=== PATIENT | female | born 2000 | race Caucasian/White ===

== ENCOUNTER 2022-12-28 15:15 | Outpatient (CLI) | payer OTHER, SELFPAY ==
[2022-12-28] VITALS (30 sets, daily range): BP systolic 122–142; BP diastolic 55–76; PULSE 91–140; TEMP 37.4; O2SAT 98–99; BMI 29.3
[2022-12-28 16:16] LABS: Hematocrit 36.2 % (37-47); Hemoglobin 12.5 g/dL (12.0-15.0); Mean Corp Hgb Conc 34.5 g/dL (32-36); Mean Corpuscular Volume 86.8 fL (81-99); Mean Platelet Vol. 12.4 fl (6.2-12.0); Platelet Count 176 K/mm3 (150-450); RBC Distribution Width CV 12.8 % (11.6-14.6); Red Blood Count 4.17 M/mm3 (4.2-5.4); White Blood Count 9.1 K/mm3 (4.4-11.0)
[2022-12-28 16:24] LABS: Protein, Urine (Random) 61.3 mg/dL (<11.9); Protein:Creat Ratio 372 mg/g CRE (0-200)
[2022-12-28 16:29] LABS: AST(SGOT) 22 U/L (15-37); Alanine Aminotransfer ALT/SGPT 11 U/L (13-56); Creatinine, Serum 0.75 mg/dL (0.55-1.02); EST Glomerular Filtration Rate 103 mL/min (>60); Est Glom Filt Rate - Afr Amer 124 mL/min (>60); Estimated Creatinine Clearance 105.87 ml/min; Uric Acid 6.4 mg/dL (2.6-6.0)
[2022-12-28] MEDS: Acetaminophen 500 MG Tablet 1000 MG PO (17:44)
[2022-12-28] MEDS: Lactated Ringers 1,000 ML 999 ML IV (17:45)
[2022-12-28] MEDS: Lactated Ringers 1,000 ML 125 ML IV (18:44)
--- NOTE | 2022-12-28 21:54 | OB.TRI.HP_ITS ---
HPI - General General Date of Admission: 12/28/22 Date of Service: 12/28/22 Chief Complaint: elevated blood pressure reading HPI Narrative KIN ALEJO, is a 22 F at 37w0d who presents from the office for rule out pre eclampsia. She has a BEE that she rates 1/10 that is improved with Tylenol. No vision changes or upper abd pain. No ctx, vb, lof. Good FM. She feels well and went in for a routine visit. No hyperreflexia on exam in the office. Her BP was normal in the office but elevated from her baseline and she had proteinuria. PFSH PFSH Home Medications cetirizine 5 mg tablet 5 mg PO DAILY PRN 12/28/22 [History Last Taken 12/28/22 09:00 5 mg] doxylamine succinate 25 mg tablet (Unisom (doxylamine)) 25 mg PO QHS PRN 12/28/22 [History Last Taken 12/27/22 21:00 25 mg] Allergy/AdvReac Type Severity Reaction Status Date / Time No Known Allergies Allergy Verified 12/28/22 15:55 NST FHR Rate Baby A Baseline: 130 Variability:: Moderate Accelerations:: 15 x 15 Decelerations:: None NST Reactive:: Yes FHR Category:: Category I Uterine Activity:: Irregular ctx's Assessment & Plan (1) 37 weeks gestation of : PLAN: Pt presents from the office for rule out pre eclampsia. Her BP in the office was normal but elevated from her baseline, and she had proteinuria. Therefore she was sent over for serial BP monitoring and labs. Upon presentation she had 2 initial mild range BP's that were not 4 hours apart. After 4+ hours of monitoring, serial BP's were normal with majority of her BP's being 120's/60- 70's. She did not have 2 elevated BP's 4 hours apart. Her mild BEE improved with Tylenol. Her labs were normal with a slightly elevated p/c ratio. However on presentation she was tachycardic with very concentrated urine, and she states she has not been staying hydrated today. IVF hydration given and her HR was then 90's and she felt well. Given that she did not meet criteria for gHTN or pre e, she was sent home to collect a 24 hour urine protein. She will turn it in tomorrow, and present to L&D tomorrow for a BP check as well. (2) Elevated blood pressure reading: (3) Proteinuria affecting :
[2022-12-29 21:31] LABS: 24HR. Urine Creatinine 1.14 g/24 HR (0.70-1.90)
[2022-12-29 21:33] LABS: 24 Hour Urine Protein 325.6 mg/24HR (<150 MG/24HR); 24HR. UA Prot. Total Volume 625 mL; Urine Protein (24 Hour) 52.1 mg/dL (<11.9)
== END 2022-12-28 20:46 | disposition home or self-care (01) ==
LOC: WPOUT 15:39 → WP 15:40
PROVIDERS: Referring Provider Obstetrics & Gynecology; Visit Provider Obstetrics & Gynecology
DX: O26.893 Other specified pregnancy related conditions, third trimester (principal); O12.13 Gestational proteinuria, third trimester; O99.891 Other specified diseases and conditions complicating pregnancy; R03.0 Elevated blood-pressure reading, without diagnosis of hypertension; Z3A.37 37 weeks gestation of pregnancy
CPT/HCPCS: 96360; 96361 ×2; 36415; 59025; 59050; 81050; 82565; 82570; 84156; 84450; 84460; 84550; 85027; 86850; 86900; 86901; 99221; J7120; G0378

== ENCOUNTER 2022-12-29 21:10 | Outpatient (CLI) | payer OTHER, SELFPAY ==
[2022-12-29] VITALS (7 sets, daily range): BP systolic 118–125; BP diastolic 73–84; PULSE 85–112; TEMP 37.4; O2SAT 98–100; BMI 29.5
[2022-12-29] MEDS: Acetaminophen 500 MG Tablet 1000 MG PO (22:25)
--- NOTE | 2022-12-30 01:19 | OB.TRI.NOTE ---
HPI - General General Date of Admission: 12/29/22 Date of Service: 12/29/22 Chief Complaint: BP check HPI Narrative KIN ALEJO, is a 22 F who presents to turn in 24 hour urine collection and for a BP check on L&D. She has a mild BEE that she states she would not even take medication for. No visual changes, malaise, upper abd pain. No vb, lof. Good FM. She offers no complaints. PFSH PFSH Home Medications cetirizine 5 mg tablet 5 mg PO DAILY PRN 12/28/22 [History Last Taken 12/28/22 09:00 5 mg] doxylamine succinate 25 mg tablet (Unisom (doxylamine)) 25 mg PO QHS PRN 12/28/22 [History Last Taken 12/27/22 21:00 25 mg] Allergy/AdvReac Type Severity Reaction Status Date / Time No Known Allergies Allergy Verified 12/29/22 21:36 NST FHR Rate Baby A Baseline: 130 Variability:: Moderate Accelerations:: 15 x 15 Decelerations:: None NST Reactive:: Yes FHR Category:: Category I Uterine Activity:: irregular ctx's Assessment & Plan (1) 37 weeks gestation of : PLAN: Pt presents to turn in 24 hour urine collection and for BP check. She was observed for an hour with serial BP's q 15 min - all BP's were normal. Her mild BEE resolved with Tylenol. At this time she does not meet criteria for gHTN or pre eclampsia. Message sent to office for her to have a formal ultrasound to check growth and fluid on Saturday with a visit for a BP check. (2) Elevated blood pressure reading: (3) Proteinuria affecting :
[2022-12-30 06:56] VITALS: PULSE 79; O2SAT 98
[2022-12-30 06:58] VITALS: BP 139/85; PULSE 84
== END 2022-12-29 23:40 | disposition home or self-care (01) ==
LOC: WPOUT 21:14 → WP 21:15
PROVIDERS: Visit Provider Obstetrics & Gynecology
DX: O26.899 Other specified pregnancy related conditions, unspecified trimester (principal); O12.10 Gestational proteinuria, unspecified trimester; O99.891 Other specified diseases and conditions complicating pregnancy; R03.0 Elevated blood-pressure reading, without diagnosis of hypertension
CPT/HCPCS: 59025; 59050; 99221; G0378

== ENCOUNTER 2022-12-30 19:00 | Inpatient (IN) | payer OTHER, SELFPAY ==
[2022-12-30 19:18] VITALS: BMI 29.4
[2022-12-30] MEDS: Lactated Ringers 1,000 ML 50 ML IV (19:30)
[2022-12-30 20:03] VITALS: TEMP 36.3
[2022-12-30 20:04] VITALS: PULSE 112; O2SAT 99
[2022-12-30 20:14] LABS: Absolute Neutrophil Count 7.4 X10^3/uL (2.0-7.7); Basophil# 0.03 X10^3/uL; Basophil% 0.3 % (0-1); Eosinophil# 0.04 X10^3/uL; Eosinophils% 0.4 % (0-5); Lymphocyte % 24.9 % (19-41); Mean Corp Hgb Conc 33.3 g/dL (32-36); Mean Corpuscular Hgb 29.6 pg (27.0-32.0); Mean Corpuscular Volume 88.7 fL (81-99); Mean Platelet Vol. 12.3 fl (6.2-12.0); Monocyte# 0.92 X10^3/uL; Monocyte% 8.2 % (0-10); NRBC Flagged by Analyzer 0 % (0-5); Neutrophil % 65.8 % (47-70); Platelet Count 176 K/mm3 (150-450); RBC Distribution Width CV 12.5 % (11.6-14.6); RBC Distribution Width SD 41.1 fl (35.1-43.9); Red Blood Count 4.06 M/mm3 (4.2-5.4); White Blood Count 11.2 K/mm3 (4.4-11.0)
[2022-12-30 20:17] VITALS: BP 130/74; PULSE 104
[2022-12-30] MEDS: 0.9% Normal Saline Single 100 ML IV.SOLN. INTRA-UTER (20:31)
[2022-12-30] MEDS: LACTATED RINGERS 500 ML 999 ML IV (20:35)
--- NOTE | 2022-12-30 20:50 | PCM.HP.OB ---
HPI - General General Date of Admission: 12/30/22 Date of Service: 12/30/22 Chief Complaint: pre eclampsia HPI Narrative KIN ALEJO, is a 22 F who presents for scheduled IOL. She is a at 37w2d with pre eclampsia without severe features. Mildly elevated BP's and proteinuria. She has no symptoms of pre e at this time other than worsened swelling today. Having some painful ctx's. No vb, lof. Good FM. PFSH PFSH Medical History (Updated 12/30/22 @ 20:[address] Kin Walker, DO) Pre-eclampsia Home Medications cetirizine 5 mg tablet 5 mg PO DAILY PRN 12/28/22 [History Last Taken 12/29/22 11:30] doxylamine succinate 25 mg tablet (Unisom (doxylamine)) 25 mg PO QHS PRN 12/28/22 [History Last Taken 12/27/22 22:00] Allergy/AdvReac Type Severity Reaction Status Date / Time No Known Allergies Allergy Verified 12/30/22 19:20 Social History Smoking Status: Never smoker History Elective abortions Hx Para 0 Spontaneous abortions Hx # Term Pregnancies Ectopic pregnancies Hx # Pregnancies Multiple births # of living children NST FHR Rate Baby A FHR Category:: Category I Uterine Activity:: ctx's q 1 min Vital Signs Vital Signs Vital Signs: 12/30/22 20:04 12/30/22 20:04 12/30/22 20:03 Temperature Temperature Source Temporal Pulse Rate 112 H Blood Pressure BP Systolic BP Diastolic Pulse Ox 99 12/30/22 20:03 12/30/22 20:17 12/30/22 20:17 Temperature 97.4 F L Temperature Source Pulse Rate 104 H Blood Pressure 130/74 H BP Systolic 130 BP Diastolic 74 Pulse Ox Weight Weight: 177 lb Body Mass Index (BMI) 29.4 Physical Exam Const alert and no apparent distress General Appearance: comfortable HEENT normocephalic Resp normal respiratory effort GI soft to palpation GI Narrative: Gravid Narrative: Cvx 0.5/60/-2, vertex Extremity Extremity Narrative: 2+ pitting edema bilaterally No hyper reflexia Labs Labs Labs: Blood Type A NEGATIVE Antibody Screen NEGATIVE Hct 36.0 % (37-47) L Hgb 12.0 g/dL (12.0-15.0) Assessment & Plan (1) 37 weeks gestation of : PLAN: IOL at 37 wks for pre eclampsia without severe features with mildly elevated BP's and proteinuria. Routine intrapartum care. Repeat pre e labs on admission. Epidural for pain control. GBS negative. Intracervical chaidez placed in usual fashion and filled with 40 cc saline. [place] with ctx's q 1 min so no Cytotec given at this time. Once chaidez is out, will start Pitocin per protocol. EFW expected to be < 4500 g and pelvis adequate. Anticipate vaginal delivery. (2) Pre-eclampsia: (3) Primiparous:
[2022-12-30 20:59] LABS: AST(SGOT) 22 U/L (15-37); Alanine Aminotransfer ALT/SGPT 12 U/L (13-56); Creatinine, Serum 0.76 mg/dL (0.55-1.02); EST Glomerular Filtration Rate 102 mL/min (>60); Est Glom Filt Rate - Afr Amer 123 mL/min (>60); Estimated Creatinine Clearance 104.48 ml/min
[2022-12-30 22:02] VITALS: BP 132/76; PULSE 99
[2022-12-31] VITALS (52 sets, daily range): BP systolic 100–154; BP diastolic 51–82; PULSE 78–130; TEMP 36.3–37.8; O2SAT 95–100
--- NOTE | 2022-12-31 | PLAC_PTH ---
PATIENT: ROSALINA ALEJO LOC: [facility] U#:[id number] AGE/SX: 22/F ROOM: WP006 RE12/30/[address]: Dr. Rosalina Walker DO : 2000 BED: 1 DIS: 01/02/2023 SPEC #: [id number] RECD: 12/31/22 04:20 STATUS: FATUMA REJuarez #: [id number] BRIGIDO: 12/31/22 00:[address]: Rosalina Walker DEPT: SURGICAL PATHOLOGY RECD BY: Ross Kennedy ENTERED: 01/01/23 09:04 SP TYPE: PLACENTA OTHR DR: No Primary Care Phys Tissues: Placenta, NOS Procedures: Surgery Specimen Level V HEADER - OPERATION: Vaginal delivery PRE-OP DIAGNOSIS: Suspected triple I TISSUE SUBMITTED: Placenta MICROSCOPIC DIAGNOSIS Placenta: Placental disc - third trimester placenta (503 gm). - Focal acute vasculitis of subamniotic blood vessels. Membranes ? acute chorioamnionitis. Umbilical cord - three blood vessels and minimal acute funisitis. GUERO:sonal 01/03/2023 MICROSCOPIC DESCRIPTION Slides are reviewed. GROSS DESCRIPTION SPECIMEN: PLACENTA / CLINICAL INFORMATION: A. Weight: 3.31 kg B. Gestational Age: 37 weeks C. Sex: Male PLACENTAL WEIGHT (POST FIXATION): 503 gm PLACENTAL DIMENSIONS: 16 x 15 x 3.5 cm PLACENTAL SHAPE: Usual ovoid PLACENTAL WEIGHT FOR GESTATIONAL AGE: Within 10-99th percentile MEMBRANES - Present A. Insertion: Central B. Site of rupture from edge: 4 cm from edge of placental disc C. Color of membrane: Esteban-bentley D. Abnormalities: None UMBILICAL CORD - Present A. Color: Esteban-bentley B. Insertion: Marginal C. Length: 41 cm D. Diameter: 1.2 cm E. Number of vessels: Three F. Abnormalities: None PLACENTAL DISC - Present A. Color of surface: Esteban-bentley B. surface abnormalities: None C. Maternal cotyledons: Intact with minimal tears D. Attached retro placental clot: No clot E. Cut surface: Dark red and spongy F. Lesions: None G. Separate clot: Absent SECTIONS SUBMITTED: 1. Membrane roll 2. Cord, maternal end 3. Cord, end 4. Placental disc, and maternal surfaces 5. Placental disc, and maternal surfaces 6. Placental disc, and maternal surfaces SJ:sonal 01/02/2023 TC:2 CPT: 82421
[2022-12-31] MEDS: LACTATED RINGERS 500 ML 999 ML IV ×3 (00:31→21:15)
[2022-12-31] MEDS: fentaNYL-bupivacaine (epidural) 100 ML BAG EPIDURAL ×5 (01:06→21:10)
[2022-12-31] MEDS: Lactated Ringers 1,000 ML 200 ML IV ×4 (04:00→19:27)
[2022-12-31] MEDS: Oxytocin 15 Units/NS 250ml 15 UNITS/250 ML IV.SOLN 2 UNITS IV (05:52)
[2022-12-31] MEDS: Ondansetron 4 MG/2 ML Vial IV ×3 (06:44→21:36)
--- NOTE | 2022-12-31 08:17 | PCM.PN.OB ---
Subjective Subjective Resting with epidural and comfortable Objective Data Objective Data Vital Signs: Vital Signs Temp Pulse BP Pulse Ox 97.9 F 103 H 126/70 H 98 12/31/22 07:14 12/31/22 07:16 12/31/22 07:14 12/31/22 07:16 Weight: 177 lb Body Mass Index (BMI) 29.4 Intake & Output: Intake and Output for Last 24 Hours 12/29/22 12/30/22 12/31/22 23:59 23:59 23:59 Intake Total 500 / 500 1500.00 / 1500.00 Output Total 100 / 100 400 / 400 Balance 400 / 400 1100.00 / 1100.00 Lab / Micro Data Result Diagrams: 12/30/22 20:00 12/30/22 20:09 Labs: Laboratory Results - last 24 hr 12/30/22 20:00: WBC 11.2 H, RBC 4.06 L, Hgb 12.0, Hct 36.0 L, MCV 88.7, MCH 29.6, MCHC 33.3, RDW Std Deviation 41.1, RDW Coeff of Neftaly 12.5, Plt Count 176, MPV 12.3 H, Immature Gran % (Auto) 0.400, Neut % (Auto) 65.8, Lymph % (Auto) 24.9, [place] % (Auto) 8.2, Eos % (Auto) 0.4, Baso % (Auto) 0.3, Absolute Neuts (auto) 7.4, Absolute Lymphs (auto) 2.80, Nucleated RBC % 0 12/30/22 20:00: Blood Type A NEGATIVE, Antibody Screen POSITIVE H, Antibody Identification ANTI-D 12/30/22 20:09: Creatinine 0.76, Estim Creat Clear Calc 104.48, Est GFR (MDRD) Af Amer 123, Est GFR (MDRD) Non-Af 102, Uric Acid 7.0 H, AST 22, ALT 12 L ROS Constitutional Constitutional: Reports systems reviewed and no addt'l complaints, except as documented; Denies headache(s) Eyes Eyes: Denies acute decrease in peripheral vision, blurry vision or change in vision ENT HEENT: Reports systems reviewed and no addt'l complaints, except as documented Cardiovascular Cardiovascular: Denies chest pain or dizziness Respiratory/Chest Respiratory/Chest: Denies cough, dyspnea, dyspnea on exertion, shortness of breath at rest or shortness of breath with exertion Gastrointestinal Gastrointestinal: Denies abdominal pain, diarrhea, nausea or vomiting Genitourinary Genitourinary: Denies abdominal discomfort Musculoskeletal Musculoskeletal: Denies limited range of motion Integumentary Integumentary: Reports systems reviewed and no addt'l complaints, except as documented Neurologic Neurologic: Reports systems reviewed and no addt'l complaints, except as documented Psychiatric Psychiatric: Reports systems reviewed and no addt'l complaints, except as documented Endocrine Endocrinology: Reports systems reviewed and no addt'l complaints, except as documented Hematologic/Lymphatic Hematologic/Lymphatic: Reports systems reviewed and no addt'l complaints, except as documented Allergic/Immunologic Allergic/Immunologic: Reports systems reviewed and no addt'l complaints, except as documented Physical Exam Const alert and oriented x3 General Appearance: cooperative Orientation / Consciousness: awake, oriented to person, oriented to place and oriented to time Exam Limitations: no limitations HEENT normocephalic Head and Scalp: normal to inspection, normocephalic and atraumatic Face and Sinus: normal facial exam Eyes General Eye: normal appearance of both eyes Neck full ROM Chest Chest: symmetrical chest wall rise Resp normal respiratory effort and normal air movement Auscultation: clear to auscultation bilaterally Cardio regular rate, regular rhythm, S1 normal heart sound, S2 normal heart sound, no murmurs, no rub, no gallops and no clicks GI normal to inspection, nondistended, normoactive bowel sounds and non-tender GI Narrative: Fundus firm 2 below U. dressing dry and intact appearance of the vagina normal Bladder / Kidney Exam: no CVA tenderness Back/Spine normal ROM Extremity normal to inspection and full ROM Skin no rashes or lesions noted Neuro oriented x3, CN's II-XII intact bilaterally and moves all extremities Sensorium / Orientation: awake, alert and oriented to person Motor Exam: clonus absent Deep Tendon Reflexes: Rt Patellar (L4): 2+ and Lt Patellar (L4): 2+ NST FHR Rate Baby A Baseline: 125 Variability:: Moderate Accelerations:: 15 x 15 Decelerations:: None FHR Category:: Category I Uterine Activity:: Every 2-4, strong Assessment & Plan (1) Primiparous: (2) Pre-eclampsia: (3) 37 weeks gestation of : (4) Elevated blood pressure reading: (5) Proteinuria affecting : PLAN: Plan 1) AROM clear fluid 2) Continue with active management, pitocin per protocol 3) Continuous EFM 4) Epidural for pain management 5) notified
[2022-12-31] MEDS: Mag Hydrox/Al Hydrox/Simeth 30 ML UDC PO (11:04)
--- NOTE | 2022-12-31 17:50 | PCM.PN.OB ---
Subjective Subjective Resting in bed. Out of hands and knees position. Comfortable with epidural. Objective Data Objective Data Vital Signs: Vital Signs Temp Pulse BP Pulse Ox 98.9 F 86 130/76 H 100 12/31/22 17:28 12/31/22 17:28 12/31/22 17:28 12/31/22 17:28 Weight: 177 lb Body Mass Index (BMI) 29.4 Intake & Output: Intake and Output for Last 24 Hours 12/29/22 12/30/22 12/31/22 23:59 23:59 23:59 Intake Total 500 / 500 3550.16 / 3550.16 Output Total 100 / 100 1300 / 1300 Balance 400 / 400 2250.16 / 2250.16 Lab / Micro Data Result Diagrams: 12/30/22 20:00 12/30/22 20:09 Labs: Laboratory Results - last 24 hr 12/30/22 20:00: WBC 11.2 H, RBC 4.06 L, Hgb 12.0, Hct 36.0 L, MCV 88.7, MCH 29.6, MCHC 33.3, RDW Std Deviation 41.1, RDW Coeff of Neftaly 12.5, Plt Count 176, MPV 12.3 H, Immature Gran % (Auto) 0.400, Neut % (Auto) 65.8, Lymph % (Auto) 24.9, [place] % (Auto) 8.2, Eos % (Auto) 0.4, Baso % (Auto) 0.3, Absolute Neuts (auto) 7.4, Absolute Lymphs (auto) 2.80, Nucleated RBC % 0 12/30/22 20:00: Blood Type A NEGATIVE, Antibody Screen POSITIVE H, Antibody Identification ANTI-D 12/30/22 20:09: Creatinine 0.76, Estim Creat Clear Calc 104.48, Est GFR (MDRD) Af Amer 123, Est GFR (MDRD) Non-Af 102, Uric Acid 7.0 H, AST 22, ALT 12 L Physical Exam Manual OB Exam: presentation cephalic, dilated 5 cm, effaced 90% and station -1 NST FHR Rate Baby A Baseline: 150 Variability:: Moderate Accelerations:: 15 x 15 Decelerations:: None FHR Category:: Category I Uterine Activity:: every 2 minutes, mvu 250-300 Assessment & Plan (1) Primiparous: (2) Pre-eclampsia: (3) 37 weeks gestation of : (4) Elevated blood pressure reading: (5) Proteinuria affecting : PLAN: Plan 1) Continue with pitocin per protocol 2) Positional changes 3) Epidural for pain management 4) notified of patient status
[2022-12-31] MEDS: 0.9% Saline Lock 10 ML Syringe IV (20:19)
[2022-12-31] MEDS: DiphenhydrAMINE 50 MG/ML Syringe IV (21:11)
[2022-12-31] MEDS: Calcium Carbonate 500 MG Tablet 1000 MG PO (22:15)
[2023-01-01] VITALS (44 sets, daily range): BP systolic 103–142; BP diastolic 51–77; PULSE 90–144; RESP 14–17; TEMP 36.4–38.2; O2SAT 92–100
[2023-01-01] MEDS: fentaNYL-bupivacaine (epidural) 100 ML BAG EPIDURAL (00:38)
[2023-01-01] MEDS: Lactated Ringers 1,000 ML 200 ML IV (00:39)
[2023-01-01] MEDS: Oxytocin 10 UNITS/ML Vial IM (03:13)
--- NOTE | 2023-01-01 03:40 | EX.PCM.OBRPT ---
Assessment & Plan (1) Pre-eclampsia: (2) Vaginal delivery: (3) Lactating mother: (4) First degree perineal laceration: Maternal Data Information Final LUPE: 01/18/23 Vaginal Delivery Maternal Presentation Maternal Presentation: Medically Indicated Induction Maternal Presentation: Preeclampsia without severe features Type of Induction: Pitocin and Hernandes Bulb Medical Reason for Induction: Preeclampsia, eclampsia Operative Information Date of Procedure: 01/01/23 Pre-Operative Diagnosis: Induction of labor for preeclampsia without severe features Post-Operative Diagnosis: , first degree perineal laceration Surgery / Procedure Performed: Spontaneous Vaginal Delivery Type of Anesthesia: Epidural Estimated Blood Loss: 300 ml Time of Delivery: 03:12 Findings Description of Procedure: Progressed to complete with urge to push. Epidural for pain management. Manufacturing Scheduler called to delivery for tachycardia. of viable male infant over first degree perineal laceration. APGARS 8,9 respectively. head delivered with body immediately forthcoming. Placed on maternal abdomen, strong cry. Mouth and nares suctioned for secretions. Pitocin 10 units IM for active 3rd stage management. Cord doubly clamped and cut by FOB after pulsations ceased, delayed cord clamping. Placenta delivered intact via stef, 3 vessel cord intact. Cord blood obtained. Perineum inspected and revealed 1st degree perineal laceration. Repaired with 3.0 vicryl rapide under epidural analgesia. Bilateral periurethral lacerations each reapproximated with figure of 8 stitch. Fundus firm and hemostasis achieved. EBL 300ml . Mom and baby stable, planning to breastfeed. Family bonding well. Dr. Felix notified of delivery. Presentation: JEMIMA Amniotic Membrane Rupture Type: Artificial Amniotic Fluid Description: Clear Placental Delivery Description: Spontaneous Placenta Disposition: Sent to Pathology Cord Vessel Description: 3 Vessels Cord Entanglement: None Infant A Gender: Male (1 minute): 8 (5 minute): 9 Delayed Cord Clamping: Yes Post Vaginal Delivery Medications Given After Delivery: - (IM pitocin ) Episiotomy Description: None Laceration: 1st degree Complication Complications: None ( tachycardia. One isolated maternal fever, repeat temprature 30 minutes later normal.)
[2023-01-01 04:52] LABS: Pathology Specimen OB SEE PATHOLOGY REPORT
[2023-01-01] MEDS: Benzocaine/Lanolin/Aloe Vera 1 SPRAY EACH TOPICAL (06:48)
[2023-01-01] MEDS: Acetaminophen 500 MG Tablet 1000 MG PO (10:15)
[2023-01-02 00:15] VITALS: BP 116/62; PULSE 106; RESP 16; TEMP 36.3
[2023-01-02 05:00] VITALS: BP 123/66; PULSE 105; RESP 16
[2023-01-02 05:29] LABS: Hematocrit 36.2 % (37-47); Mean Corp Hgb Conc 33.1 g/dL (32-36); Mean Corpuscular Hgb 29.4 pg (27.0-32.0); Mean Corpuscular Volume 88.7 fL (81-99); Mean Platelet Vol. 11.7 fl (6.2-12.0); Platelet Count 175 K/mm3 (150-450); RBC Distribution Width SD 41.8 fl (35.1-43.9); Red Blood Count 4.08 M/mm3 (4.2-5.4); White Blood Count 16.7 K/mm3 (4.4-11.0)
[2023-01-02 08:53] VITALS: BP 119/75; PULSE 70; RESP 14; TEMP 36.2; O2SAT 97
--- NOTE | 2023-01-02 08:53 | PCM.PN.OB ---
Subjective Subjective Minimal pain, average lochia. Tolerating regular diet. Passing flatus but no bowel movement. Urinating without difficulty. Denies headache, visual changes chest pain or shortness of breath. Objective Data Objective Data Vital Signs: Vital Signs Temp Pulse Resp BP Pulse Ox O2 Del Method 97.4 F L 105 H 16 123/66 H 97 Room Air 01/02/23 00:15 01/02/23 05:00 01/02/23 05:00 01/02/23 05:00 01/01/23 11:10 01/01/23 14:33 Oxygen Delivery Method Room Air Weight: 80.286 kg Body Mass Index (BMI) 29.4 Intake & Output: Intake and Output for Last 24 Hours 12/31/22 01/01/23 01/02/23 23:59 23:59 23:59 Intake Total 5374.96 / 5374.96 1877.23 / 1877.23 Output Total 1800 / 1800 2250 / 2250 Balance 3574.96 / 3574.96 -372.77 / -372.77 Lab / Micro Data Result Diagrams: 01/02/23 05:20 12/30/22 20:09 Labs: Laboratory Results - last 24 hr 01/02/23 05:20: WBC 16.7 H, RBC 4.08 L, Hgb 12.0, Hct 36.2 L, MCV 88.7, MCH 29.4, MCHC 33.1, RDW Std Deviation 41.8, RDW Coeff of Neftaly 13.0, Plt Count 175, MPV 11.7 Physical Exam Narrative 2+ DTRs, no clonus, 2+ edema Const alert and no apparent distress Narrative: Fundus firm, below umbilicus. Assessment & Plan (1) First degree perineal laceration: PLAN: day #1 status post vaginal delivery. is breast-feeding and doing well. Patient is doing well and stable. Blood pressures have been essentially normal since admission. Patient desires discharge home. Discussed with her I recommended staying until tomorrow to monitor blood pressures. However, patient was comfortable with discharge home and close follow-up. Return if symptoms of severe preeclampsia. Otherwise follow-up in the office in 2 days to recheck blood pressure. (2) Vaginal delivery:
--- NOTE | 2023-01-02 08:54 | PCM.DC.SUM ---
Providers Date of Admission: 12/30/22 Primary Care Physician: Tracy Primary Care Phys Reason For Visit: VAG DELIVERY Diagnosis Discharge Diagnosis (1) First degree perineal laceration: Status: Acute Code(s): O70.0 - First degree perineal laceration during delivery Plan: day #1 status post vaginal delivery. is breast-feeding and doing well. Patient is doing well and stable. Blood pressures have been essentially normal since admission. Patient desires discharge home. Discussed with her I recommended staying until tomorrow to monitor blood pressures. However, patient was comfortable with discharge home and close follow-up. Return if symptoms of severe preeclampsia. Otherwise follow-up in the office in 2 days to recheck blood pressure. (2) Vaginal delivery: Status: Acute Code(s): O80 - Encounter for full-term uncomplicated delivery Medications at Discharge Home Medications cetirizine 5 mg tablet 5 mg PO DAILY PRN 12/28/22 Hospital Course Operations None Procedures None Summary of Care Provided Hospital Course: Patient was admitted at 37+ weeks for induction labor due to mild preeclampsia with some mildly elevated intermittent blood pressures and proteinuria. Patient underwent Hernandes with artificial rupture membranes and Pitocin induction. She had a spontaneous vaginal delivery on 01/01/2023 and desired discharge home on 01/02/2023 Weight / BMI Weight Weight: 80.286 kg Body Mass Index (BMI) 29.4 ABG / Lab / Microbiology Data Result Diagrams: 01/02/23 05:20 12/30/22 20:09 Laboratory: Laboratory Results - last 24 hr 01/02/23 05:20: WBC 16.7 H, RBC 4.08 L, Hgb 12.0, Hct 36.2 L, MCV 88.7, MCH 29.4, MCHC 33.1, RDW Std Deviation 41.8, RDW Coeff of Neftaly 13.0, Plt Count 175, MPV 11.7 Meaningful Use Info Meaningful Use Diagnoses (Choose all that apply): None applicable Discharge Plan Admission Admit Date/Time: 12/30/22 19:00 Primary Reason for Your Visit: Vaginal delivery Attending Provider: Rosalina Walker Primary Care Provider: Care Physician,No Primary Instructions Additional Instructions / Restrictions: Follow-up in our office on 01/04/2023 for blood pressure check. Discharge Orders/Prescriptions Prescriptions: Continued cetirizine 5 mg Tablet 5 mg PO DAILY PRN (Reason: ) Discontinued Unisom (doxylamine) 25 mg Tablet 25 mg PO QHS PRN (Reason: ) Referrals / Follow Up: Care Physician,No Primary [Primary Care Provider] - Disposition Disposition (needs filled in before D/C Order can be placed): Home, Self Care
[2023-01-02 13:45] VITALS: BP 123/78; PULSE 73; RESP 14; TEMP 36.2; O2SAT 97
== END 2023-01-02 14:25 | disposition home or self-care (01) | DRG 807 ==
PROVIDERS: Advanced Practice Midwife; Admitting Provider Obstetrics & Gynecology; Visit Provider Obstetrics & Gynecology
DX: O14.04 Mild to moderate pre-eclampsia, complicating childbirth (principal); Z37.0 Single live birth; O70.0 First degree perineal laceration during delivery; O71.82 Other specified trauma to perineum and vulva; Z3A.37 37 weeks gestation of pregnancy
CPT/HCPCS: 59025; 59050; 82565; 84450; 84460; 84550; 85025; 85027; 85461; 86850; 86870; 86900; 86901; 88307; 99221; J7120; A4216; G0378; J2405; J2790

== ENCOUNTER 2025-04-23 14:13 | Outpatient (CLI) | payer OTHER, SELFPAY ==
[2025-04-23 14:29] VITALS: BP 128/77; PULSE 111; TEMP 37.2
[2025-04-23 14:30] VITALS: PULSE 100; RESP 16; O2SAT 98
[2025-04-23 15:08] LABS: ROM Internal Control Test YES-OK TO RESULT pt. (Internal QC); ROM Patient Test Negative (Negative); Record Kit Lot#, ROM+ K3358
[2025-04-23 15:16] VITALS: BMI 26.6
[2025-04-23 15:24] VITALS: BP 127/78; PULSE 93
--- NOTE | 2025-04-24 07:06 | OB.TRI.NOTE ---
HPI - General General Date of Service: 04/23/25 HPI Narrative KIN ALEJO, is a 24 F @ 37.2 weeks who presents with concerns for SROM PFSH PFS Medical History (Updated 04/24/25 @ 07:[address] Cinthya White MD) First degree perineal laceration Vaginal delivery Pre-eclampsia Pre-eclampsia Home Medications ?Medication ?Instructions ?Recorded ?Last Taken ?Type cetirizine 5 mg tablet 5 mg PO DAILY PRN 12/28/22 12/29/22 11:30 History Allergy/AdvReac Type Severity Reaction Status Date / Time No Known Allergies Allergy Verified 12/30/22 19:20 Social History Smoking Status: Never smoker History Elective abortions Hx Para 0 Spontaneous abortions Hx # Term Pregnancies Ectopic pregnancies Hx # Pregnancies Multiple births # of living children NST FHR Rate Baby A Baseline: 130-140 Variability:: Moderate Accelerations:: 15 x 15 Decelerations:: None NST Reactive:: Yes FHR Category:: Category I Uterine Activity:: irregular and uterine irritability Assessment & Plan (1) 37 weeks gestation of : (2) False labor: PLAN: Plan @ 37.2 weeks- false labor, Membranes intact 1) NST - well being established 2) DC home
== END 2025-04-23 17:23 | disposition home or self-care (01) ==
LOC: WPOUT 14:14 → WP 14:14
PROVIDERS: Referring Provider Obstetrics & Gynecology; Visit Provider Obstetrics & Gynecology
DX: O47.1 False labor at or after 37 completed weeks of gestation (principal); Z3A.37 37 weeks gestation of pregnancy
CPT/HCPCS: 59025; 59050; 84112; 99221; G0378

== ENCOUNTER 2025-05-11 03:32 | Inpatient (IN) | payer OTHER, SELFPAY ==
[2025-05-11] VITALS (45 sets, daily range): BP systolic 117–150; BP diastolic 59–88; PULSE 60–122; RESP 15–17; TEMP 36.5–37.4; O2SAT 89–100; BMI 28.4
--- OUTSIDE RECORDS SUMMARY | 2025-05-11 03:07 | XMS RPT_ITS | CCD ---
Author Organization [facility]iniSym[facility] Care Team Providers Care Test Lead Name Role Phone Unavailable Primary Care Provider Unavailabl e Care Physician, No Primary Primary Care Provider Unavailable Cindy SIDDIQUI, Dr. Mendes Attending Provid er Dr. Cinthya White MD Referring Provid er Unavailable Primary Care Provider Unavailabl e Cinthya White Referring Unavail able Cinthya White Attending Unavail able Care Physician, No Primary Primary Care Unava ilable PALMER HUBBARD Attending Unavailable HAURY, ONUR Referring Unavailable HAURY, ONUR Referring Unavailable PALMER HUBBARD Referring Unavailable HAURY, ONUR Referring Unavailable TORSTEN IBARRAICA Attending Unavailable STEVIE, KARMON Referring Unavailable EFRA ROY Attending Unavailable PALMER HUBBARD Attending Unavailable HAURY, ONUR Attending Unavailable HAURY, ONUR Attending Unavailable IBARRA, NEDA Referring Unavailable HAURY, ONUR Attending Unavailable IBARRA, NEDA Referring Unavailable HAURY, ONUR Attending Unavailable HAURY, ONUR Referring Unavailable IBARRA, NEDA Attending Unavailable HAURY, ONUR Referring Unavailable KIN WALKER Attending Unavailable HAURY, ONUR Referring Unavailable CINTHYA MORTON Attending Unavail able EFRA ROY Attending Unavailable PALMER HUBBARD Attending Unavailable CINTHYA MORTON Attending Unavail able Medications Current Medications Medication Drug Class(es) Dates Sig (Normalized) Sig (Original) aspirin 81 mg delayed release oral tablet (19 sources) Platelet Aggregation Inhibitor, Nonsteroidal Anti-inflammatory Drug Start: 09-09-2024 take 1 tablet by mouth once daily aspirin, enteric coated (ECOTRIN LOW STRENGTH) 81 mg EC tablet Indications: Less than 8 weeks gestation of (HCC) , with uncertain dates in first trimester (HCC) , Supervision of high risk in first trimester ([facility]) Take 1 tablet by mouth once daily. 90 tablet 3 09/09/2024 Active cetirizine hydrochloride 5 mg oral tablet (4 sources) Histamine-1 Receptor Antagonist Start: 12-28-2022 take 1 tablet by mouth once daily as needed Cetirizine 5 mg Tablet Active 5 mg PO DAILY as needed for December 28, 2022 1:00am prental multivitamin 27 mg iron- 800 mcg tablet (20 sources) take 1 tablet by mouth once daily prental multivitamin 27 mg iron- 800 mcg tablet Take 1 tablet by mouth once daily. Active take 1 tablet by mouth once aleksandar y prental multivitamin 27 mg iron- 800 mcg tablet Take 1 tablet by mouth once daily. 0 Active Comment on above: Take 1 tablet by elsy th once daily. Completed/Discontinued Medications Medication Drug Class(es) Dates Sig (Normalized) Sig (Original) doxylamine succinate 25 mg oral tablet (4 sources) Start: 12-28-2022 End: 01-02-2023 take 1 tablet by mouth at bedtime as needed Doxylamine Succinate (Unisom (Doxylamine)) 25 mg Tablet Discontinued 25 mg PO AT BEDTIME as needed for December 28, 2022 1:00am January 02, 2023 9:56am ondansetron 4 mg oral tablet (12 sources) Serotonin-3 Receptor Antagonist Start: 09-18-2024 End: 04-22-2025 take 1 tablet by mouth every eight hours as needed ondansetron (ZOFRAN) 4 mg tablet Take 1 tablet by mouth every 8 hours as needed for nausea/vomiting. 30 tablet 1 09/18/2024 04/22/2025 Discontinued sertraline 50 mg oral tablet (4 sources) Serotonin Reuptake Inhibitor Start: 02-19-2025 End: 04-22-2025 take 1 tablet by mouth once daily, then take 1 tablet by mouth once daily, then take 1 tablet by mouth once daily sertraline (ZOLOFT) 50 mg tablet Take 1 tablet by mouth once daily. Start at 1/2 tablet by mouth once daily for one week. Then increase to full tablet once daily. 30 tablet 02/19/2025 04/22/2025 Discontinued vitamin b6 50 mg oral tablet (13 sources) Start: 09-18-2024 End: 04-22-2025 take 1 tablet by mouth twice daily pyridoxine, vitamin B6, (VITAMIN B-6) 50 mg tablet Take 1 tablet by mouth two times a day. 09/18/2024 04/22/2025 Discontinued Problems Active Problems Problem Classification Problem Date Documented Da te Episodic/Chronic Early or threatened labor (1 source) False labor at or after 37 completed weeks of gestation; Translations: [False labor at or after 37 completed weeks of gestation] Onset: 04-29-2025 Episodic Hypertension complicating ; childbirth and the puerperium (3 sources) Pre-eclampsia; Translations: [Unspecified pre-eclampsia, unspecified trimester] 12-30-2022 Episodic Mood disorders (1 source) Mood disorders; Translations: [Depression affecting in third trimester, antepartum (HCC)] Onset: 02-19-2025 OB-related trauma to perineum and vulva (3 sources) First degree perineal laceration; Translations: [First degree perineal laceration during delivery] 01-01-2023 Episodic Other circulatory disease (2 sources) Elevated blood-pressure reading without diagnosis of hypertension; Translations: [Elevated blood-pressure reading, without diagnosis of hypertension] Episodic Other circulatory disease (3 sources) Elevated blood pressure; Translations: [Elevated blood-pressure reading, without diagnosis of hypertension] 12-28-2022 Episodic Other circulatory disease (5 sources) Elevated blood-pressure reading, without diagnosis of hypertension; Translations: [Elevated blood pressure reading without diagnosis of hypertension] 12-28-2022 Episodic Other complications of (1 source) Gestational proteinuria; Translations: [Gestational proteinuria, third trimester] Episodic Other complications of (3 sources) Proteinuria; Translations: [Gestational proteinuria, unspecified trimester] 12-28-2022 Episodic Other complications of (5 sources) Gestational proteinuria, unspecified trimester; Translations: [Unspecified renal disease in , without mention of hypertension, unspecified as to episode of care or not applicable] 12-28-2022 Episodic Other complications of (20 sources) High risk ; Translations: [Supervision of high risk , unspecified, first trimester] Onset: 09-09-2024 09-09-2024 Episodic Other complications of (12 sources) Depressive disorder; Translations: [Other mental disorders complicating , third trimester] Onset: 02-19-2025 02-19-2025 Episodic Other complications of (1 source) Supervision of high risk , unspecified, third trimester; Translations: [Supervision of high risk in third trimester ([facility])] Onset: 04-27-2025 Episodic Other complications of (1 source) Other mental disorders complicating , third trimester; Translations: [Depression affecting in third trimester, antepartum ([facility])] Onset: 02-19-2025 Episodic Other complications of (2 sources) Other specified related conditions, unspecified trimester; Translations: [Rh negative state in antepartum period ([facility])] Onset: 09-09-2024 Episodic Other screening for suspected conditions (not mental disorders or infectious disease) (9 sources) Patient encounter status; Translations: [Encounter for other specified screening] Onset: 02-19-2025 Episodic Residual codes; unclassified (1 source) Gestation period, 17 weeks; Translations: [17 weeks gestation of ] Episodic Residual codes; unclassified (4 sources) Gestation period, 20 weeks; Translations: [20 weeks gestation of ] Episodic Residual codes; unclassified (3 sources) Gestation period, 24 weeks; Translations: [24 weeks gestation of ] Episodic Residual codes; unclassified (2 sources) Gestation period, 28 weeks; Translations: [28 weeks gestation of ] Episodic Residual codes; unclassified (2 sources) Gestation period, 30 weeks; Translations: [30 weeks gestation of ] Episodic Residual codes; unclassified (1 source) Gestation period, 32 weeks; Translations: [32 weeks gestation of ] Episodic Residual codes; unclassified (1 source) Gestation period, 36 weeks; Translations: [36 weeks gestation of ] Episodic Residual codes; unclassified (7 sources) Gestation period, 37 weeks; Translations: [37 weeks gestation of ] Episodic Residual codes; unclassified (6 sources) 37 weeks gestation of ; Translations: [ state, incidental] Onset: 04-22-2025 12-28-2022 Episodic Residual codes; unclassified (2 sources) First trimester ; Translations: [Less than 8 weeks gestation of ] 09-09-2024 Episodic Residual codes; unclassified (2 sources) Gestation period, 12 weeks; Translations: [12 weeks gestation of ] 10-30-2024 Episodic Residual codes; unclassified (1 source) Gestation period, 16 weeks; Translations: [16 weeks gestation of ] 11-27-2024 Episodic Residual codes; unclassified (1 source) Gestation period, 34 weeks; Translations: [34 weeks gestation of ] 04-02-2025 Episodic Residual codes; unclassified (1 source) Gestation period, 38 weeks; Translations: [38 weeks gestation of ] 05-04-2025 Episodic Residual codes; unclassified (1 source) 38 weeks gestation of ; Translations: [38 weeks gestation of (HCC)] Onset: 05-04-2025 Episodic Residual codes; unclassified (1 source) 36 weeks gestation of ; Translations: [36 weeks gestation of (HCC)] Onset: 04-16-2025 Episodic Residual codes; unclassified (1 source) 34 weeks gestation of ; Translations: [34 weeks gestation of (HCC)] Onset: 04-02-2025 Episodic Residual codes; unclassified (1 source) 32 weeks gestation of ; Translations: [32 weeks gestation of (HCC)] Onset: 03-19-2025 Episodic Residual codes; unclassified (2 sources) 24 weeks gestation of ; Translations: [24 weeks gestation of (HCC)] Onset: 01-22-2025 Episodic Residual codes; unclassified (2 sources) Unspecified blood type, Rh negative; Translations: [Rh negative state in antepartum period ([facility])] Onset: 09-09-2024 Episodic Unclassified (19 sources) [facility] Education - COMMON Onset: 09-09-2024 09-09-2024 Unclassified (19 sources) Education - [place] Onset: 09-09-2024 09-09-2024 Past or Other Problems Problem Classification Problem Date Documented Date Episodic/Chronic Immunizations and screening for infectious disease (2 sources) Vaccination needed; Translations: [Encounter for immunization] Onset: 09-09-2024 Episodic Other complications of (20 sources) RhD negative; Translations: [Other specified related conditions, unspecified trimester] Onset: 09-09-2024 09-09-2024 Episodic Other complications of (20 sources) Caffeine user; Translations: [Caffeine use during ] Onset: 09-09-2024 09-09-2024 Episodic Other complications of (2 sources) Supervision of high risk , unspecified, second trimester; Translations: [Supervision of high risk in second trimester (HCC)] Onset: 12-25-2024 Episodic Other complications of (1 source) Supervision of high risk , unspecified, first trimester; Translations: [Supervision of high risk in first trimester] Onset: 09-09-2024 Episodic Other and delivery including normal (20 sources) Second trimester ; Translations: [Encounter for supervision of normal , unspecified, second trimester] Onset: 08-08-2022 Resolved: 09-18-2024 Episodic Residual codes; unclassified (20 sources) History of pre-eclampsia; Translations: [Personal history of other complications of , childbirth and the puerperium] Onset: 09-09-2024 Episodic Residual codes; unclassified (1 source) 20 weeks gestation of ; Translations: [20 weeks gestation of ] Onset: 12-25-2024 Episodic Residual codes; unclassified (1 source) 12 weeks gestation of ; Translations: [12 weeks gestation of ] Onset: 12-25-2024 Episodic Residual codes; unclassified (1 source) Less than 8 weeks gestation of ; Translations: [Less than 8 weeks gestation of ] Onset: 09-18-2024 Episodic Residual codes; unclassified (1 source) Personal history of other complications of , childbirth and the puerperium; Translations: [History of pre-eclampsia] Onset: 09-09-2024 Episodic Residual codes; unclassified (1 source) 10 weeks gestation of ; Translations: [10 weeks gestation of ] Onset: 09-09-2024 Episodic Results Test Name Value Interpretation Reference Range Facil ity URINE OB DIP B/Oon Glucose Ql (U) Negative Neg mg/dL [facility] Interpretation and review of laboratory results Normal [facility] Protein.monoclonal (U) [Mass/Vol] Negative Neg mg/dL [facility] OB Triage Physician Noteon 0 04-24-2025 OB Triage Physician Note [facility] Medical Records Department [address] [place] [address] OB Triage Physician Note 04/24/25 0706 MR#: [id number] Acct: [id number] Name: KIN ALEJO Rep #: [id number] : 2000 24 From: Cinthya White MD PCP: Care Physician,No Primary Status:DEP CLI Y Location: [facility] - General General Date of Service: 04/23/25 HPI Narrative KIN ALEJO, is a 24 F @ 37.2 weeks who presents with concerns for SROM PFSH PFSH Medical History (Updated 04/24/25 @ 07:[address] Cinthya White MD) First degree perineal laceration Vaginal delivery Pre-eclampsia Pre-eclampsia Home Medications ???Medication ???Instructions ???Recorded ???Last Taken ???Type cetirizine 5 mg tablet 5 mg PO DAILY PRN 12/29/22 11:30 History Allergy/AdvReac Type Severity Reaction Status Date / Time No Known Allergies Allergy Verified 12/30/22 19:20 Social History Smoking Status: Never smoker History Elective abortions Hx Para 0 Spontaneous abortions Hx # Term Pregnancies Ectopic pregnancies Hx # Pregnancies Multiple births # of living children NST FHR Rate Baby A Baseline: 130-140 Variability:: Moderate Accelerations:: 15 x 15 Decelerations:: None NST Reactive:: Yes FHR Category:: Category I Uterine Activity:: irregular and uterine irritability Assessment Plan (1) 37 weeks gestation of : (2) False labor: PLAN: Plan @ 37.2 weeks- false labor, Membranes intact 1) NST - well being established 2) RI home 04/24/25 0708 D> Date Cinthya White MD Cosigner Signature (if applicable): Date _ CC: Dr Cinthya White MD; No Primary Care Physician Signed Normal [facility] (ROM) Rupture Of Membraneson 04-23-2025 ROM Negative Normal Negative [facility] Comment on above: Result Comment: Amni otic fluid not present indicates No Rupture of Membranes at time of specimen collection. Performed By: #### L 205.1000 #### [facility] [address] [place], [address] Shawna 04-23-2025 CNPN Telephone (OBGYWM) KIN ALEJO ([id number]) 1 F Date Time Provider Department 04/23/25 CINTHYA MORTON OBGYWM During your visit today, we recorded the following information about you: Brittany Crawley RN 04/23/2025 1:17 PM Signed Patient 37w2d calling with concerns that her water may have broken. Patient states she was having nichol chung contractions this morning and she leaned over the counter with a contraction and she had a large gush of fluid. Gush of fluid occurred around 10 am. Patient states she has not had any more leaking of fluid or contractions since the initial gush. Patient states the fluid was clear and did not smell like urine. Per patient baby is active. Discussed with provider director of corporate sponsorships and she would like her to go to [facility] possible ROM. Patient verbalizes understanding. POPPY called and notified. Brittany Crawley RN Allergies As of Date: 04/23/2025 (No Known Allergies) Date Reviewed: 04/22/2025 Reviewed by: Palmer Hubbard MD - Fully Assessed Reason for Visit: leaking fluid [Other] Prescriptions as of 04/23/2025 - aspirin, enteric coated (ECOTRIN LOW STRENGTH) 81 mg EC tablet Take 1 tablet by mouth once daily. - prental multivitamin 27 mg iron- 800 mcg tablet Take 1 tablet by mouth once daily. Problem List As Of Date 04/23/2025 Noted Resolved Rh negative state in antepartum period [O26.899*09/09/2024 with uncertain dates in first trimest*09/09/2024 09/18/2024 Caffeine use during [O99.891] 09/09/2024 History of pre-eclampsia [Z87.59] 09/09/2024 Supervision of high risk in third tri*09/09/2024 Depression affecting in third trimest*02/19/2025 Encounter Status:Closed by BRITTANY CRAWLEY on 04/23/25 Normal [facility] URINE OB DIP B/Oon Glucose Ql (U) Negative Neg mg/dL [facility] Protein.monoclonal (U) [Mass/Vol] trace Neg mg/dL [facility] ROUTINE, GROUP B ST REPTOCOCCUS BY PCRon 04-16-2025 ROUTINE, GROUP B STREPTOCOCCUS BY PCR Not detected Normal [facility] Comment on above: Performed By: #### 2 890-2 #### [facility] CLIA [id number] [address] [place] [address] [place] CBC W Auto Differential pane l (Bld)on 02-19-2025 Basophils (Bld) [#/Vol] 0.03 10*3/uL Normal <0.11 [facility] Comment on above: Order Comment: Speci men Type: BLOOD SPECIMEN Ordering Facility: [facility] Address: [address] [place] [address] Performed By: #### 5 195-3, 85748-3, 61300-8 #### [facility] CLIA [id number] [address] [place] [address] [place] Basophils/100 WBC (Bld) 0.3 % Normal [facility] Comment on above: Order Comment: Speci men Type: BLOOD SPECIMEN Ordering Facility: [facility] Address: [address] [place] [address] Performed By: #### 5 195-3, 69416-9, 31007-5 #### [facility] CLIA [id number] [address] [place] [address] [place] Differential cell count method Nom (Bld) Auto Normal [facility] Comment on above: Order Comment: Speci men Type: BLOOD SPECIMEN Ordering Facility: [facility] Address: [address] [place] [address] Performed By: #### 5 195-3, 11521-5, 45725-5 #### [facility] CLIA [id number] [address] [place] [address] [place] Eosinophils (Bld) [#/Vol] 0.13 10*3/uL Normal <0.46 [facility] Comment on above: Order Comment: Speci men Type: BLOOD SPECIMEN Ordering Facility: [facility] Address: [address] [place] [address] Performed By: #### 5 195-3, 05831-7, 48994-3 #### [facility] CLIA [id number] [address] [place] [address] [place] Eosinophils/100 WBC (Bld) 1.5 % Normal [facility] Comment on above: Order Comment: Speci men Type: BLOOD SPECIMEN Ordering Facility: [facility] Address: [address] [place] [address] Performed By: #### 5 195-3, 78013-8, 97222-9 #### [facility] CLIA [id number] [address] [place] [address] [place] Erythrocyte distribution width (RBC) [Ratio] 12.4 % Normal 11.5-15.0 [facility] Comment on above: Order Comment: Speci men Type: BLOOD SPECIMEN Ordering Facility: [facility] Address: [address] [place] [address] Performed By: #### 5 195-3, 48621-6, 49710-7 #### [facility] CLIA [id number] [address] [place] [address] [place] Hematocrit (Bld) [Volume fraction] 34.8 % Low 36.0-46.0 [facility] Comment on above: Order Comment: Speci men Type: BLOOD SPECIMEN Ordering Facility: [facility] Address: [address] [place] [address] Performed By: #### 5 195-3, 80561-6, 54808-2 #### [facility] CLIA [id number] [address] [place] [address] [place] Hemoglobin (Bld) [Mass/Vol] 12.0 g/dL Normal 11.5-15.5 [facility] Comment on above: Order Comment: Speci men Type: BLOOD SPECIMEN Ordering Facility: [facility] Address: [address] [place] [address] Performed By: #### 5 195-3, 56248-8, 81397-4 #### [facility] CLIA [id number] [address] [place] [address] [place] Immature granulocytes (Bld) [#/Vol] 0.05 10*3/uL Normal <0.10 [facility] Comment on above: Order Comment: Speci men Type: BLOOD SPECIMEN Ordering Facility: [facility] Address: [address] [place] [address] Performed By: #### 5 195-3, 17826-2, 23986-2 #### [facility] CLIA [id number] [address] [place] [address] [place] Immature granulocytes/100 WBC (Bld) 0.6 % Normal [facility] Comment on above: Order Comment: Speci men Type: BLOOD SPECIMEN Ordering Facility: [facility] Address: [address] [place] [address] Performed By: #### 5 195-3, 00275-4, 82053-0 #### [facility] CLIA [id number] [address] [place] [address] [place] Lymphocytes (Bld) [#/Vol] 1.72 10*3/uL Normal 1.00-4.00 [facility] Comment on above: Order Comment: Speci men Type: BLOOD SPECIMEN Ordering Facility: [facility] Address: [address] [place] [address] Performed By: #### 5 195-3, 30543-7, 03911-9 #### [facility] CLIA [id number] [address] [place] [address] [place] Lymphocytes/100 WBC (Bld) 19.4 % Normal [facility] Comment on above: Order Comment: Speci men Type: BLOOD SPECIMEN Ordering Facility: [facility] Address: [address] [place] [address] Performed By: #### 5 195-3, 91777-9, 57913-1 #### [facility] CLIA [id number] [address] [place] [address] [place] MCH (RBC) [Entitic mass] 30.5 pg Normal 26.0-34.0 [facility] Comment on above: Order Comment: Speci men Type: BLOOD SPECIMEN Ordering Facility: [facility] Address: [address] [place] [address] Performed By: #### 5 195-3, 46627-6, 64587-7 #### [facility] CLIA [id number] [address] [place] [address] [place] MCHC (RBC) [Mass/Vol] 34.5 g/dL Normal 30.5-36.0 [facility] Comment on above: Order Comment: Speci men Type: BLOOD SPECIMEN Ordering Facility: [facility] Address: [address] [place] [address] Performed By: #### 5 195-3, 44987-5, 47744-9 #### [facility] CLIA [id number] [address] [place] [address] [place] MCV (RBC) [Entitic vol] 88.3 fL Normal 80.0-100.0 [facility] Comment on above: Order Comment: Speci men Type: BLOOD SPECIMEN Ordering Facility: [facility] Address: [address] [place] [address] Performed By: #### 5 195-3, 24664-2, 97648-4 #### [facility] CLIA [id number] [address] [place] [address] [place] Monocytes (Bld) [#/Vol] 0.57 10*3/uL Normal <0.87 [facility] Comment on above: Order Comment: Speci men Type: BLOOD SPECIMEN Ordering Facility: [facility] Address: [address] [place] [address] Performed By: #### 5 195-3, 19449-8, 32487-4 #### [facility] CLIA [id number] [address] [place] [address] [place] Monocytes/100 WBC (Bld) 6.4 % Normal [facility] Comment on above: Order Comment: Speci men Type: BLOOD SPECIMEN Ordering Facility: [facility] Address: [address] [place] [address] Performed By: #### 5 195-3, 89134-3, 47666-5 #### [facility] CLIA [id number] [address] [place] [address] [place] Neutrophils (Bld) [#/Vol] 6.36 10*3/uL Normal 1.45-7.50 [facility] Comment on above: Order Comment: Speci men Type: BLOOD SPECIMEN Ordering Facility: [facility] Address: [address] [place] [address] Performed By: #### 5 195-3, 52458-3, 06512-4 #### [facility] CLIA [id number] [address] [place] [address] [place] Neutrophils/100 WBC (Bld) 71.8 % Normal [facility] Comment on above: Order Comment: Speci men Type: BLOOD SPECIMEN Ordering Facility: [facility] Address: [address] [place] [address] Performed By: #### 5 195-3, 29796-0, 43512-0 #### [facility] CLIA [id number] [address] [place] [address] [place] Nucleated RBC (Bld) [#/Vol] 10*3/uL Normal <0.01 [facility] Comment on above: Order Comment: Speci men Type: BLOOD SPECIMEN Ordering Facility: [facility] Address: [address] [place] [address] Performed By: #### 5 195-3, 31155-4, 45309-2 #### [facility] CLIA [id number] [address] [place] [address] [place] Nucleated RBC/100 WBC (Bld) [Ratio] 0.0 /100 WBC Normal [facility] [facility] Comment on above: Order Comment: Speci men Type: BLOOD SPECIMEN Ordering Facility: [facility] Address: [address] [place] [address] Performed By: #### 5 195-3, 76082-4, 29763-5 #### [facility] CLIA [id number] [address] [place] [address] [place] Platelet mean volume (Bld) [Entitic vol] 10.7 fL Normal 9.0-12.7 [facility] Comment on above: Order Comment: Speci men Type: BLOOD SPECIMEN Ordering Facility: [facility] Address: [address] [place] [address] Performed By: #### 5 195-3, 29697-9, 35855-3 #### [facility] CLIA [id number] [address] [place] [address] [place] Platelets (Bld) [#/Vol] 204 10*3/uL Normal 150-400 [facility] Comment on above: Order Comment: Speci men Type: BLOOD SPECIMEN Ordering Facility: [facility] Address: [address] [place] [address] Performed By: #### 5 195-3, 94182-0, 79640-7 #### [facility] CLIA [id number] [address] [place] [address] [place] RBC (Bld) [#/Vol] 3.94 10*6/uL Normal 3.90-5.20 [facility] Comment on above: Order Comment: Speci men Type: BLOOD SPECIMEN Ordering Facility: [facility] Address: [address] [place] [address] Performed By: #### 5 195-3, 25111-4, 18084-4 #### [facility] CLIA [id number] [address] [place] [address] [place] WBC (Bld) [#/Vol] 8.86 10*3/uL Normal 3.70-11.00 [facility] Comment on above: Order Comment: Speci men Type: BLOOD SPECIMEN Ordering Facility: [facility] Address: [address] [place] [address] Performed By: #### 5 195-3, 23451-2, 15950-2 #### [facility] CLIA [id number] [address] [place] [address] [place] GESTATIONAL GLUCOSE SCREEN, 1-HOUR, 50 GRAM, NON-FASTINGon 02-19-2025 Glucose [Mass/Vol] 112 mg/dL Normal 74-134 [facility] Comment on above: Order Comment: Speci men Type: BLOOD SPECIMEN Ordering Facility: [facility] Address: [address] [place] [address] Result Comment: [facility] Congress of Obstetricians and Gynecologists (Buck/Ovidio) guidelines state a gestational diabetes mellitus positive screen is made, in women not previously diagnosed with overt diabetes, when the 1 hr plasma glucose level is equal to or above 140 mg/dL. The [facility] [employer] and [facility] [place] recommends a 135 mg/dL cutoff. Performed By: #### 5 195-3, 62154-3, 58120-1 #### [facility] CLIA [id number] [address] [place] [address] [place] Reagin and Treponema pallidu m IgG and IgM [Interp]on 02-19-2025 T. pallidum IgG+IgM IA Ql (S) Non-Reactive Normal Nonreactive [facility] Comment on above: Order Comment: Speci men Type: BLOOD SPECIMEN Ordering Facility: [facility] Address: [address] [place] [address] Performed By: #### 5 195-3, 78906-3, 58745-1 #### [facility] CLIA [id number] [address] [place] [address] [place] Reagin+T pallidum IgG+IgM Se rPl-Impon 02-19-2025 Reagin and Treponema pallidum IgG and IgM [Interp] Cannot exclude recent Treponemal infection if specimen collected within 7-10 days after appearance of suspect lesions or 2-3 weeks after an exposure. Clinical correlation is required. Normal [facility] Comment on above: Order Comment: Speci men Type: BLOOD SPECIMEN Ordering Facility: [facility] Address: [address] [place] [address] Performed By: #### 5 195-3, 56626-3, 10969-9 #### [facility] CLIA [id number] [address] [place] [address] [place] TYPE + SCREEN PRENATALon ABO A Normal [facility] Comment on above: Order Comment: Speci men Type: BLOOD SPECIMEN Ordering Facility: [facility] Address: [address] [place] [address] Performed By: #### T SPN #### [facility] CLIA [id number] [address] [place] [address] [place] Rh Nom (Bld) Negative Normal [facility] Comment on above: Order Comment: Speci men Type: BLOOD SPECIMEN Ordering Facility: [facility] Address: [address] [place] [address] Performed By: #### T SPN #### [facility] CLIA [id number] [address] [place] [address] [place] TYPE AND SCREEN EXPIRATION 02/22/2025 23:59 Normal [facility] Comment on above: Order Comment: Speci men Type: BLOOD SPECIMEN Ordering Facility: [facility] Address: [address] [place] [address] Performed By: #### T SPN #### [facility] CLIA [id number] [address] [place] Examination level ultrasound on 12-25-2024 Indication Standard anatomic survey Impression REMOTE READ The patient is referred for a standard anatomic survey. - Single, live, intrauterine . - biometry is consistent with the established gestational age. - No malformations were visualized on a complete standard anatomic survey. - The amniotic fluid volume is normal amount. - The placenta is posterior, fundal. - The Transabdominal cervical length measures 32.4 mm with no evidence of funneling or other dynamic changes. - Not all structural malformations can be detected by ultrasound examination. Recommendations Additional follow-up as clinically indicated. Maternal Assessment Height 163 cm Height (ft) 5 ft Height (in) 4 in Physical Exam Initial weight (lb) 129 lb Initial BMI 22.14 kg/m Maternal assessment other: 2 Para 1 Method Transabdominal ultrasound examination. View: Adequate visualization Camacho . Number of fetuses: 1 Dating LMP on: 06/30/2024 GA by LMP 25 w + 3 d LUPE by LMP: 04/06/2025 GA by prior assessment 20 w + 2 d LUPE by prior assessment: 05/12/2025 Ultrasound examination on: 12/25/2024 GA by U/S based upon: AC, BPD, Femur, HC GA by U/S 20 w + 3 d LUPE by U/S: 05/11/2025 Assigned: based on stated LUPE, selected on 12/25/2024 Assigned GA 20 w + 2 d Assigned LUPE: 05/12/2025 General Evaluation Cardiac activity present. FHR 147 bpm. movements: present. Presentation: cephalic Placenta: Placental site: posterior, fundal Umbilical cord: Cord vessels: 3 vessel cord Amniotic fluid: Amount of AF: normal amount. MVP 4.3 cm Growth Overview Exam date GA BPD (mm) HC (mm) AC (mm) FL (mm) HL (mm) EFW (g) 12/25/2024 20w 2d 47.2 49% 179.8 54% 152.1 49% 32.8 63% 31.4 59% 347 47% Biometry Standard BPD 47.2 mm 20w 2d 49% Hadlock OFD 64.6 mm 20w 4d 84% Nicolaides HC 179.8 mm 20w 3d 54% Fanta Cerebellum tr 20.7 mm 19w 5d 53% Hill Nuchal fold 4.6 mm AC 152.1 mm 20w 3d 49% Hadlock Femur 32.8 mm 20w 3d 63% Fanta Humerus 31.4 mm 20w 3d 59% Fanta EFW 347 g 20w 2d 47% Hadlock EFW (lb) 0 lb EFW (oz) 12 oz EFW by: Hadlock (HC-AC-FL) Extended Environmental Engineering Professor 5.9 mm CM 5.8 mm 72% Nicolaides Extremities / Bony Struc FL / HC 0.18 21% Hadlock Other Structures FHR 147 bpm Anatomy Cranium: normal Lateral ventricles: normal Choroid plexus: normal Midline falx: normal Cavum septi pellucidi: normal Cerebellum: normal Cisterna magna: normal Head / Neck Vermis: Normal but not required for a standard anatomy exam Neck: Normal but not required for a standard anatomy exam Nuchal fold: Normal but not required for a standard anatomy exam Lips: normal Profile: Normal but not required for a standard anatomy exam Nose: Normal but not required for a standard anatomy exam Face Maxilla: Normal but not required for a standard anatomy exam Mandible: Normal but not required for a standard anatomy exam Orbits: Normal but not required for a standard anatomy exam Lens: Normal but not required for a standard anatomy exam 4-chamber view: normal RVOT view: normal LVOT view: normal 3-vessel view: normal 2-nalfxa-cknlbxf view: normal Heart / Thorax Situs: situs solitus (normal) Aortic arch view: Normal but not required for a standard anatomy exam SVC: Normal but not required for a standard anatomy exam IVC: Normal but not required for a standard anatomy exam Cardiac axis: normal Rt lung: Normal but not required for a standard anatomy exam Lt lung: Normal but not required for a standard anatomy exam Diaphragm: Normal but not required for a standard anatomy exam Cord insertion: normal Stomach: normal Kidneys: normal Bladder: normal Genitals: normal Abdomen Abdom. wall: normal Cervical spine: normal Thoracic spine: normal Lumbar spine: normal Sacral spine: normal Arms: normal Legs: normal Rt upper arm: normal Rt forearm: normal Rt hand: normal Rt fingers: normal Lt upper arm: normal Lt forearm: normal Lt hand: normal Lt fingers: normal Rt upper leg: normal Rt lower leg: normal Rt foot: normal Lt upper leg: normal Lt lower leg: normal Lt foot: normal sex: female Wants to know sex: yes Maternal Structures Uterus / Cervix Uterus: Visualized Cervix: Visualized Approach: Transabdominal Cervical length 32.4 mm Other: Patient declined transvaginal ultrasound for cervical length. Ovaries / Tubes / Adnexa Rt ovary: Visualized Lt ovary: Visualized Performed By: Brittany Thorne RDMS, RVT Read By: Sera Meier M.D. MATERNAL MEDICINE [facility] Radiology Study observation (narrative) [facility] nuchal translucency me asured by USon 10-30-2024 Indication First trimester anatomic survey Impression REMOTE READ The patient is referred for a first trimester anatomy scan including nuchal translucency measurement as clinically indicated. - Single, live, intrauterine . - Marne rump length measurement is consistent with the established gestational age. - No malformations visualized on a complete first trimester anatomic assessment. - The nuchal translucency measurement is 1.9 mm. - Not all structural malformations can be detected by ultrasound examination. Maternal Structures: Right Ovary: Size 38 mm x 32 mm x 15 mm Left Ovary: Size 47 mm x 30 mm x 28 mm Recommendations - An anatomic survey at 18-20 weeks is recommended given no identified risk factors. Maternal Assessment Height 163 cm Height (ft) 5 ft Height (in) 4 in Physical Exam Initial weight (lb) 129 lb Initial BMI 22.14 kg/m Maternal assessment other: 2 Para 1 Method Transabdominal ultrasound examination Camacho . Number of fetuses: 1 Dating LMP on: 06/30/2024 GA by LMP 17 w + 3 d LUEP by LMP: 04/06/2025 GA by prior assessment 12 w + 2 d LUPE by prior assessment: 05/12/2025 Ultrasound examination on: 10/30/2024 GA by U/S based upon: CRL GA by U/S 12 w + 4 d LUPE by U/S: 05/10/2025 Assigned: based on stated LUPE, selected on 10/30/2024 Assigned GA 12 w + 2 d Assigned LUPE: 05/12/2025 General Evaluation Cardiac activity present Placenta: posterior Cord vessels: 3 vessel cord Amniotic fluid: normal amount Biometry Standard FHR 146 bpm CRL 61.6 mm 12w 4d 62% Hadlock NT 1.90 mm First Trimester Anatomy Calvarium: normal Falx cerebri: normal Choroid plexus: normal Profile: normal Nasal bone: normal Retronasal triangle: normal Maxilla: normal Mandible: normal Nuchal translucency: Unremarkable Situs: normal Cardiac position: normal Cardiac axis: normal 4-chamber view: normal 4-chamber view with color: normal 9-lxdjjf-iacfcbh view: normal Abdominal cord insertion: normal Stomach: normal Kidneys: normal Bladder: normal Color doppler of perivesical umbilical arteries: normal Vertebral alignment: normal Arms: normal Hands: normal Legs: normal Feet: normal Maternal Structures Uterus / Cervix Uterus: Visualized Uterus length 144 mm Uterus height 88 mm Ovaries / Tubes / Adnexa Rt ovary: Visualized Rt ovary D1 38 mm Rt ovary D2 32 mm Rt ovary D3 15 mm Rt ovary Vol 9.7 cm Lt ovary: Visualized Lt ovary D1 47 mm Lt ovary D2 30 mm Lt ovary D3 28 mm Lt ovary Vol 20.1 cm Performed By: Brittany Thorne RDMS, RVT Read By: Sera Meier M.D. MATERNAL MEDICINE [facility] Radiology Study observation (narrative) [facility] Examination level ultrasound on 10-29-2024 Indication Dating Impression - Single, live, intrauterine . - An intrauterine gestational sac with a yolk sac and pole is present. - Marne rump length measurement is not consistent with the established gestational age. - heart rate is within normal limits. Recommendations EDC based on todays ultrasound now 05/12/2025 Maternal Assessment Height 163 cm Height (ft) 5 ft Height (in) 4 in Method Transvaginal ultrasound examination Camacho . Number of embryos: 1 Dating LMP on: 06/30/2024 GA by LMP 11 w + 3 d LUPE by LMP: 04/06/2025 Ultrasound examination on: 09/18/2024 GA by U/S based upon: CRL GA by U/S 6 w + 2 d LUPE by U/S: 05/12/2025 Assigned: based on ultrasound (CRL), selected on 09/18/2024 Assigned GA 6 w + 2 d Assigned LUPE: 05/12/2025 Assessment Gestational sac: visualized Location: intrauterine Yolk sac: visualized Embryo: visualized CRL 5.3 mm 6w 2d 34% Hadlock Cardiac activity: present FHR 109 bpm Maternal Structures Uterus / Cervix Uterus: Visualized Uterus length 111 mm Uterus width 81 mm Uterus height 60 mm Uterus Vol 281.9 cm Ovaries / Tubes / Adnexa Rt ovary: Visualized Rt ovary D1 38 mm Rt ovary D2 26 mm Rt ovary D3 20 mm Rt ovary Vol 10.2 cm Lt ovary: Visualized Lt ovary D1 51 mm Lt ovary D2 34 mm Lt ovary D3 42 mm Lt ovary Vol 38.3 cm Performed By: Brittany Thorne RDMS, RVT Read By: Cinthya White M.D. MATERNAL MEDICINE [facility] Examination level ultrasound on 09-18-2024 Radiology Study observation (narrative) [facility] B-HCG SerPl-aCncon HCG.beta subunit Qn 4164.0 m[IU]/mL High <5.0 [facility] Comment on above: Order Comment: Speci men Type: BLOOD SPECIMEN Ordering Facility: [facility] Address: [address] [place] [address] Result Comment: DONNA TITATIVE HCG NORMAL RANGES Weeks of Gestation (Weeks Since LMP) 3 Weeks (5.8-71.2 mIU/mL) 4 Weeks (9.5-750 mIU/mL) 5 Weeks (217-7138 mIU/mL) 6 Weeks (158-41962 mIU/mL) 7 Weeks (3697-780994 mIU/mL) 8 Weeks (49209-053709 mIU/mL) 9 Weeks (33645-402453 mIU/mL) 10 Weeks (79885-525206 mIU/mL) 12 Weeks (18137-779306 mIU/mL) [facility] [place] [facility] [place] Performed By: #### 2 1198-7 #### [facility] CLIA [id number] [address] [place] Bacteria Ur Culton Bacteria identified Cx Nom (U) ORGANISM ID: 1 <10,000 CFU/ml Normal urogenital nichol Normal [facility] Comment on above: Performed By: #### 2 890-2 #### [facility] CLIA [id number] [address] [place] [address] [place] C. trachomatis+N. gonorrhoea e DNA DEBORAH+probe Ql (Unsp spec)on 09-09-2024 C. trachomatis rRNA DEBORAH+probe Ql (Unsp spec) Negative Normal Negative for Chlamydia trachomatis by amplificaton [facility] Comment on above: Order Comment: Speci men Type: URINE SPECIMEN Ordering Facility: [facility] Address: [address] [place] [address] Performed By: #### 2 890-2 #### [facility] CLIA [id number] [address] [place] [address] [place] N. gonorrhoeae rRNA DEBORAH+probe Ql (Unsp spec) Negative Normal Negative for Neisseria gonorrhoeae by amplification [facility] Comment on above: Order Comment: Speci men Type: URINE SPECIMEN Ordering Facility: [facility] Address: [address] [place] [address] Performed By: #### 2 890-2 #### [facility] CLIA [id number] [address] [place] [address] [place] CBC panel Auto (Bld)on 09-09 Erythrocyte distribution width (RBC) [Ratio] 12.4 % 11.5 - 15.0 % [facility] Hematocrit (Bld) [Volume fraction] 38.7 % 36.0 - 46.0 % [facility] Hemoglobin (Bld) [Mass/Vol] 13.4 g/dL 11.5 - 15.5 g/dL [facility] Interpretation and review of laboratory results Normal [facility] MCH (RBC) [Entitic mass] 30.1 pg 26.0 - 34.0 pg [facility] MCHC (RBC) [Mass/Vol] 34.6 g/dL 30.5 - 36.0 g/ dL [facility] MCV (RBC) [Entitic vol] 87.0 fL 80.0 - 100.0 fL [facility] Nucleated RBC (Bld) [#/Vol] NINF [facility] Platelet mean volume (Bld) [Entitic vol] 10.1 fL 9.0 - 12.7 fL [facility] Platelets (Bld) [#/Vol] 238 10*3/uL [facility] RBC (Bld) [#/Vol] 4.45 10*6/uL 3.90 - 5.20 m/uL [facility] WBC (Bld) [#/Vol] 8.76 10*3/uL [facility] Erythrocyte distribution width (RBC) [Ratio] 12.4 % Normal 11.5-15.0 [facility] Comment on above: Order Comment: Speci men Type: BLOOD SPECIMEN Ordering Facility: [facility] Address: [address] [place] [address] Performed By: #### 5 195-3, 96521-7, 95567-8 #### [facility] CLIA [id number] [address] [place] [address] [place] Hematocrit (Bld) [Volume fraction] 38.7 % Normal 36.0-46.0 [facility] Comment on above: Order Comment: Speci men Type: BLOOD SPECIMEN Ordering Facility: [facility] Address: [address] [place] [address] Performed By: #### 5 195-3, 35917-5, 45217-3 #### [facility] CLIA [id number] [address] [place] [address] [place] Hemoglobin (Bld) [Mass/Vol] 13.4 g/dL Normal 11.5-15.5 [facility] Comment on above: Order Comment: Speci men Type: BLOOD SPECIMEN Ordering Facility: [facility] Address: [address] [place] [address] Performed By: #### 5 195-3, 47097-5, 18794-5 #### [facility] CLIA [id number] [address] [place] [address] [place] MCH (RBC) [Entitic mass] 30.1 pg Normal 26.0-34.0 [facility] Comment on above: Order Comment: Speci men Type: BLOOD SPECIMEN Ordering Facility: [facility] Address: [address] [place] [address] Performed By: #### 5 195-3, 92751-2, 69766-4 #### [facility] CLIA [id number] [address] [place] [address] [place] MCHC (RBC) [Mass/Vol] 34.6 g/dL Normal 30.5-36.0 [facility] Comment on above: Order Comment: Speci men Type: BLOOD SPECIMEN Ordering Facility: [facility] Address: [address] [place] [address] Performed By: #### 5 195-3, 77100-8, 67344-8 #### [facility] CLIA [id number] [address] [place] [address] [place] MCV (RBC) [Entitic vol] 87.0 fL Normal 80.0-100.0 [facility] Comment on above: Order Comment: Speci men Type: BLOOD SPECIMEN Ordering Facility: [facility] Address: [address] [place] [address] Performed By: #### 5 195-3, 68429-8, 63131-9 #### [facility] CLIA [id number] [address] [place] [address] [place] Nucleated RBC (Bld) [#/Vol] 10*3/uL Normal <0.01 [facility] Comment on above: Order Comment: Speci men Type: BLOOD SPECIMEN Ordering Facility: [facility] Address: [address] [place] [address] Performed By: #### 5 195-3, 12484-3, 71169-2 #### [facility] CLIA [id number] [address] [place] [address] [place] Platelet mean volume (Bld) [Entitic vol] 10.1 fL Normal 9.0-12.7 [facility] Comment on above: Order Comment: Speci men Type: BLOOD SPECIMEN Ordering Facility: [facility] Address: [address] [place] [address] Performed By: #### 5 195-3, 75390-6, 64978-0 #### [facility] CLIA [id number] [address] [place] [address] [place] Platelets (Bld) [#/Vol] 238 10*3/uL Normal 150-400 [facility] Comment on above: Order Comment: Speci men Type: BLOOD SPECIMEN Ordering Facility: [facility] Address: [address] [place] [address] Performed By: #### 5 195-3, 01665-7, 86226-8 #### [facility] CLIA [id number] [address] [place] [address] [place] RBC (Bld) [#/Vol] 4.45 10*6/uL Normal 3.90-5.20 [facility] Comment on above: Order Comment: Speci men Type: BLOOD SPECIMEN Ordering Facility: [facility] Address: [address] [place] [address] Performed By: #### 5 195-3, 57676-2, 98135-1 #### [facility] CLIA [id number] [address] [place] [address] [place] WBC (Bld) [#/Vol] 8.76 10*3/uL Normal 3.70-11.00 [facility] Comment on above: Order Comment: Speci men Type: BLOOD SPECIMEN Ordering Facility: [facility] Address: [address] [place] [address] Performed By: #### 5 195-3, 59582-4, 09917-1 #### [facility] CLIA [id number] [address] [place] [address] [place] Comprehensive metabolic 2000 panelOrdered By: Vicki Mondragon on 09-09-2024 Albumin [Mass/Vol] 4.8 g/dL 3.9 - 4.9 g/dL [facility] ALP [Catalytic activity/Vol] 49 U/L 34 - 123 U/L [facility] ALT [Catalytic activity/Vol] U/L Low 7 - 38 U/L [facility] Anion gap [Moles/Vol] 11 mmol/L 8 - 15 mmol/L [facility] AST [Catalytic activity/Vol] 12 U/L Low 13 - 35 U/L [facility] Bilirubin [Mass/Vol] 0.5 mg/dL 0.2 - 1.3 mg/dL [facility] Calcium [Mass/Vol] 9.2 mg/dL 8.5 - 10.2 mg/dL [facility] Chloride [Moles/Vol] 103 mmol/L 98 - 107 mmol/L [facility] CO2 [Moles/Vol] 21 mmol/L Low 22 - 30 mmol/L [facility] Creatinine [Mass/Vol] 0.80 mg/dL 0.58 - 0.96 mg/dL [facility] GFR/1.73 sq M.predicted among non-blacks MDRD (S/P/Bld) [Vol rate/Area] 106 mL/min/{1.73_m2} - PINF [facility] Comment on above: Estimated Glomerular Filtration Rate (eGFR) is calculated using the 2020 CKD-EPI creatinine equation. This equation utilizes serum creatinine, sex, and age as parameters. The creatinine assay has traceable calibration to isotope dilution-mass spectrometry. Refer to KDIGO guidelines for clinical interpretation. In patients with unstable renal function, e.g. those with acute kidney injury, the eGFR may not accurately reflect actual GFR. Glucose [Mass/Vol] 88 mg/dL 74 - 99 mg/dL [facility] Comment on above: The [place] Diab[employer] [place] Association (ADA) provides guidance for cutoff values for fasting glucose and random glucose. The ADA defines fasting as no caloric intake for at least 8 hours. Fasting plasma glucose results between 100 to 125 mg/dL indicate increased risk for diabetes (prediabetes). Fasting plasma glucose results greater than or equal to 126 mg/dL meet the criteria for diagnosis of diabetes. In the absence of unequivocal hyperglycemia, results should be confirmed by repeat testing. In a patient with classic symptoms of hyperglycemia or hyperglycemic crisis, random plasma glucose results greater than or equal to 200 mg/dL meet the criteria for diagnosis of diabetes. Reference: Standards of Medical Care in Diabetes 2016, [place] [employer]. Diabetes Care. 2016.39(Suppl 1). Interpretation and review of laboratory results Abnormal [facility] Potassium [Moles/Vol] 4.1 mmol/L 3.7 - 5.1 mmol /L [facility] Protein [Mass/Vol] 7.8 g/dL 6.3 - 8.0 g/dL [facility] Sodium [Moles/Vol] 135 mmol/L Low 136 - 144 mmol/L [facility] Urea nitrogen [Mass/Vol] 15 mg/dL 7 - 21 mg/dL [facility] Comprehensive metabolic 2000 panelon 09-09-2024 Albumin [Mass/Vol] 4.8 g/dL Normal 3.9-4.9 [facility] Comment on above: Order Comment: Helen reilly Type: BLOOD SPECIMEN Ordering Facility: [facility] Address: [address] [place] [address] Performed By: #### 5 195-3, 91395-8, 12580-2 #### [facility] CLIA [id number] [address] [place] [address] [place] ALP [Catalytic activity/Vol] 49 U/L Normal 34-123 [facility] Comment on above: Order Comment: Helen reilly Type: BLOOD SPECIMEN Ordering Facility: [facility] Address: [address] [place] [address] Performed By: #### 5 195-3, 34948-4, 74766-4 #### [facility] CLIA [id number] [address] [place] [address] [place] ALT [Catalytic activity/Vol] U/L Low 7-38 [facility] Comment on above: Order Comment: Helen reilly Type: BLOOD SPECIMEN Ordering Facility: [facility] Address: [address] [place] [address] Performed By: #### 5 195-3, 58516-2, 63048-4 #### [facility] CLIA [id number] [address] [place] [address] [place] Anion gap [Moles/Vol] 11 mmol/L Normal 8-15 [facility] Comment on above: Order Comment: Speci men Type: BLOOD SPECIMEN Ordering Facility: [facility] Address: [address] [place] [address] Performed By: #### 5 195-3, 54223-9, 00530-6 #### [facility] CLIA [id number] [address] [place] [address] [place] AST [Catalytic activity/Vol] 12 U/L Low 13-35 [facility] Comment on above: Order Comment: Speci men Type: BLOOD SPECIMEN Ordering Facility: [facility] Address: [address] [place] [address] Performed By: #### 5 195-3, 56260-9, 38608-7 #### [facility] CLIA [id number] [address] [place] [address] [place] Bilirubin [Mass/Vol] 0.5 mg/dL Normal 0.2-1.[address] [facility] Comment on above: Order Comment: Speci men Type: BLOOD SPECIMEN Ordering Facility: [facility] Address: [address] [place] [address] Performed By: #### 5 195-3, 94571-8, 60861-7 #### [facility] CLIA [id number] [address] [place] [address] [place] Calcium [Mass/Vol] 9.2 mg/dL Normal 8.5-10.2 [facility] Comment on above: Order Comment: Speci men Type: BLOOD SPECIMEN Ordering Facility: [facility] Address: [address] [place] [address] Performed By: #### 5 195-3, 17605-7, 38912-9 #### [facility] CLIA [id number] [address] [place] [address] [place] Chloride [Moles/Vol] 103 mmol/L Normal 98-[address] [facility] Comment on above: Order Comment: Speci men Type: BLOOD SPECIMEN Ordering Facility: [facility] Address: [address] [place] [address] Performed By: #### 5 195-3, 06662-1, 69764-8 #### [facility] CLIA [id number] [address] [place] [address] [place] CO2 [Moles/Vol] 21 mmol/L Low 22-30 [facility] Comment on above: Order Comment: Speci men Type: BLOOD SPECIMEN Ordering Facility: [facility] Address: [address] [place] [address] Performed By: #### 5 195-3, 90857-2, 08827-5 #### [facility] CLIA [id number] [address] [place] [address] [place] Creatinine [Mass/Vol] 0.80 mg/dL Normal 0.58-0.96 [facility] Comment on above: Order Comment: Speci men Type: BLOOD SPECIMEN Ordering Facility: [facility] Address: [address] [place] [address] Performed By: #### 5 195-3, 05372-2, 81426-8 #### [facility] CLIA [id number] [address] [place] [address] [place] Creatinine and Glomerular filtration rate.predicted panel (S/P/Bld) 106 mL/min/1.73m??? Normal >=60 [facility] Comment on above: Order Comment: Speci men Type: BLOOD SPECIMEN Ordering Facility: [facility] Address: [address] [place] [address] Result Comment: Natalya mated Glomerular Filtration Rate (eGFR) is calculated using the 2020 CKD-EPI creatinine equation. This equation utilizes serum creatinine, sex, and age as parameters. The creatinine assay has traceable calibration to isotope dilution-mass spectrometry. Refer to KDIGO guidelines for clinical interpretation. In patients with unstable renal function, e.g. those with acute kidney injury, the eGFR may not accurately reflect actual GFR. Performed By: #### 5 195-3, 82777-0, 90611-1 #### [facility] CLIA [id number] [address] [place] [address] [place] Glucose [Mass/Vol] 88 mg/dL Normal 74-99 [facility] Comment on above: Order Comment: Helen reilly Type: BLOOD SPECIMEN Ordering Facility: [facility] Address: [address] [place] [address] Result Comment: The [place] Diabetes Association (ADA) provides guidance for cutoff values for fasting glucose and random glucose. The ADA defines fasting as no caloric intake for at least 8 hours. Fasting plasma glucose results between 100 to 125 mg/dL indicate increased risk for diabetes (prediabetes). Fasting plasma glucose results greater than or equal to 126 mg/dL meet the criteria for diagnosis of diabetes. In the absence of unequivocal hyperglycemia, results should be confirmed by repeat testing. In a patient with classic symptoms of hyperglycemia or hyperglycemic crisis, random plasma glucose results greater than or equal to 200 mg/dL meet the criteria for diagnosis of diabetes. Reference: Standards of Medical Care in Diabetes 2016, [place] [employer] Association. Diabetes Care. 2016.39(Suppl 1). Performed By: #### 5 195-3, 73633-5, 52750-4 #### [facility] CLIA [id number] [address] [place], [place] [address] [place] Potassium [Moles/Vol] 4.1 mmol/L Normal 3.7-5.1 [facility] Comment on above: Order Comment: Helen reilly Type: BLOOD SPECIMEN Ordering Facility: [facility] Address: [address] [place] [address] Performed By: #### 5 195-3, 89133-7, 91167-5 #### [facility] CLIA [id number] [address] [place] [address] [place] Protein [Mass/Vol] 7.8 g/dL Normal 6.3-8.0 [facility] Comment on above: Order Comment: Speci men Type: BLOOD SPECIMEN Ordering Facility: [facility] Address: [address] [place] [address] Performed By: #### 5 195-3, 43997-9, 28266-3 #### [facility] CLIA [id number] [address] [place] [address] [place] Sodium [Moles/Vol] 135 mmol/L Low 136-144 [facility] Comment on above: Order Comment: Speci men Type: BLOOD SPECIMEN Ordering Facility: [facility] Address: [address] [place] [address] Performed By: #### 5 195-3, 42465-7, 32067-4 #### [facility] CLIA [id number] [address] [place] [address] [place] Urea nitrogen [Mass/Vol] 15 mg/dL Normal 7-21 [facility] Comment on above: Order Comment: Speci men Type: BLOOD SPECIMEN Ordering Facility: [facility] Address: [address] [place] [address] Performed By: #### 5 195-3, 59813-8, 57935-1 #### [facility] CLIA [id number] [address] [place] [address] [place] HBV surface Ag Ser Qlon 08-25 HBV surface Ag Ql (S) Negative Normal Negative [facility] Comment on above: Order Comment: Speci men Type: BLOOD SPECIMEN Ordering Facility: [facility] Address: [address] [place] [address] Performed By: #### 5 195-3, 27688-9, 61693-9 #### [facility] CLIA [id number] [address] [place] [address] [place] HCV Ab Ser Qlon 09-09-2024 HCV Ab Ql (S) Negative Normal Negative [facility] Comment on above: Order Comment: Speci men Type: URINE SPECIMEN Ordering Facility: [facility] Address: [address] [place] [address] Result Comment: The result suggests no evidence of active infection with Hepatitis C virus. Should recent infection be suspected, repeat testing may be considered 4-6 weeks after this draw. Performed By: #### 2 890-2 #### [facility] CLIA [id number] [address] [place] [address] [place] HIV 1+2 Ab IA Qlon 4 HIV 1 and 2 Ab IA.rapid Nom (S/P/Bld) Normal [facility] Comment on above: Order Comment: Speci men Type: BLOOD SPECIMEN Ordering Facility: [facility] Address: [address] [place] [address] Result Comment: Test not indicated. Performed By: #### 5 195-3, 73025-1, 71255-1 #### [facility] CLIA [id number] [address] [place] [address] [place] HIV 1+2 Ab+HIV1 p24 Ag IA Ql Non-Reactive Normal Nonreactive [facility] Comment on above: Order Comment: Speci men Type: BLOOD SPECIMEN Ordering Facility: [facility] Address: [address] [place] [address] Performed By: #### 5 195-3, 33674-4, 50357-4 #### [facility] CLIA [id number] [address] [place] [address] [place] HIV immunoassay testing algorithm interpretation (S/P/Bld) [Interp] Normal [facility] Comment on above: Order Comment: Speci men Type: BLOOD SPECIMEN Ordering Facility: [facility] Address: [address] [place] [address] Result Comment: No e vidence of HIV-1 or HIV-2 infection. Should recent infection be suspected, repeat testing may be considered 2-3 weeks after this draw. [place] Rev. Code 3701.243(E): This information has been disclosed to you from confidential records protected from disclosure by state law. ???You shall make no further disclosure of this information without the specific, written, and informed release of the individual to whom it pertains or as otherwise permitted by state law. A general authorization for the release of medical or other information is not sufficient for the purpose of the release of HIV test results or diagnoses. Performed By: #### 5 195-3, 39258-2, 11848-9 #### [facility] CLIA [id number] [address] [place] [address] [place] HbA1c (Bld)on 09-09-2024 Average glucose Estimated from glycated hemoglobin (Bld) [Mass/Vol] 88 mg/dL Normal [facility] Comment on above: Order Comment: Speci men Type: BLOOD SPECIMEN Ordering Facility: [facility] Address: [address] [place] [address] Result Comment: eAG: (Estimated average glucose) is a calculated value from HgbA1c and is energy conservation representative of the average blood glucose level in the last 2-3 month period. Performed By: #### 5 195-3, 75530-1, 06986-6 #### [facility] CLIA [id number] [address] [place] [address] [place] HbA1c (Bld) [Mass fraction] 4.7 % Normal 4.3-5.6 [facility] Comment on above: Order Comment: Speci men Type: BLOOD SPECIMEN Ordering Facility: [facility] Address: [address] [place] [address] Result Comment: [place] Diabetes Association guidelines indicate that patients with HgbA1c in the range 5.7-6.4% are at increased risk for development of diabetes, and intervention by lifestyle modification may be beneficial. HgbA1c greater or equal to 6.5% is considered diagnostic of diabetes. Performed By: #### 5 195-3, 59953-2, 02223-3 #### [facility] CLIA [id number] [address] [place], [place] [address] [place] PAP TESTon 09-09-2024 ADEQUACY Satisfactory for interpretation. Normal [facility] Comment on above: Order Comment: Speci men Type: FLUID SPECIMEN Ordering Facility: [facility] Address: [address] [place] [address] Performed By: #### L [id number] #### [facility] CLIA [id number] [address] [place], [place] [address] [place] [facility] CLIA [id number] [address] [place] [address] [place] CASE REPORT Normal [facility] Comment on above: Order Comment: Speci men Type: FLUID SPECIMEN Ordering Facility: [facility] Address: [address] [place] [address] Result Comment: Gyne cologic Cytology Report Case: [id number] Authorizing Provider: Onur Garcia APRN.LABORER ORCHARD Collected: 09/09/2024 10:14 AM Ordering Location: OB/Gynecology Received: 09/09/2024 02:35 PM First Screen: Karma, Latoya, CT, ASCP Specimen: Pap Test, ThinPrep, Cervix Performed By: #### L [id number] #### [facility] CLIA [id number] [address] [place] [address] [place] [facility] CLIA [id number] [address] [place] [address] [place] CLINICAL HISTORY, CYTOLOGY, SLEEVE MAKER (Indicate Weeks) Normal [facility] Comment on above: Order Comment: Speci men Type: FLUID SPECIMEN Ordering Facility: [facility] Address: [address] [place] [address] Performed By: #### L [id number] #### [facility] CLIA [id number] [address] [place] [address] [place] [facility] CLIA [id number] [address] [place] [address] [place] FINAL PERFORMING LAB Normal [facility] Comment on above: Order Comment: Speci men Type: FLUID SPECIMEN Ordering Facility: [facility] Address: [address] [place] [address] Result Comment: Tech nical component, chemist physical screening performed at [facility], [address] [place] [address] CLIA# [id number] Diagnostic interpretation performed at [facility], [address] [place] [address] CLIA# [id number] Karate Instructor: Darrel Perry M.D. Performed By: #### L [id number] #### [facility] CLIA [id number] [address] [place], [place] [address] [place] [facility] CLIA [id number] [address] [place] [address] [place] HPV REFLEX HPV if Atypical Normal [facility] Comment on above: Order Comment: Speci men Type: FLUID SPECIMEN Ordering Facility: [facility] Address: [address] [place] [address] Performed By: #### L [id number] #### [facility] CLIA [id number] [address] [place] [address] [place] [facility] CLIA [id number] [address] [place] [address] [place] INTERPRETATION, CYTOLOGY, SLEEVE MAKER Normal [facility] Comment on above: Order Comment: Speci men Type: FLUID SPECIMEN Ordering Facility: [facility] Address: [address] [place] [address] Result Comment: Nega tive for intraepithelial lesion or malignancy. Performed By: #### L [id number] #### [facility] CLIA [id number] [address] [place], [place] [address] [place] [facility] CLIA [id number] [address] [place] [address] [place] LMP 06/30/2024 Normal [facility] Comment on above: Order Comment: Speci men Type: FLUID SPECIMEN Ordering Facility: [facility] Address: [address] [place] [address] Performed By: #### L [id number] #### [facility] CLIA [id number] [address] [place] [address] LAB CLIA [id number] [address] [place] [address] [place] PAP DISCLAIMER COMMENT The Pap Smear is a screening test for cervical cancer. False negative results occur with all screening tests, emphasizing the need for rescreening at recommended intervals, and clinical correlation. Normal [facility] Comment on above: Order Comment: Speci men Type: FLUID SPECIMEN Ordering Facility: [facility] Address: [address] [place] [address] Performed By: #### L [id number] #### [facility] CLIA [id number] [address] [place] [address] LAB CLIA [id number] [address] [place] [address] [place] PAP BALL MACHINE OPERATOR COMMENT This specimen has been analyzed by the ThinPrep Imaging System, an automated imaging and review system, which assists the laboratory in evaluating cells on ThinPrep Pap tests. Following automated imaging, selected linares from every slide are reviewed by a chemist physical. Normal [facility] Comment on above: Order Comment: Speci men Type: FLUID SPECIMEN Ordering Facility: [facility] Address: [address] [place] [address] Performed By: #### L [id number] #### [facility] CLIA [id number] [address] [place] [address] LAB CLIA [id number] [address] [place] [address] [place] POC CAPITAL CAMPAIGN FUNDRAISER ULTRASOUNDon 09-09-20 Indication Viability; confirm cardiac activity Impression Single intrauterine gestational sac with possible yolk sac Recommendations Follow up for repeat ultrasound in at least 7 days to confirm viability Method Transabdominal ultrasound examination, Transvaginal ultrasound examination. View: Adequate visualization Camacho . Number of fetuses: 1 Dating LMP on: 06/30/2024 GA by LMP 10 w + 1 d LUPE by LMP: 04/06/2025 Assigned: based on the LMP, selected on 09/09/2024 Assigned GA 10 w + 1 d Assigned LUPE: 04/06/2025 Assessment Gestational sac: visualized. Location: intrauterine Yolk sac: uncertain Embryo: not visualized Performed By: Onur Garcia NP Read By: Onur Garcia NP MATERNAL MEDICINE [facility] Radiology Study observation (narrative) [facility] Prot/Creat Uron 09-09-2024 Protein/Creatinine (U) [Mass ratio] 0.06 mg/mg Normal <0.15 [facility] Comment on above: Order Comment: Speci men Type: URINE SPECIMEN Ordering Facility: [facility] Address: [address] [place] [address] Result Comment: Adul t Proteinuria Categories: <0.15 mg/mg is considered normal to mildly increased 0.15 - 0.50 mg/mg is considered moderately increased >0.50 mg/mg is considered severely increased KDIGO. (2013). KDIGO 2012 Clinical Practice Guideline for the Evaluation and Management of Chronic Kidney Disease. Official Journal of the International Society of Nephrology, 3(1), 1-150. Performed By: #### 2 890-2 #### [facility] CLIA [id number] [address] [place] [address] [place] Protein/Creatinine (U) [Mass ratio]on 09-09-2024 Creatinine (U) [Mass/Vol] 205.7 mg/dL Normal 20.0-300.0 [facility] Comment on above: Order Comment: Clarissai tommie Type: URINE SPECIMEN Ordering Facility: [facility] Address: [address] [place] [address] Performed By: #### 2 890-2 #### [facility] CLIA [id number] [address] [place] [address] [place] Protein (U) [Mass/Vol] 12 mg/dL Normal 0-20 [facility] Comment on above: Order Comment: Helen reilly Type: URINE SPECIMEN Ordering Facility: [facility] Address: [address] [place] [address] Performed By: #### 2 890-2 #### [facility] CLIA [id number] [address] [place] [address] [place] RUBELLA IGG ANTIBODYon 09-09 RUBELLA IGG AB, QUAL Positive Normal Positive [facility] Comment on above: Order Comment: Speci men Type: URINE SPECIMEN Ordering Facility: [facility] Address: [address] [place] [address] Result Comment: The result suggests recent or past exposure to Rubella virus or history of Rubella vaccination. Positive result may also be seen due to presence of passively-transferred antibodies. Please correlate with patient's history. Performed By: #### 2 890-2 #### [facility] CLIA [id number] [address] [place] [address] [place] Reagin and Treponema pallidu m IgG and IgM [Interp]on 09-09-2024 T. pallidum IgG+IgM IA Ql (S) Non-Reactive Normal Nonreactive [facility] Comment on above: Order Comment: Speci men Type: BLOOD SPECIMEN Ordering Facility: [facility] Address: [address] [place] [address] Performed By: #### 5 195-3, 53171-8, 89370-9 #### [facility] CLIA [id number] [address] [place] [address] [place] Reagin+T pallidum IgG+IgM Se rPl-Impon 09-09-2024 Reagin and Treponema pallidum IgG and IgM [Interp] Cannot exclude recent Treponemal infection if specimen collected within 7-10 days after appearance of suspect lesions or 2-3 weeks after an exposure. Clinical correlation is required. Normal [facility] Comment on above: Order Comment: Speci men Type: BLOOD SPECIMEN Ordering Facility: [facility] Address: [address] [place] [address] Performed By: #### 5 195-3, 92916-2, 43637-1 #### [facility] CLIA [id number] [address] [place] [address] [place] TSH SerPl-aCncon 09-09-2024 TSH Qn 2.340 m[IU]/L Normal 0.270-4.200 [facility] Comment on above: Order Comment: Speci men Type: URINE SPECIMEN Ordering Facility: [facility] Address: [address] [place] [address] Result Comment: If t he patient is , TSH reference range varies by gestational period: First Trimester (weeks 9-12): 0.180-2.990 mIU/L Second Trimester: 0.110-3.980 mIU/L Third Trimester: 0.480-4.710 mIU/L Julio Villalpando et al. A Practical Approach for the Verifications and Determination of Site- and Trimester-Specific Reference Intervals for Thyroid Function tests in . Thyroid, 2019:29:3:412-420. Mega Khan, et al. 2017 Guidelines of the [place] Thyroid Association for the Diagnosis and Management of Thyroid Disease during and the . Thyroid, 2017:27:3:315-389. Performed By: #### 2 890-2 #### [facility] CLIA [id number] [address] [place] [address] [place] TYPE + SCREEN PRENATALon ABO A Normal [facility] Comment on above: Order Comment: Speci men Type: BLOOD SPECIMEN Ordering Facility: [facility] Address: [address] [place] [address] Performed By: #### T SPN #### [facility] CLIA [id number] [address] [place] [address] [place] Rh Nom (Bld) Negative Normal [facility] Comment on above: Order Comment: Speci men Type: BLOOD SPECIMEN Ordering Facility: [facility] Address: [address] [place] [address] Performed By: #### T SPN #### [facility] CLIA [id number] [address] [place] [address] [place] TYPE AND SCREEN EXPIRATION 09/12/2024 23:59 Normal [facility] Comment on above: Order Comment: Speci men Type: BLOOD SPECIMEN Ordering Facility: [facility] Address: [address] [place] [address] Performed By: #### T SPN #### [facility] CLIA [id number] [address] [facility] [place] [address] [place] Basophil percentageOrdered B y: Neda Ibarra on 01-02-2023 WBC (Bld) [#/Vol] 16.7 10*3/uL 4.4-11.0 [facility] Blood erythrocytes count (nu mber/volume)Ordered By: Neda Ibarra on 01-02-2023 RBC (Bld) [#/Vol] 4.08 10*6/uL 4.2-5.4 [facility] Blood hemoglobin measurement (mass/volume)Ordered By: Neda Ibarra on 01-02-2023 Hemoglobin (Bld) [Mass/Vol] 12.0 g/dL 12.0-15.0 [facility] Blood platelet mean volumeOr dered By: Neda Ibarra on 01-02-2023 Platelet mean volume (Bld) [Entitic vol] 11.7 fL 6.2-12.0 [facility] Determination of erythrocyte mean corpuscular volume (MCV)Ordered By: Neda Ibarra on 01-02-2023 MCV (RBC) [Entitic vol] 88.7 fL 81-99 [facility] Hematocrit Auto (Bld) [Volum e fraction]Ordered By: Neda Ibarra on 01-02-2023 Hematocrit (Bld) [Volume fraction] 36.2 % 37-47 [facility] - Hematology and Cell countsOrdered By: Neda Ibarra on 01-02-2023 Erythrocyte distribution width (RBC) [Entitic vol] 41.8 fL 35.1-43.9 [facility] [facility] Erythrocyte distribution width (RBC) [Ratio] 13.0 % 11.6-14.6 [facility] MCH (RBC) [Entitic mass] 29.4 pg 27.0-32.0 [facility] MCHC Auto (RBC) [Mass/Vol]Or dered By: Neda Ibarra on 01-02-2023 MCHC (RBC) [Mass/Vol] 33.1 g/dL 32-36 [facility] Platelets bldOrdered By: Charley Ibarra on 01-02-2023 Platelets (Bld) [#/Vol] 175 10*3/uL 150-450 [facility] Absolute lymphocyte countOrd ered By: Dr. Walker on 12-30-2022 Lymphocytes Auto (Unsp spec) [#/Vol] 2.80 10*3/uL 0.83-4.51 [facility] Basophil percentageOrdered B y: Dr. Walker on 12-30-2022 Basophils/100 WBC (Bld) 0.3 % 0-1 [facility] Eosinophils/100 WBC (Bld) 0.4 % 0-5 [facility] Neutrophils (Bld) [#/Vol] 7.4 10*3/uL 2.0-7.7 [facility] Neutrophils/100 WBC (Bld) 65.8 % 47-70 [facility] Blood lymphocytes/100 leukoc ytesOrdered By: Dr. Walker on 12-30-2022 Lymphocytes/100 WBC (Bld) 24.9 % 19-41 [facility] Blood monocytes/100 leukocyt esOrdered By: Dr. Walker on 12-30-2022 Monocytes/100 WBC (Bld) 8.2 % 0-10 [facility] Laboratory - Chemistry and C hemistry - challengeOrdered By: Dr. Wakler on 12-30-2022 ALT [Catalytic activity/Vol] 12 U/L 13-56 [facility] Laboratory - Hematology and Cell countsOrdered By: Dr. Walker on 12-30-2022 Immature granulocytes/100 WBC (Bld) 0.400 % 0.0-0.9 [facility] Comment on above: IG% - Immature Granu locytes (promyelocytes, myelocytes and metamyelocytes) > 1% indicates that a LEFT SHIFT is Present. Nucleated RBC/100 WBC (Bld) [Ratio] 0 % 0-5 [facility] No Panel InformationOrdered By: Dr. Walker on 12-30-2022 Estimated Creatinine Clearance Calc 104.48 ml/min [facility] Estimated GFR (MDRD) Amer 123 mL/min >60 [facility] Comment on above: GFR Calc Estimated GFR (MDRD) Non-Af Amer 102 mL/min >60 [facility] Comment on above: Non- GFR Calc Serum or plasma creatinine m easurement (mass/volume)Ordered By: Dr. Walker on 12-30-2022 Creatinine [Mass/Vol] 0.76 mg/dL 0.55-1.02 [facility] Comment on above: The validity of the calculated GFR & GFRAA in patients over 70 years has not been determined. Clinical correlation is essential. Serum or plasma uric acid me asurement (mass/volume)Ordered By: Dr. Walker on 12-30-2022 Urate [Mass/Vol] 7.0 mg/dL 2.6-6.0 [facility] Comment on above: The drugs N-Acetylcy steine and Metamizole may falsely depress this assay. Thin prep Papanicolaou smear with manual screeningOrdered By: Dr. Walker on 12-30-2022 Thin prep Papanicolaou smear with manual screening 22 U/L 15-37 [facility] 24 hour urine creatinine nelson surement (mass/time)Ordered By: Dr. Walker on 12-29-2022 Creatinine (24H U) [Mass/Time] 1.14 g/24 HR 0.70-1.90 [facility] 24 hour urine protein measur ement (mass/time)Ordered By: Dr. Walker on 12-29-2022 Protein (24H U) [Mass/Time] 325.6 mg/24HR 0-151 [facility] 24 hour urine protein measur ement (mass/volume)Ordered By: Dr. Walker on 12-29-2022 Protein (24H U) [Mass/Vol] 52.1 mg/dL 0.0-11.8 [facility] Laboratory - Specimen inform ationOrdered By: Dr. Walker on 12-29-2022 Collection duration (U) 24.0 HOURS 24.0-24.0 [facility] No Panel InformationOrdered By: Dr. Walker on 12-29-2022 Timed Urine Volume 625 mL [facility] Urine creatinine measurement (mass/volume)Ordered By: Dr. Walker on 12-29-2022 Creatinine (U) [Mass/Vol] 183.00 mg/dL NO RANGE EST. [facility] Urine volume measurementOrde red By: Dr. Walker on 12-29-2022 Specimen volume (U) 0.60 L [facility] Basophil percentageOrdered B y: Dr. Walker on 12-28-2022 WBC (Bld) [#/Vol] 9.1 10*3/uL 4.4-11.0 [facility] Blood erythrocytes count (nu mber/volume)Ordered By: Dr. Walker on 12-28-2022 RBC (Bld) [#/Vol] 4.17 10*6/uL 4.2-5.4 [facility] Blood hemoglobin measurement (mass/volume)Ordered By: Dr. Walker on 12-28-2022 Hemoglobin (Bld) [Mass/Vol] 12.5 g/dL 12.0-15.0 [facility] Blood platelet mean volumeOr dered By: Dr. Walker on 12-28-2022 Platelet mean volume (Bld) [Entitic vol] 12.4 fL 6.2-12.0 [facility] Determination of erythrocyte mean corpuscular volume (MCV)Ordered By: Dr. Walker on 12-28-2022 MCV (RBC) [Entitic vol] 86.8 fL 81-99 [facility] Hematocrit Auto (Bld) [Volum e fraction]Ordered By: Dr. Walker on 12-28-2022 Hematocrit (Bld) [Volume fraction] 36.2 % 37-47 [facility] Laboratory - Chemistry and C hemistry - challengeOrdered By: Dr. Walker on 12-28-2022 ALT [Catalytic activity/Vol] 11 U/L 13-56 [facility] Laboratory - Hematology and Cell countsOrdered By: Dr. Walker on 12-28-2022 Erythrocyte distribution width (RBC) [Entitic vol] 40.0 fL 35.1-43.9 [facility] Erythrocyte distribution width (RBC) [Ratio] 12.8 % 11.6-14.6 [facility] MCH (RBC) [Entitic mass] 30.0 pg 27.0-32.0 [facility] MCHC Auto (RBC) [Mass/Vol]Or dered By: Dr. Walker on 02-03-2023 MCHC (RBC) [Mass/Vol] 34.5 g/dL 32-36 [facility] No Panel InformationOrdered By: Dr. Walker on 12-28-2022 Estimated Creatinine Clearance Calc 105.87 ml/min [facility] Estimated GFR (MDRD) Amer 124 mL/min >60 [facility] Comment on above: GFR Calc Estimated GFR (MDRD) Non-Af Amer 103 mL/min >60 [facility] Comment on above: Non- GFR Calc Platelets bldOrdered By: Dr. Walker on 12-28-2022 Platelets (Bld) [#/Vol] 176 10*3/uL 150-450 [facility] Serum or plasma creatinine m easurement (mass/volume)Ordered By: Dr. Walker on 12-28-2022 Creatinine [Mass/Vol] 0.75 mg/dL 0.55-1.02 [facility] Comment on above: The validity of the calculated GFR & GFRAA in patients over 70 years has not been determined. Clinical correlation is essential. Serum or plasma uric acid me asurement (mass/volume)Ordered By: Dr. Walker on 12-28-2022 Urate [Mass/Vol] 6.4 mg/dL 2.6-6.0 [facility] Comment on above: The drugs N-Acetylcy steine and Metamizole may falsely depress this assay. Thin prep Papanicolaou smear with manual screeningOrdered By: Dr. Walker on 12-28-2022 Thin prep Papanicolaou smear with manual screening 22 U/L 15-37 [facility] URINE OB DIP B/Oon 3 Glucose Ql (U) Negative Neg mg/dL [facility] Protein.monoclonal (U) [Mass/Vol] 30 mg/dL Neg mg/dL [facility] Urine creatinine measurement (mass/volume)Ordered By: Dr. Walker on 12-28-2022 Creatinine (U) [Mass/Vol] 165.00 mg/dL NO RANGE EST. [facility] Urine protein measurement (m ass/volume)Ordered By: Dr. Walker on 12-28-2022 Protein (U) [Mass/Vol] 61.3 mg/dL 0.0-11.8 [facility] Urine protein/creatinine mas s ratioOrdered By: Dr. Walker on 12-28-2022 Protein/Creatinine (U) [Mass ratio] 372 mg/g CRE 0-200 [facility] URINE OB DIP B/Oon 3 Glucose Ql (U) Negative Neg mg/dL [facility] Protein.monoclonal (U) [Mass/Vol] trace Neg mg/dL [facility] URINE OB DIP B/Oon 2 Glucose Ql (U) Negative Neg mg/dL [facility] Protein.monoclonal (U) [Mass/Vol] Negative Neg mg/dL [facility] URINE OB DIP B/Oon 2 Glucose Ql (U) Negative Neg mg/dL [facility] Protein.monoclonal (U) [Mass/Vol] Negative Neg mg/dL [facility] URINE OB DIP B/Oon 2 Glucose Ql (U) Negative Neg mg/dL [facility] Protein.monoclonal (U) [Mass/Vol] Negative Neg mg/dL [facility] OBSTETRIC ULTRASOUND WHIon 1 12-03-2021 [facility] URINE OB DIP B/Oon 2 Glucose Ql (U) Negative Neg mg/dL [facility] Protein.monoclonal (U) [Mass/Vol] Negative Neg mg/dL [facility] OBSTETRIC ULTRASOUND WHIon 1 [facility] Vital Signs Date Time Vital Sign Value Performing Clinician Martin osorio 05-04-2025 14:19-0400 Body mass index (BMI) [Ratio] 26.86 kg/m2 Palmer Hubbard MD Work Phone: [facility] 05-04-2025 14:19-0400 Body weight 73.21 kg Palmer Hubbard MD Work Phone: [facility] 05-04-2025 14:19-0400 Diastolic blood pressure 62 mm[Hg] Palmer Hubbard MD Work Phone: [facility] 05-04-2025 14:19-0400 Systolic blood pressure 100 mm[Hg] Palmer Hubbard MD Work Phone: [facility] 04-27-2025 08:39-0400 Body mass index (BMI) [Ratio] 26.96 kg/m2 Cinthya Griffin MD Work Phone: [facility] 04-27-2025 08:39-0400 Body weight 73.48 kg Cinthya Griffin MD Work Phone: [facility] 04-27-2025 08:39-0400 Diastolic blood pressure 70 mm[Hg] Cinthya Griffin MD Work Phone: [facility] 04-27-2025 08:39-0400 Systolic blood pressure 118 mm[Hg] Cinthya Griffin MD Work Phone: [facility] 04-23-2025 15:24-0400 Diastolic blood pressure 78 mm[Hg] No Primary Care Physician [facility] 04-23-2025 15:24-0400 Heart rate 93 /min No Primary Care Physician [facility] 04-23-2025 15:24-0400 Systolic blood pressure 127 mm[Hg] No Primary Care Physician [facility] 04-23-2025 15:16-0400 Body height 165.1 cm No Primary Care Physician [facility] 04-23-2025 15:16-0400 Body mass index (BMI) [Ratio] 26.6 kg/m2 No Primary Care Physician [facility] 04-23-2025 15:16-0400 Body weight 72.7 kg No Primary Care Physician [facility] 04-23-2025 14:30-0400 Respiratory rate 16 /min No Primary Care Physician [facility] 04-23-2025 14:30-0400 SaO2% (BldA) [Mass fraction] 98 % No Primary Care Physician [facility] 04-23-2025 14:29-0400 Body temperature 99 [degF] No Primary Care Physician [facility] 04-22-2025 10:56-0400 Body mass index (BMI) [Ratio] 26.29 kg/m2 Palmer Hubbard MD Work Phone: [facility] 04-22-2025 10:56-0400 Body weight 71.67 kg Palmer Hubbard MD Work Phone: [facility] 04-22-2025 10:56-0400 Diastolic blood pressure 64 mm[Hg] Palmer Hubbard MD Work Phone: [facility] 04-22-2025 10:56-0400 Systolic blood pressure 116 mm[Hg] Palmer Hubbard MD Work Phone: [facility] 04-02-2025 10:09-0400 Body mass index (BMI) [Ratio] 25.96 kg/m2 Onur Garcia [employer] ANALYST.[employer] Work Phone: [facility] 04-02-2025 10:09-0400 Body weight 70.76 kg Onurcheco Garcia [employer] ANALYST.[employer] Work Phone: [facility] 04-02-2025 10:09-0400 Diastolic blood pressure 66 mm[Hg] Onur Haury [employer] ANALYST.[employer] Work Phone: [facility] 04-02-2025 10:09-0400 Systolic blood pressure 110 mm[Hg] Onur Jose [employer] ANALYST.[employer] Work Phone: [facility] 03-05-2025 10:18-0400 Body mass index (BMI) [Ratio] 25.53 kg/m2 Kin Walker MD Work Phone: [facility] 03-05-2025 10:18-0400 Body weight 69.58 kg Kin Walker MD Work Phone: [facility] 03-05-2025 10:18-0400 Diastolic blood pressure 72 mm[Hg] Kin Walker MD Work Phone: [facility] 03-05-2025 10:18-0400 Systolic blood pressure 120 mm[Hg] Kin Walker MD Work Phone: [facility] 02-19-2025 10:11-0400 Body mass index (BMI) [Ratio] 25.29 kg/m2 Neda Ibarra APRN.CNM Work Phone: [facility] 02-19-2025 10:11-0400 Body weight 68.95 kg Neda Ibarra APRN.CNM Work Phone: [facility] 02-19-2025 10:11-0400 Diastolic blood pressure 68 mm[Hg] Neda Ibarra APRN.CNM Work Phone: [facility] 02-19-2025 10:11-0400 Systolic blood pressure 110 mm[Hg] Neda Ibarra COG[employer] ANALYST.CNM Work Phone: [facility] 01-22-2025 08:37-0500 Body mass index (BMI) [Ratio] 24.79 kg/m2 Onur Haury [employer] ANALYST.[employer] Work Phone: [facility] 01-22-2025 08:37-0500 Body weight 67.59 kg Onur Haury [employer] ANALYST.[employer] Work Phone: [facility] 01-22-2025 08:37-0500 Diastolic blood pressure 74 mm[Hg] Onur Haury [employer] ANALYST.[employer] Work Phone: [facility] 01-22-2025 08:37-0500 Systolic blood pressure 116 mm[Hg] Onur Haury [employer] ANALYST.[employer] Work Phone: [facility] 12-25-2024 08:57-0500 Body mass index (BMI) [Ratio] 23.63 kg/m2 Onur Haury [employer] ANALYST.[employer] Work Phone: [facility] 12-25-2024 08:57-0500 Body weight 64.41 kg Onur Haury [employer] ANALYST.[employer] Work Phone: [facility] 12-25-2024 08:57-0500 Diastolic blood pressure 60 mm[Hg] Onur Haury [employer] ANALYST.[employer] Work Phone: [facility] 12-25-2024 08:57-0500 Systolic blood pressure 114 mm[Hg] Onur Haury [employer] ANALYST.[employer] Work Phone: [facility] 11-27-2024 10:46-0500 Body mass index (BMI) [Ratio] 22.8 kg/m2 Efra Roy MD Work Phone: [facility] 11-27-2024 10:46-0500 Body weight 62.14 kg Efra Roy MD Work Phone: [facility] 11-27-2024 10:46-0500 Diastolic blood pressure 68 mm[Hg] Efra Roy MD Work Phone: [facility] 11-27-2024 10:46-0500 Systolic blood pressure 112 mm[Hg] Efra Roy MD Work Phone: [facility] 10-30-2024 09:56-0500 Body mass index (BMI) [Ratio] 22.13 kg/m2 Neda Ibarra COGNOS ANALYST.CNM Work Phone: [facility] 10-30-2024 09:56-0500 Body weight 60.33 kg Neda Ibarra [employer] ANALYST.CNM Work Phone: [facility] 10-30-2024 09:56-0500 Diastolic blood pressure 72 mm[Hg] Neda Ibarra [employer] ANALYST.CNM Work Phone: [facility] 10-30-2024 09:56-0500 Systolic blood pressure 110 mm[Hg] eNda Ibarra APRN.CNM Work Phone: [facility] 09-18-2024 09:45-0400 Body mass index (BMI) [Ratio] 21.77 kg/m2 Palmer Hubbard MD Work Phone: [facility] 09-18-2024 09:45-0400 Body weight 59.33 kg Palmer Hubbard MD Work Phone: [facility] 09-18-2024 09:45-0400 Diastolic blood pressure 70 mm[Hg] Palmer Hubbard MD Work Phone: [facility] 09-18-2024 09:45-0400 Systolic blood pressure 110 mm[Hg] Palmer Hubbard MD Work Phone: [facility] 09-09-2024 09:39-0400 Body height 165.1 cm Onur Garcia APRN.[employer] Work Phone: [facility] 09-09-2024 09:39-0400 Body mass index (BMI) [Ratio] 21.47 kg/m2 Onur Garcia APRN.[employer] Work Phone: [facility] 09-09-2024 09:39-0400 Body weight 58.51 kg Onur Gonavdeep [employer] ANALYST.[employer] Work Phone: [facility] 09-09-2024 09:39-0400 Diastolic blood pressure 62 mm[Hg] Onur Gonavdeep [employer] ANALYST.[employer] Work Phone: [facility] 09-09-2024 09:39-0400 Systolic blood pressure 120 mm[Hg] Onur Gonavdeep [employer] ANALYST.[employer] Work Phone: [facility] 01-04-2023 12:54-0500 Body weight 74.57 kg Nedaarias Ibarra COGNOS ANALYST.CNM Work Phone: [facility] 01-04-2023 12:54-0500 Diastolic blood pressure 74 mm[Hg] Neda Ibarra COG[employer] ANALYST.CNM Work Phone: [facility] 01-04-2023 12:54-0500 Systolic blood pressure 130 mm[Hg] Neda Ibarra [employer] ANALYST.CNM Work Phone: [facility] 01-02-2023 13:45-0500 Body temperature 97.2 [degF] [facility] 01-02-2023 13:45-0500 Diastolic blood pressure 78 mm[Hg] [facility] 01-02-2023 13:45-0500 Heart rate 73 /min [facility] 01-02-2023 13:45-0500 Respiratory rate 14 /min [facility] 01-02-2023 13:45-0500 SaO2% (BldA) [Mass fraction] 97 % [facility] 01-02-2023 13:45-0500 Systolic blood pressure 123 mm[Hg] [facility] 12-30-2022 19:18-0500 Body height 165.1 cm [facility] 12-30-2022 19:18-0500 Body mass index (BMI) [Ratio] 29.4 kg/m2 [facility] 12-30-2022 19:18-0500 Body weight 80.28 kg [facility] 12-30-2022 06:58-0500 Diastolic blood pressure 85 mm[Hg] [facility] 12-30-2022 06:58-0500 Heart rate 84 /min [facility] 12-30-2022 06:58-0500 Systolic blood pressure 139 mm[Hg] [facility] 12-30-2022 06:56-0500 SaO2% (BldA) [Mass fraction] 98 % [facility] 12-29-2022 23:06-0500 SaO2% (BldA) [Mass fraction] 100 % [facility] 12-29-2022 23:04-0500 Diastolic blood pressure 73 mm[Hg] [facility] 12-29-2022 23:04-0500 Heart rate 85 /min [facility] 12-29-2022 23:04-0500 Systolic blood pressure 124 mm[Hg] [facility] 12-29-2022 22:08-0500 Body temperature 99.3 [degF] [facility] 12-29-2022 21:33-0500 Body height 165.1 cm [facility] 12-29-2022 21:33-0500 Body mass index (BMI) [Ratio] 29.5 kg/m2 [facility] 12-29-2022 21:33-0500 Body weight 80.6 kg [facility] 12-28-2022 19:52-0500 Body temperature 99.3 [degF] [facility] 12-28-2022 19:52-0500 Diastolic blood pressure 68 mm[Hg] [facility] 12-28-2022 19:52-0500 Heart rate 96 /min [facility] 12-28-2022 19:52-0500 Systolic blood pressure 125 mm[Hg] [facility] 12-28-2022 17:41-0500 SaO2% (BldA) [Mass fraction] 98 % [facility] 12-28-2022 15:40-0500 Body height 165.1 cm [facility] 12-28-2022 15:40-0500 Body mass index (BMI) [Ratio] 29.3 kg/m2 [facility] 12-28-2022 15:40-0500 Body weight 80 kg [facility] 12-28-2022 14:36-0500 Body weight 79.65 kg Carola Plotts [employer] ANALYST.CNM Work Phone: [facility] 12-28-2022 14:36-0500 Diastolic blood pressure 82 mm[Hg] Carola Plotts [employer] ANALYST.CNM Work Phone: [facility] 12-28-2022 14:36-0500 Systolic blood pressure 138 mm[Hg] Carola Plotts [employer] ANALYST.CNM Work Phone: [facility] 12-21-2022 13:24-0500 Body weight 77.93 kg Carola Plotts [employer] ANALYST.CNM Work Phone: [facility] 12-21-2022 13:24-0500 Diastolic blood pressure 70 mm[Hg] Carola Plotts [employer] ANALYST.CNM Work Phone: [facility] 12-21-2022 13:24-0500 Systolic blood pressure 120 mm[Hg] Carola Plotts [employer] ANALYST.CNM Work Phone: [facility] 11-23-2022 14:34-0500 Body weight 74.84 kg Efra Roy MD Work Phone: [facility] 11-23-2022 14:34-0500 Diastolic blood pressure 76 mm[Hg] Efra Roy MD Work Phone: [facility] 11-23-2022 14:34-0500 Systolic blood pressure 104 mm[Hg] Efra Roy MD Work Phone: [facility] 11-09-2022 14:27-0500 Body weight 73.48 kg Neda Ibarra [employer] ANALYST.CNM Work Phone: [facility] 11-09-2022 14:27-0500 Diastolic blood pressure 68 mm[Hg] Neda Ibarra [employer] ANALYST.CNM Work Phone: [facility] 11-09-2022 14:27-0500 Systolic blood pressure 104 mm[Hg] Neda Ibarra [employer] ANALYST.CNM Work Phone: [facility] 10-26-2022 13:27-0500 Body weight 72.67 kg Kin Walker MD Work Phone: [facility] 10-26-2022 13:27-0500 Diastolic blood pressure 70 mm[Hg] Kin Walker MD Work Phone: [facility] 10-26-2022 13:27-0500 Systolic blood pressure 110 mm[Hg] Kin Walker MD Work Phone: [facility] 09-28-2022 10:19-0400 Body weight 68.22 kg Neda Ibarra [employer] ANALYST.CNM Work Phone: [facility] 09-28-2022 10:19-0400 Diastolic blood pressure 60 mm[Hg] Neda Ibarra [employer] ANALYST.CNM Work Phone: [facility] 09-28-2022 10:19-0400 Systolic blood pressure 104 mm[Hg] Neda Ibarra [employer] ANALYST.CNM Work Phone: [facility] 08-31-2022 13:31-0400 Body weight 64.86 kg Neda Ibarra [employer] ANALYST.CNM Work Phone: [facility] 08-31-2022 13:31-0400 Diastolic blood pressure 66 mm[Hg] Neda Ibarra COG[employer] ANALYST.CNM Work Phone: [facility] 08-31-2022 13:31-0400 Systolic blood pressure 108 mm[Hg] Neda Ibarra [employer] ANALYST.CNM Work Phone: [facility] 08-10-2022 13:19-0400 Body height 162.6 cm Carola Plotts [employer] ANALYST.CNM Work Phone: [facility] 08-10-2022 13:19-0400 Body weight 62.14 kg Carola Plotts [employer] ANALYST.CNM Work Phone: [facility] 08-10-2022 13:19-0400 Diastolic blood pressure 60 mm[Hg] Carola Plotts [employer] ANALYST.CNM Work Phone: [facility] 08-10-2022 13:19-0400 Systolic blood pressure 102 mm[Hg] Carola Plotts [employer] ANALYST.CNM Work Phone: [facility] Encounters Encounter Date Encounter Type Care Provider Facility Start: 05-04-2025 End: 05-04-2025 Patient encounter procedure Palmer Hubbard MD Work Phone: OB/Gynecology Comment on above: 38 weeks gestation o f (HCC) (Primary Dx); Supervision of high risk in third trimester (HCC) Start: 05-04-2025 End: 05-04-2025 ambulatory PALMER HUBBARD Facility:[facility] Start: 04-28-2025 End: 04-28-2025 ambulatory Camila Brotracy GELLER [facility] Start: 04-28-2025 End: 04-28-2025 Patient encounter procedure Camila Kunz MA [facility] Comment on above: Population Health [facility] Outreach (Ob/peds) Start: 04-27-2025 End: 04-27-2025 Patient encounter procedure Cinthya Griffin MD Work Phone: OB/Gynecology Comment on above: Supervision of high risk in third trimester (HCC) (Primary Dx); History of pre-eclampsia; Depression affecting in third trimester, antepartum (HCC); 37 weeks gestation of (HCC) Start: 04-27-2025 End: 04-27-2025 ambulatory CINTHYA GRIFFIN Facility:[facility] Start: 04-23-2025 End: 04-23-[address] Cinthya White MD [facility] Work Phone: Start: 04-23-2025 End: 04-23-2025 ambulatory No Primary Care Physician [facility] Work Phone: Start: 04-23-2025 End: 04-23-2025 Telephone encounter Cinthya Griffin MD Work Phone: OB/Gynecology Comment on above: leaking fluid Start: 04-22-2025 End: 04-22-2025 ambulatory PALMER HUBBARD Facility:[facility] Start: 04-22-2025 End: 04-22-2025 Patient encounter procedure Palmer Hubbard MD Work Phone: OB/Gynecology Comment on above: Supervision of high risk in third trimester (HCC) (Primary Dx); History of pre-eclampsia; 37 weeks gestation of (HCC) Start: 04-16-2025 End: 04-16-2025 ambulatory EFRA ROY Facility:[facility] Start: 04-02-2025 End: 04-02-2025 Patient encounter procedure Onur Garcia APRN.[employer] Work Phone: OB/Gynecology Comment on above: Supervision of high risk in third trimester (HCC) (Primary Dx); 34 weeks gestation of (HCC); History of pre-eclampsia; Depression affecting in third trimester, antepartum (HCC) Start: 04-02-2025 End: 04-02-2025 ambulatory ONUR GARCIA Facility:[facility] Start: 03-19-2025 End: 03-19-2025 ambulatory CINTHYA GRIFFIN Facility:[facility] Start: 03-05-2025 End: 03-05-2025 ambulatory KIN WALKER Facility:[facility] Start: 03-05-2025 End: 03-05-2025 Patient encounter procedure Kin Walker MD Work Phone: OB/Gynecology Comment on above: Supervision of high risk in third trimester (HCC) (Primary Dx); 30 weeks gestation of (HCC) Start: 02-22-2025 End: 04-24-2025 Follow-up encounter Margy Castro APRN.LABORER ORCHARD Work Phone: OB/Gynecology Start: 02-19-2025 End: 02-19-2025 Patient encounter procedure Neda Ibarra APRN.CNM Work Phone: OB/Gynecology Comment on above: Supervision of high risk in third trimester (Primary Dx); 28 weeks gestation of ; History of pre-eclampsia; Rh negative state in antepartum period; Depression affecting in third trimester, antepartum Start: 02-19-2025 End: 02-19-2025 ambulatory ONUR GARCIA Facility:[facility] Start: 01-22-2025 End: 01-22-2025 ambulatory ONUR GARCIA Facility:[facility] Start: 01-22-2025 End: 01-22-2025 Patient encounter procedure Onur Garcia APRN.CNP Work Phone: OB/Gynecology Comment on above: Supervision of high risk in second trimester (Primary Dx); 24 weeks gestation of ; Rh negative state in antepartum period; History of pre-eclampsia; Screening for diabetes mellitus Start: 12-25-2024 End: 12-25-2024 ambulatory NEDA IBARRA Facility:[facility] Start: 12-25-2024 End: 12-25-2024 Patient encounter procedure Onur Gonavdeep CAMPOSLABORER ORCHARD Work Phone: OB/Gynecology Comment on above: Supervision of high risk in second trimester (Primary Dx); 20 weeks gestation of ; History of pre-eclampsia; Rh negative state in antepartum period Encounter for anatomic survey (Primary Dx); 20 weeks gestation of Start: 11-27-2024 End: 11-27-2024 ambulatory EFRA ROY Facility:[facility] Start: 11-27-2024 End: 11-27-2024 Patient encounter procedure Efra Roy MD Work Phone: OB/Gynecology Comment on above: Supervision of high risk in second trimester (Primary Dx); 16 weeks gestation of ; History of pre-eclampsia Start: 11-02-2024 End: 11-11-2024 E-mail encounter from caregiver Neda Fred MOLINA Work Phone: OB/Gynecology Start: 11-02-2024 End: 11-11-2024 Follow-up encounter Neda Ibarra APRN.CNM Work Phone: OB/Gynecology Comment on above: Follow up Start: 10-30-2024 End: 10-30-2024 ambulatory PALMER HUBBARD Facility:[facility] Start: 10-30-2024 End: 10-30-2024 Patient encounter procedure Whi Tech 1 Diagnostic Imaging Manager [facility] Maternal Medicine Comment on above: Encounter for antena connie screening for malformation using ultrasound (Primary Dx); 12 weeks gestation of Supervision of high risk in second trimester (Primary Dx); 12 weeks gestation of ; History of pre-eclampsia Start: 09-18-2024 End: 09-18-2024 ambulatory ONUR GARCIA Facility:[facility] Start: 09-18-2024 End: 09-18-2024 Patient encounter procedure Palmer Hubbard MD Work Phone: OB/Gynecology Comment on above: Supervision of high risk in first trimester (Primary Dx) Less than 8 weeks [place] station of ; with uncertain dates in first trimester; Supervision of high risk in first trimester Start: 09-09-2024 End: 09-09-2024 ambulatory ONUR GARCIA Facility:[facility] Start: 09-09-2024 End: 09-09-2024 Patient encounter procedure Onur Garcia PAUL.LABORER ORCHARD Work Phone: OB/Gynecology Comment on above: Supervision of high risk in first trimester (Primary Dx); Less than 8 weeks gestation of ; with uncertain dates in first trimester; Screening for cervical cancer; Screen for STD (sexually transmitted disease); Rh negative state in antepartum period; History of pre-eclampsia; Caffeine use during Start: 01-04-2023 End: 01-04-2023 Patient encounter procedure Neda Ibarra APRN.CNVesna Work Phone: OB/Gynecology Comment on above: Encounter for screen ing for maternal depression (Primary Dx); History of pre-eclampsia; care and examination Start: 01-03-2023 Telephone encounter Efra Roy MD Work Phone: OB/Gynecology Comment on above: Patient Question; Ap pointment Start: 01-01-2023 ambulatory Neda Ibarra APRN.CNM Work Phone: OB/Gynecology Comment on above: Ob Delivery Note Start: 12-30-2022 End: 01-02-2023 [facility] Start: 12-30-2022 Telephone encounter Kin pelletier MD Work Phone: OB/Gynecology Comment on above: Appointment Start: 12-29-2022 End: 12-29-2022 ambulatory [facility] Work Phone: Start: 12-29-2022 End: 12-29-2022 Patient encounter procedure [facility] Start: 12-28-2022 End: 12-28-2022 ambulatory [facility] Work Phone: Start: 12-28-2022 End: 12-28-2022 Patient encounter procedure [facility] Comment on above: 37 weeks gestation o f (Primary Dx); Elevated blood pressure reading without diagnosis of hypertension; Gestational proteinuria in third trimester Start: 12-21-2022 End: 12-21-2022 Patient encounter procedure Carola Flores APRN.CNVesna Work Phone: OB/Gynecology Comment on above: 36 weeks gestation o f (Primary Dx) Start: 11-23-2022 End: 11-23-2022 Patient encounter procedure Efra Roy MD Work Phone: OB/Gynecology Comment on above: 32 weeks gestation o f (Primary Dx); Encounter for supervision of normal first in third trimester Start: 11-09-2022 End: 11-09-2022 Patient encounter procedure Neda Ibarra APRN.CNM Work Phone: OB/Gynecology Comment on above: 30 weeks gestation o f (Primary Dx); Encounter for supervision of normal first in second trimester Start: 10-26-2022 End: 10-26-2022 Patient encounter procedure Kin Walker MD Work Phone: OB/Gynecology Comment on above: 28 weeks gestation o f (Primary Dx); Need for vaccination; Supervision of other normal , antepartum Start: 10-16-2022 Telephone encounter Neda guillen APRN.CNVesna Work Phone: OB/Gynecology Comment on above: Received Outside Med ical Records Start: 10-03-2022 End: 10-03-2022 Patient encounter procedure Sera Meier MD Work Phone: Maternal Medicine Comment on above: Encounter for follow -up ultrasound of anatomy (Primary Dx); 24 weeks gestation of Start: 09-28-2022 End: 09-28-2022 Patient encounter procedure Neda Ibarra APRN.CNM Work Phone: OB/Gynecology Comment on above: 24 weeks gestation o f (Primary Dx) Start: 09-03-2022 Telephone encounter Carola collazo COGNOS ANALYST.CNM Work Phone: OB/Gynecology Comment on above: Results Start: 08-31-2022 End: 08-31-2022 Patient encounter procedure Sera Meier MD Work Phone: Maternal Medicine Comment on above: Encounter for anatomic survey (Primary Dx); 20 weeks gestation of 20 weeks gestation o f (Primary Dx) Start: 08-21-2022 Telephone encounter Neda guillen COGNOS ANALYST.CNM Work Phone: OB/Gynecology Comment on above: Received Outside Med [facility] Records Start: 08-10-2022 End: 08-10-2022 Patient encounter procedure Carola Flores COGNOS ANALYST.CNM Work Phone: OB/Gynecology Comment on above: 17 weeks gestation o f (Primary Dx); with care elsewhere in second trimester Procedures Date Procedure Procedure Detail Performing Clinician Start: 05-04-2025 Urnls dip stick/tabl et rgnt non-auto w/o micrscp Palmer Hubbard MD Work Phone: Start: 04-23-2025 Measurement of pH in vaginal fluid specimen using nitrazine yellow for detection of rupture of amniotic membrane No Primary Care Physician Comment on above: Amniotic fluid not p resent indicates No Rupture of FetalMembranes at time of specimen collection. Start: 04-22-2025 Urnls dip stick/tabl et rgnt non-auto w/o micrscp Palmer Hubbard MD Work Phone: Start: 02-19-2025 Antibody screen PALMER HUBBARD Comment on above: Order Comment: Speci men Type: BLOOD SPECIMEN Ordering Facility: [facility] Address: [address] [place] [address] Performed By: #### T SPN #### [facility] CLIA [id number] [address] [place] [address] [place] [address] [place] Start: 12-25-2024 Us preg uterus after 1st trimest 11/25 gestation Neda Ibarra APRN.CNM Work Phone: Start: 10-30-2024 Us nuchal translucency 1st gestation Palmer Hubbard MD Work Phone: Start: 09-18-2024 Us preg uterus after 1st trimest / gestation Onur Jose MILLER.LABORER ORCHARD Work Phone: Start: 09-09-2024 Antibody screen PALMER HUBBARD Comment on above: Order Comment: Speci men Type: BLOOD SPECIMEN Ordering Facility: [facility] Address: [address] [place] [address] Performed By: #### T SPN #### [facility] CLIA [id number] [address] [place] [address] [place] Start: 09-09-2024 Us uterus l imited fetuses Onur Jose MILLER.LABORER ORCHARD Work Phone: Start: 09-09-2024 Adult depression scr eening assessment [facility] Start: 12-28-2022 URINE OB DIP B/O García Flores COGNOS ANALYST.CNM Work Phone: Start: 12-21-2022 URINE OB DIP B/O García Flores APRN.CNM Work Phone: Start: 11-23-2022 URINE OB DIP B/O Kellen Roy MD Work Phone: Start: 11-09-2022 URINE OB DIP B/O Kaushal Ibarra APRN.CNM Work Phone: Start: 10-26-2022 URINE OB DIP B/O Kin power MD Work Phone: Start: 10-03-2022 Us preg uterus after 1st trimest 11/25 gestation Carola Flores APRN.CNM Work Phone: Start: 09-28-2022 URINE OB DIP B/O Kaushal Ibarra APRN.CNM Work Phone: Start: 08-31-2022 Us preg uterus after 1st trimest 11/25 gestation Carola Flores COGNOS ANALYST.CNM Work Phone: Plan of Treatment Date Care Activity Detail Author Start: 10-26-2032 Urine microalbumin profile [facility] Start: 09-09-2027 Screening for malign ant neoplasm of cervix Cervical Cancer Screening [facility] Start: 09-09-2025 Anxiety Screening Anxiety Screening [facility] Start: 09-09-2025 Depression Screening Depression Scre ening [facility] Start: 09-09-2025 GC (Gonorrhea) Scree roberta () GC (Gonorrhea) Screening () [facility] Start: 09-09-2025 Screening for Chlamy kole trachomatis Chlamydia Screening () [facility] Start: 07-26-2025 Influenza vaccination Influenz a Vaccine (Season Ended) [facility] Start: 07-13-2025 PAP TESTING PAP TESTING [facility] Start: 07-13-2025 Screening for malign ant neoplasm of cervix Cervical Cancer Screening [facility] Start: 05-12-2025 End: 05-12-2025 Patient encounter procedure 05/12/2025 10:50 AM EDT Routine Office Visit OB/Gynecology [address] [place] [address] Efra Roy MD [address], [place] [id number] OB OB/Gynecology Comment on above: OB Start: 05-04-2025 End: 05-04-2025 Patient encounter procedure 05/04/2025 3:10 PM EDT Routine Office Visit OB/Gynecology [address] [place] [address] Palmer Hubbard MD [address] [place] [id number] Ob OB/Gynecology Comment on above: Ob Start: 04-27-2025 End: 04-27-2025 Patient encounter procedure 04/27/2025 8:40 AM EDT Routine Office Visit OB/Gynecology [address] [place] [id number] NeCinthya Degroot MD [address] [place] [address] Ob OB/Gynecology Comment on above: Ob Start: 04-23-2025 Nonstress test [facility] Start: 04-23-2025 Obstetric monitoring [facility] Start: 04-23-2025 Vital signs measurements [facility] Start: 04-23-2025 [facility] Start: 04-16-2025 End: 04-16-2025 Patient encounter procedure 04/16/2025 10:10 AM EDT Routine Office Visit OB/Gynecology [address] [place] [address] Efra Roy MD [address] [place] [address] OB Routine OB/Gynecology Comment on above: OB Routine Start: 04-02-2025 End: 04-02-2025 Patient encounter procedure 04/02/2025 10:00 AM EDT Routine Office Visit OB/Gynecology [address] [place] [address] Neda Ibarra APRN.CN [address] [place] [address] OB OB/Gynecology Comment on above: OB Start: 03-19-2025 End: 03-19-2025 Patient encounter procedure 03/19/2025 8:40 AM EDT Routine Office Visit OB/Gynecology [address] [place] [address] Cinthya Morton MD [address] [place] [address] OB OB/Gynecology Comment on above: OB Start: 03-05-2025 End: 03-05-2025 Patient encounter procedure 03/05/2025 10:20 AM EDT Routine Office Visit OB/Gynecology [address] [place] [address] Kin Walker MD [address] [address] OB OB/Gynecology Comment on above: OB Start: 02-19-2025 End: 02-19-2025 Patient encounter procedure 02/19/2025 10:00 AM EDT Routine Office Visit OB/Gynecology [address] [place] [address] Neda Ibarra APRN.CNM [address] [place] [address] OB OB/Gynecology Comment on above: OB Start: 02-19-2025 End: 02-19-2025 ambulatory 02/19/2025 9:45 AM EDT Results Only Aysha Shawwn [facility] [address] [place] [address] Supervision of high risk in second trimester [O09.92]; 24 weeks gestation of [Z3A.24]; Rh negative state in antepartum period [O26.899, Z67.91]; History of pre-eclampsia [Z87.59]; Screening for diabetes mellitus [Z13.1] [facility] Comment on above: Supervision of high risk in second trimester [O09.92]; 24 weeks gestation of [Z3A.24]; Rh negative state in antepartum period [O26.899, Z67.91]; History of pre-eclampsia [Z87.59]; Screening for diabetes mellitus [Z13.1] Start: 01-22-2025 End: 04-23-2025 ANEMIA REFLEX PANEL ANEMIA REFLEX PANEL Lab Routine Supervision of high risk in second trimester 24 weeks gestation of Rh negative state in antepartum period History of pre-eclampsia Expected: 01/22/2025, Expires: 04/23/2025 [facility] Comment on above: Expected: 01/22/2025 , Expires: 04/23/2025 Start: 01-22-2025 End: 01-22-2026 GESTATIONAL GLUCOSE SCREEN, 1-HOUR, 50 GRAM, NON-FASTING GESTATIONAL GLUCOSE SCREEN, 1-HOUR, 50 GRAM, NON-FASTING Lab Routine Supervision of high risk in second trimester 24 weeks gestation of Rh negative state in antepartum period History of pre-eclampsia Screening for diabetes mellitus Expected: 01/22/2025, Expires: 01/22/2026 [facility] Work Phone: Comment on above: Expected: 01/22/2025 , Expires: 01/22/2026 Start: 01-22-2025 End: 01-22-2026 SYPHILIS TREPONEMAL W/REFLEX SYPHILIS TREPONEMAL W/REFLEX Lab Routine Supervision of high risk in second trimester 24 weeks gestation of Rh negative state in antepartum period History of pre-eclampsia Expected: 01/22/2025, Expires: 01/22/2026 [facility] Comment on above: Expected: 01/22/2025 , Expires: 01/22/2026 Start: 01-22-2025 End: 04-23-2025 TYPE + SCREEN TYPE + SCREEN Blood Bank Routine Supervision of high risk in second trimester 24 weeks gestation of Rh negative state in antepartum period History of pre-eclampsia Expected: 01/22/2025, Expires: 04/23/2025 [facility] Comment on above: Expected: 01/22/2025 , Expires: 04/23/2025 Start: 01-22-2025 End: 01-22-2025 Patient encounter procedure 01/22/2025 8:45 AM EST Routine Office Visit OB/Gynecology [address] [place] [address] Onur Garcia, COGNOS ANALYST.LABORER ORCHARD [address] [place] [address] [place] [address] OB Routine OB/Gynecology Comment on above: OB Routine Start: 12-25-2024 End: 12-25-2024 Patient encounter procedure [facility]aternal [facility] Comment on above: Anatomy Anatomy/OB Start: 11-27-2024 End: 11-27-2024 Patient encounter procedure 11/27/2024 10:30 AM EST Routine Office Visit OB/Gynecology [address] [place] [address] Efra Roy MD [address] [place] [address] OB OB/Gynecology Comment on above: OB Start: 10-30-2024 End: 10-30-2025 OBSTETRIC ULTRASOUND WHI OBSTETRIC ULTRASOUND WHI Anc Imaging Routine Supervision of high risk in second trimester 12 weeks gestation of Expected: 10/30/2024, Expires: 10/30/2025 [facility] Work Phone: Comment on above: Expected: 10/30/2024 , Expires: 10/30/2025 Start: 10-30-2024 End: 10-30-2024 Patient encounter procedure Maternal Medicine Comment on above: Nuchal Nuchal/ OB Start: 10-07-2024 End: 10-07-2024 Patient encounter procedure 10/07/2024 10:20 AM EST Routine Office Visit OB/Gynecology [address] [place] [address] Efra Roy MD [address] [place] [address] OB, LMP 06/30/24 OB/Gynecology Comment on above: OB, LMP 06/30/24 Start: 09-18-2024 End: 09-18-2025 NUCHAL TRANSLUCENCY WHI NUCHAL TRANSLUCENCY WHI Anc Imaging Routine Supervision of high risk in first trimester Expected: 09/18/2024, Expires: 09/18/2025 [facility] Work Phone: Comment on above: Expected: 09/18/2024 , Expires: 09/18/2025 Start: 09-18-2024 End: 09-18-2024 Patient encounter procedure Maternal Medicine Comment on above: Dating US Dating US/ OB Start: 09-09-2024 End: 12-09-2024 Hemoglobin A1c in Blood [facility] Comment on above: Expected: 09/09/2024 , Expires: 12/09/2024 Start: 09-09-2024 End: 12-09-2024 Hepatitis B virus surface Ag [Presence] in Serum [facility] Comment on above: Expected: 09/09/2024 , Expires: 12/09/2024 Start: 09-09-2024 End: 12-09-2024 Hepatitis C virus Ab [Presence] in Serum [facility] Comment on above: Expected: 09/09/2024 , Expires: 12/09/2024 Start: 09-09-2024 End: 12-09-2024 HIV 1+2 Ab [Presence] in Serum or Plasma by Immunoassay [facility] Comment on above: Expected: 09/09/2024 , Expires: 12/09/2024 Start: 09-09-2024 End: 09-09-2025 OBSTETRIC ULTRASOUND WHI OBSTETRIC ULTRASOUND WHI Anc Imaging Routine Less than 8 weeks gestation of with uncertain dates in first trimester Supervision of high risk in first trimester Expected: 09/09/2024, Expires: 09/09/2025 [facility] Comment on above: Expected: 09/09/2024 , Expires: 09/09/2025 Start: 09-09-2024 End: 12-09-2024 Protein/Creatinine [Mass Ratio] in Urine [facility] Comment on above: Expected: 09/09/2024 , Expires: 12/09/2024 Start: 09-09-2024 End: 12-09-2024 RUBELLA IGG ANTIBODY [facility] Comment on above: Expected: 09/09/2024 , Expires: 12/09/2024 Start: 09-09-2024 End: 12-09-2024 SYPHILIS TREPONEMAL W/REFLEX [facility] Work Phone: Comment on above: Expected: 09/09/2024 , Expires: 12/09/2024 Start: 09-09-2024 End: 12-09-2024 Thyrotropin [Units/volume] in Serum or Plasma [facility] Comment on above: Expected: 09/09/2024 , Expires: 12/09/2024 Start: 09-09-2024 End: 12-09-2024 TYPE + SCREEN [facility] Comment on above: Expected: 09/09/2024 , Expires: 12/09/2024 Start: 07-26-2024 Covid-19 Vaccine ( season) Covid-19 Vaccine () [facility] Start: 07-26-2024 Influenza vaccination Influenza Vacc ine (#1) [facility] Start: 07-13-2023 CHLAMYDIA SCREENING () CHLAMYDIA SCREENING () [facility] Start: 07-13-2023 GC (GONORRHEA) SCREE ROBERTA () GC (GONORRHEA) SCREENING () [facility] Start: 07-13-2023 Screening for Chlamy kole trachomatis Chlamydia Screening () [facility] Start: 01-02-2023 Patient discharge [facility] Start: 01-01-2023 Administration of bl ood product [facility] Start: 01-01-2023 Administration of medication [facility] Start: 01-01-2023 Application of ice collar, cap or bag [facility] Start: 01-01-2023 Catheterization of vein [facility] Start: 01-01-2023 Introduction of urin jack catheter [facility] Start: 01-01-2023 Measuring intake and output [facility] Start: 01-01-2023 Notification of physician [facility] Start: 01-01-2023 Procedure discontinued [facility] Start: 01-01-2023 Provision of activit y privileges [facility] Start: 01-01-2023 Vital signs measurements [facility] Start: 01-01-2023 [facility] Start: 01-01-2023 [facility] Start: 12-30-2022 Admission procedure [facility] Start: 12-30-2022 End: 12-30-2023 OBSTETRIC ULTRASOUND WHI OBSTETRIC ULTRASOUND [facility]I Anc Imaging Routine 37 weeks gestation of Elevated blood pressure reading without diagnosis of hypertension Expected: 12/30/2022, Expires: 12/30/2023 [facility] Work Phone: Comment on above: Expected: 12/30/2022 , Expires: 12/30/2023 Start: 12-29-2022 Obstetric monitoring [facility] Start: 12-29-2022 Vital signs measurements [facility] Start: 12-29-2022 [facility] Start: 12-29-2022 End: 12-29-2022 Nonstress test [facility] Start: 12-29-2022 Obstetric monitoring [facility] Start: 12-29-2022 Vital signs measurements [facility] Start: 12-29-2022 [facility] Start: 12-29-2022 Patient discharge [facility] Start: 12-28-2022 End: 12-28-2022 [facility] Start: 12-28-2022 Nonstress test [facility] Start: 12-28-2022 Obstetric monitoring [facility] Start: 12-28-2022 Vital signs measurements [facility] Start: 12-28-2022 Patient discharge [facility] Start: 11-25-2022 [facility]PRESSION [facility]MENT [facility] Start: 10-28-2022 End: 12-28-2022 CBC W Auto Differential panel - Blood CBC + DIFF Lab Routine 24 weeks gestation of Expected: 10/28/2022 (Approximate), Expires: 12/28/2022 [facility] Work Phone: Comment on above: Expected: 10/28/2022 (Approximate), Expires: 12/28/2022 Start: 10-28-2022 End: 12-28-2022 GEST GLUC SCREEN, 1-HR, 50 GM, NON-FASTING GEST GLUC SCREEN, 1-HR, 50 GM, NON-FASTING Lab Routine 24 weeks gestation of Expected: 10/28/2022 (Approximate), Expires: 12/28/2022 [facility] Work Phone: Comment on above: Expected: 10/28/2022 (Approximate), Expires: 12/28/2022 Start: 10-28-2022 End: 12-28-2022 SYPHILIS TOTAL W/REFLEX SYPHILIS TOTAL W/REFLEX Lab Routine 24 weeks gestation of Expected: 10/28/2022 (Approximate), Expires: 12/28/2022 [facility] Work Phone: Comment on above: Expected: 10/28/2022 (Approximate), Expires: 12/28/2022 Start: 09-28-2022 End: 11-28-2022 TYPE + SCREEN TYPE + SCREEN Blood Bank Routine 24 weeks gestation of Expected: 09/28/2022, Expires: 11/28/2022 [facility] Work Phone: Comment on above: Expected: 09/28/2022 , Expires: 11/28/2022 Start: 08-10-2022 End: 10-10-2022 ALPHA FETOPRO MATERNAL ALPHA FETOPRO MATERNAL Lab Routine 17 weeks gestation of Expected: 08/10/2022, Expires: 10/10/2022 [facility] Work Phone: Comment on above: Expected: 08/10/2022 , Expires: 10/10/2022 Start: 07-26-2022 Influenza vaccination INFLUENZA (#1) [facility] Start: 11-25-2021 DEPRESSION ASSESSMENT DEPRESSION ASS ESSMENT [facility] Start: 2021 PAP TESTING PAP TESTING [facility] Start: 2019 Hepatitis B Vaccine (1 of 3 - 19+ 3-dose series) Hepatitis B Vaccine (1 of 3 - 19+ 3-dose series) [facility] Start: 2019 Urine microalbumin profile DTAP,TDAP,TD (1 - Tdap) [facility] Start: 2018 Anxiety Screening Anxiety Screening [facility] Start: 2018 CHLAMYDIA SCREENING (18-24) CHLAMYDIA SCREENING (18-24) [facility] Start: 2018 Depression Screening Depression Scre ening [facility] Start: 2018 GC (GONORRHEA) SCREE ROBERTA (18-24) GC (GONORRHEA) SCREENING (18-24) [facility] Start: 2018 HEPATITIS C SCREENING HEPATITIS C SC REENING [facility] Start: 2018 HIV SCREENING HIV SCREENING [facility] Start: 2016 Meningococcal B Vacc ine: Consider Based On Risk (1 of 2 - Patient Seeks Protection) Meningococcal B Vaccine: Consider Based On Risk (1 of 2 - Patient Seeks Protection) [facility] Start: 2015 HPV Vaccine (1 - 3-d ose series) HPV Vaccine (1 - 3-dose series) [facility] Start: 2014 PEDS TO ADULT TRANSI TION ANNUAL ASSESSMENT PEDS TO ADULT TRANSITION ANNUAL ASSESSMENT [facility] Start: 2012 Adult depression screening assessment DEPRESSION SCREENING [facility] Start: 2012 PEDS TO ADULT TRANSI TION INITIAL DISCUSSION PEDS TO ADULT TRANSITION INITIAL DISCUSSION [facility] Start: 2011 HPV VACCINE (1 - 2-d ose series) HPV VACCINE (1 - 2-dose series) [facility] [facility] Start: 04-16-2001 COVID-19 VACCINE (#1) COVID-19 VACCI NE (#1) [facility] Start: 2000 HEPATITIS B (1 of 3 - 3-dose series) HEPATITIS B (1 of 3 - 3-dose series) [facility] Bacteria identified in Urine by Culture URINE CULTURE Microbiology Routine Less than 8 weeks gestation of with uncertain dates in first trimester Supervision of high risk in first trimester 09/09/2024 10:14 AM T [facility] Chlamydia trachomatis+Neisseria gonorrhoeae DNA [Presence] in Unspecified specimen by DEBORAH with probe detection GONORRHEA/CHLAMYDIA NAAT Lab Routine Less than 8 weeks gestation of with uncertain dates in first trimester Supervision of high risk in first trimester Screen for STD (sexually transmitted disease) 09/09/2024 10:14 AM T [facility] End: 09-09-2025 Choriogonadotropin.beta subunit [Units/volume] in Serum or Plasma HCG QUANTITATIVE Lab Routine Less than 8 weeks gestation of with uncertain dates in first trimester 2x per week for 6 Occurrences starting 09/09/2024 until 09/09/2025 [facility] Comment on above: 2x per week for 6 Oc currences starting 09/09/2024 until 09/09/2025 Choriogonadotropin.b eta subunit [Units/volume] in Serum or Plasma HCG QUANTITATIVE Lab Routine Less than 8 weeks gestation of with uncertain dates in first trimester 09/09/2024 10:24 AM [facility] Collect duration Time Ur [facility] Creatinine [Mass/liv e] in 24 hour Urine [facility] Creatinine [Mass/vol ume] in Urine [facility] OBSTETRIC ULTRASOUND WHI OBSTETR IC ULTRASOUND WHI Anc Imaging Routine 17 weeks gestation of Ordered: 08/10/2022 [facility] Work Phone: Comment on above: Ordered: 08/10/2022 PAP TEST PAP TEST Lab Rou patricia Less than 8 weeks gestation of with uncertain dates in first trimester Supervision of high risk in first trimester Screening for cervical cancer 09/09/2024 10:14 AM EDT [facility] Patient Education Kick Counts ED False Labor OB Triage: Return to Hospital or Notify Physician if you Experience: [facility] Work Phone: Patient referral [facility] Work Phone: Protein [Mass/time] in 24 hour Urine [facility] Protein [Mass/volume ] in 24 hour Urine [facility] Protein measurement, urine, quantitative 24 hour [facility] ROUTINE, GR OUP B STREP PCR ROUTINE, GROUP B STREP PCR Microbiology Routine 36 weeks gestation of 12/21/2022 1:55 PM EST [facility] Work Phone: URINE OB DIP B/O URINE OB DIP B/ O Lab Routine 17 weeks gestation of Ordered: 08/10/2022 [facility] Work Phone: Comment on above: Ordered: 08/10/2022 URINE OB DIP B/O URINE OB DIP B/ O Lab Routine 20 weeks gestation of Ordered: 08/31/2022 [facility] Work Phone: Comment on above: Ordered: 08/31/2022 URINE OB DIP B/O URINE OB DIP B/ O Lab Routine Supervision of high risk in third trimester (HCC) History of pre-eclampsia 34 weeks gestation of (HCC) Depression affecting in third trimester, antepartum (HCC) Ordered: 04/02/2025 [facility] Work Phone: Comment on above: Ordered: 04/02/2025 URINE OB DIP B/O URINE OB DIP B/ O Lab Routine Supervision of high risk in third trimester (HCC) History of pre-eclampsia Depression affecting in third trimester, antepartum (HCC) 37 weeks gestation of (HCC) Ordered: 04/27/2025 [facility] Work Phone: Comment on above: Ordered: 04/27/2025 Urine sample volume measurement [facility] Immunizations Immunization Date Immunization Notes Care Provider Fa cility 02-19-2025 RHO(D) immune globul in- IV or IM Neda Ibarra APRN.CNM Work Phone: [facility] 10-26-2022 RHO(D) immune globul in- IV or IM Kin Walker MD Work Phone: [facility] Work Phone: 10-26-2022 tetanus toxoid, redu alan diphtheria toxoid, and acellular pertussis vaccine, adsorbed Kin Walker MD Work Phone: [facility] Payers Date Payer Category Payer Self-pay 2023 Private Health Insurance [id number] 2023 Private Health Insurance [id number] 2022 Unknown [id number] Unknown [facility] [id number] Unknown [id number] Social History Date Type Detail Facility Start: 08-08-2022 End: 12-30-2022 Tobacco smoking status NHIS Never smoked tobacco [facility] Work Phone: Start: 08-08-2022 Tobacco use and exposure Smokeless tobacco non-user [facility] Work Phone: Start: 08-10-2022 End: 04-22-2025 Alcohol intake Ex-drinker (finding) [facility] Start: 08-10-2022 End: 09-09-2024 Alcohol intake [facility] Start: 08-08-2022 Education 16 [facility] Start: 04-27-2022 [facility] Start: 2000 Sex Assigned At Not on file [facility] Start: 07-31-2022 End: 10-26-2022 Exposure to SARS-CoV-2 (event) Not sure [facility] Start: 2000 Sex Assigned At Female W [facility] Start: 12-30-2022 Tobacco smoking stat us NHIS Unknown if ever smoked [facility] Start: 09-09-2024 End: 02-19-2025 Tobacco use panel [facility] National Score (1-10 0), lower number is lower risk 87 [facility] Start: 09-02-2024 Gender identity Identifies as female gender (finding) [facility] Start: 09-02-2024 Sexual orientation Heterosexual (fin chris) [facility] The thought of natividad polk myself has occurred to me Never [facility] Goals Date Patient Goal Desired Activity /State Personal health goal Clinical Notes 08-10-2022 to 05-04-2025 Quick Notes - Palmer Hubbard MD - 05/04/2025 2:27 PM EDTPrenatal Quick Notes - Palmer Hubbard MD - 05/04/2025 2:27 PM EDTPatient Camila Moreno MA - 04/28/2025 12:18 PM EDT Note Date & Type Note Facility 05-04-2025 Progress note Formatting of t his note might be different from the original. KJ - S: Kin denies LOF, contractions or vaginal bleeding. Patient reports some cramps. O: 38w6d, see flow sheet SENSITIVE EXAM: The sensitive examination was discussed with the Patient or Patient's Authorized Ice Cream Vendor. As applicable, any other physician, advance practice provider, medical student, or other health professional student that will be observing or involved in the sensitive examination for educational or training purposes was discussed with the Patient or Authorized Ice Cream Vendor. The Patient or Authorized Ice Cream Vendor has agreed to proceed with the sensitive examination. (Sensitive examination includes inspection and/or palpation of the breasts, pelvis, prostate and anorectal regions). A/P: Assessment & Plan 38 weeks gestation of (HCC) Orders: URINE OB DIP B/O Supervision of high risk in third trimester (HCC) Orders: URINE OB DIP B/O Reviewed labor & FM precautions Palmer Hubbard MD [facility] 05-04-2025 Miscellaneous Notes KJ - S: Kin denies LOF, contractions or vaginal bleeding. Patient reports some cramps. O: 38w6d, see flow sheet SENSITIVE EXAM: The sensitive examination was discussed with the Patient or Patient's Authorized Ice Cream Vendor. As applicable, any other physician, advance practice provider, medical student, or other health professional student that will be observing or involved in the sensitive examination for educational or training purposes was discussed with the Patient or Authorized Ice Cream Vendor. The Patient or Authorized Ice Cream Vendor has agreed to proceed with the sensitive examination. (Sensitive examination includes inspection and/or palpation of the breasts, pelvis, prostate and anorectal regions). A/P: Assessment & Plan 38 weeks gestation of (HCC) Orders: URINE OB DIP B/O Supervision of high risk in third trimester (HCC) Orders: URINE OB DIP B/O Reviewed labor & FM precautions Palmer Hubbard MD documented in this encounter [facility] 05-04-2025 Instructions Camila Arcos MA - 05/04/2025 2:16 PM EDT SEQUENTIAL SCREENINGS The [facility] offers sequential screenings for women who are interested in screenings for chromosomal abnormalities and certain defects during a . The sequential screen combines ultrasound and blood tests to determine the risk of chromosomal abnormalities, including Down's Syndrome (Trisomy 21) and Trisomy 18, as well as open neural tube defects including spina bifida. Ultrasound examination is performed between 11 weeks and 13 weeks gestational age. Blood tests are drawn after the ultrasound and again later in the between 15 and 21 weeks gestational age. Please let your physician know if you are interested in this testing. It will require an appointment with our dental equipment technician. This is not an ultrasound performed by a physician in our office during a routine visit. SIGNS AND SYMPTOMS OF LABOR 1. Contractions every 10 minutes or more often 2. Clear, pink, or brownish fluid (water) leaking from vagina 3. Feeling that baby is pushing down, pressure 4. Low, dull backache 5. Cramps that feel like a period 6. Cramps with or without diarrhea If you notice any of the above symptoms, contact our office at [phone] and ask to speak with a nurse. After hours, you can call doctors registry at [phone] OR call [facility] at [phone] and ask to have the doctor director of corporate sponsorships paged. If you consider this an emergency, dial 9-1-7 or go to your nearest emergency department. NEED HELP? Are you dealing with a violent or abusive relationship? Are you a victim of rape or sexual assult? Call [facility] ([place]) 24 hour Crisis Hotline: 467.564.2173 or 714-503-2252. MANUAL Your Guide to a Healthy manual is now on-line. Visit [email or web address] Jesús to download your free copy documented in this encounter [facility] 04-28-2025 Note HNO ID: [id number] Author: CAMILA KUNZ MA Service: ? Author Type: Orthopedic Assistant Type: Progress Notes Filed: 04/28/2025 13:32 Note Text: POPULATION HEALTH NAVIGATION OUTREACH Action/FYI Curam Developer updated per documentation. Reason for Outreach Medicaid OB/Peds Care Gaps due: N/A Patient Contacted: Unable or unnecessary to reach patient: lanolin plant operator added Navigation Signature: Camila Munoz MA April 28, 2025 12:19 PM [facility] 04-28-2025 History of Presen t illness Narrative POPULATION HEALTH NAVIGATION OUTREACH Action/FYI Curam Developer updated per documentation. Reason for Outreach Medicaid OB/Peds Care Gaps due: N/A Patient Contacted: Unable or unnecessary to reach patient: Palmer lanolin plant operator added Navigation Signature: Camila Munoz MA April 28, 2025 12:19 PM documented in this encounter [facility] 04-28-2025 Note Patient Outreach (NE TNAV) KIN ALEJO ([id number]) 1 F Date Time Provider Department 04/28/25 CAMILA KUNZ During your visit today, we recorded the following information about you: Camila Kunz MA 04/28/2025 1:32 PM Signed POPULATION HEALTH NAVIGATION OUTREACH Action/FYI Curam Developer updated per documentation. Reason for Outreach Medicaid OB/Peds Care Gaps due: N/A Patient Contacted: Unable or unnecessary to reach patient: Palmer lanolin plant operator added Navigation Signature: Camila Munoz MA April 28, 2025 12:19 PM Allergies As of Date: 04/28/2025 (No Known Allergies) Date Reviewed: 04/27/2025 Reviewed by: Sanaz Mesa MA - Fully Assessed Reason for Visit: Population Health Navigation Outreach [3910] Cmt: Ob/peds Prescriptions as of 04/28/2025 - aspirin, enteric coated (ECOTRIN LOW STRENGTH) 81 mg EC tablet Take 1 tablet by mouth once daily. - prental multivitamin 27 mg iron- 800 mcg tablet Take 1 tablet by mouth once daily. Problem List As Of Date 04/28/2025 Noted Resolved Rh negative state in antepartum period [O26.899*09/09/2024 with uncertain dates in first trimest*09/09/2024 09/18/2024 Caffeine use during [O99.891] 09/09/2024 History of pre-eclampsia [Z87.59] 09/09/2024 Supervision of high risk in third tri*09/09/2024 Depression affecting in third trimest*02/19/2025 Encounter Status:Closed by CAMILA KUNZ on 04/28/25 [facility] 04-27-2025 Progress note Formatting of t his note might be different from the original. DM-Pt doing well. Denies vaginal Bleeding, Leaking fluid. Pt reports good movement Reports irregular painful contractions and was evaluated in triage - reports she was 1-2 cm and did not make change. Physical Exam: Gen: female in no apparent distress Abd: soft, Gravid. Non tender to palpation. See flow sheet Participation of a fellow, resident, medical student, or advanced practice provider student in performing the sensitive examination was discussed with the patient or authorized energy conservation representative. The patient or authorized energy conservation representative has agreed to proceed with the sensitive examination. @ 37.6 weeks Assessment & Plan Supervision of high risk in third trimester ([facility]) - Reviewed GARETH, labor/bleeding precautions - Gbs negative - Would be interested in induction after 40 weeks - Increased contraction pain - Undecided for PPBC - SVE 1.5//-3 Orders: URINE OB DIP B/O History of pre-eclampsia Orders: URINE OB DIP B/O Depression affecting in third trimester, antepartum ([facility]) Orders: URINE OB DIP B/O 37 weeks gestation of ([facility]) Orders: URINE OB DIP B/O Onur Keller MD Attending Note I evaluated the patient and personally participated in the quan components. I agree with the resident's findings and plan as documented and have discussed the case and management of the patient's care with the resident. Signature: Cinthya White MD Date: April 27, 2025 Time: 1:49 PM Cinthya White MD T [facility] 04-27-2025 Miscellaneous Notes DM-Pt doing well. Denies vaginal Bleeding, Leaking fluid. Pt reports good movement Reports irregular painful contractions and was evaluated in triage - reports she was 1-2 cm and did not make change. Physical Exam: Gen: female in no apparent distress Abd: soft, Gravid. Non tender to palpation. See flow sheet Participation of a fellow, resident, medical student, or advanced practice provider student in performing the sensitive examination was discussed with the patient or authorized energy conservation representative. The patient or authorized energy conservation representative has agreed to proceed with the sensitive examination. @ 37.6 weeks Assessment & Plan Supervision of high risk in third trimester ([facility]) - Reviewed GARETH, labor/bleeding precautions - Gbs negative - Would be interested in induction after 40 weeks - Increased contraction pain - Undecided for PPBC - SVE 1.5//-3 Orders: URINE OB DIP B/O History of pre-eclampsia Orders: URINE OB DIP B/O Depression affecting in third trimester, antepartum (HCC) Orders: URINE OB DIP B/O 37 weeks gestation of (HCC) Orders: URINE OB DIP B/O Onur Keller MD Attending Note I evaluated the patient and personally participated in the quan components. I agree with the resident's findings and plan as documented and have discussed the case and management of the patient's care with the resident. Signature: Cinthya White MD Date: April 27, 2025 Time: 1:49 PM Cinthya White MD documented in this encounter [facility] 04-27-2025 Instructions Sanaz Mesa MA - 04/27/2025 8:32 AM EDT SEQUENTIAL SCREENINGS The [facility] offers sequential screenings for women who are interested in screenings for chromosomal abnormalities and certain defects during a . The sequential screen combines ultrasound and blood tests to determine the risk of chromosomal abnormalities, including Down's Syndrome (Trisomy 21) and Trisomy 18, as well as open neural tube defects including spina bifida. Ultrasound examination is performed between 11 weeks and 13 weeks gestational age. Blood tests are drawn after the ultrasound and again later in the between 15 and 21 weeks gestational age. Please let your physician know if you are interested in this testing. It will require an appointment with our dental equipment technician. This is not an ultrasound performed by a physician in our office during a routine visit. SIGNS AND SYMPTOMS OF LABOR 1. Contractions every 10 minutes or more often 2. Clear, pink, or brownish fluid (water) leaking from vagina 3. Feeling that baby is pushing down, pressure 4. Low, dull backache 5. Cramps that feel like a period 6. Cramps with or without diarrhea If you notice any of the above symptoms, contact our office at [phone] and ask to speak with a nurse. After hours, you can call [facility] at [phone] OR call [facility] at [phone] and ask to have the doctor director of corporate sponsorships paged. If you consider this an emergency, dial 9-1-1 or go to your nearest emergency department. NEED HELP? Are you dealing with a violent or abusive relationship? Are you a victim of rape or sexual assult? Call [facility] ([place]) 24 hour Crisis Hotline: 722.590.5270 or 802-432-2468. MANUAL Your Guide to a Healthy manual is now on-line. Visit [email or web address] Jesús to download your free copy documented in this encounter [facility] 04-23-2025 Telephone encounter Note Patient 37w2d calling with concerns that her water may have broken. Patient states she was having nichol chung contractions this morning and she leaned over the counter with a contraction and she had a large gush of fluid. Gush of fluid occurred around 10 am. Patient states she has not had any more leaking of fluid or contractions since the initial gush. Patient states the fluid was clear and did not smell like urine. Per patient baby is active. Discussed with provider director of corporate sponsorships and she would like her to go to L&D possible ROM. Patient verbalizes understanding. L&D called and notified. Brittany Crawley RN [facility] 04-23-2025 Miscellaneous Notes Patient 37w2d calling with concerns that her water may have broken. Patient states she was having nichol chung contractions this morning and she leaned over the counter with a contraction and she had a large gush of fluid. Gush of fluid occurred around 10 am. Patient states she has not had any more leaking of fluid or contractions since the initial gush. Patient states the fluid was clear and did not smell like urine. Per patient baby is active. Discussed with provider director of corporate sponsorships and she would like her to go to L&D possible ROM. Patient verbalizes understanding. L&D called and notified. Brittany Crawley RN documented in this encounter [facility] 04-22-2025 Progress note Formatting of t his note might be different from the original. KJ - S: Kin denies LOF, contractions or vaginal bleeding. O: 37w1d, see flow sheet SENSITIVE EXAM: Sensitive exam not performed. A/P: Assessment & Plan Supervision of high risk in third trimester (HCC) Orders: URINE OB DIP B/O History of pre-eclampsia Orders: URINE OB DIP B/O 37 weeks gestation of (HCC) Orders: URINE OB DIP B/O Reviewed labor & FM precautions Palmer Hubbard MD [facility] 04-22-2025 Miscellaneous Notes KJ - S: Kin denies LOF, contractions or vaginal bleeding. O: 37w1d, see flow sheet SENSITIVE EXAM: Sensitive exam not performed. A/P: Assessment & Plan Supervision of high risk in third trimester (HCC) Orders: URINE OB DIP B/O History of pre-eclampsia Orders: URINE OB DIP B/O 37 weeks gestation of (HCC) Orders: URINE OB DIP B/O Reviewed labor & FM precautions Palmer Hubbard MD documented in this encounter [facility] 04-22-2025 Sanaz Morrow MA - 04/22/2025 10:54 AM EDT SEQUENTIAL SCREENINGS The [facility] offers sequential screenings for women who are interested in screenings for chromosomal abnormalities and certain defects during a . The sequential screen combines ultrasound and blood tests to determine the risk of chromosomal abnormalities, including Down's Syndrome (Trisomy 21) and Trisomy 18, as well as open neural tube defects including spina bifida. Ultrasound examination is performed between 11 weeks and 13 weeks gestational age. Blood tests are drawn after the ultrasound and again later in the between 15 and 21 weeks gestational age. Please let your physician know if you are interested in this testing. It will require an appointment with our dental equipment technician. This is not an ultrasound performed by a physician in our office during a routine visit. SIGNS AND SYMPTOMS OF LABOR 1. Contractions every 10 minutes or more often 2. Clear, pink, or brownish fluid (water) leaking from vagina 3. Feeling that baby is pushing down, pressure 4. Low, dull backache 5. Cramps that feel like a period 6. Cramps with or without diarrhea If you notice any of the above symptoms, contact our office at [phone] and ask to speak with a nurse. After hours, you can call doctors registry at [phone] OR call [facility] at [phone] and ask to have the doctor director of corporate sponsorships paged. If you consider this an emergency, dial 9- or go to your nearest emergency department. NEED HELP? Are you dealing with a violent or abusive relationship? Are you a victim of rape or sexual assult? Call [facility] ([place]) 24 hour Crisis Hotline: 427.502.1458 or 483-055-2187. MANUAL Your Guide to a Healthy manual is now on-line. Visit [email or web address] Jesús to download your free copy documented in this encounter [facility] 04-02-2025 Note HNO ID: [id number] Author: ONUR GARCIA APRN.LABORER ORCHARD Service: ? Author Type: Nurse Practitioner Type: Progress Notes Filed: 04/02/2025 10:13 Note Text: EH - S: Kin is a 24 year old female who presents at 34w2d for a routine visit. Feeling movement. Denies headache, visual changes, chest pain, shortness of breath, vaginal bleeding, leakage of fluid, or dysuria. Feeling well, no complaints. O: See flow sheet Gen: No apparent distress Abd: Gravid, nontender, S=D ASSESSMENT/PLAN: 1. Supervision of high risk in third trimester (HCC) - ICD9: V23.9, ICD10: O09.93 (primary diagnosis) - Continue PNV 2. 34 weeks gestation of (HCC) - ICD9: V22.2, ICD10: Z3A.34 - GBS next visit 3. History of pre-eclampsia - ICD9: V13.29, ICD10: Z87.59 - Continue LDA 4. Depression affecting in third trimester, antepartum ([facility]) - ICD9: 648.43, 311, ICD10: O99.343, F32.A - Has not started Zoloft - Reports mood has improved PTL precautions and kick counts reviewed. RTO in 2 weeks or sooner as needed. Onur Garcia APRN.CNP [facility] 04-02-2025 History of Presen t illness Narrative EH - S: Kin is a 24 year old female who presents at 34w2d for a routine visit. Feeling movement. Denies headache, visual changes, chest pain, shortness of breath, vaginal bleeding, leakage of fluid, or dysuria. Feeling well, no complaints. O: See flow sheet Gen: No apparent distress Abd: Gravid, nontender, S=D ASSESSMENT/PLAN: 1. Supervision of high risk in third trimester ([facility]) - ICD9: V23.9, ICD10: O09.93 (primary diagnosis) - Continue PNV 2. 34 weeks gestation of ([facility]) - ICD9: V22.2, ICD10: Z3A.34 - GBS next visit 3. History of pre-eclampsia - ICD9: V13.29, ICD10: Z87.59 - Continue LDA 4. Depression affecting in third trimester, antepartum ([facility]) - ICD9: 648.43, 311, ICD10: O99.343, F32.A - Has not started Zoloft - Reports mood has improved PTL precautions and kick counts reviewed. RTO in 2 weeks or sooner as needed. Onur Garcia APRN.LABORER ORCHARD documented in this encounter [facility] 04-02-2025 Skyler Irene MA - 04/02/2025 10:00 AM EDT SEQUENTIAL SCREENINGS The [facility] offers sequential screenings for women who are interested in screenings for chromosomal abnormalities and certain defects during a . The sequential screen combines ultrasound and blood tests to determine the risk of chromosomal abnormalities, including Down's Syndrome (Trisomy 21) and Trisomy 18, as well as open neural tube defects including spina bifida. Ultrasound examination is performed between 11 weeks and 13 weeks gestational age. Blood tests are drawn after the ultrasound and again later in the between 15 and 21 weeks gestational age. Please let your physician know if you are interested in this testing. It will require an appointment with our dental equipment technician. This is not an ultrasound performed by a physician in our office during a routine visit. SIGNS AND SYMPTOMS OF LABOR 1. Contractions every 10 minutes or more often 2. Clear, pink, or brownish fluid (water) leaking from vagina 3. Feeling that baby is pushing down, pressure 4. Low, dull backache 5. Cramps that feel like a period 6. Cramps with or without diarrhea If you notice any of the above symptoms, contact our office at [phone] and ask to speak with a nurse. After hours, you can call doctors registry at [phone] OR call [facility] at [phone] and ask to have the doctor director of corporate sponsorships paged. If you consider this an emergency, dial 9-1-4 or go to your nearest emergency department. NEED HELP? Are you dealing with a violent or abusive relationship? Are you a victim of rape or sexual assult? Call [facility] ([place]) 24 hour Crisis Hotline: 180.475.8611 or 873-436-8476. MANUAL Your Guide to a Healthy manual is now on-line. Visit [facility].org/HealthyPreg nancyGuide to download your free copy documented in this encounter [facility] 03-05-2025 Progress note Formatting of t his note might be different from the original. SW- Some ctx's with walking. No vb, lof. Good FM PE: Gen- NAD, well appearing Abd- Soft, gravid, NT See flowsheet A/p 30 wk gestation - Reviewed 28 wk labs - H/o depression: Questions answered regarding Zoloft. She has not yet started it. Mood stable - H/o pre e: Cont baby ASA - Reviewed PTL precautions - RTO 2 wks Kin Walker DO [facility] 03-05-2025 Miscellaneous Notes SW- Some ctx's with walking. No vb, lof. Good FM PE: Gen- NAD, well appearing Abd- Soft, gravid, NT See flowsheet A/p 30 wk gestation - Reviewed 28 wk labs - H/o depression: Questions answered regarding Zoloft. She has not yet started it. Mood stable - H/o pre e: Cont baby ASA - Reviewed PTL precautions - RTO 2 wks Kin Walker DO documented in this encounter [facility] 03-05-2025 Instructions Camila Arcos MA - 03/05/2025 10:16 AM EDT SEQUENTIAL SCREENINGS The [facility] offers sequential screenings for women who are interested in screenings for chromosomal abnormalities and certain defects during a . The sequential screen combines ultrasound and blood tests to determine the risk of chromosomal abnormalities, including Down's Syndrome (Trisomy 21) and Trisomy 18, as well as open neural tube defects including spina bifida. Ultrasound examination is performed between 11 weeks and 13 weeks gestational age. Blood tests are drawn after the ultrasound and again later in the between 15 and 21 weeks gestational age. Please let your physician know if you are interested in this testing. It will require an appointment with our dental equipment technician. This is not an ultrasound performed by a physician in our office during a routine visit. SIGNS AND SYMPTOMS OF LABOR 1. Contractions every 10 minutes or more often 2. Clear, pink, or brownish fluid (water) leaking from vagina 3. Feeling that baby is pushing down, pressure 4. Low, dull backache 5. Cramps that feel like a period 6. Cramps with or without diarrhea If you notice any of the above symptoms, contact our office at [phone] and ask to speak with a nurse. After hours, you can call doctors registry at [phone] OR call [facility] at [phone] and ask to have the doctor director of corporate sponsorships paged. If you consider this an emergency, dial or go to your nearest emergency department. NEED HELP? Are you dealing with a violent or abusive relationship? Are you a victim of rape or sexual assult? Call [facility] ([place]) 24 hour Crisis Hotline: 654.110.5533 or 673-910-9731. MANUAL Your Guide to a Healthy manual is now on-line. Visit [facility].org/HealthyPreg Jesús to download your free copy documented in this encounter [facility] 02-19-2025 Progress note Formatting of t his note might be different from the original. JUAN RS: Kin Alejo is a 24 year old female who presents at 28w2d with LUPE:05/12/2025, by Ultrasound for a routine visit. Denies headache, visual changes, chest pain, shortness of breath, vaginal bleeding, leakage of fluid, or dysuria. Feeling well, no complaints. Increased sadness, mood swings, irritability. Denies any thoughts of self harm, SI/HI or thoughts of harming others. O: See flow sheet Gen: No apparent distress Abd: Gravid, nontender Depression: High Risk (02/19/2025) [place] Depression Scale Last EPDS Total Score: 18 Last EPDS Self Harm Result: Never ASSESSMENT/PLAN: 1. Supervision of high risk in third trimester - 1 hour GCT, CBC, and RPR today - TDAP today - LARC form reviewed and signed. Patient declines - Opioid screen negative - plan form discussed and given to patient. 2. 28 weeks gestation of 3. History of pre-eclampsia -Continue ASA 162mg PO once daily 4. Rh negative state in antepartum period -Rhogam administered today 5. Depression affecting in third trimester, antepartum - Depression screen 18 -Will start Zoloft 50mg PO once daily -Resources provided for MH services - PTL precautions and kick counts reviewed - RTO- 2 weeks or sooner if needed Neda Ibarra APRN.CNM [facility] 02-19-2025 Miscellaneous Notes FADUMO-S: Kin Alejo is a 24 year old female who presents at 28w2d with LUPE:05/12/2025, by Ultrasound for a routine visit. Denies headache, visual changes, chest pain, shortness of breath, vaginal bleeding, leakage of fluid, or dysuria. Feeling well, no complaints. Increased sadness, mood swings, irritability. Denies any thoughts of self harm, SI/HI or thoughts of harming others. O: See flow sheet Gen: No apparent distress Abd: Gravid, nontender Depression: High Risk (02/19/2025) [place] Depression Scale Last EPDS Total Score: 18 Last EPDS Self Harm Result: Never ASSESSMENT/PLAN: 1. Supervision of high risk in third trimester - 1 hour GCT, CBC, and RPR today - TDAP today - LARC form reviewed and signed. Patient declines - Opioid screen negative - plan form discussed and given to patient. 2. 28 weeks gestation of 3. History of pre-eclampsia -Continue ASA 162mg PO once daily 4. Rh negative state in antepartum period -Rhogam administered today 5. Depression affecting in third trimester, antepartum - Depression screen 18 -Will start Zoloft 50mg PO once daily -Resources provided for MH services - PTL precautions and kick counts reviewed - RTO- 2 weeks or sooner if needed Neda Ibarra APRN.CNM documented in this encounter [facility] 02-19-2025 Note HNO ID: [id number] Author: NEDA IBARRA APRN.CNM Service: ? Author Type: Regional Refrigerated Cdl Truck Driver Type: Progress Notes Filed: 02/19/2025 19:21 Note Text: EPDS=18 zoloft [facility] 02-19-2025 History of Presen t illness Narrative EPDS=18 zoloft documented in this encounter [facility] 02-19-2025 Instructions Neda Ibarra APRN.CNM - 02/19/2025 9:55 AM EDT Here are some links for wonderful Providers here in the community and surrounding areas. Do not hesitate to contact their offices, many are offering virtual visits during this time. 4-538-7-JQCV2WJGF - [place] Maternal Mental Health Hotline If you are in suicidal crisis, please call or text 1-446-470-TALK ( ) or visit the National Suicide Prevention Lifeline website. mchb.[facility].gov [facility] Psychology, Psychiatry, Counseling Connect with therapist/ can do virtual visits [phone] Referral to the [facility] To schedule an appointment, please call the [place] for Behavioral Health Appointment Line: [phone] option 1 [facility] [place], [place] [address] [place] [address] [facility] [address] [place] [address] [facility] [address] [place] [address] [facility] [address] [place], [place] [address] Anabel Ling MD [address] [place] [address] [facility] [address] [facility], [address] [place] [address] [facility] [address] [place] [address] [facility] [place] / [place] [phone]/ [phone] [facility] [address] [facility] [phone] [facility] Med[facility] [place] / [place] [phone] Behavioral health services of [facility] [address] [place] [address]/ [place] [phone] PRIMO Urias, C[facility] Workshops, telehealth and at home visits. [phone] Humanistic counseling center 20 locations [facility], [place], [place], [place], [place], [place], [place], [place], [place], [place], [place], [place], [facility], [place], [place] ,[facility], [place], [place], [place], [place], [facility] [place], [place], [place] www.Nimbula [phone] Psychotherapy resources outside of [facility] are listed below [facility] PABLITO Klein, TEACHING SUPERVISOR-S [phone] Revival.clientsecure.la [address] [place] [address] *Trauma therapy, EMDR, in person or virtual visit. Accepts some insurances. Inkling [phone] [facility] [place] [address] [facility] Web: https://www.MyFreightWorld / Support International Online Provider Directory https://Railsware/ [facility] https://CloudFX / [employer] for Behavioral Health and Wellness Web: https://Relative.ai/ Center for Effective Living Web: https://Catchoom.effectiveEBIQUOUSliving.The Solution Group / LifeStance Web: https://Digiboo.Easel Learn/location /[facility]/[place]/ [facility] Web: https://www.signaturepeak behavioral health services. org/ [facility] Web: https://Proteus Agility.org/ Recovery Resources Mental health and substance abuse help Web: https://www.recresTrident Universityorg [facility] [address] [place] [address] [facility] [address] www.Immure Records & RESOURCES Support International Direct peer support and connection to professional resources Non-Emergency Helpline Phone: / Text: [phone] Web: https://www..net/ Online Provider Directory: https://Railsware/ Online Support Meetings: https://www..net/get- help/ijj-glykhs-klzwnmh-meeting s/ BARBARA Baby and Loom Fixer Helper Services Web: https://wwwPeek Kids/ Zeenoh Expert information on medication use during and Text: [phone] Web: https://Silver Lining Solutions/ NATIONAL REGISTRY FOR PSYCHIATRIC MEDICATIONS Currently studying the safety of antidepressants, ADHD medications and atypical antipsychotics taken during TO PARTICIPATE CALL TOLL-FREE: Web: https://womensmentalhealth.org/ research/pregnancyregistry/ Support Groups: [facility]- Follow on facebook Baby Bistro support group led by [facility] department [facility] - Support Group [facility].org The POEM support group [phone] Www.poemonline.org Follow on facebook - [facility] lynch chapter Online support meetings PSI https://www..net/get- help/xgb-jhiqcz-wbnctwk-meeting s/ [facility] mommy and me virtual support group 11:30-1pm Support for mothers and new babies and toddlers [place] childbirth education: Childbirth @[facility].org or call [phone] Support groups Online support meetings PSI https://www..net/get- help/mdz-atpkyu-twcdbud-meeting s/ Here are the support groups they offer: Support of parents of 1 to 4 years old children POEM ( Outreach and Encouragement for Moms) offers free support for mothers experiencing depression, anxiety, and other mood and anxiety disorders. Masks are recommended but not required. No pre-registration required. Babies in arms welcome. meetings now take place on the and Saturday of each month Location: [facility] [address] [place] [address] Room 122 (library room) 7-8:00 p.m. When you enter the druze parking lot off of [address] the entrance door closest to our meeting room is on the front of the building toward the right. For those who are more comfortable with a virtual platform, WISErg offers online support group options several days of the week. To register for an online group or to find out more about [facility], website at: https://Aileron TherapeuticsaoDrewavan Coaching and Trainingo.org/get-help/wy ybptbb-ndjjsj-vyanog/elliottsridhar-londoni toya/ offer a confidential helpline: private Facebook group is called VIVIAN Smith Here are the groups they offer: Traumatic childbirth resources: Http://pattch.org/ https://www.TravelerCar/ CRISIS: CRISIS HOTLINE 142.666.9733760.107.1020, 911 or go to the nearest ER. [facility] [phone] / [facility] [phone] https://www.[facility].org Crisis text line text the word HOME to [address] Sertraline (Zoloft ) October 26, 2019 This sheet talks about exposure to sertraline during and while . This information should not take the place of medical care and advice from your healthcare provider. What is sertraline? Sertraline is a medication that has been used to treat depression, obsessive-compulsive disorder, panic disorder, post-traumatic stress disorder, premenstrual dysphoric disorder (a severe form of premenstrual syndrome), and social phobia. Sertraline belongs to the class of antidepressants known as selective serotonin reuptake inhibitors (SSRIs). A brand name for sertraline is Zoloft . I take sertraline. Can it make it harder for me to get ? Studies have not been done to see if sertraline could make it harder for a woman to get . I just found out I am . Should I stop taking sertraline? You should speak to your healthcare providers before making any changes to this medication. For some women, the benefits of staying on an antidepressant during can outweigh the potential risks. If you plan to stop the medication, your healthcare provider may suggest that you slowly lower the dose instead of stopping all at once. Stopping this medication suddenly can cause some people to have withdrawal symptoms. In addition, some people may have a relapse of their symptoms if they stop this medication during . Does taking sertraline increase the chance for miscarriage? Miscarriage can occur in any . Use of sertraline and the chance of miscarriage has not been well-studied. One study found no significant differences in the rates of miscarriage in women who filled prescriptions for sertraline during the first 35 days of and those who stopped filling prescriptions between 3 and 12 months before to . Can taking sertraline in the first trimester increase the chance of defects? In every , a woman starts out with a 3-5% chance of having a baby with a defect. This is called her background risk. Sertraline is one of the better studied antidepressants during . There are reports of more than 10,000 pregnancies exposed to sertraline during the first trimester. A small number of studies have found associations between sertraline use during and defects, such as heart defects. However, the majority of studies have found that women taking sertraline during are not more likely to have a baby with a defect than women not taking sertraline. Overall, the available information does not suggest that sertraline increases the chance for defects above the 3-5% background risk. Could taking sertraline in the second or third trimester cause other complications? Some studies suggest that use of SSRIs, like sertraline, during can contribute to complications like low weight and premature delivery (delivery before 37 weeks of ). It is difficult to know whether these findings are due to the medicine, underlying depression, or other factors. Two studies have suggested that babies whose mothers take SSRIs like sertraline during the second half of the may be at an increased risk for pulmonary hypertension, a serious lung problem at . Other studies have not supported this association. Further study is needed but if any increased risk does exist, it is thought to be small. You should inform your dragline oiler and your baby s lanolin plant operator that you are taking sertraline so that any extra care can be provided, if needed. Research has also shown that when depression is left untreated during , there could be an increased chance for complications. This makes it difficult to determine if it is the medication or the untreated depression that is increasing the chance for these problems. Please see our fact sheet on Depression at https://mothertobaby.org/fact-s heets/depression-/pdf/ . Does taking sertraline in cause long-term problems in behavior or learning for the baby? One study found that children whose mothers took SSRIs during scored lower on motor skill tests than other children. This was a very small study of 31 children; about half of these children were exposed to sertraline. Another small study evaluated behaviors in children ages 4-5 years old. This study found no difference in behavior between children whose mothers took sertraline or other SSRIs and those children whose mother did not take an SSRI. I need to take sertraline throughout my entire . Will it cause withdrawal symptoms in my baby? If you are taking sertraline at the time of delivery, your baby may have some difficulties for the first few days of life. Your baby may have jitteriness, vomiting, constant crying, increased muscle tone, irritability, altered sleep patterns, tremors, difficulty eating and regulating body temperature and some problems with breathing. While in most cases these effects are mild and go away on their own within 2 weeks of age, some babies may need to stay in a special care nursery for several days until the effects from sertraline and withdrawal go away. Not all babies exposed to sertraline will have these symptoms. Can I breastfeed while taking sertraline? When a mother takes sertraline, only a small amount of the drug passes into the breast milk. Very small amounts of sertraline and its breakdown product, norsertraline, are found in breast milk. Most published reports on sertraline and reported no harmful effects on the nursing infant. Long-term studies on infants exposed to sertraline in breast milk have not been conducted. If you are worried about symptoms your baby has, contact the child s healthcare provider. Be sure to talk to your healthcare provider about all of your questions. If a man takes sertraline, could it affect his fertility (ability to get partner ) or increase the chance of defects? An increased chance of defects or complications is not expected when the father of the baby takes sertraline. In general, exposures that fathers have are unlikely to increase risks to a . For more information, please see the MotherRebelMouseBabeqom fact sheet Paternal Exposures at https://mothertobaby.org/fact-s heets/sqmgjnzm-harcuirqv-cupjgz ncy/pdf/. Please click here to view references National Registry for Psychiatric Medications: There is a registry for women who take psychiatric medications, such as sertraline. For more information you can look at their website: https://womensmentalhealth.org/ research/pregnancyregistry/ SIGNS AND SYMPTOMS OF LABOR 1. Contractions every 10 minutes or more often 2. Clear, pink, or brownish fluid (water) leaking from vagina 3. Feeling that baby is pushing down, pressure 4. Low, dull backache 5. Cramps that feel like a period 6. Cramps with or without diarrhea If you notice any of the above symptoms, contact our office at [phone] and ask to speak with a nurse. After hours, you can call doctors registry at [phone] OR call [facility] at [phone] and ask to have the doctor director of corporate sponsorships paged. If you consider this an emergency, dial 4-6-3 or go to your nearest emergency department. NEED HELP? Are you dealing with a violent or abusive relationship? Are you a victim of rape or sexual assult? Call [facility] [place] ([place]) 24 hour Crisis Hotline: 910.390.1745 or 963-880-6308. MANUAL Your Guide to a Healthy manual is now on-line. Visit [facility].org/HealthyPreg Jesús to download your free copy documented in this encounter [facility] 01-22-2025 Miscellaneous Notes EH - S: Kin is a 24 year old female who presents at 24w2d for a routine visit. Feeling movement. Denies headache, visual changes, chest pain, shortness of breath, vaginal bleeding, leakage of fluid, or dysuria. Feeling well, no complaints. O: See flow sheet Gen: No apparent distress Abd: Gravid, nontender, S=D ASSESSMENT/PLAN: 1. Supervision of high risk in second trimester - ICD9: V23.9, ICD10: O09.92 (primary diagnosis) - Continue PNV 2. 24 weeks gestation of - ICD9: V22.2, ICD10: Z3A.24 - GTT, CBC, RPR next visit 3. Rh negative state in antepartum period - ICD9: 646.83, ICD10: O26.899, Z67.91 - Plan for Rhogam next visit 4. History of pre-eclampsia - ICD9: V13.29, ICD10: Z87.59 - Continue LDA PTL precautions reviewed. RTO in 4 weeks or sooner as needed. Onur Garcia APRN.LABORER ORCHARD documented in this encounter [facility] 01-22-2025 Progress note Formatting of t his note might be different from the original. EH - S: Kin is a 24 year old female who presents at 24w2d for a routine visit. Feeling movement. Denies headache, visual changes, chest pain, shortness of breath, vaginal bleeding, leakage of fluid, or dysuria. Feeling well, no complaints. O: See flow sheet Gen: No apparent distress Abd: Gravid, nontender, S=D ASSESSMENT/PLAN: 1. Supervision of high risk in second trimester - ICD9: V23.9, ICD10: O09.92 (primary diagnosis) - Continue PNV 2. 24 weeks gestation of - ICD9: V22.2, ICD10: Z3A.24 - GTT, CBC, RPR next visit 3. Rh negative state in antepartum period - ICD9: 646.83, ICD10: O26.899, Z67.91 - Plan for Rhogam next visit 4. History of pre-eclampsia - ICD9: V13.29, ICD10: Z87.59 - Continue LDA PTL precautions reviewed. RTO in 4 weeks or sooner as needed. Onur Garcia APRN.LABORER ORCHARD [facility] 01-22-2025 Instructions Skyler Jenkins MA - 01/22/2025 8:35 AM EST SEQUENTIAL SCREENINGS The [facility] offers sequential screenings for women who are interested in screenings for chromosomal abnormalities and certain defects during a . The sequential screen combines ultrasound and blood tests to determine the risk of chromosomal abnormalities, including Down's Syndrome (Trisomy 21) and Trisomy 18, as well as open neural tube defects including spina bifida. Ultrasound examination is performed between 11 weeks and 13 weeks gestational age. Blood tests are drawn after the ultrasound and again later in the between 15 and 21 weeks gestational age. Please let your physician know if you are interested in this testing. It will require an appointment with our dental equipment technician. This is not an ultrasound performed by a physician in our office during a routine visit. SIGNS AND SYMPTOMS OF LABOR 1. Contractions every 10 minutes or more often 2. Clear, pink, or brownish fluid (water) leaking from vagina 3. Feeling that baby is pushing down, pressure 4. Low, dull backache 5. Cramps that feel like a period 6. Cramps with or without diarrhea If you notice any of the above symptoms, contact our office at [phone] and ask to speak with a nurse. After hours, you can call doctors registry at [phone] OR call [facility] at [phone] and ask to have the doctor director of corporate sponsorships paged. If you consider this an emergency, dial 1-6-9 or go to your nearest emergency department. NEED HELP? Are you dealing with a violent or abusive relationship? Are you a victim of rape or sexual assult? Call [facility] ([place]) 24 hour Crisis Hotline: 493.350.7628 or 100-972-9384. MANUAL Your Guide to a Healthy manual is now on-line. Visit [email or web address] to download your free copy documented in this encounter [facility] 12-25-2024 Miscellaneous Notes EH - S: Kin is a 24 year old female who presents at 20w2d for a routine visit. Feeling movement. Denies headache, visual changes, chest pain, shortness of breath, vaginal bleeding, leakage of fluid, or dysuria. Feeling well, no complaints. O: See flow sheet Gen: No apparent distress Abd: Gravid, nontender ASSESSMENT/PLAN: 1. Supervision of high risk in second trimester - ICD9: V23.9, ICD10: O09.92 (primary diagnosis) - Declines flu vaccine 2. 20 weeks gestation of - ICD9: V22.2, ICD10: Z3A.20 - Anatomy ultrasound today, report pending 3. History of pre-eclampsia - ICD9: V13.29, ICD10: Z87.59 - Continue ASA 4. Rh negative state in antepartum period - ICD9: 646.83, ICD10: O26.899, Z67.91 - Plan for Rhogam at 28 weeks PTL precautions reviewed. RTO in 4 weeks or sooner as needed. Onur Garcia APRN.[employer]ORER [employer] documented in this encounter [facility] 12-25-2024 Progress note Formatting of t his note might be different from the original. EH - S: Kin is a 24 year old female who presents at 20w2d for a routine visit. Feeling movement. Denies headache, visual changes, chest pain, shortness of breath, vaginal bleeding, leakage of fluid, or dysuria. Feeling well, no complaints. O: See flow sheet Gen: No apparent distress Abd: Gravid, nontender ASSESSMENT/PLAN: 1. Supervision of high risk in second trimester - ICD9: V23.9, ICD10: O09.92 (primary diagnosis) - Declines flu vaccine 2. 20 weeks gestation of - ICD9: V22.2, ICD10: Z3A.20 - Anatomy ultrasound today, report pending 3. History of pre-eclampsia - ICD9: V13.29, ICD10: Z87.59 - Continue ASA 4. Rh negative state in antepartum period - ICD9: 646.83, ICD10: O26.899, Z67.91 - Plan for Rhogam at 28 weeks PTL precautions reviewed. RTO in 4 weeks or sooner as needed. Onur Garcia APRN.LABORER [employer] [facility] 12-25-2024 Instructions Clarisse Barber MA - 12/25/2024 8:28 AM EST SEQUENTIAL SCREENINGS The [facility] offers sequential screenings for women who are interested in screenings for chromosomal abnormalities and certain defects during a . The sequential screen combines ultrasound and blood tests to determine the risk of chromosomal abnormalities, including Down's Syndrome (Trisomy 21) and Trisomy 18, as well as open neural tube defects including spina bifida. Ultrasound examination is performed between 11 weeks and 13 weeks gestational age. Blood tests are drawn after the ultrasound and again later in the between 15 and 21 weeks gestational age. Please let your physician know if you are interested in this testing. It will require an appointment with our dental equipment technician. This is not an ultrasound performed by a physician in our office during a routine visit. SIGNS AND SYMPTOMS OF LABOR 1. Contractions every 10 minutes or more often 2. Clear, pink, or brownish fluid (water) leaking from vagina 3. Feeling that baby is pushing down, pressure 4. Low, dull backache 5. Cramps that feel like a period 6. Cramps with or without diarrhea If you notice any of the above symptoms, contact our office at [phone] and ask to speak with a nurse. After hours, you can call doctors registry at [phone] OR call [facility] at [phone] and ask to have the doctor director of corporate sponsorships paged. If you consider this an emergency, dial 9-1-4 or go to your nearest emergency department. NEED HELP? Are you dealing with a violent or abusive relationship? Are you a victim of rape or sexual assult? Call [facility] ([facility] 24 hour Crisis Hotline: 182.997.3527 or 937-462-9187. MANUAL Your Guide to a Healthy manual is now on-line. Visit [email or web address] to download your free copy documented in this encounter [facility] 11-27-2024 Progress note Formatting of t his note might be different from the original. RR- VB No. LOF No. CTXS No. Movement: absent. Other c/o: occas .nUAW Medication list reviewed. Physical Exam See Flow Sheet Gen: no accute distress, well appearing A/P 16w2d Estimated Date of Delivery: 05/12/25 declines aneuploidy screening on ASA prophylaxis f/u in 4 weeks for anatomy US. Efra Roy M.D. [facility] 11-27-2024 Miscellaneous Notes RR- VB No. LOF No. CTXS No. Movement: absent. Other c/o: occas .nUAW Medication list reviewed. Physical Exam See Flow Sheet Gen: no accute distress, well appearing A/P 16w2d Estimated Date of Delivery: 05/12/25 declines aneuploidy screening on ASA prophylaxis f/u in 4 weeks for anatomy US. Efra Roy M.D. documented in this encounter [facility] 11-27-2024 Instructions Jozef Adams MA - 11/27/2024 10:37 AM EST SEQUENTIAL SCREENINGS The [facility] offers sequential screenings for women who are interested in screenings for chromosomal abnormalities and certain defects during a . The sequential screen combines ultrasound and blood tests to determine the risk of chromosomal abnormalities, including Down's Syndrome (Trisomy 21) and Trisomy 18, as well as open neural tube defects including spina bifida. Ultrasound examination is performed between 11 weeks and 13 weeks gestational age. Blood tests are drawn after the ultrasound and again later in the between 15 and 21 weeks gestational age. Please let your physician know if you are interested in this testing. It will require an appointment with our dental equipment technician. This is not an ultrasound performed by a physician in our office during a routine visit. SIGNS AND SYMPTOMS OF LABOR 1. Contractions every 10 minutes or more often 2. Clear, pink, or brownish fluid (water) leaking from vagina 3. Feeling that baby is pushing down, pressure 4. Low, dull backache 5. Cramps that feel like a period 6. Cramps with or without diarrhea If you notice any of the above symptoms, contact our office at [phone] and ask to speak with a nurse. After hours, you can call doctors registry at [phone] OR call [facility] at [phone] and ask to have the doctor director of corporate sponsorships paged. If you consider this an emergency, dial 91-9 or go to your nearest emergency department. NEED HELP? Are you dealing with a violent or abusive relationship? Are you a victim of rape or sexual assult? Call [facility] ([place]) 24 hour Crisis Hotline: 470.774.8582 or 615-078-9985. MANUAL Your Guide to a Healthy manual is now on-line. Visit [email or web address] to download your free copy documented in this encounter [facility] 11-02-2024 Progress note Formatting of t his note might be different from the original. FADUMO-S: Kin Alejo is a 24 year old female who presents at 05/12/2025, by Ultrasound for a routine visit. Denies headache, visual changes, chest pain, shortness of breath, vaginal bleeding, leakage of fluid, or dysuria. Feeling well, no complaints. O: See flow sheet Gen: No apparent distress Abd: Gravid, nontender ASSESSMENT/PLAN: 1. Supervision of high risk in second trimester -Continue PNV and ASA -Anatomy US orderded -PN labs today -Declines NIPT 2. 12 weeks gestation of 3. History of pre-eclampsia -Baseline labs ordered -Recommend 160mg ASA PTL precautions reviewed and when to call RTO in 4 weeks Neda Ibarra APRN.CNM [facility] 11-02-2024 Miscellaneous Notes FADUMO-S: Kin Alejo is a 24 year old female who presents at 05/12/2025, by Ultrasound for a routine visit. Denies headache, visual changes, chest pain, shortness of breath, vaginal bleeding, leakage of fluid, or dysuria. Feeling well, no complaints. O: See flow sheet Gen: No apparent distress Abd: Gravid, nontender ASSESSMENT/PLAN: 1. Supervision of high risk in second trimester -Continue PNV and ASA -Anatomy US orderded -PN labs today -Declines NIPT 2. 12 weeks gestation of 3. History of pre-eclampsia -Baseline labs ordered -Recommend 160mg ASA PTL precautions reviewed and when to call RTO in 4 weeks Neda Ibarra APRN.CNM documented in this encounter [facility] 10-30-2024 Instructions Skyler Jenkins MA - 10/30/2024 9:55 AM EST SEQUENTIAL SCREENINGS The [facility] offers sequential screenings for women who are interested in screenings for chromosomal abnormalities and certain defects during a . The sequential screen combines ultrasound and blood tests to determine the risk of chromosomal abnormalities, including Down's Syndrome (Trisomy 21) and Trisomy 18, as well as open neural tube defects including spina bifida. Ultrasound examination is performed between 11 weeks and 13 weeks gestational age. Blood tests are drawn after the ultrasound and again later in the between 15 and 21 weeks gestational age. Please let your physician know if you are interested in this testing. It will require an appointment with our dental equipment technician. This is not an ultrasound performed by a physician in our office during a routine visit. SIGNS AND SYMPTOMS OF LABOR 1. Contractions every 10 minutes or more often 2. Clear, pink, or brownish fluid (water) leaking from vagina 3. Feeling that baby is pushing down, pressure 4. Low, dull backache 5. Cramps that feel like a period 6. Cramps with or without diarrhea If you notice any of the above symptoms, contact our office at [phone] and ask to speak with a nurse. After hours, you can call doctors registry at [phone] OR call [facility] at [phone] and ask to have the doctor director of corporate sponsorships paged. If you consider this an emergency, dial 9-7 or go to your nearest emergency department. NEED HELP? Are you dealing with a violent or abusive relationship? Are you a victim of rape or sexual assult? Call [facility] ([place]) 24 hour Crisis Hotline: 392.829.5111 or 289-188-2883. MANUAL Your Guide to a Healthy manual is now on-line. Visit [email or web address] to download your free copy documented in this encounter [facility] 09-18-2024 Progress note Formatting of t his note might be different from the original. KJ - VB No. LOF No. CTXS No. Movement: absent. Other c/o: fatigue and some nausea Medication list reviewed. Physical Exam See Flow Sheet Gen: no accute distress, well appearing A/P 6w2d Estimated Date of Delivery: 05/12/25 Dating US today. NT ordered. Fatigue - likely normal first trimester. Discussed sleep and caffeine intake recommendations. Nausea - advised on vitamin B6, zofran and diet. H/o preE - start aspirin at 12 weeks. Palmer Hubbard MD [facility] 09-18-2024 Miscellaneous Notes KJ - VB No. LOF No. CTXS No. Movement: absent. Other c/o: fatigue and some nausea Medication list reviewed. Physical Exam See Flow Sheet Gen: no accute distress, well appearing A/P 6w2d Estimated Date of Delivery: 05/12/25 Dating US today. NT ordered. Fatigue - likely normal first trimester. Discussed sleep and caffeine intake recommendations. Nausea - advised on vitamin B6, zofran and diet. H/o preE - start aspirin at 12 weeks. Palmer Hubbard MD documented in this encounter [facility] 09-18-2024 Instructions Camila Arcos MA - 09/18/2024 9:42 AM EDT SEQUENTIAL SCREENINGS The [facility] offers sequential screenings for women who are interested in screenings for chromosomal abnormalities and certain defects during a . The sequential screen combines ultrasound and blood tests to determine the risk of chromosomal abnormalities, including Down's Syndrome (Trisomy 21) and Trisomy 18, as well as open neural tube defects including spina bifida. Ultrasound examination is performed between 11 weeks and 13 weeks gestational age. Blood tests are drawn after the ultrasound and again later in the between 15 and 21 weeks gestational age. Please let your physician know if you are interested in this testing. It will require an appointment with our dental equipment technician. This is not an ultrasound performed by a physician in our office during a routine visit. SIGNS AND SYMPTOMS OF LABOR 1. Contractions every 10 minutes or more often 2. Clear, pink, or brownish fluid (water) leaking from vagina 3. Feeling that baby is pushing down, pressure 4. Low, dull backache 5. Cramps that feel like a period 6. Cramps with or without diarrhea If you notice any of the above symptoms, contact our office at [phone] and ask to speak with a nurse. After hours, you can call doctors registry at [phone] OR call [facility] at [phone] and ask to have the doctor director of corporate sponsorships paged. If you consider this an emergency, dial 9-1-4 or go to your nearest emergency department. NEED HELP? Are you dealing with a violent or abusive relationship? Are you a victim of rape or sexual assult? Call [facility] ([place]) 24 hour Crisis Hotline: 703.960.9457 or 240-036-5665. MANUAL Your Guide to a Healthy manual is now on-line. Visit [email or web address] to download your free copy documented in this encounter [facility] 09-02-2024 Note HNO ID: [id number] Author: ONUR GARCIA APRN.LILI Service: ? Author Type: Nurse Practitioner Type: Progress Notes Filed: 09/09/2024 11:44 Note Text: Ceo offered: Patient declines. INITIAL OB ASSESSMENT HPI: Kin is a 23 year old White Female here to establish Obstetrical Care. Patient's last menstrual period was 06/30/2024 (exact date). from OB Dating Form. was planned Complaints: No OB History T1 L1 SAB0 IAB0 Ectopic0 Multiple0 Live Births1 Previous history: Prior : never History of 4th degree laceration: No History of shoulder dystocia: No History of Hypertensive disorders including pre-eclampsia or gestational hypertension: Yes History of gestational diabetes: No Patient's Risk Screening for delivery: Have you had a prior camacho between 20w and 36w6d? No How many pregnancies have you had before? 1 Did you have a previous baby with a GBS Infection? No Please select all that apply for any prior : N/A MEDICAL/PSYCHOSOCIAL HISTORY: History of hemorrhage or bleeding concerns: No Thyroid Disease: No History of chronic hypertension: No History of pre-existing diabetes: No No results found for: ABORHD BMI 21.47 kg/(m2) Last Pap: N/A History of abnormal pap: No Prior treatment for cervical dysplasia: none. Last HPV: no History of STDs: None Partner History of STDs: None Did you have a partner with Herpes? No Tobacco use: No E-Cigarette/Vaping Use: No Caffeine use: Yes Drug use: No Alcohol use: No Multivitamin with Folic acid: Yes Would refuse blood transfusion if medically necessary: No Social Needs: How often does this describe you? I don't have enough money to pay my bills: Never Within the past 12 months, have you worried that your food would run out before you had money to buy more? Never In the past 12 months, has lack of reliable transportation kept you from going to medical appointments or work, or from getting things needed for daily living? Never In the past 12 months, have you had any concerns about having a place to live, or about the condition or quality of your housing? Never Would you like more information on any of the following (please check all that apply)? Not interested Social History: Do you have any history of depression, anxiety, PTSD, or other mood problems? No Do you have a history of abuse or trauma that may impact your experience? No Are you currently employed? No Depression/Anxiety Screening: denies symptoms of depression. OB Depression and Anxiety Screening- This Encounter (since 09/08/2024) Over the past 2 weeks have you felt down, depressed, or hopeless? Negative Over the past two weeks, have you felt little interest or pleasure in doing things?? Negative Feeling nervous, anxious or on edge 0-Not at all Not being able to stop or control worrying 0-Not al all Anxiety Pre-Screening Total (If >/= 3 additional questions will be reviewed) 0 Genetic Screening: Partner present: No Patient verbalized knowledge of partner family health history: Yes Do you or your partner have any personal or family history of defects not previously discussed: No Do you have history of a complicated by anomaly, genetic condition, or demise: No Low Dose ASA Screening: Screening for low dose aspirin use for the prevention of pre-eclampsia: High risk factors: None Moderate risk ractors: None OB Risk Screening: Completed, no positive findings documented. Marital Status: Partner: Name: Jason Age: 24 Occupation: [employer] Gender: Male PAST MEDICAL HISTORY Diagnosis Date Irregular menses PAST SURGICAL HISTORY Procedure Laterality Date NONE Current Outpatient Medications Medication Sig Dispense Refill prental multivitamin 27 mg iron- 800 mcg tablet Take 1 tablet by mouth once daily. No current facility-administered medications for this visit. Allergies As of Date: 09/09/2024 (No Known Allergies) Fully Assessed 09/09/2024 Does patient have penicillin allergy: No REVIEW OF SYSTEMS: GENERAL: Negative for: Fever or Chills HEENT: Negative for: Headache, Impaired Vision, Ringing in Ears, Nosebleeds NECK: Negative for: Swelling, Pain, Stiffness RESPIRATORY: Negative for: Cough, Shortness of breath, Wheezing GASTROINTESTINAL: Negative for: Heartburn, Constipation, Diarrhea, Blood in stool, Vomiting MUSCULOSKELETAL: Negative for: Muscle or joint pain, stiffness, Joint swelling NEUROLOGIC/PSYCHIATRIC: Negative for: Weakness, Paralysis, Numbness, Tingling, Tremor, Anxiety, Depression, Memory loss SKIN: Negative for: Rash, Itching GENITOURINARY: Negative for: vaginal itching, vaginal discharge, hematuria or dysuria SENSITIVE EXAM: The sensitive examination was discussed with the Patient or Patient's Authorized Ice Cream Vendor. As applicable, (more content not included)... [facility] 09-02-2024 History of Presen t illness Narrative Ceo offered: Patient declines. INITIAL OB ASSESSMENT HPI: Kin is a 23 year old White Female here to establish Obstetrical Care. Patient's last menstrual period was 06/30/2024 (exact date). from OB Dating Form. was planned Complaints: No OB History T1 L1 SAB0 IAB0 Ectopic0 Multiple0 Live Births1 Previous history: Prior : never History of 4th degree laceration: No History of shoulder dystocia: No History of Hypertensive disorders including pre-eclampsia or gestational hypertension: Yes History of gestational diabetes: No Patient's Risk Screening for delivery: Have you had a prior camacho between 20w and 36w6d? No How many pregnancies have you had before? 1 Did you have a previous baby with a GBS Infection? No Please select all that apply for any prior : N/A MEDICAL/PSYCHOSOCIAL HISTORY: History of hemorrhage or bleeding concerns: No Thyroid Disease: No History of chronic hypertension: No History of pre-existing diabetes: No No results found for: ABORHD BMI 21.47 kg/(m^2) Last Pap: N/A History of abnormal pap: No Prior treatment for cervical dysplasia: none. Last HPV: no History of STDs: None Partner History of STDs: None Did you have a partner with Herpes? No Tobacco use: No E-Cigarette/Vaping Use: No Caffeine use: Yes Drug use: No Alcohol use: No Multivitamin with Folic acid: Yes Would refuse blood transfusion if medically necessary: No Social Needs: How often does this describe you? I don't have enough money to pay my bills: Never Within the past 12 months, have you worried that your food would run out before you had money to buy more? Never In the past 12 months, has lack of reliable transportation kept you from going to medical appointments or work, or from getting things needed for daily living? Never In the past 12 months, have you had any concerns about having a place to live, or about the condition or quality of your housing? Never Would you like more information on any of the following (please check all that apply)? Not interested Social History: Do you have any history of depression, anxiety, PTSD, or other mood problems? No Do you have a history of abuse or trauma that may impact your experience? No Are you currently employed? No Depression/Anxiety Screening: denies symptoms of depression. OB Depression and Anxiety Screening- This Encounter (since 09/08/2024) Over the past 2 weeks have you felt down, depressed, or hopeless? Negative Over the past two weeks, have you felt little interest or pleasure in doing things? Negative Feeling nervous, anxious or on edge 0-Not at all Not being able to stop or control worrying 0-Not al all Anxiety Pre-Screening Total (If >/= 3 additional questions will be reviewed) 0 Genetic Screening: Partner present: No Patient verbalized knowledge of partner family health history: Yes Do you or your partner have any personal or family history of defects not previously discussed: No Do you have history of a complicated by anomaly, genetic condition, or demise: No Low Dose ASA Screening: Screening for low dose aspirin use for the prevention of pre-eclampsia: High risk factors: None Moderate risk ractors: None OB Risk Screening: Completed, no positive findings documented. Marital Status: Partner: Name: Jason Age: 24 Occupation: [employer] Gender: Male PAST MEDICAL HISTORY Diagnosis Date Irregular menses PAST SURGICAL HISTORY Procedure Laterality Date NONE Current Outpatient Medications Medication Sig Dispense Refill prental multivitamin 27 mg iron- 800 mcg tablet Take 1 tablet by mouth once daily. No current facility-administered medications for this visit. Allergies As of Date: 09/09/2024 (No Known Allergies) Fully Assessed 09/09/2024 Does patient have penicillin allergy: No REVIEW OF SYSTEMS: GENERAL: Negative for: Fever or Chills HEENT: Negative for: Headache, Impaired Vision, Ringing in Ears, Nosebleeds NECK: Negative for: Swelling, Pain, Stiffness RESPIRATORY: Negative for: Cough, Shortness of breath, Wheezing GASTROINTESTINAL: Negative for: Heartburn, Constipation, Diarrhea, Blood in stool, Vomiting MUSCULOSKELETAL: Negative for: Muscle or joint pain, stiffness, Joint swelling NEUROLOGIC/PSYCHIATRIC: Negative for: Weakness, Paralysis, Numbness, Tingling, Tremor, Anxiety, Depression, Memory loss SKIN: Negative for: Rash, Itching GENITOURINARY: Negative for: vaginal itching, vaginal discharge, hematuria or dysuria SENSITIVE EXAM: The sensitive examination was discussed with the Patient or Patient's Authorized Ice Cream Vendor. As applicable, any other physician, advance practice provider, medical student, or other health professional student that will be observing or involved in the sensitive examination for educational or training purposes was discussed with the Patient or Authorized Ice Cream Vendor. The Patient or Authorized Ice Cream Vendor has agreed to proceed with the sensitive examination. (Sensitive examination includes inspection and/or palpation of the breasts, pelvis, prostate and anorectal regions). PHYSICAL EXAM: BP 120/62 Ht 5' 5 (1.65m) Wt 129 lb (58.5kg) LMP 06/30/2024 BMI 21.47 kg/(m^2). GENERAL: pleasant in no apparent distress DERMATOLOGY: Normal, without lesions, non-icteric, and non-hirsute NECK: Supple, full range of motion, no adenopathy, and thyroid normal CHEST: Normal inspiratory effort BREAST: soft, non-tender, symmetric, no dominant mass, normal nipple-areolar complex, no lymphadenopathy, and no nipple discharge ABDOMEN: soft, non-tender, and no masses NEURO: alert and oriented x3,exam grossly non-focal PELVIS: External genitalia normal without lesions. Perineal body intact. No vaginal or cervical lesions. Cervix closed. Uterus <8 week size. No adnexal masses or tenderness. Clinical Pelvimetry: Pelvimetry clinically assessed as adequate Limited OB ultrasound exam: single intrauterine sac with yolk sac visualized ASSESSMENT: 23 year old at 10w1d wks gestational age PLAN: 1) Patient oriented to practice. Patient given new OB orientation folder. Discussed nutrition, folic acid supplementation, dietary guidelines, exercise, smoking, alcohol, caffeine, and drug use. Discussed gestational weight gain guidelines. Discussed routine OB labs including STD/HIV. Discussed how to access Your guide to a health and the Sales Advisor. Discussed hemoglobin electrophoresis. Patient: Declines Reviewed midwifery and vocational auto body instructor services that are available. 2) Screening: Hemoglobin A1C: ordered Baby Aspirin: The patient has been counseled about the potential benefits of low dose aspirin in and our recommendation that this be offered to all patients, regardless of whether they meet the high risk criteria specified above. She Accepts Aneuploidy Screening: Discussed aneuploidy screening, nuchal translucency/first trimester early anatomy ultrasound and NIPT. The risks/benefits and limitations of NIPT/aneuploidy screening were reviewed including the potential for false negative and false positive results. The availability of genetic counseling was reviewed. Information on aneuploidy screening was provided. The patient chooses to proceed with First trimester early anatomy ultrasound (12-13w6d) Myriad Carrier Screening: Discussed myriad carrier screening. We discussed the availability of professional-society guided carrier screening and reviewed the conditions screened and limitations of screening. The availability of genetic counseling was reviewed. Information on carrier screening was provided. The patient is considering 3) Patient offered option of Virtual Visits. Patient unsure. May consider in future. ACTIVE PROBLEM LIST Supervision of High Risk in First Trimester - 09/09/2024 Comment: Care Checklist Vaccines: [] Flu vaccine [] declined [] RSV vaccine 32 0/7 - 36 6/7 (Jul - Dec) [] declined [] COVID vaccine [] declined [] TDaP 27-36 [] declined First trimester: [x] Dating US [x] 1st tri labs [x] Pap smear [] Carrier screening - considering [] declined [] NIPT screening - considering [] declined [] First trimester anatomy scan [] declined [x] universal ASA ordered (start 12w-16w) [] declined [] M Power Consult [] not indicated [] declined Second trimester: [] AFP [] declined [] Anatomy scan [] Mode of Delivery - [] Feeding - [] Pump ordered [] Diabetes screen [] CBC, RPR Third trimester (28-30 weeks): [] Consent [] Contraception - [] Curam Developer Third trimester (36-40 weeks): [] GBS [] Presentation - [] Scheduled [] yes - Hibiclens, pre-op instructions, CBC, T&S ordered [] no [] H&P With Uncertain Dates in First Trimester - 09/09/2024 Comment: September 09, 2024 POCUS not consistent with LMP. Dating ultrasound and serial HCGs ordered. Precautions reviewed. Onur Garcia APRN.LILI Rh Negative State in Antepartum Period - 09/09/2024 Comment: Plan for Rhogam at 28 weeks and . Caffeine Use During - 09/09/2024 Comment: September 09, 2024 Struggling with decreasing consumption. Reports she used to drink several energy drinks prior to . Trying to limit to less than 200 mg. Discussed increased hydration with water and using coffee or tea as better caffeine sources. Onur Garcia APRN.CNP History of Pre-Eclampsia - 09/09/2024 Comment: September 09, 2024 Delivered at 37w4d in 2022 due to this. Baseline labs ordered. Onur Garcia APRN.CNP Follow up in 1 week for dating ultrasound and OB visit. Onur Garcia APRN.LILI documented in this encounter [facility] 09-02-2024 Instructions Clarisse Barber MA - 09/02/2024 2:21 PM EDT Please select the following link to access the [facility] Your Guide to a Healthy . [email or web address] Please select the following link to access the [facility] Your Guide to a Healthy . [email or web address] documented in this encounter [facility] 01-04-2023 History of Presen t illness Narrative EARLY VISIT Kin Alejo is a 22 year old here for 2 week visit. Delivery Summary: Date: 01/01/2023 Time: 3:12AM Sex: M Weight: 7# 5oz Outcome: Anesthesia: Epidural Delivered by: FADUMO Perineal repair: 1st degree perineal and bilateral periurethral lacerations ROS: General: Denies any fever or chills Hypertension Screening: Headache? No. Visual Changes? No Epigastric Pain? No Increased Swelling? No Taking any BP medications at home? No If applicable, monitoring BP at home? (If Yes, include results) No Mood: normal Depression: denies symptoms of depression. Depression: Not on file Feeding: Breast and bottle feeding problems: Inadequate milk supply Bladder: No dysuria, gross hematuria, urinary frequency, urinary urgency, or incontinence Bowel symptoms: Negative for abdominal discomfort, blood in stools or black stools and change in bowel habits Abdomen: N/A Bleeding: Getting lining stitcher, no clots Bottom and Perineum: Sore Sleep: no sleep concerns, feels rested [place] since delivery: Not resumed Emotional support: Yes Exercise: N/A Other issues: None PHYSICAL EXAMINATION: BP 130/74 Wt 164 lb 6.4 oz (74.6 kg) LMP 02/10/2022 (Exact Date) Yes BMI 28.22 kg/m General: pleasant,female in no apparent distress, A&O x 3. Skin warm and intact. Breast: Deferred Abdomen: Deferred /Incision: N/A Pelvic: Deferred Bimanual: Deferred ASSESSMENT AND PLAN: 22 year old status post with normal course. Contraception plan: Uncertain . Reinforced 6-week pelvic rest. Encouraged condom usage should patient deviate. Education: resources provided - see MA/RN note Follow up: Return to Clinic for 6 week visit and as needed Neda Ibarra APRN.CNM documented in this encounter [facility] 01-03-2023 Miscellaneous Notes Keep appointment for tomorrow for BP check! Thank you . Carola Flores APRN.CNM Patient called and states she was told by Dr. Roy that she needed to be seen in the office tomorrow for PP BP check. on 01/01, induced for pre eclampsia. Does patient need seen tomorrow, or next week? Appointment given for tomorrow, will call and change if needed. Brittany Crawley RN Patient states she was to contact the office to schedule an appointment with Dr. Roy. Patient was unsure when she needed to be seen. She believes it was for blood pressure check. Please advise. documented in this encounter [facility] 01-02-2023 Discharge summary Note Date/Time January 02, 2023 8:56am [facility] Medical Records Department [address] [place] [id number] Discharge Summary 01/02/23 0854 MR#: [id number] Acct: [id number] Name: KIN ALEJO Rep #:[id number] : 2000 22 From: Efra Roy MD PCP: Care Physician,No Primary Status :ADM IN Location: NP778-5 Providers Date of Admission: 12/30/22 Primary Care Physician: No Primary Care Phys Reason For Visit: VAG DELIVERY Diagnosis Discharge Diagnosis (1) First degree perineal laceration: Status: Acute Code(s): O70.0 - First degree perineal laceration during delivery Plan: day #1 status post vaginal delivery. is breast-feeding and doing well. Patient is doing well and stable. Blood pressures have been essentially normal since admission. Patient desires discharge home. Discussed with her I recommended staying until tomorrow to monitor blood pressures. However, patient was comfortable with discharge home and close follow-up. Return if symptoms of severe preeclampsia. Otherwise follow-up in the office in2 days to recheck blood pressure. (2) Vaginal delivery: Status: Acute Code(s): O80 - Encounter for full-term uncomplicated delivery Medications at Discharge Home Medications cetirizine 5 mg tablet 5 mg PO DAILY PRN 12/28/22 Hospital Course Operations None Procedures None Summary of Care Provided Hospital Course: Patient was admitted at 37+ weeks for induction labor due to mild preeclampsia with some mildly elevated intermittent blood pressures and proteinuria. Patientunderwent Hernandes with artificial rupture membranes and Pitocin induction. She had a spontaneous vaginal delivery on 01/01/2023 and desired discharge home on 01/02/2023 Weight / BMI Weight Weight: 80.286 kg Body Mass Index (BMI) 29.4 ABG / Lab / Microbiology Data Result Diagrams: 01/02/23 05:20 12/30/22 20:09 Laboratory: Laboratory Results - last 24 hr 01/02/23 05:20: WBC 16.7 H, RBC 4.08 L, Hgb 12.0, Hct 36.2 L, MCV 88.7, MCH 29.4, MCHC 33.1, RDW Std Deviation 41.8, RDW Coeff of Neftaly 13.0, Plt Count 175, MPV 11.7 Meaningful Use Info Meaningful Use Diagnoses (Choose all that apply): None applicable Discharge Plan Admission Admit Date/Time: 12/30/22 19:00 Primary Reason for Your Visit: Vaginal delivery Attending Provider: Kin Walker Primary Care Provider: Te Mjoica,Tracy Primary Instructions Additional Instructions / Restrictions: Follow-up in our office on 01/04/2023 for blood pressure check. Discharge Orders/Prescriptions Prescriptions: Continued cetirizine 5 mg Tablet 5 mg PO DAILY PRN (Reason: ) Discontinued Unisom (doxylamine) 25 mg Tablet 25 mg PO QHS PRN (Reason: ) Referrals / Follow Up: Care Physician,No Primary [Primary Care Provider] - Disposition Disposition (needs filled in before D/C Order can be placed): Home, Self Care 01/02/23856 <Electronically signed by Efra Roy MD> Cosigner Signature (if applicable): CC: Dr. Efra Roy MD; No Primary Care Physician~ Signed [facility] Work Phone: 1(859) 950-516102-08-[address] Roy [facility] January 02, 2023 8:54am Note Date/Time January 02, 2023 8 :54am [facility] Medical Records Department [address] [place] [address] Progress Note - OBGYN 01/02/2353 MR#: [id number] Acct: [id number] Name: KIN ALEJO Rep #:[id number] : 2000 22 From: Efra Roy MD PCP: Care Physician,No Primary Status :ADM IN Location: [place] [address] Subjective Subjective Minimal pain, average lochia. Tolerating regular diet. Passing flatus but no bowel movement. Urinating without difficulty. Denies headache, visual changes chest pain or shortness of breath. Objective Data Objective Data Vital Signs: Vital Signs Temp Pulse Resp BP Pulse Ox O2 Del Method 97.4 F L 105 H 16 123/66 H 97 Room Air 01/02/23 00:15 01/02/23 05:00 01/02/23 05:00 01/02/23 05:00 01/01/23 11:10 01/01/23 14:33 Oxygen Delivery Method Room Air Weight: 80.286 kg Body Mass Index (BMI) 29.4 Intake & Output: Intake and Output for Last 24 Hours 12/31/22 01/01/23 01/02/23 23:59 23:59 23:59 Intake Total 5374.96 / 5374.96 1877.23 / 1877.23 Output Total 1800 / 1800 2250 / 2250 Balance 3574.96 / 3574.96 -372.77 / -372.77 Lab / Micro Data Result Diagrams: 01/02/23 05:20 12/30/22 20:09 Labs: Laboratory Results - last 24 hr 01/02/23 05:20: WBC 16.7 H, RBC 4.08 L, Hgb 12.0, Hct 36.2 L, MCV 88.7, MCH 29.4, MCHC 33.1, RDW Std Deviation 41.8, RDW Coeff of Neftaly 13.0, Plt Count 175, MPV 11.7 Physical Exam Narrative 2+ DTRs, no clonus, 2+ edema Const alert and no apparent distress Narrative: Fundus firm, below umbilicus. Assessment & Plan (1) First degree perineal laceration: PLAN: day #1 status post vaginal delivery. is breast- feedingand doing well. Patient is doing well and stable. Blood pressures have been essentially normal since admission. Patient desires discharge home. Discussed with her I recommended staying until tomorrow to monitor blood pressures. However, patient was comfortable with discharge home and close follow-up. Return if symptoms of severe preeclampsia. Otherwise follow-up in the office in2 days to recheck blood pressure. (2) Vaginal delivery: 01/02/23 0854 <Electronically signed by Efra Roy MD> Cosigner Signature (if applicable): CC: ~ Signed [facility] Work Phone: 1(355) 392-551202-07-2023 History of Present illness Narrative* Patricia Ball RN - 01/01/2023 8:10 AM EST Patient delivered via by A[facility] on 01/01/23 at [email or web address]. See OB history. Patricia Ball RN [facility]2023 Progress note Author Neda Ibarra [facility] December 31, 2022 5:53pm Note Date/Time December 31, 2022 5 :53pm [facility] Medical Records Department [address] [place] [address] Progress Note - OBGYN 12/31/22 175 MR#: [id number] Acct: [id number] Name: KIN ALEJO Rep #:[id number] : 2000 22 From: Neda PRESTON PCP: Care Physician,No Primary Status :ADM IN [id number] Subjective Subjective Resting in bed. Out of hands and knees position. Comfortable with epidural. Objective Data Objective Data Vital Signs: Vital Signs Temp Pulse BP Pulse Ox 98.9 F 86 130/76 H 100 12/31/22 17:28 12/31/22 17:28 12/31/22 17:28 12/31/22 17:28 Weight: 177 lb Body Mass Index (BMI) 29.4 Intake & Output: Intake and Output for Last 24 Hours 12/29/22 12/30/22 12/31/22 23:59 23:59 23:59 Intake Total 500 / 500 3550.16 / 3550.16 Output Total 100 / 100 1300 / 1300 Balance 400 / 400 2250.16 / 2250.16 Lab / Micro Data Result Diagrams: 12/30/22 20:00 12/30/22 20:09 Labs: Laboratory Results - last 24 hr 12/30/22 20:00: WBC 11.2 H, RBC 4.06 L, Hgb 12.0, Hct 36.0 L, MCV 88.7, MCH 29.6, MCHC 33.3, RDW Std Deviation 41.1, RDW Coeff of Neftaly 12.5, Plt Count 176, MPV 12.3 H, Immature Gran % (Auto) 0.400, Neut % (Auto) 65.8, Lymph % (Auto) 24.9, [place] % (Auto) 8.2, Eos % (Auto) 0.4, Baso % (Auto) 0.3, Absolute Neuts (auto) 7.4, Absolute Lymphs (auto) 2.80, Nucleated RBC % 0 12/30/22 20:00: Blood Type A NEGATIVE, Antibody Screen POSITIVE H, Antibody Identification ANTI-D 12/30/22 20:09: Creatinine 0.76, Estim Creat Clear Calc 104.48, Est GFR (MDRD) Af Amer 123, Est GFR (MDRD) Non-Af 102, Uric Acid 7.0 H, AST 22, ALT 12 L Physical Exam Manual OB Exam: presentation cephalic, dilated 5 cm, effaced 90% and station -1 NST FHR Rate Baby A Baseline: 150 Variability:: Moderate Accelerations:: 15 x 15 Decelerations:: None FHR Category:: Category I Uterine Activity:: every 2 minutes, mvu 250-300 Assessment & Plan (1) Primiparous: (2) Pre-eclampsia: (3) 37 weeks gestation of : (4) Elevated blood pressure reading: (5) Proteinuria affecting : PLAN: Plan 1) Continue with pitocin per protocol 2) Positional changes 3) Epidural for pain management 4) notified of patient status 12/31/221752 <Electronically signed by Neda Ibarra CNM> Cosigner Signature (if applicable): CC: ~ Signed [facility] Work Phone: 1(542) 605-205502-06-2023 Progress note Author Neda Ibarra [facility] December 31, 2022 5:50pm Note Date/Time December 31, 2022 8 :17am [facility] Medical Records Department [address] [place] [address] Progress Note - OBGYN 12/31/22816 MR#: [id number] Acct: [id number] Name: KIN ALEJO Rep #:[id number] : 2000 22 From: Neda PRESTON PCP: Care Physician,No Primary Status :ADM IN Location: [place] [address] Subjective Subjective Resting with epidural and comfortable Objective Data Objective Data Vital Signs: Vital Signs Temp Pulse BP Pulse Ox 97.9 F 103 H 126/70 H 98 12/31/22 07:14 12/31/22 07:16 12/31/22 07:14 12/31/22 07:16 Weight: 177 lb Body Mass Index (BMI) 29.4 Intake & Output: Intake and Output for Last 24 Hours 12/29/22 12/30/22 12/31/22 23:59 23:59 23:59 Intake Total 500 / 500 1500.00 / 1500.00 Output Total 100 / 100 400 / 400 Balance 400 / 400 1100.00 / 1100.00 Lab / Micro Data Result Diagrams: 12/30/22 20:00 12/30/22 20:09 Labs: Laboratory Results - last 24 hr 12/30/22 20:00: WBC 11.2 H, RBC 4.06 L, Hgb 12.0, Hct 36.0 L, MCV 88.7, MCH 29.6, MCHC 33.3, RDW Std Deviation 41.1, RDW Coeff of Neftaly 12.5, Plt Count 176, MPV 12.3 H, Immature Gran % (Auto) 0.400, Neut % (Auto) 65.8, Lymph % (Auto) 24.9, [place] % (Auto) 8.2, Eos % (Auto) 0.4, Baso % (Auto) 0.3, Absolute Neuts (auto) 7.4, Absolute Lymphs (auto) 2.80, Nucleated RBC % 0 12/30/22 20:00: Blood Type A NEGATIVE, Antibody Screen POSITIVE H, Antibody Identification ANTI-D 12/30/22 20:09: Creatinine 0.76, Estim Creat Clear Calc 104.48, Est GFR (MDRD) Af Amer 123, Est GFR (MDRD) Non-Af 102, Uric Acid 7.0 H, AST 22, ALT 12 L ROS Constitutional Constitutional: Reports systems reviewed and no addt'l complaints, except as documented; Denies headache(s) Eyes Eyes: Denies acute decrease in peripheral vision, blurry vision or change in vision ENT HEENT: Reports systems reviewed and no addt'l complaints, except as documented Cardiovascular Cardiovascular: Denies chest pain or dizziness Respiratory/Chest Respiratory/Chest: Denies cough, dyspnea, dyspnea on exertion, shortness of breath at rest or shortness of breath with exertion Gastrointestinal Gastrointestinal: Denies abdominal pain, diarrhea, nausea or vomiting Genitourinary Genitourinary: Denies abdominal discomfort Musculoskeletal Musculoskeletal: Denies limited range of motion Integumentary Integumentary: Reports systems reviewed and no addt'l complaints, except as documented Neurologic Neurologic: Reports systems reviewed and no addt'l complaints, except as documented Psychiatric Psychiatric: Reports systems reviewed and no addt'l complaints, except as documented Endocrine Endocrinology: Reports systems reviewed and no addt'l complaints, except as documented Hematologic/Lymphatic Hematologic/Lymphatic: Reports systems reviewed and no addt'l complaints, exceptas documented Allergic/Immunologic Allergic/Immunologic: Reports systems reviewed and no addt'l complaints, except as documented Physical Exam Const alert and oriented x3 General Appearance: cooperative Orientation / Consciousness: awake, oriented to person, oriented to place and oriented to time Exam Limitations: no limitations HEENT normocephalic Head and Scalp: normal to inspection, normocephalic and atraumatic Face and Sinus: normal facial exam Eyes General Eye: normal appearance of both eyes Neck full ROM Chest Chest: symmetrical chest wall rise Resp normal respiratory effort and normal air movement Auscultation: clear to auscultation bilaterally Cardio regular rate, regular rhythm, S1 normal heart sound, S2 normal heart sound, no murmurs, no rub, no gallops and no clicks GI normal to inspection, nondistended, normoactive bowel sounds and non-tender GI Narrative: Fundus firm 2 below U. dressing dry and intact appearance of the vagina normal Bladder / Kidney Exam: no CVA tenderness Back/Spine normal ROM Extremity normal to inspection and full ROM Skin no rashes or lesions noted Neuro oriented x3, CN's II-XII intact bilaterally and moves all extremities Sensorium / Orientation: awake, alert and oriented to person Motor Exam: clonus absent Deep Tendon Reflexes: Rt Patellar (L4): 2+ and Lt Patellar (L4): 2+ NST FHR Rate Baby A Baseline: 125 Variability:: Moderate Accelerations:: 15 x 15 Decelerations:: None FHR Category:: Category I Uterine Activity:: Every 2-4, strong Assessment & Plan (1) Primiparous: (2) Pre-eclampsia: (3) 37 weeks gestation of : (4) Elevated blood pressure reading: (5) Proteinuria affecting : PLAN: Plan 1) AROM clear fluid 2) Continue with active management, pitocin per protocol 3) Continuous EFM 4) Epidural for pain management 5) notified 12/31/221749 <Electronically signed by Neda Ibarra CNM> Cosigner Signature (if applicable): CC: ~ Signed [facility] Work Phone: 1(647) 264-931602-05-2023 History and physical note Author Dr. Walker [facility] December 30, 2022 8:56pm Note Date/Time December 30, 2022 8 :56pm [facility] Medical Records Department [address] [place] [address] H&P Exam - INVESTMENT BANKING MANAGER 12/30/222049 MR#: [id number] Acct: [id number] Name: KIN ALEJO Rep #:[id number] : 2000 22 From: Kin Walker DO PCP: Care Physician,No Primary Status :ADM IN Location: [id number] HPI - General General Date of Admission: 12/30/22 Date of Service: 12/30/22 Chief Complaint: pre eclampsia HPI Narrative KIN ALEJO, is a 22 F who presents for scheduled IOL. She is a at 37w2d with pre eclampsia without severe features. Mildly elevated BP's and proteinuria. She has no symptoms of pre e at this time other than worsened swelling today. Having some painful ctx's. No vb, lof. Good FM. PFSH PFSH Medical History (Updated 12/30/22 @ 20:[address] Kin Walker, DO) Pre-eclampsia Home Medications cetirizine 5 mg tablet 5 mg PO DAILY PRN 12/28/22 [History Last Taken 12/29/22 11:30] doxylamine succinate 25 mg tablet (Unisom (doxylamine)) 25 mg PO QHS PRN 12/28/22 [History Last Taken 12/27/22 22:00] Allergy/AdvReac Type Severity Reaction Status Date / Time No Known Allergies Allergy Verified 12/30/22 19:20 Social History Smoking Status: Never smoker History Elective abortions Hx Para 0 Spontaneous abortions Hx # Term Pregnancies Ectopic pregnancies Hx # Pregnancies Multiple births # of living children NST FHR Rate Baby A FHR Category:: Category I Uterine Activity:: ctx's q 1 min Vital Signs Vital Signs Vital Signs: 12/30/22 20:04 12/30/22 20:04 12/30/22 20:03 Temperature Temperature Source Temporal Pulse Rate 112 H Blood Pressure BP Systolic BP Diastolic Pulse Ox 99 12/30/22 20:03 12/30/22 20:17 12/30/22 20:17 Temperature 97.4 F L Temperature Source Pulse Rate 104 H Blood Pressure 130/74 H BP Systolic 130 BP Diastolic 74 Pulse Ox Weight Weight: 177 lb Body Mass Index (BMI) 29.4 Physical Exam Const alert and no apparent distress General Appearance: comfortable HEENT normocephalic Resp normal respiratory effort GI soft to palpation GI Narrative: Gravid Narrative: Cvx 0.5/60/-2, vertex Extremity Extremity Narrative: 2+ pitting edema bilaterally No hyper reflexia Labs Labs Labs: Blood Type A NEGATIVE Antibody Screen NEGATIVE Hct 36.0 % (37-47) L Hgb 12.0 g/dL (12.0-15.0) Assessment & Plan (1) 37 weeks gestation of : PLAN: IOL at 37 wks for pre eclampsia without severe features with mildly elevated BP's and proteinuria. Routine intrapartum care. Repeat pre e labs on admission. Epidural for pain control. GBS negative. Intracervical hernandes placed in usual fashion and filled with 40 cc saline. [place] with ctx's q 1 min so no Cytotec given at this time. Once hernandes is out, will start Pitocin per protocol. EFW expected to be < 4500 g and pelvis adequate. Anticipate vaginal delivery. (2) Pre-eclampsia: (3) Primiparous: 12/30/222055 <Electronically signed by Kin Walker DO> Cosigner Signature (if applicable): CC: Dr. Kin Walker DO; No Primary Care Physician~ Signed [facility] Work Phone: 1([phone]) 244-242202-05-2023 Miscellaneous Notes* Telephone Encounter - Kin Walker MD - 12/30/2022 12:38 PM EST Pt's 24 hour urine protein was elevated. Called to check on pt today. She reports worsened swellingthis morning that she has not had before. No GO or vision changes. Discussed r/b/a to an IOL for pre eclampsia without severe features and reviewed induction process with pt over the phone. She desires to proceed with IOL today. L&D notified. * Telephone Encounter - Kin Walker MD - 12/30/2022 12:30 AM EST Pt was seen for a routine OB visit on 12/28/22 and her blood pressure was initially 138/82 followed by normal BP's. She had a 1/10 GO and proteinuria so sent to L&D for further workup and possible delivery. On L&D on 12/28/22 her initial two BP's were mild range but not 4 hours apart. She was monitored for 4 hours on L&D with serial BP's and the remaining BP's were normal and mostly 120's/60-70's.Her GO resolved with Tylenol. NST reactive. Plt's, creatinine, and LFT's did not show evidence of pre e. Her p/c ratio was 372. Urine was concentrated and she was tachycardic. She reported minimal fluid intake. Tachycardia resolved with IVF hydration. She was sent home to collect a 24 hour urine protein and return on 12/30/22 for a BP check. After turning in 24 hour urine protein, on L&D on 12/30/22 she was monitored for an hour with serial BP's. BP range 118/76 - 125/83. Please call patient on Saturday morning for follow up. Recommend ultrasound to assess growth and SUSANNE,order placed. Recommend BP check Saturday as well. documented in this encounterMer[facility]-2023 History and physical note Author Dr. Walker [facility] December 30, 2022 1:22am Note Date/Time December 30, 2022 1 :22am [facility] Medical Records Department [address] [place] [id number] OB Triage Physician Note 12/30/22 0119 MR#: [id number] Acct: [id number] Name: KIN ALEJO Rep #:[id number] : 2000 22 From: Kin Walker DO PCP: Care Physician,No Primary Status :REG CLI Y Location: [place] [address] HPI - General General Date of Admission: 12/29/22 Date of Service: 12/29/22 Chief Complaint: BP check HPI Narrative KIN ALEJO, is a 22 F who presents to turn in 24 hour urine collection and fora BP check on L&D. She has a mild GO that she states she would not even take medication for. No visual changes, malaise, upper abd pain. No vb, lof. Good FM.She offers no complaints. PFSH PFSH Home Medications cetirizine 5 mg tablet 5 mg PO DAILY PRN 12/28/22 [History Last Taken 12/28/22 09:00 5 mg] doxylamine succinate 25 mg tablet (Unisom (doxylamine)) 25 mg PO QHS PRN 12/28/22 [History Last Taken 12/27/22 21:00 25 mg] Allergy/AdvReac Type Severity Reaction Status Date / Time No Known Allergies Allergy Verified 12/29/22 21:36 NST FHR Rate Baby A Baseline: 130 Variability:: Moderate Accelerations:: 15 x 15 Decelerations:: None NST Reactive:: Yes FHR Category:: Category I Uterine Activity:: irregular ctx's Assessment & Plan (1) 37 weeks gestation of : PLAN: Pt presents to turn in 24 hour urine collection and for BP check. She was observed for an hour with serial BP's q 15 min - all BP's were normal. Her mild GO resolved with Tylenol. At this time she does not meet criteria for gHTN or pre eclampsia. Message sent to office for her to have a formal ultrasound to check growth and fluid on Saturday with a visit for a BP check. (2) Elevated blood pressure reading: (3) Proteinuria affecting : 12/30/22 0122 <Electronically signed by Kin Walker DO> Date _ Kin Walker DO Cosigner Signature (if applicable): Date CC: Dr. Kin Walker DO; No Primary Care Physician ~ Signed [facility] Work Phone: 1(624) 909-690602-03-2023 Miscellaneous Notes* Quick Notes - Carola Flores APRN.CNM - 12/28/2022 3:00 PM EST Kin Alejo is a 22 year old female who presents at 37w0d for a routine visit. C/O mild headache today without visual changes. Rates pain 1/10 on pain scale. Increased swelling in feet and ankles over the past couple of days. Positive movement. Denies any cramps or contractions but does haveincreased lower back pain. BLE- +2 nonpitting edema, +2 reflexes without clonus Blood pressures - 126-129/78-87 ASSESSMENT/PLAN: 1. 37 weeks gestation of - ICD9: V22.2, ICD10: Z3A.37 (primary diagnosis) 2. Elevated blood pressure reading without diagnosis of hypertension - ICD9: 796.2, ICD10: R03.0 3. Gestational proteinuria in third trimester - ICD9: 646.23, 791.0, ICD10: O12.13 - Patient sent to L&D for BP monitoring and preeclampsia labs - Dr. Walker notified Carola Flores APRN.CNM documented in this encounterMer[facility]02-03-2023 Instructions* Patient Instructions* Skyler Jenkins [facility] - 12/28/2022 2:36 PM EST SEQUENTIAL SCREENINGS The [facility] offers sequential screenings for women who are interested in screenings for chromosomal abnormalities and certain defects during a . The sequential screen combinesultrasound and blood tests to determine the risk of chromosomal abnormalities, including Down's Syndrome (Trisomy 21) and Trisomy 18, as well as open neural tube defects including spina bifida. Ultrasound examination is performed between 11 weeks and 13 weeks gestational age. Blood tests are drawn after the ultrasound and again later in the between 15 and 21 weeks gestational age. Please let your physician know if you are interested in this testing. It will require an appointment withour dental equipment technician. This is not an ultrasound performed by a physician in our office during a routine visit. SIGNS AND SYMPTOMS OF LABOR 1. Contractions every 10 minutes or more often 2. Clear, pink, or brownish fluid (water) leaking from vagina 3. Feeling that baby is pushing down, pressure 4. Low, dull backache 5. Cramps that feel like a period 6. Cramps with or without diarrhea If you notice any of the above symptoms, contact our office at [phone] and ask to speak with anurse. After hours, you can call doctors registry at [phone] OR call [facility] at [phone] ask to have the doctor director of corporate sponsorships paged. If you consider this an emergency, dial 9-- or go to your nearest emergency department. NEED HELP? Are you dealing with a violent or abusive relationship? Are you a victim of rape or sexual assult? Call [facility] ([place]) 24 hour Crisis Hotline: 541.379.2200 or 542-737-1558. MANUAL Your Guide to a Healthy manual is now on-line. Visit [email or web address] to download your free copy documented in this encounterMercy [facility]01-27-2023 Miscellaneous Notes* Quick Notes - Carola Flores APRN.CNM - 12/21/2022 1:36 PM EST Kin Alejo is a 22 year old female who presents at 36w0d for a routine visit. Good movement. Occasional contractions. Denies headache, visual changes, chest pain, shortness of breath, vaginalbleeding, leakage of fluid, or dysuria. Feeling well, no complaints. Size equal to dates. 51 lbs TWG. PTL precautions reviewed. RTC in 1 week or sooner if needed. Carola Flores APRN.CNM documented in this encounterMercy Health [facility]01-27-2023 Instructions* Patient Instructions* Skyler Jenkins [facility] - 12/21/2022 1:16 PM EST SEQUENTIAL SCREENINGS [facility] offers sequential screenings for women who are interested in screenings for chromosomal abnormalities and certain defects during a . The sequential screen combinesultrasound and blood tests to determine the risk of chromosomal abnormalities, including Down's Syndrome (Trisomy 21) and Trisomy 18, as well as open neural tube defects including spina bifida. Ultrasound examination is performed between 11 weeks and 13 weeks gestational age. Blood tests are drawn after the ultrasound and again later in the between 15 and 21 weeks gestational age. Please let your physician know if you are interested in this testing. It will require an appointment withour dental equipment technician. This is not an ultrasound performed by a physician in our office during a routine visit. SIGNS AND SYMPTOMS OF LABOR 1. Contractions every 10 minutes or more often 2. Clear, pink, or brownish fluid (water) leaking from vagina 3. Feeling that baby is pushing down, pressure 4. Low, dull backache 5. Cramps that feel like a period 6. Cramps with or without diarrhea If you notice any of the above symptoms, contact our office at [phone] and ask to speak with anurse. After hours, you can call doctors registry at [phone] OR call [facility] at [phone] ask to have the doctor director of corporate sponsorships paged. If you consider this an emergency, dial 9-1-9 or go to your nearest emergency department. NEED HELP? Are you dealing with a violent or abusive relationship? Are you a victim of rape or sexual assult? Call [facility] ([place]) 24 hour Crisis Hotline: 863.590.2529 or 189-703-5779. MANUAL Your Guide to a Healthy manual is now on-line. Visit [email or web address] to download your free copy documented in this encounterMercy [facility]12-30-2022 Miscellaneous Notes* Quick Notes - Efra Roy MD - 11/23/2022 3:00 PM EST RR- VB No. LOF No. CTXS No. Movement: present. Other c/o: No. Medication list reviewed. Physical Exam See Flow Sheet Abd: soft, nontender Ext: edema: Trace A/P 32w0d Estimated Date of Delivery: 01/18/23 f/u in 2 weeks or prn routine care Efra Roy M.D. documented in this encounterMercy [facility]12-30-2022 Instructions* Patient Instructions* Karla Cervantes Ma - 11/23/2022 2:33 PM EST SEQUENTIAL SCREENINGS The [facility] offers sequential screenings for women who are interested in screenings for chromosomal abnormalities and certain defects during a . The sequential screen combinesultrasound and blood tests to determine the risk of chromosomal abnormalities, including Down's Syndrome (Trisomy 21) and Trisomy 18, as well as open neural tube defects including spina bifida. Ultrasound examination is performed between 11 weeks and 13 weeks gestational age. Blood tests are drawn after the ultrasound and again later in the between 15 and 21 weeks gestational age. Please let your physician know if you are interested in this testing. It will require an appointment withour dental equipment technician. This is not an ultrasound performed by a physician in our office during a routine visit. SIGNS AND SYMPTOMS OF LABOR 1. Contractions every 10 minutes or more often 2. Clear, pink, or brownish fluid (water) leaking from vagina 3. Feeling that baby is pushing down, pressure 4. Low, dull backache 5. Cramps that feel like a period 6. Cramps with or without diarrhea If you notice any of the above symptoms, contact our office at [phone] and ask to speak with anurse. After hours, you can call doctors registry at [phone] OR call [facility] at [phone] ask to have the doctor director of corporate sponsorships paged. If you consider this an emergency, dial 9-1-0 or go to your nearest emergency department. NEED HELP? Are you dealing with a violent or abusive relationship? Are you a victim of rape or sexual assult? Call [facility] ([place]) 24 hour Crisis Hotline: 754.288.2476 or 947-022-2066. MANUAL Your Guide to a Healthy manual is now on-line. Visit [email or web address] to download your free copy documented in this encounterMercy [facility]12-16-2022 Miscellaneous Notes* Quick Notes - Neda Ibarra APRN.SCOUT - 11/09/2022 2:29 PM EST FADUMO-S: Kin Alejo is a 22 year old female who presents at 30w0d with LUPE:01/18/2023, by Ultrasound for a routine visit. Good FM. Denies headache, visual changes, chest pain, shortness of breath, vaginal bleeding, leakage of fluid, or dysuria. Feeling well, no complaints. O: See flow sheet Gen: No apparent distress Abd: Gravid, nontender ASSESSMENT/PLAN: 1. 30 weeks gestation of P: 1) PTL precautions reviewed and when to call 2) RTO in 2 weeks 3) plan given. Planning epidural. Does not plan to take classes. 4) Declines influenza vaccine. Neda Ibarra APRN.CNM documented in this encounterMercy Health [facility]12-16-2022 Instructions* Patient Instructions* Skyler Jenkins [facility] - 11/09/2022 2:20 PM EST SEQUENTIAL SCREENINGS The [facility] offers sequential screenings for women who are interested in screenings for chromosomal abnormalities and certain defects during a . The sequential screen combinesultrasound and blood tests to determine the risk of chromosomal abnormalities, including Down's Syndrome (Trisomy 21) and Trisomy 18, as well as open neural tube defects including spina bifida. Ultrasound examination is performed between 11 weeks and 13 weeks gestational age. Blood tests are drawn after the ultrasound and again later in the between 15 and 21 weeks gestational age. Please let your physician know if you are interested in this testing. It will require an appointment withour dental equipment technician. This is not an ultrasound performed by a physician in our office during a routine visit. SIGNS AND SYMPTOMS OF LABOR 1. Contractions every 10 minutes or more often 2. Clear, pink, or brownish fluid (water) leaking from vagina 3. Feeling that baby is pushing down, pressure 4. Low, dull backache 5. Cramps that feel like a period 6. Cramps with or without diarrhea If you notice any of the above symptoms, contact our office at [phone] and ask to speak with anurse. After hours, you can call doctors registry at [phone] OR call [facility] at [phone] ask to have the doctor director of corporate sponsorships paged. If you consider this an emergency, dial 9-7 or go to your nearest emergency department. NEED HELP? Are you dealing with a violent or abusive relationship? Are you a victim of rape or sexual assult? Call [facility] ([place]) 24 hour Crisis Hotline: 552.558.9699 or 469-573-7719. MANUAL Your Guide to a Healthy manual is now on-line. Visit [email or web address] to download your free copy documented in this encounterMercy Health [facility]field Hospital12-02-2022 Miscellaneous Notes* Quick Notes - Kin Walker MD - 10/26/2022 1:42 PM EST SW- Pt notices a throbbing a vein under her skin and RLS. She is concerned about the throbbing sensation she feels over her abdomen at times. No pain today. No ctx, vb, lof. Good FM. PE: Gen- NAD, well appearing, comfortable Abd- Soft, gravid, NT, non acute LE- No edema See flowsheet A/p 28 wk gestation - Reassurance provided today. Discussed related discomfort and reasons to call - FKC's reviewed - 28 wk labs today - Reviewed diet and exercise in . 40 lb weight gain - LARC signed - Tdap and Rhogam today - RTO 2 wks Kin Walker DO documented in this encounterMercy Health Fairfield Hospital12-02-2022 History of Present illness Narrative* Camila Arcos MA - 10/26/2022 1:26 PM EST Patient identified by name and date of . Kin Alejo presents today for a vaccination of Tdap. Patient denies an allergy to latex: yes Patient denies a severe (life-threatening) allergy to a previous dose of Tdap, DTP, DTaP, DT or Td vaccine. Yes Patient denies history of epilepsy or neurological problems: Yes Patient is afebrile and denies being moderately or severely ill: Yes Patient denies history of Guillain-Guayama Syndrome (a severe paralytic illness): Yes Tdap Adacel injection was given without incident. See immunizations for details of immunizations administered today. VIS sheet provided: Yes Provider Kin Walker DO was present in office at time of injection. Camila Arcos MA documented in this encounterMercy Health [facility]field Hospital12-02-2022 Instructions* Patient Instructions* Camila Arcos MA - 10/26/2022 1:21 PM EST SEQUENTIAL SCREENINGS [facility] offers sequential screenings for women who are interested in screenings for chromosomal abnormalities and certain defects during a . The sequential screen combinesultrasound and blood tests to determine the risk of chromosomal abnormalities, including Down's Syndrome (Trisomy 21) and Trisomy 18, as well as open neural tube defects including spina bifida. Ultrasound examination is performed between 11 weeks and 13 weeks gestational age. Blood tests are drawn after the ultrasound and again later in the between 15 and 21 weeks gestational age. Please let your physician know if you are interested in this testing. It will require an appointment withour dental equipment technician. This is not an ultrasound performed by a physician in our office during a routine visit. SIGNS AND SYMPTOMS OF LABOR 1. Contractions every 10 minutes or more often 2. Clear, pink, or brownish fluid (water) leaking from vagina 3. Feeling that baby is pushing down, pressure 4. Low, dull backache 5. Cramps that feel like a period 6. Cramps with or without diarrhea If you notice any of the above symptoms, contact our office at [phone] and ask to speak with anurse. After hours, you can call doctors registry at [phone] OR call [facility] at [phone] ask to have the doctor director of corporate sponsorships paged. If you consider this an emergency, dial 9-0-6 or go to your nearest emergency department. NEED HELP? Are you dealing with a violent or abusive relationship? Are you a victim of rape or sexual assult? Call [facility] ([place]) 24 hour Crisis Hotline: 153.393.1710 or 485-072-9505. MANUAL Your Guide to a Healthy manual is now on-line. Visit [email or web address] to download your free copy documented in this encounterMercy Health Fairfield Hospital11-23-2022 Miscellaneous Notes* Telephone Encounter - Patricia Ball RN - 2022 11:39 AM EST labs received. Placed in results console. Copy to L&D and sent to scanning. Patricia Ball RN * Telephone Encounter - Patricia Ball RN - 2022 11:12 AM EST Left message at [facility] voicemail regarding labs. Patricia Ball RN * Telephone Encounter - Yanelis Richter RN - 10/16/2022 4:47 PM EST Patient called back. She's unsure if she had other lab work done after reviewing with her the type of labs that are in a workup. However, she said that she can find her blood type in their portal so perhaps they were drawn.Told patient that we would give their office a call tomorrow because they are closed now. [facility] [place] * Telephone Encounter - Patricia Ball RN - 10/16/2022 3:35 PM EST 26w4d Left message for patient to call office. Received records from [facility] in [place] again. Only labs received still are [id number] and pap smear. Did she have routine labs done elsewhere? Records that we do have copy to L&D and sent to medical records to scan in. Patricia Ball RN documented in this encounterMercy Health Fairfield Hospital11-04-2022 Instructions* Patient Instructions* Neda Ibarra APRN.SCOUT - 09/28/2022 10:12 AM EDT Rh-Negative Blood Type and What is blood type? Your blood type tells you about markers on the surface of your red blood cells. The red cells in your blood can be A, B, AB, or O. The red blood cells also have a protein that is called Rh on the surface of the cell. Your blood can be Rh positive, which means that you have the Rh protein, or Rh negative, which means that you do not have the Rh protein. The letter of your blood group plus the Rh makes your blood type. You can be O+, O?, A+, A?, B+, B?, AB+, or AB?. A test that tells you your blood type is done at your first visit and usually when you are admitted to the hospital for labor if you are planning a hospital . Why is my blood type important? If you ever need a blood transfusion, you should be given blood that is your same blood type. You can become very sick if you are given blood that is a different blood type unless it is O blood, which will not cause harm to people who have other blood types. I am Rh negative.What does this mean for my ? Being Rh negative means that you do not have Rh proteins on your red blood cells. If your baby is Rh positive and you get a small amount of your baby s blood into your circulation (bloodstream) when you are or when you give , your body can make antibodies that hurt and kill red blood cells that are Rh positive. The most likely time that you would be exposed to your baby s blood is when yougive . This is why being Rh negative will not harm your baby during your first . But in your next , the antibodies that you made when you were exposed to Rh-positive blood at your first can cross the placentaand attack the Rh-positive red blood cells, if your next baby has Rh-positive blood. This is called Rh sensitization. Rh sensitization can cause anemia (low iron in the blood), miscarriage, stillbirth, or a seriousillness in the baby that is called hemolytic disease of the . Fortunately, Rh sensitization is very rare because women who are Rh negative can get a shot that stops their body from making antibodies to Rh-positive blood. What is RhoGAM? RhoGAM is a medicine that stops your blood from making antibodies that attack Rh-positive blood cells. RhoGAM is a sterilized solution made from human blood that contains a very small amount of Rh-positive proteins. These proteins keep your immune system from making permanent antibodies to Rh-positive blood. They do not hurt your baby. RhoGAM is given as an injection (shot). When do I get RhoGAM? Although the chance of your blood and the baby s blood mixing is highest at the time that you give , which rarely happens, it can also happen during the last trimester of your , when your placenta is growing and the membranes that separate your blood from your baby s blood are very thin. For this reason, RhoGAM is given at 28 weeks of to protect you for the rest of your . RhoGAMworks for about13 weeks. Soon after you give , your baby s blood will be tested for Rh. If your baby has Rh-positive blood, you will get another dose of RhoGAM within 72 hours after you give . If your baby s blood is Rh negative, you will not need the second RhoGAM shot. Are there any other times that I might need RhoGAM? RhoGAM is also given anytime that your blood could come into contact with Rh- positive blood cells, such as: Any vaginal bleeding during Miscarriage or 3838-6716/09/$36.00 doi:10.1111/jmwh.73086 c 2013 by the [employer] 725 [employer] www.[email or web address] Chorionic villi sampling or amniocentesis (tests for defects) Injury to your abdomen (belly), such as a car accident or fall, during External version (turning a breech baby so the baby is head first) If you are Rh negative and any of these things happen to you, you should contact your health care provider right away. You should get a RhoGAM shot within 72 hours of the possible exposure to Rh-positive blood for the shot to work best. How safe is RhoGAM? RhoGAM is very safe. It is recommended for all women with Rh-negative blood type and has been used for about 50 years. Although RhoGAM is made from human blood, only the very small Rh piece is used. There is a very rare chance that you could get an infection such as HIV or hepatitis from RhoGAM, but this is so rare that there are no reports of it happening. There is also a very rare chance that you will have an allergic reaction to the RhoGAM that causes fever and chills or shortness of breath. It is more common to have a small reaction like redness or swelling where the RhoGAM was injected, usually your upper arm or buttocks. It is important to know that the risk of developing Rh sensitization is much higher than the risk of problems from the RhoGAM shot. Once that happens, all future pregnancies are at risk for the baby being verysick or dying if the baby is Rh positive. Therefore, not taking RhoGAMismuchmore dangerous than taking RhoGAM. Are there women who should not get RhoGAM? If you have hemolytic anemia, or you have had an allergic reaction to a shot of immune globulin, oryou already have Rh sensitization, you should not get the RhoGAM shot. Is there anything else I need to know about RhoGAM? It is best not to get some vaccines within 3 months of having the RhoGAM shot. This is not usually a problem because the vaccines that do not work well after getting a RhoGAM shot are never given to women. This is something to think about if you are planning to travel out of the country within 3 months after giving to an area where you need a vaccine called a live-virus vaccine. If you are in this situation, talk to your health care provider before you are given the RhoGAM shot. Also, if you have any yarsanism or cultural concerns about taking a blood product, you should talk to your health care provider or primer and powder canning leader about the risks and benefits. What if I do not choose to get RhoGAM? About one in5 womenwho donot get RhoGAMwill get Rh sensitization, which cannot be fixed once it happens. If you do not get RhoGAM during , you should get your blood drawn regularly in the last trimester to see if you have become Rh sensitized. If you do become sensitized, tests to see how your baby ishandling the problem will be offered. If the baby has a serious problem, you may need to be induced to give early. For More Information [employer]: Rh Disease http://www.januaryofdimes.com/baby/rh-disease.aspx How RhoGAMWorks http://www.Versonicsam.com/images/content/Inddmhlp-Nqpdf-Nntfn.jpg [place]: Blood Types http://www.redcrossblood.org/eskbc-wlynl-roerp/blood-types This page may be reproduced for noncommercial use by health live in caregiver to share with clients.Any other reproduction is subject to the Journal ofMidwifery&Women s Health s approval.The information and recommendations appearing on this page are appropriate in most instances, but they are not a substitute for medical diagnosis. For specific information concerning your personal medical condition, the Journal of Midwifery & Women s Health suggests that you consult your health care provider. ROUTINE GLUCOSE SCREENING IN can cause a woman who has perfectly normal blood sugars to turn (temporarily) diabetic, otherwise known as having gestational diabetes. This is because hormones from the placenta sometimes interfere with the action of insulin, the hormone responsible for the regulation of blood sugar. Gestational diabetes can have no symptoms, yet can complicate the . Identifying who has developed diabetes of helps the physician protect the fetus from the bad effects of high maternal blood sugars. Since you cannot tell who may become diabetic in , most practitioners test all women for gestational diabetes. The test isn't done until the early third trimester, because many women who will develop gestational diabetes don't get it until late in the . Two stages of glucose tolerance testing One-hour glucose testing This is a screening test done around 24-28 weeks gestation. We ask you to drink a solution of sugar(glucose) and then, one hour later, get blood drawn to check the glucose level. This tests how yourbody has handled the sugar solution. If the blood sugar level is over a certain value, more definitive testing is usually needed. Three-hour glucose tolerance test There is some overlap in blood sugar results between women with gestational diabetes and women who are not diabetic. The one-hour glucose test really just identifies the group of mothers who need to proceed to the more complicated (and more definitive) oral glucose tolerance test. This test usuallyrequires a three- day special diet, followed by drinking more of the glucose solution. The blood is drawn four times: once before drinking the glucose (when she is fasting) then at one, two and three hours after the glucose solution is consumed. If two values are above a certain threshold, gestational diabetes is diagnosed. HOW TO TAKE THIS TEST At [facility], the procedure is as follows: come about 15 minutes early for your 28 week visit. Don't eat anything sugary that day, but complete fasting is not necessary. Go to the lab at A-15 or S-15, tell them your name and let them watch you drink the Glucola. They will tell you went to come back for the blood draw. IF THEY DON'T HAVE THE ORDER IN THE COMPUTER--go to a house phone, call [phone] or [phone] and ask the nurse to put the order in. After drinking the glucola, come to your regular appointment, making sure you return to the lab at the right time. You may call our office for the results the next day, if you are interested: [phone]. We will call you if further testing is required. SIGNS AND SYMPTOMS OF LABOR 1. Contractions every 10 minutes or more often 2. Clear, pink, or brownish fluid (water) leaking from vagina 3. Feeling that baby is pushing down, pressure 4. Low, dull backache 5. Cramps that feel like a period 6. Cramps with or without diarrhea If you notice any of the above symptoms, contact our office at [phone] and ask to speak with anurse. After hours, you can call doctors registry at [phone] OR call [facility] at [phone] ask to have the doctor director of corporate sponsorships paged. If you consider this an emergency, dial 9-3-8 or go to your nearest emergency department. NEED HELP? Are you dealing with a violent or abusive relationship? Are you a victim of rape or sexual assult? Call [facility] ([place]) 24 hour Crisis Hotline: 973.615.4681 or 207-774-2972. MANUAL Your Guide to a Healthy manual is now on-line. Visit [facility]org/HealthyPregnancyGuide to download your free copy documented in this encounterMer[facility]11-04-2022 Miscellaneous Notes* Quick Notes - Neda Ibarra APRN.CNM - 09/28/2022 10:11 AM EDT FADUMO-S: Kin Alejo is a 21 year old female who presents at 24w0d with LUPE:01/18/2023, by Ultrasound for a routine visit. Good FM. Denies headache, visual changes, chest pain, shortness of breath, vaginal bleeding, leakage of fluid, or dysuria. Feeling well, no complaints. O: See flow sheet Gen: No apparent distress Abd: Gravid, nontender S=D, 30 lb TWG ASSESSMENT/PLAN: 1. 24 weeks gestation of P: 1) PTL precautions reviewed and when to call 2) RTO in 4 weeks 3) Rh negative, will need Rhogam, reviewed and handout given 4) 1hr GCT next visit and RPR next visit 5) Missed ultrasound today due to confusion on time, will reschedule. Neda Ibarra APRN.CNM documented in this encounterMercy [facility]10-10-2022 Miscellaneous Notes* Telephone Encounter - Gisselle Nuñez LPN - 09/03/2022 9:35 AM EDT Patient notified * Telephone Encounter - Yanelis Richter RN - 09/03/2022 9:26 AM EDT Left message for patient to call office. See below. Scheduled ultrasound at 9:30 AM on 09/28 prior to her OB visit with FADUMO. Yanelis Richter RN * Telephone Encounter - Yanelis Richter RN - 09/03/2022 9:23 AM EDT ----- Message from Carola Flores APRN.CNM sent at 09/03/2022 8:40 AM EDT ----- Anatomy US reviewed. Needs growth and complete anatomy at 24 weeks. Order placed. Carola Flores APRN.CNM documented in this encounterMercy Health [facility] Hospital10-07-2022 Miscellaneous Notes* Quick Notes - Neda Ibarra APRN.CNM - 08/31/2022 2:21 PM EDT FADUMO-S: Kin Alejo is a 21 year old female who presents at 20w5d with LUPE:01/18/2023, by Ultrasound for a routine visit. Good FM. Denies headache, visual changes, chest pain, shortness of breath, vaginal bleeding, leakage of fluid, or dysuria. Feeling well, no complaints. O: See flow sheet Gen: No apparent distress Abd: Gravid, nontender S=D, 23lb TWG ASSESSMENT/PLAN: 1. 20 weeks gestation of P: 1) PTL precautions reviewed and when to call 2) RTO in 4 weeks 3) Information provided for CBE and 4) Anatomy US completed, awaiting for official results Neda Ibarra APRN.CNM documented in this encounterMercy Health [facility] Hospital10-07-2022 Instructions* Patient Instructions* Neda Ibarra APRN.CNM - 08/31/2022 1:30 PM EDT Childbirth Classes 1) [facility] Online Virtual Childbirth and Class. -Please call to register and for more information: [phone] and register 2) [facility] Online Childbirth Education, , and classes: https://events.[facility].org 3) Here is a list of online childbirth education and resources. https://MRO.Easel Learn/illbxx-qogaraysjg-ccjfk--lxeugguyntw/ https://evidencebasedbirth.com/childbirth-class/ https://blissful-.Sweetie High.com/p/empoweredmamasguide SIGNS AND SYMPTOMS OF LABOR 1. Contractions every 10 minutes or more often 2. Clear, pink, or brownish fluid (water) leaking from vagina 3. Feeling that baby is pushing down, pressure 4. Low, dull backache 5. Cramps that feel like a period 6. Cramps with or without diarrhea If you notice any of the above symptoms, contact our office at [phone] and ask to speak with anurse. After hours, you can call doctors registry at [phone] OR call [facility] at [phone] ask to have the doctor director of corporate sponsorships paged. If you consider this an emergency, dial 9-1-1 or go to your nearest emergency department. NEED HELP? Are you dealing with a violent or abusive relationship? Are you a victim of rape or sexual assult? Call [facility] ([place]) 24 hour Crisis Hotline: 676.934.5978 or 294-859-1048. MANUAL Your Guide to a Healthy manual is now on-line. Visit [facility]/HealthyPregnancyGuide to download your free copy documented in this encounterMercy Health [facility] Hospital09-27-2022 Miscellaneous Notes* Telephone Encounter - Brittany Crawley RN - 08/21/2022 1:35 PM EDT Outside medical records received from [facility] [place]. Records to provider to review. Next OB appointment on 08/31/22. .me documented in this encounterMercy Health Fairfield Hospital09-16-2022 Miscellaneous Notes* Quick Notes - Carola Flores APRN.CNM - 08/10/2022 2:01 PM EDT Patient at 17.0 weeks gestation as a transfer of care from [place]. has been uneventful. NOB completed today. Awaiting records from previous practice. Carola Flores APRN.CNM documented in this encounterMercy Health Fairfield Hospital09-16-2022 Instructions* Patient Instructions* Carola Flores APRN.CNM - 08/10/2022 1:32 PM EDT SEQUENTIAL SCREENINGS The [facility] offers sequential screenings for women who are interested in screenings for chromosomal abnormalities and certain defects during a . The sequential screen combinesultrasound and blood tests to determine the risk of chromosomal abnormalities, including Down's Syndrome (Trisomy 21) and Trisomy 18, as well as open neural tube defects including spina bifida. Ultrasound examination is performed between 11 weeks and 13 weeks gestational age. Blood tests are drawn after the ultrasound and again later in the between 15 and 21 weeks gestational age. Please let your physician know if you are interested in this testing. It will require an appointment withour dental equipment technician. This is not an ultrasound performed by a physician in our office during a routine visit. SIGNS AND SYMPTOMS OF LABOR 1. Contractions every 10 minutes or more often 2. Clear, pink, or brownish fluid (water) leaking from vagina 3. Feeling that baby is pushing down, pressure 4. Low, dull backache 5. Cramps that feel like a period 6. Cramps with or without diarrhea If you notice any of the above symptoms, contact our office at [phone] and ask to speak with anurse. After hours, you can call doctors registry at [phone] OR call [facility] at [phone] ask to have the doctor director of corporate sponsorships paged. If you consider this an emergency, dial 4-6-5 or go to your nearest emergency department. NEED HELP? Are you dealing with a violent or abusive relationship? Are you a victim of rape or sexual assult? Call [facility] ([place]) 24 hour Crisis Hotline: 471.174.5566 or 645-088-9136. MANUAL Your Guide to a Healthy manual is now on-line. Visit [facility]/HealthyPregnancyGuide to download your free copy Please select the following link to access the [facility] Your Guide to a Healthy . [email or web address] documented in this encounterMercy Health Fairfield Hospital09-16-2022 History of Present illness Narrative* Carola Flores APRN.CNM - 08/10/2022 1:25 PM EDT INITIAL OB ASSESSMENT OB Provider: Carola Flores APRN.CNM HPI: Kin Alejo is a 21 year old female here to establish Obstetrical Care. Patient's last menstrual period was 02/10/2022 (exact date). from OB Dating Form. Cycle length: irregular cycles LUPE based off of early ultrasound- awaiting records to be sent Complaints: nausea without vomiting- improved was planned. OB History T0 L0 SAB0 IAB0 Ectopic0 Multiple0 Live Births0 Prior : never History of 4th degree laceration: No Patient's Risk Screening for delivery: History of abnormal pap: No Prior treatment for cervical dysplasia: none. History of STDs: None Tobacco use: No Caffeine use: No Drug use: No Alcohol use: No Multivitamin with Folic acid: Yes Occupation: not working Presybeterian or heritage: No Would refuse blood transfusion if medically necessary: No BMI 23.52 kg/(m^2) Patient BMI over 30? No Marital Status: Partner: Name: Jason Alejo Age: 22 Occupation: Pipe Gender: male History of STDs: None PAST MEDICAL HISTORY Diagnosis Date Irregular menses History reviewed. No pertinent surgical history. Current Outpatient Medications on File Prior to Visit Medication Sig prental multivitamin 27 mg iron- 800 mcg tablet Take 1 tablet by mouth once daily. No current facility-administered medications on file prior to visit. Review of Systems: GENERAL: Negative for: Fever or Chills and Positive for: Fatigue HEENT: Negative for: Headache, Impaired Vision, Ringing in Ears, Nosebleeds NECK: Negative for: Swelling, Pain, Stiffness RESPIRATORY: Negative for: Cough, Shortness of breath, Wheezing GASTROINTESTINAL: Negative for: Heartburn, Constipation, Diarrhea, Blood in stool, Vomiting MUSCULOSKELETAL: Negative for: Muscle or joint pain, stiffness, Joint swelling NEUROLOGIC/PSYCHIATRIC: Negative for: Weakness, Paralysis, Numbness, Tingling, Tremor, Anxiety, Depression, Memory loss SKIN: Negative for: Rash, Itching GENITOURINARY: Negative for: vaginal itching, vaginal discharge, hematuria or dysuria and Positive for: urinary frequency PHYSICAL EXAM: BP 102/60 Ht 5' 4 (1.63m) Wt 137 lb (62.1kg) LMP 02/10/2022 BMI 23.50 kg/(m^2). GENERAL: pleasant female in no apparent distress DERMATOLOGY: Normal, without lesions, non-icteric, and non-hirsute NECK: Supple and full range of motion CHEST: Normal inspiratory effort BREAST: deferred ABDOMEN: soft, non-tender, and no masses NEURO: alert and oriented x3,exam grossly non-focal OB Risk Screening: Completed, no positive findings documented. ASSESSMENT: 21 year old at 17 wks gestational age PLAN: 1) Patient oriented to practice. Discussed nutrition, folic acid supplementation, dietary guidelines, exercise, smoking, alcohol, caffeine, and drug use. Patient already completed aneuploidy screenings - needs AFP lab 16-18 weeks. Follow up in 3 weeks for anatomy US or sooner prn. Carola Flores APRN.CNM documented in this encounterMarietta [facility]* Diagnosis 17 weeks gestation of - Primary state, incidental with care elsewhere in second trimester documented in this encounter [facility]* Diagnosis Encounter for anatomic survey- Primary 20 weeks gestation of state, incidental documented in this encounter [facility]* Diagnosis 20 weeks gestation of - Primary state, incidental documented in this encounter [facility]* Diagnosis 24 weeks gestation of - Primary state, incidental documented in this encounter [facility]* Diagnosis Encounter for follow-up ultrasound of anatomy- Primary 24 weeks gestation of state, incidental documented in this encounter [facility]* Diagnosis 28 weeks gestation of - Primary state, incidental Need for vaccination Need for prophylactic vaccination and inoculation against unspecified single disease Supervision of other normal , antepartum documented in this encounter [facility]* Diagnosis 30 weeks gestation of - Primary state, incidental Encounter for supervision of normal first in second trimester Supervision of normal first documented in this encounter [facility]* Diagnosis 32 weeks gestation of - Primary state, incidental Encounter for supervision of normal first in third trimester Supervision of normal first documented in this encounter [facility]* Diagnosis 36 weeks gestation of - Primary state, incidental documented in this encounter [facility] HospitalEvaludel[facility] noteNo assessment information availableWooster Community [facility] Work Phone: evaluation note* Diagnosis 37 weeks gestation of - Primary state, incidental Elevated blood pressure reading without diagnosis of hypertension Gestational proteinuria in third trimester Unspecified antepartum renal disease documented in this encounter [facility] note* Diagnosis Onset Date Resolution Status 37 weeks gestation of acute Elevated blood pressure reading acute Proteinuria affecting acute 37 weeks gestation of acute Elevated blood pressure reading acute Proteinuria affecting acute [facility] Work Phone: [employer] note* Diagnosis 37 weeks gestation of - Primary state, incidental Elevated blood pressure reading without diagnosis of hypertension documented in this encounter [facility] note* Diagnosis Onset Date Resolution Status 37 weeks gestation of acute Elevated blood pressure reading acute Proteinuria affecting acute 37 weeks gestation of acute Elevated blood pressure reading acute Proteinuria affecting acute 37 weeks gestation of acute Elevated blood pressure reading acute First degree perineal laceration acute Lactating mother acute Pre-eclampsia acute Primiparous acute Proteinuria affecting acute Vaginal delivery acute [facility] Work Phone: [employer] note* Diagnosis Encounter for screening for maternal depression- Primary History of pre-eclampsia Personal history of other genital system and obstetric disorders care and examination Routine follow-up documented in this encounter [facility] note* Diagnosis Supervision of high risk in first trimester- Primary Unspecified high-risk Less than 8 weeks gestation of state, incidental with uncertain dates in first trimester Screening for cervical cancer Screening for malignant neoplasm of the cervix Screen for STD (sexually transmitted disease) Screening examination for venereal disease Rh negative state in antepartum period Rhesus isoimmunization affecting management of mother, antepartum condition History of pre-eclampsia Personal history of other genital system and obstetric disorders Caffeine use during Mental disorders of mother, complicating , childbirth, or the puerperium, unspecified as to episode of care documented in this encounter [facility] note* Diagnosis Supervision of high risk in first trimester- Primary Unspecified high-risk documented in this encounter [facility] note* Diagnosis Less than 8 weeks gestation of state, incidental with uncertain dates in first trimester Supervision of high risk in first trimester Unspecified high-risk [facility]* Diagnosis Encounter for screening for malformation using ultrasound- Primary 12 weeks gestation of state, incidental documented in this encounter [facility]* Diagnosis Supervision of high risk in second trimester- Primary Unspecified high-risk 12 weeks gestation of state, incidental History of pre-eclampsia Personal history of other genital system and obstetric disorders documented in this encounter [facility]* Diagnosis Supervision of high risk in second trimester- Primary Unspecified high-risk 16 weeks gestation of state, incidental History of pre-eclampsia Personal history of other genital system and obstetric disorders documented in this encounter [facility]* Diagnosis Supervision of high risk in second trimester- Primary Unspecified high-risk 20 weeks gestation of state, incidental History of pre-eclampsia Personal history of other genital system and obstetric disorders Rh negative state in antepartum period Rhesus isoimmunization affecting management of mother, antepartum condition [facility]* Diagnosis Encounter for anatomic survey- Primary 20 weeks gestation of state, incidental documented in this encounter [facility]* Diagnosis Supervision of high risk in second trimester- Primary Unspecified high-risk 24 weeks gestation of state, incidental Rh negative state in antepartum period Rhesus isoimmunization affecting management of mother, antepartum condition History of pre-eclampsia Personal history of other genital system and obstetric disorders Screening for diabetes mellitus documented in this encounter [facility]* Diagnosis Supervision of high risk in third trimester (HCC)- Primary Unspecified high-risk 28 weeks gestation of (HCC) state, incidental History of pre-eclampsia Personal history of other genital system and obstetric disorders Rh negative state in antepartum period (HCC) Rhesus isoimmunization affecting management of mother, antepartum condition Depression affecting in third trimester, antepartum (HCC) documented in this encounter [facility]* Diagnosis Supervision of high risk in third trimester (HCC)- Primary Unspecified high-risk 30 weeks gestation of (HCC) state, incidental [facility]* Diagnosis Supervision of high risk in third trimester (HCC)- Primary Unspecified high-risk History of pre-eclampsia Personal history of other genital system and obstetric disorders 32 weeks gestation of (HCC) state, incidental Supervision of high risk in third trimester (HCC)- Primary Unspecified high-risk 34 weeks gestation of ([facility]) state, incidental History of pre-eclampsia Personal history of other genital system and obstetric disorders Depression affecting in third trimester, antepartum ([facility]) documented in this encounter [facility] note* Diagnosis Supervision of high risk in third trimester (HCC)- Primary Unspecified high-risk History of pre-eclampsia Personal history of other genital system and obstetric disorders 32 weeks gestation of ([facility]) state, incidental Supervision of high risk in third trimester (HCC)- Primary Unspecified high-risk History of pre-eclampsia Personal history of other genital system and obstetric disorders 36 weeks gestation of ([facility]) state, incidental Supervision of high risk in third trimester ([facility])- Primary Unspecified high-risk History of pre-eclampsia Personal history of other genital system and obstetric disorders 37 weeks gestation of ([facility]) state, incidental * Assessment & Plan Note - Palmer Hubbard MD - 04/22/2025 11:10 AM EDTAssociated Problem(s): Supervision of high risk in third trimester ([facility]) Orders: URINE OB DIP B/O * Assessment & Plan Note - Palmer Hubbard MD - 04/22/2025 11:10 AM EDTAssociated Problem(s): History of pre-eclampsia Orders: URINE OB DIP B/O documented in this encounter [facility] note* Diagnosis Supervision of high risk in third trimester (HCC)- Primary Unspecified high-risk History of pre-eclampsia Personal history of other genital system and obstetric disorders 32 weeks gestation of ([facility]) state, incidental Supervision of high risk in third trimester (HCC)- Primary Unspecified high-risk History of pre-eclampsia Personal history of other genital system and obstetric disorders 36 weeks gestation of ([facility]) state, incidental Supervision of high risk in third trimester (HCC)- Primary Unspecified high-risk History of pre-eclampsia Personal history of other genital system and obstetric disorders 37 weeks gestation of (HCC) state, incidental Supervision of high risk in third trimester (HCC)- Primary Unspecified high-risk History of pre-eclampsia Personal history of other genital system and obstetric disorders Depression affecting in third trimester, antepartum (HCC) 37 weeks gestation of (HCC) state, incidental 38 weeks gestation of (HCC)- Primary state, incidental Supervision of high risk in third trimester (HCC) Unspecified high-risk * Assessment & Plan Note - Palmer Hubbard MD - 05/04/2025 2:27 PM EDTAssociated Problem(s): Supervision of high risk in third trimester (HCC) Orders: URINE OB DIP B/O documented in this encounter [facility] note* Diagnosis Supervision of high risk in third trimester (HCC)- Primary Unspecified high-risk History of pre-eclampsia Personal history of other genital system and obstetric disorders 32 weeks gestation of (HCC) state, incidental Supervision of high risk in third trimester (HCC)- Primary Unspecified high-risk History of pre-eclampsia Personal history of other genital system and obstetric disorders 36 weeks gestation of ([facility]) state, incidental Supervision of high risk in third trimester (HCC)- Primary Unspecified high-risk History of pre-eclampsia Personal history of other genital system and obstetric disorders 37 weeks gestation of ([facility]) state, incidental Supervision of high risk in third trimester (HCC)- Primary Unspecified high-risk History of pre-eclampsia Personal history of other genital system and obstetric disorders Depression affecting in third trimester, antepartum (HCC) 37 weeks gestation of ([facility]) state, incidental * Assessment & Plan Note - Cinthya Morton MD - 04/27/2025 9:50 AM EDT Associated Problem(s): Supervision of high risk in third trimester ([facility]) - Reviewed GARETH, labor/bleeding precautions - Gbs negative - Would be interested in induction after 40 weeks - Increased contraction pain - Undecided for PPBC - SVE 1.5/40/-3 Orders: URINE OB DIP B/O * Assessment & Plan Note - Cinthya Morton MD - 04/27/2025 9:50 AM EDT Associated Problem(s): History of pre-eclampsia Orders: URINE OB DIP B/O * Assessment & Plan Note - Cinthya Morton MD - 04/27/2025 9:50 AM EDT Associated Problem(s): Depression affecting in third trimester, antepartum (HCC) Orders: URINE OB DIP B/O [facility] Additional Instructions contact office on Saturday for further instructionsW[facility] Work Phone: Hospital Discharge instructions Additional Instructions Follow-up in our office on 01/04/2023 for blood pressure check.[facility] Work Phone: Reason for referral (narrative)* Diagnostic Procedure Only (Routine) - Authorized Specialty Diagnoses / Procedures Referred By Contac t Referred To Contact [facility] Diagnoses 17 weeks gestation of Procedures OBSTETRIC ULTRASOUND WHI US PREG UTERUS AFTER 1ST TRIMEST GESTATION Carola Flores APRN.CNM [address] [place] [address] [address] [address] [place] [address] Referral ID Status Reason Start Date Expiration Date Visits Requested Visits Authorized [id number] Authorized Auto-Generat ed Referral 08/10/2022 08/10/2023 1 1 [facility] for referral (narrative)* Diagnostic Procedure Only (Routine) - Pending Review Specialty Diagnoses / Procedures Referred By Contac t Referred To Contact [facility] Diagnoses 37 weeks gestation of Elevated blood pressure reading without diagnosis of hypertension Procedures OBSTETRIC ULTRASOUND WHI US PREG UTERUS AFTER 1ST TRIMEST GESTATION Kin Walker MD [address] [place] [address] [address] [address] [place] [address] Referral ID Status Reason Start Date Expiration Date Visits Requested Visits Authorized [id number] Pending Review Auto-Generat ed Referral 12/30/2022 12/30/2023 1 1 [facility] for referral (narrative)* Diagnostic Procedure Only (Routine) - Authorized Specialty Diagnoses / Procedures Referred By Contac t Referred To Contact [facility] Diagnoses Less than 8 weeks gestation of with uncertain dates in first trimester Encounter for supervision of normal in multigravida Procedures OBSTETRIC ULTRASOUND WHI US PREG UTERUS AFTER 1ST TRIMEST GESTATION Onur Garcia APRN.[employer]ORER [employer] [address] [place] [address] [facility] [address] [place] [address] Referral ID Status Reason Start Date Expiration Date Visits Requested Visits Authorized [id number] Authorized Auto-Generat ed Referral 09/09/2025 1 1 [facility] for referral (narrative)* Diagnostic Procedure Only (Routine) - Authorized Specialty Diagnoses / Procedures Referred By Contac t Referred To Contact [facility] Diagnoses Supervision of high risk in first trimester Procedures NUCHAL TRANSLUCENCY WHI US NUCHAL TRANSLUCENCY 1ST GESTATION Palmer Hubbard MD [address] [place] [address] [facility] [address] [place] [address] Referral ID Status Reason Start Date Expiration Date Visits Requested Visits Authorized [id number] Authorized Auto-Generat ed Referral 09/18/2025 1 1 [facility] for referral (narrative)* Diagnostic Procedure Only (Routine) - Authorized Specialty Diagnoses / Procedures Referred By Contac t Referred To Contact [facility] Diagnoses Supervision of high risk in second trimester 12 weeks gestation of Procedures OBSTETRIC ULTRASOUND WHI US PREG UTERUS AFTER 1ST TRIMEST GESTATION Neda Ibarra APRN.CNM [address] [place] [address] [facility] [address] [place] [address] Referral ID Status Reason Start Date Expiration Date Visits Requested Visits Authorized [id number] Authorized Auto-Generat ed Referral 10/30/2024 10/30/2025 1 1 [facility] for referral (narrative)No reason for referral information availableWSelect [facility] [place] Work Phone: Health Concerns Problem Noted Date OB Reminders 11/02/2022 Problem Noted Date OB Reminders 11/02/2022 Problem Noted Date OB Reminders 11/02/2022 Problem Noted Date OB Reminders 11/02/2022 Problem Noted Date OB Reminders 11/02/2022 Problem Noted Date OB Reminders 11/02/2022 Chief Complaint and Reason for Visit Chief Complaint R/O PRE E Chief Complaint R/O PRE E BP CHECK Reason for Visit 37 weeks gestation o f Elevated blood pressure reading Proteinuria affecting 37 weeks gestation of Elevated blood pressure reading Proteinuria affecting Chief Complaint R/O PRE E BP CHECK VAG DELIVERY Reason for Visit 37 weeks gestation o f Elevated blood pressure reading Proteinuria affecting 37 weeks gestation of Elevated blood pressure reading Proteinuria affecting 37 weeks gestation of Elevated blood pressure reading First degree perineal laceration Lactating mother Pre-eclampsia Primiparous Proteinuria affecting Vaginal delivery Chief Complaint Admit Date R/O ROM April 23, 2025 2:13p m Advance Directives Advance Directive Response Recorded Date/ Time Living Will No December 30 7:27pm Power of Control Room Tender No December 30, 2022 7:27pm Summary Purpose Family History No Family History Records FoundNo Family History Records Found Additional Source Comments Source Comments (unrecognize d section and content) In the event this informatio n is protected by the Federal Confidentiality of Alcohol and Drug Abuse Patient Records regulations: The Federal rules restrict any use of the information to criminally investigate or prosecute any alcohol or drug abuse patient.[facility] the event this information is protected by the Federal Confidentiality of Alcohol and Drug Abuse Patient Records regulations: The Federal rules restrict any use of the information to criminally investigate or prosecute any alcohol or drug abuse patient.[facility] HospitalIn the event this information is protected by the Federal Confidentiality of Alcohol and Drug Abuse Patient Records regulations: The Federal rules restrict any use of the information to criminally investigate or prosecute any alcohol or drug abuse patient.[facility] HospitalIn the event this information is protected by the Federal Confidentiality of Alcohol and Drug Abuse Patient Records regulations: The Federal rules restrict any use of the information to criminally investigate or prosecute any alcohol or drug abuse patient.[facility] HospitalIn the event this information is protected by the Federal Confidentiality of Alcohol and Drug Abuse Patient Records regulations: The Federal rules restrict any use of the information to criminally investigate or prosecute any alcohol or drug abuse patient.[facility] HospitalIn the event this information is protected by the Federal Confidentiality of Alcohol and Drug Abuse Patient Records regulations: The Federal rules restrict any use of the information to criminally investigate or prosecute any alcohol or drug abuse patient.[facility] HospitalIn the event this information is protected by the Federal Confidentiality of Alcohol and Drug Abuse Patient Records regulations: The Federal rules restrict any use of the information to criminally investigate or prosecute any alcohol or drug abuse patient.[facility] HospitalIn the event this information is protected by the Federal Confidentiality of Alcohol and Drug Abuse Patient Records regulations: The Federal rules restrict any use of the information to criminally investigate or prosecute any alcohol or drug abuse patient.[facility] HospitalIn the event this information is protected by the Federal Confidentiality of Alcohol and Drug Abuse Patient Records regulations: The Federal rules restrict any use of the information to criminally investigate or prosecute any alcohol or drug abuse patient.[facility] HospitalIn the event this information is protected by the Federal Confidentiality of Alcohol and Drug Abuse Patient Records regulations: The Federal rules restrict any use of the information to criminally investigate or prosecute any alcohol or drug abuse patient.[facility] HospitalIn the event this information is protected by the Federal Confidentiality of Alcohol and Drug Abuse Patient Records regulations: The Federal rules restrict any use of the information to criminally investigate or prosecute any alcohol or drug abuse patient.[facility] HospitalIn the event this information is protected by the Federal Confidentiality of Alcohol and Drug Abuse Patient Records regulations: The Federal rules restrict any use of the information to criminally investigate or prosecute any alcohol or drug abuse patient.[facility] HospitalIn the event this information is protected by the Federal Confidentiality of Alcohol and Drug Abuse Patient Records regulations: The Federal rules restrict any use of the information to criminally investigate or prosecute any alcohol or drug abuse patient.[facility] HospitalIn the event this information is protected by the Federal Confidentiality of Alcohol and Drug Abuse Patient Records regulations: The Federal rules restrict any use of the information to criminally investigate or prosecute any alcohol or drug abuse patient.[facility] HospitalIn the event this information is protected by the Federal Confidentiality of Alcohol and Drug Abuse Patient Records regulations: The Federal rules restrict any use of the information to criminally investigate or prosecute any alcohol or drug abuse patient.[facility] HospitalIn the event this information is protected by the Federal Confidentiality of Alcohol and Drug Abuse Patient Records regulations: The Federal rules restrict any use of the information to criminally investigate or prosecute any alcohol or drug abuse patient.[facility] HospitalIn the event this information is protected by the Federal Confidentiality of Alcohol and Drug Abuse Patient Records regulations: The Federal rules restrict any use of the information to criminally investigate or prosecute any alcohol or drug abuse patient.[facility] HospitalIn the event this information is protected by the Federal Confidentiality of Alcohol and Drug Abuse Patient Records regulations: The Federal rules restrict any use of the information to criminally investigate or prosecute any alcohol or drug abuse patient.[facility] HospitalIn the event this information is protected by the Federal Confidentiality of Alcohol and Drug Abuse Patient Records regulations: The Federal rules restrict any use of the information to criminally investigate or prosecute any alcohol or drug abuse patient.[facility] HospitalIn the event this information is protected by the Federal Confidentiality of Alcohol and Drug Abuse Patient Records regulations: The Federal rules restrict any use of the information to criminally investigate or prosecute any alcohol or drug abuse patient.[facility] HospitalIn the event this information is protected by the Federal Confidentiality of Alcohol and Drug Abuse Patient Records regulations: The Federal rules restrict any use of the information to criminally investigate or prosecute any alcohol or drug abuse patient.[facility] HospitalIn the event this information is protected by the Federal Confidentiality of Alcohol and Drug Abuse Patient Records regulations: The Federal rules restrict any use of the information to criminally investigate or prosecute any alcohol or drug abuse patient.[facility] HospitalIn the event this information is protected by the Federal Confidentiality of Alcohol and Drug Abuse Patient Records regulations: The Federal rules restrict any use of the information to criminally investigate or prosecute any alcohol or drug abuse patient.[facility] HospitalIn the event this information is protected by the Federal Confidentiality of Alcohol and Drug Abuse Patient Records regulations: The Federal rules restrict any use of the information to criminally investigate or prosecute any alcohol or drug abuse patient.[facility] HospitalIn the event this information is protected by the Federal Confidentiality of Alcohol and Drug Abuse Patient Records regulations: The Federal rules restrict any use of the information to criminally investigate or prosecute any alcohol or drug abuse patient.[facility] HospitalIn the event this information is protected by the Federal Confidentiality of Alcohol and Drug Abuse Patient Records regulations: The Federal rules restrict any use of the information to criminally investigate or prosecute any alcohol or drug abuse patient.[facility] HospitalIn the event this information is protected by the Federal Confidentiality of Alcohol and Drug Abuse Patient Records regulations: The Federal rules restrict any use of the information to criminally investigate or prosecute any alcohol or drug abuse patient.[facility] HospitalIn the event this information is protected by the Federal Confidentiality of Alcohol and Drug Abuse Patient Records regulations: The Federal rules restrict any use of the information to criminally investigate or prosecute any alcohol or drug abuse patient.[facility] HospitalIn the event this information is protected by the Federal Confidentiality of Alcohol and Drug Abuse Patient Records regulations: The Federal rules restrict any use of the information to criminally investigate or prosecute any alcohol or drug abuse patient.[facility] HospitalIn the event this information is protected by the Federal Confidentiality of Alcohol and Drug Abuse Patient Records regulations: The Federal rules restrict any use of the information to criminally investigate or prosecute any alcohol or drug abuse patient.[facility] HospitalIn the event this information is protected by the Federal Confidentiality of Alcohol and Drug Abuse Patient Records regulations: The Federal rules restrict any use of the information to criminally investigate or prosecute any alcohol or drug abuse patient.[facility] HospitalIn the event this information is protected by the Federal Confidentiality of Alcohol and Drug Abuse Patient Records regulations: The Federal rules restrict any use of the information to criminally investigate or prosecute any alcohol or drug abuse patient.[facility] HospitalIn the event this information is protected by the Federal Confidentiality of Alcohol and Drug Abuse Patient Records regulations: The Federal rules restrict any use of the information to criminally investigate or prosecute any alcohol or drug abuse patient.[facility] HospitalIn the event this information is protected by the Federal Confidentiality of Alcohol and Drug Abuse Patient Records regulations: The Federal rules restrict any use of the information to criminally investigate or prosecute any alcohol or drug abuse patient.[facility] HospitalIn the event this information is protected by the Federal Confidentiality of Alcohol and Drug Abuse Patient Records regulations: The Federal rules restrict any use of the information to criminally investigate or prosecute any alcohol or drug abuse patient.[facility] HospitalIn the event this information is protected by the Federal Confidentiality of Alcohol and Drug Abuse Patient Records regulations: The Federal rules restrict any use of the information to criminally investigate or prosecute any alcohol or drug abuse patient.[facility] Reason for Visit (unrecogniz ed section and content) Reason Comments US Specialty Diagnoses / Procedures Referred By Kathryn t Referred To Contact [facility] Diagnoses Supervision of high risk in first trimester Procedures NUCHAL TRANSLUCENCY WHI US NUCHAL TRANSLUCENCY 1ST GESTATION Palmer Hubbard MD [address] [place] [address] [facility] [address] [place] [address] Referral ID Status Reason Start Date Expiration Date V isits Requested Visits Authorized [id number] Closed Auto-Generate d Referral 09/18/2024 09/18/2025 1 1 Reason Onset Date Comments Care 11/09/2022 Specialty Diagnoses / Procedures Referred By Contac t Referred To Contact [facility] Diagnoses 17 weeks gestation of Procedures OBSTETRIC ULTRASOUND WHI US PREG UTERUS AFTER 1ST TRIMEST GESTATION Carola Flores, [place] ANALYST.CNM [address] [place] [address] [facility] [address] [place] [address] Referral ID Status Reason Start Date Expiration Date Visits Requested Visits Authorized [id number] Authorized Auto-Generate d Referral Patient Cleared - Qualified 100% FAS 08/23/2022 11/21/2022 99 99 Reason Onset Date Comments Care 09/28/2022 Reason Onset Date Comments Initial OB Visit Care 08/10/2022 Reason Comments Received Outside Medical Records Reason Onset Date Comments Results 09/03/2022 Reason Onset Date Comments Care 08/31/2022 Reason Onset Date Comments Care 10/26/2022 Reason Onset Date Comments Care 11/23/2022 Reason Onset Date Comments Care 12/21/2022 Reason Onset Date Comments Care 12/28/2022 Reason Comments Appointment Reason Comments Ob Delivery Note Reason Comments Patient Question Appointment Reason Comments Initial OB Visit Reason Onset Date Comments Care 09/18/2024 Reason Comments [facility] Ultrasound Specialty Diagnoses / Procedures Referred By Contac t Referred To Contact [facility] Diagnoses Less than 8 weeks gestation of with uncertain dates in first trimester Encounter for supervision of normal in multigravida Procedures OBSTETRIC ULTRASOUND WHI US PREG UTERUS AFTER 1ST TRIMEST GESTATION Onur Garcia, [employer] ANALYST.[employer] [address] [place] [address] [facility] [address] [place] [address] Referral ID Status Reason Start Date Expiration Date V isits Requested Visits Authorized [id number] Closed Auto-Generate d Referral 09/09/2024 09/09/2025 1 1 Reason Onset Date Comments Care 10/30/2024 Reason Onset Date Comments Care 11/27/2024 Reason Onset Date Comments Care 12/25/2024 Specialty Diagnoses / Procedures Referred By Contac t Referred To Contact [facility] Diagnoses Supervision of high risk in second trimester 12 weeks gestation of Procedures OBSTETRIC ULTRASOUND WHI US PREG UTERUS AFTER 1ST TRIMEST GESTATION Neda Ibarra APRN.CNVesna [address] [place] [address] [facility] [address] [place] [address] Referral ID Status Reason Start Date Expiration Date V isits Requested Visits Authorized [id number] Closed Auto-Generate d Referral 10/30/2024 10/30/2025 1 1 Reason Onset Date Comments Care 01/22/2025 Reason Onset Date Comments Care 02/19/2025 Reason Onset Date Comments Care 03/05/2025 Reason Onset Date Comments Care 04/02/2025 Reason Onset Date Comments Care 04/22/2025 Reason Comments leaking fluid Reason Onset Date Comments Population Health Navigation Outreach 04/28/2025 Ob/peds Reason Onset Date Comments Care 05/04/2025 Reason Onset Date Comments Care 04/27/2025 Care Teams (unrecognized sec tion and content) Team Status: Active Member Role Status Dates No Primary Care Physician Primary Care Provider Active Team Status: Inactive Member Role Status Dates No Primary Care Physician Primary Care Provider Active Dr. Kin Walker DO Attending Provider, Referring Pr ovider Active Team Status: Inactive Member Role Status Dates No Primary Care Physician Primary Care Provider Active Dr. Kin Walker DO Attending Provider Active Team Status: Inactive Member Role Status Dates No Primary Care Physician Primary Care Provider Active Dr. Kin Walker DO Admit Provider, Attending Provid er Active Team Status: Inactive Member Role Status Dates No Primary Care Physician Primary Care Provider Active Start: April 23, 2025 End: April 23, 2025 Dr. Cinthya White MD Attending Provider Ac tive Start: April 23, 2025 End: April 23, 2025 Dr. Cinthya White MD Referring Provider Jarrett quintero Start: April 23, 2025 End: April 23, 2025 Goals (unrecognized section and content) Goals may be documented in a n alternate sectionGoals may be documented in an alternate sectionGoals may be documented in an alternate section INFORMATION SOURCE (unrecogn ized section and content) DATE CREATED AUTHOR 05/01/2025 [facility] DATE CREATED AUTHOR AUTHOR'S SLIME ATVIMAL 05/06/2025 [facility] FOR RECORDS PERTAINING TO PATIENTS WHO ARE OR HAVE BEEN ENROLLED IN A CHEMICAL DEPENDENCY/SUBSTANCEABUSE PROGRAM, SOME INFORMATION MAY BE OMITTED. This clinical summary was aggregated from multiple sources. Caution should be exercised in using it in the provision of clinical care. This summary normalizes information from multiple sources, and as a consequence, information in this document may materially change the coding, format and clinical context of patient data. In addition, data may be omitted in some cases. CLINICAL DECISIONS SHOULD BE BASED ON THE PRIMARY CLINICAL RECORDS. [employer] provides no warranty or guarantee of the accuracy or completeness of information in this document.
--- OUTSIDE RECORDS SUMMARY | 2025-05-11 03:46 | XMS RPT_ITS | CCD ---
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 BLOOD SPECIMEN Ordering Facility: [facility] Address: [address] [place] [address] Performed By: #### 5 195-3, 52373-9, 55769-0 #### [facility] CLIA [id number] [address] [place] [address] [place] Creatinine [Mass/Vol] 0.80 mg/dL Normal 0.58-0.96 [facility] Comment on above: Order Comment: Speci men Type: BLOOD SPECIMEN Ordering Facility: [facility] Address: [address] [place] [address] Performed By: #### 5 195-3, 14301-4, 70672-0 #### [facility] CLIA [id number] [address] [place] [address] [place] Creatinine and Glomerular filtration rate.predicted panel (S/P/Bld) 106 mL/min/1.73m??? Normal >=60 [facility] Comment on above: Order Comment: Speci men Type: BLOOD SPECIMEN Ordering Facility: [facility] Address: [address] [place] [address] Result Comment: Natalya mated Glomerular Filtration Rate [...] actual GFR. Performed By: #### 5 195-3, 57457-5, 53509-9 #### [facility] CLIA [id number] [address] [place] [address] [place] Glucose [Mass/Vol] 88 mg/dL Normal 74-99 [facility] Comment on above: Order Comment: Helen reilly Type: BLOOD SPECIMEN Ordering Facility: [facility] Address: [address] [place] [address] Result Comment: The [place] Diabetes Association (ADA) provides guidance for cutoff [...] Standards of Medical Care in Diabetes 2016, [place] Diabetes Association. Diabetes Care. 2016.39(Suppl 1). Performed By: #### 5 195-3, 78675-6, 90502-7 #### [facility] CLIA [id number] [address] [place], [place] [address] [place] Potassium [Moles/Vol] 4.1 mmol/L Normal 3.7-5.1 [facility] Comment on above: Order Comment: Helen reilly Type: BLOOD SPECIMEN Ordering Facility: [facility] Address: [address] [place] [address] Performed By: #### 5 195-3, 53477-6, 92853-5 #### [facility] CLIA [id number] [address] [place] [address] [place] Protein [Mass/Vol] 7.8 g/dL Normal 6.3-8.0 [facility] Comment on above: Order Comment: Speci men Type: BLOOD SPECIMEN Ordering Facility: [facility] Address: [address] [place] [address] Performed By: #### 5 195-3, 83258-8, 25732-2 #### [facility] CLIA [id number] [address] [place] [address] [place] Sodium [Moles/Vol] 135 mmol/L Low 136-144 [facility] Comment on above: Order Comment: Speci men Type: BLOOD SPECIMEN Ordering Facility: [facility] Address: [address] [place] [address] Performed By: #### 5 195-3, 84724-7, 04996-4 #### [facility] CLIA [id number] [address] [place] [address] [place] Urea nitrogen [Mass/Vol] 15 mg/dL Normal 7-21 [facility] Comment on above: Order Comment: Speci men Type: BLOOD SPECIMEN Ordering Facility: [facility] Address: [address] [place] [address] Performed By: #### 5 195-3, 65267-4, 85468-8 #### [facility] CLIA [id number] [address] [place] [address] [place] HBV surface Ag Ser Qlon 08-25 HBV surface Ag Ql (S) Negative Normal Negative [facility] Comment on above: Order Comment: Speci men Type: BLOOD SPECIMEN Ordering Facility: [facility] Address: [address] [place] [address] Performed By: #### 5 195-3, 72668-1, 31279-8 #### [facility] CLIA [id number] [address] [place] [address] [place] HCV Ab Ser Qlon 09-09-2024 HCV Ab Ql (S) Negative Normal Negative [facility] Comment on above: Order Comment: Speci men Type: URINE SPECIMEN Ordering Facility: [facility] Address: [address] [place] [address] Result Comment: The result suggests no evidence of active infection with Hepatitis C virus. Should recent infection be suspected, repeat testing may be considered 4-6 weeks after this draw. Performed By: #### 2 890-2 #### [facility] CLIA [id number] [address] [place] [address] [place] HIV 1+2 Ab IA Qlon 4 HIV 1 and 2 Ab IA.rapid Nom (S/P/Bld) Normal [facility] Comment on above: Order Comment: Speci men Type: BLOOD SPECIMEN Ordering Facility: [facility] Address: [address] [place] [address] Result Comment: Test not indicated. Performed By: #### 5 195-3, 02645-0, 54830-5 #### [facility] CLIA [id number] [address] [place] [address] [place] HIV 1+2 Ab+HIV1 p24 Ag IA Ql Non-Reactive Normal Nonreactive [facility] Comment on above: Order Comment: Speci men Type: BLOOD SPECIMEN Ordering Facility: [facility] Address: [address] [place] [address] Performed By: #### 5 195-3, 57204-8, 31004-2 #### [facility] CLIA [id number] [address] [place] [address] [place] HIV immunoassay testing algorithm interpretation (S/P/Bld) [Interp] Normal [facility] Comment on above: Order Comment: Speci men Type: BLOOD SPECIMEN Ordering Facility: [facility] Address: [address] [place] [address] Result Comment: No e vidence of HIV-1 or HIV-2 infection. Should recent infection be suspected, repeat testing may be considered 2-3 weeks after this draw. [place] Rev. Code 3701.243(E): This information has been [...] or diagnoses. Performed By: #### 5 195-3, 46080-0, 03950-6 #### [facility] CLIA [id number] [address] [place] [address] [place] HbA1c (Bld)on 09-09-2024 Average glucose Estimated from glycated hemoglobin (Bld) [Mass/Vol] 88 mg/dL Normal [facility] Comment on above: Order Comment: Speci men Type: BLOOD SPECIMEN Ordering Facility: [facility] Address: [address] [place] [address] Result Comment: eAG: (Estimated average glucose) is a calculated value from HgbA1c and is access service representative of the average blood glucose level in the last 2-3 month period. Performed By: #### 5 195-3, 53037-9, 75359-4 #### [facility] CLIA [id number] [address] [place] [address] [place] HbA1c (Bld) [Mass fraction] 4.7 % Normal 4.3-5.6 [facility] Comment on above: Order Comment: Speci men Type: BLOOD SPECIMEN Ordering Facility: [facility] Address: [address] [place] [address] Result Comment: [place] Diabetes Association guidelines indicate that patients with HgbA1c in the range 5.7-6.4% are at increased risk for development of diabetes, and intervention by lifestyle modification may be beneficial. HgbA1c greater or equal to 6.5% is considered diagnostic of diabetes. Performed By: #### 5 195-3, 97064-1, 44986-3 #### [facility] CLIA [id number] [address] [place], [place] [address] [place] PAP TESTon 09-09-2024 ADEQUACY Satisfactory for interpretation. Normal [facility] Comment on above: Order Comment: Speci men Type: FLUID SPECIMEN Ordering Facility: [facility] Address: [address] [place] [address] Performed By: #### L [id number] #### [facility] CLIA [id number] [address] [place], [place] [address] [place] [facility] CLIA [id number] [address] [place] [address] [place] CASE REPORT Normal [facility] Comment on above: Order Comment: Speci men Type: FLUID SPECIMEN Ordering Facility: [facility] Address: [address] [place] [address] Result Comment: Gyne cologic Cytology Report Case: [id number] Authorizing Provider: Onur Garcia APRN.CRUSHER SETTER Collected: 09/09/2024 10:14 AM Ordering Location: OB/Gynecology Received: 09/09/2024 02:35 PM First Screen: Karma, Latoya, CT, ASCP Specimen: Pap Test, ThinPrep, Cervix Performed By: #### L [id number] #### [facility] CLIA [id number] [address] [place] [address] [place] [facility] CLIA [id number] [address] [place] [address] [place] CLINICAL HISTORY, CYTOLOGY, JAIL OFFICER (Indicate Weeks) Normal [facility] Comment on above: Order Comment: Speci men Type: FLUID SPECIMEN Ordering Facility: [facility] Address: [address] [place] [address] Performed By: #### L [id number] #### [facility] CLIA [id number] [address] [place] [address] [place] [facility] CLIA [id number] [address] [place] [address] [place] FINAL PERFORMING LAB Normal [facility] Comment on above: Order Comment: Speci men Type: FLUID SPECIMEN Ordering Facility: [facility] Address: [address] [place] [address] Result Comment: Tech nical component, creative services designer screening performed at [facility], [address] [place] [address] CLIA# [id number] Diagnostic interpretation performed at [facility], [address] [place] [address] CLIA# [id number] Lung Puller: Darrel Perry M.D. Performed By: #### L [id number] #### [facility] CLIA [id number] [address] [place], [place] [address] [place] [facility] CLIA [id number] [address] [place] [address] [place] HPV REFLEX HPV if Atypical Normal [facility] Comment on above: Order Comment: Speci men Type: FLUID SPECIMEN Ordering Facility: [facility] Address: [address] [place] [address] Performed By: #### L [id number] #### [facility] CLIA [id number] [address] [place] [address] [place] [facility] CLIA [id number] [address] [place] [address] [place] INTERPRETATION, CYTOLOGY, JAIL OFFICER Normal [facility] Comment on above: Order Comment: Speci men Type: FLUID SPECIMEN Ordering Facility: [facility] Address: [address] [place] [address] Result Comment: Nega tive for intraepithelial lesion or malignancy. Performed By: #### L [id number] #### [facility] CLIA [id number] [address] [place], [place] [address] [place] [facility] CLIA [id number] [address] [place] [address] [place] LMP 06/30/[address] [facility] Comment on above: Order Comment: Speci men Type: FLUID SPECIMEN Ordering Facility: [facility] Address: [address] [place] [address] Performed By: #### L [id number] #### [facility] CLIA [id number] [address] [place] [address] LAB CLIA [id number] [address] [place] [address] [place] PAP DISCLAIMER COMMENT The Pap Smear is a screening test for cervical cancer. False negative results occur with all screening tests, emphasizing the need for rescreening at recommended intervals, and clinical correlation. Normal [facility] Comment on above: Order Comment: Speci men Type: FLUID SPECIMEN Ordering Facility: [facility] Address: [address] [place] [address] Performed By: #### L [id number] #### [facility] CLIA [id number] [address] [place] [address] LAB CLIA [id number] [address] [place] [address] [place] PAP ROLL UP MACHINE OPERATOR COMMENT This specimen has been analyzed by the ThinPrep Imaging System, an automated imaging and review system, which assists the laboratory in evaluating cells on ThinPrep Pap tests. Following automated imaging, selected linares from every slide are reviewed by a creative services designer. Normal [facility] Comment on above: Order Comment: Speci men Type: FLUID SPECIMEN Ordering Facility: [facility] Address: [address] [place] [address] Performed By: #### L [id number] #### [facility] CLIA [id number] [address] [place] [address] LAB CLIA [id number] [address] [place] [address] [place] POC CUPOLA CHARGER ULTRASOUNDon 09-09-20 Indication Viability; confirm cardiac activity [...] Read By: Onur Garcia NP [facility] Radiology Study observation (narrative) [facility] Prot/Creat Uron 09-09-2024 Protein/Creatinine (U) [Mass ratio] 0.06 mg/mg Normal <0.15 [facility] Comment on above: Order Comment: Speci men Type: URINE SPECIMEN Ordering Facility: [facility] Address: [address] [place] [address] Result Comment: Adul t Proteinuria Categories: <0.15 mg/mg is considered normal to mildly increased 0.15 - 0.50 mg/mg is considered moderately increased >0.50 mg/mg is considered severely increased KDIGO. (2013). KDIGO 2012 Clinical Practice Guideline for the Evaluation and Management of Chronic Kidney Disease. Official Journal of the International Society of Nephrology, 3(1), 1-150. Performed By: #### 2 890-2 #### [facility] CLIA [id number] [address] [place] [address] [place] Protein/Creatinine (U) [Mass ratio]on 09-09-2024 Creatinine (U) [Mass/Vol] 205.7 mg/dL Normal 20.0-300.0 [facility] Comment on above: Order Comment: Clarissai tommie Type: URINE SPECIMEN Ordering Facility: [facility] Address: [address] [place] [address] Performed By: #### 2 890-2 #### [facility] CLIA [id number] [address] [place] [address] [place] Protein (U) [Mass/Vol] 12 mg/dL Normal 0-20 [facility] Comment on above: Order Comment: Helen reilly Type: URINE SPECIMEN Ordering Facility: [facility] Address: [address] [place] [address] Performed By: #### 2 890-2 #### [facility] CLIA [id number] [address] [place] [address] [place] RUBELLA IGG ANTIBODYon 09-09 RUBELLA IGG AB, QUAL Positive Normal Positive [facility] Comment on above: Order Comment: Speci men Type: URINE SPECIMEN Ordering Facility: [facility] Address: [address] [place] [address] Result Comment: The result suggests recent or past exposure to Rubella virus or history of Rubella vaccination. Positive result may also be seen due to presence of passively-transferred antibodies. Please correlate with patient's history. Performed By: #### 2 890-2 #### [facility] CLIA [id number] [address] [place] [address] [place] Reagin and Treponema pallidu m IgG and IgM [Interp]on 09-09-2024 T. pallidum IgG+IgM IA Ql (S) Non-Reactive Normal Nonreactive [facility] Comment on above: Order Comment: Speci men Type: BLOOD SPECIMEN Ordering Facility: [facility] Address: [address] [place] [address] Performed By: #### 5 195-3, 26497-0, 71926-1 #### [facility] CLIA [id number] [address] [place] [address] [place] Reagin+T pallidum IgG+IgM Se rPl-Impon 09-09-2024 Reagin and Treponema pallidum IgG and IgM [Interp] Cannot exclude recent Treponemal infection if specimen collected within 7-10 days after appearance of suspect lesions or 2-3 weeks after an exposure. Clinical correlation is required. Normal [facility] Comment on above: Order Comment: Speci men Type: BLOOD SPECIMEN Ordering Facility: [facility] Address: [address] [place] [address] Performed By: #### 5 195-3, 52489-8, 99793-8 #### [facility] CLIA [id number] [address] [place] [address] [place] TSH SerPl-aCncon 09-09-2024 TSH Qn 2.340 m[IU]/L Normal 0.270-4.200 [facility] Comment on above: Order Comment: Speci men Type: URINE SPECIMEN Ordering Facility: [facility] Address: [address] [place] [address] Result Comment: If t he patient is , TSH reference range varies by gestational period: First Trimester (weeks 9-12): 0.180-2.990 mIU/L Second Trimester: 0.110-3.980 mIU/L Third Trimester: 0.480-4.710 mIU/L Julio Villalpando et al. A Practical Approach for the Verifications and Determination of Site- and Trimester-Specific Reference Intervals for Thyroid Function tests in . Thyroid, 2019:29:3:412-420. Mega Khan, et al. 2017 Guidelines of the [place] Thyroid Association for the Diagnosis and Management of Thyroid Disease during and the . Thyroid, 2017:27:3:315-389. Performed By: #### 2 890-2 #### [facility] CLIA [id number] [address] [place] [address] [place] TYPE + SCREEN PRENATALon ABO A Normal [facility] Comment on above: Order Comment: Speci men Type: BLOOD SPECIMEN Ordering Facility: [facility] Address: [address] [place] [address] Performed By: #### T SPN #### [facility] CLIA [id number] [address] [place] [address] [place] Rh Nom (Bld) Negative Normal [facility] Comment on above: Order Comment: Speci men Type: BLOOD SPECIMEN Ordering Facility: [facility] Address: [address] [place] [address] Performed By: #### T SPN #### [facility] CLIA [id number] [address] [place] [address] [place] TYPE AND SCREEN EXPIRATION 09/12/2024 23:[address] [facility] Comment on above: Order Comment: Speci men Type: BLOOD SPECIMEN Ordering Facility: [facility] Address: [address] [place] [address] Performed By: #### T SPN #### [facility] CLIA [id number] [address] [facility] [place] [address] [place] Basophil percentageOrdered B y: Neda Ibarra on 01-02-2023 WBC (Bld) [#/Vol] 16.7 10*3/uL 4.4-11.0 [facility] Blood erythrocytes count (nu mber/volume)Ordered By: Neda Ibarra on 01-02-2023 RBC (Bld) [#/Vol] 4.08 10*6/uL 4.2-5.4 [facility] Blood hemoglobin measurement (mass/volume)Ordered By: Neda Ibarra on 01-02-2023 Hemoglobin (Bld) [Mass/Vol] 12.0 g/dL 12.0-15.0 [facility] Blood platelet mean volumeOr dered By: Neda Ibarra on 01-02-2023 Platelet mean volume (Bld) [Entitic vol] 11.7 fL 6.2-12.0 [facility] Determination of erythrocyte mean corpuscular volume (MCV)Ordered By: Neda Ibarra on 01-02-2023 MCV (RBC) [Entitic vol] 88.7 fL 81-99 [facility] Hematocrit Auto (Bld) [Volum e fraction]Ordered By: Neda Ibarra on 01-02-2023 Hematocrit (Bld) [Volume fraction] 36.2 % 37-47 [facility] Laboratory - Hematology and Cell countsOrdered By: Neda Ibarra on 01-02-2023 Erythrocyte distribution width (RBC) [Entitic vol] 41.8 fL 35.1-43.9 [facility] Erythrocyte distribution width (RBC) [Ratio] 13.0 % 11.6-14.6 [facility] MCH (RBC) [Entitic mass] 29.4 pg 27.0-32.0 [facility] MCHC Auto (RBC) [Mass/Vol]Or dered By: Neda Ibarra on 01-02-2023 MCHC (RBC) [Mass/Vol] 33.1 g/dL 32-36 [facility] Platelets bldOrdered By: Charley Ibarra on 01-02-2023 Platelets (Bld) [#/Vol] 175 10*3/uL 150-450 [facility] Absolute lymphocyte countOrd ered By: Dr. Walker on 12-30-2022 Lymphocytes Auto (Unsp spec) [#/Vol] 2.80 10*3/uL 0.83-4.51 [facility] Basophil percentageOrdered B y: Dr. Walker on 12-30-2022 Basophils/100 WBC (Bld) 0.3 % 0-1 [facility] Eosinophils/100 WBC (Bld) 0.4 % 0-5 [facility] Neutrophils (Bld) [#/Vol] 7.4 10*3/uL 2.0-7.7 [facility] Neutrophils/100 WBC (Bld) 65.8 % 47-70 [facility] Blood lymphocytes/100 leukoc ytesOrdered By: Dr. Walker on 12-30-2022 Lymphocytes/100 WBC (Bld) 24.9 % 19-41 [facility] Blood monocytes/100 leukocyt esOrdered By: Dr. Walker on 12-30-2022 Monocytes/100 WBC (Bld) 8.2 % 0-10 [facility] Laboratory - Chemistry and C hemistry - challengeOrdered By: Dr. Walker on 12-30-2022 ALT [Catalytic activity/Vol] 12 U/L 13-56 [facility] Laboratory - Hematology and Cell countsOrdered By: Dr. Walker on 12-30-2022 Immature granulocytes/100 WBC (Bld) 0.400 % 0.0-0.9 [facility] Comment on above: IG% - Immature Granu locytes (promyelocytes, myelocytes and metamyelocytes) > 1% indicates that a LEFT SHIFT is Present. Nucleated RBC/100 WBC (Bld) [Ratio] 0 % 0-5 [facility] No Panel InformationOrdered By: Dr. Walker on 12-30-2022 Estimated Creatinine Clearance Calc 104.48 ml/min [facility] Estimated GFR (MDRD) Amer 123 mL/min >60 [facility] Comment on above: GFR Calc Estimated GFR (MDRD) Non-Af Amer 102 mL/min >60 [facility] Comment on above: Non- GFR Calc Serum or plasma creatinine m easurement (mass/volume)Ordered By: Dr. Walker on 12-30-2022 Creatinine [Mass/Vol] 0.76 mg/dL 0.55-1.02 [facility] Comment on above: The validity of the calculated GFR & GFRAA in patients over 70 years has not been determined. Clinical correlation is essential. Serum or plasma uric acid me asurement (mass/volume)Ordered By: Dr. Walker on 12-30-2022 Urate [Mass/Vol] 7.0 mg/dL 2.6-6.0 [facility] Comment on above: The drugs N-Acetylcy steine and Metamizole may falsely depress this assay. Thin prep Papanicolaou smear with manual screeningOrdered By: Dr. Walker on 12-30-2022 Thin prep Papanicolaou smear with manual screening 22 U/L 15-37 [facility] 24 hour urine creatinine nelson surement (mass/time)Ordered By: Dr. Walker on 12-29-2022 Creatinine (24H U) [Mass/Time] 1.14 g/24 HR 0.70-1.90 [facility] 24 hour urine protein measur ement (mass/time)Ordered By: Dr. Walker on 12-29-2022 Protein (24H U) [Mass/Time] 325.6 mg/24HR 0-151 [facility] 24 hour urine protein measur ement (mass/volume)Ordered By: Dr. Walker on 12-29-2022 Protein (24H U) [Mass/Vol] 52.1 mg/dL 0.0-11.8 [facility] Laboratory - Specimen inform ationOrdered By: Dr. Walker on 12-29-2022 Collection duration (U) 24.0 HOURS 24.0-24.0 [facility] No Panel InformationOrdered By: Dr. Walker on 12-29-2022 Timed Urine Volume 625 mL [facility] Urine creatinine measurement (mass/volume)Ordered By: Dr. Walker on 12-29-2022 Creatinine (U) [Mass/Vol] 183.00 mg/dL NO RANGE EST. [facility] Urine volume measurementOrde red By: Dr. Walker on 12-29-2022 Specimen volume (U) 0.60 L [facility] Basophil percentageOrdered B y: Dr. Walker on 12-28-2022 WBC (Bld) [#/Vol] 9.1 10*3/uL 4.4-11.0 [facility] Blood erythrocytes count (nu mber/volume)Ordered By: Dr. Walker on 12-28-2022 RBC (Bld) [#/Vol] 4.17 10*6/uL 4.2-5.4 [facility] Blood hemoglobin measurement (mass/volume)Ordered By: Dr. Walker on 12-28-2022 Hemoglobin (Bld) [Mass/Vol] 12.5 g/dL 12.0-15.0 [facility] Blood platelet mean volumeOr dered By: Dr. Walker on 12-28-2022 Platelet mean volume (Bld) [Entitic vol] 12.4 fL 6.2-12.0 [facility] Determination of erythrocyte mean corpuscular volume (MCV)Ordered By: Dr. Walker on 12-28-2022 MCV (RBC) [Entitic vol] 86.8 fL 81-99 [facility] Hematocrit Auto (Bld) [Volum e fraction]Ordered By: Dr. Walker on 12-28-2022 Hematocrit (Bld) [Volume fraction] 36.2 % 37-47 [facility] Laboratory - Chemistry and C hemistry - challengeOrdered By: Dr. Walker on 12-28-2022 ALT [Catalytic activity/Vol] 11 U/L 13-56 [facility] Laboratory - Hematology and Cell countsOrdered By: Dr. Walker on 12-28-2022 Erythrocyte distribution width (RBC) [Entitic vol] 40.0 fL 35.1-43.9 [facility] Erythrocyte distribution width (RBC) [Ratio] 12.8 % 11.6-14.6 [facility] MCH (RBC) [Entitic mass] 30.0 pg 27.0-32.0 [facility] MCHC Auto (RBC) [Mass/Vol]Or dered By: Dr. Walker on 02-03-2023 MCHC (RBC) [Mass/Vol] 34.5 g/dL 32-36 [facility] No Panel InformationOrdered By: Dr. Walker on 12-28-2022 Estimated Creatinine Clearance Calc 105.87 ml/min [facility] Estimated GFR (MDRD) Amer 124 mL/min >60 [facility] Comment on above: GFR Calc Estimated GFR (MDRD) Non-Af Amer 103 mL/min >60 [facility] Comment on above: Non- GFR Calc Platelets bldOrdered By: Dr. Walker on 12-28-2022 Platelets (Bld) [#/Vol] 176 10*3/uL 150-450 [facility] Serum or plasma creatinine m easurement (mass/volume)Ordered By: Dr. Walker on 12-28-2022 Creatinine [Mass/Vol] 0.75 mg/dL 0.55-1.02 [facility] Comment on above: The validity of the calculated GFR & GFRAA in patients over 70 years has not been determined. Clinical correlation is essential. Serum or plasma uric acid me asurement (mass/volume)Ordered By: Dr. Walker on 12-28-2022 Urate [Mass/Vol] 6.4 mg/dL 2.6-6.0 [facility] Comment on above: The drugs N-Acetylcy steine and Metamizole may falsely depress this assay. Thin prep Papanicolaou smear with manual screeningOrdered By: Dr. Walker on 12-28-2022 Thin prep Papanicolaou smear with manual screening 22 U/L 15-37 [facility] URINE OB DIP B/Oon 3 Glucose Ql (U) Negative Neg mg/dL [facility] Protein.monoclonal (U) [Mass/Vol] 30 mg/dL Neg mg/dL [facility] Urine creatinine measurement (mass/volume)Ordered By: Dr. Walker on 12-28-2022 Creatinine (U) [Mass/Vol] 165.00 mg/dL NO RANGE EST. [facility] Urine protein measurement (m ass/volume)Ordered By: Dr. Walker on 12-28-2022 Protein (U) [Mass/Vol] 61.3 mg/dL 0.0-11.8 [facility] Urine protein/creatinine mas s ratioOrdered By: Dr. Walker on 12-28-2022 Protein/Creatinine (U) [Mass ratio] 372 mg/g CRE 0-200 [facility] URINE OB DIP B/Oon 3 Glucose Ql (U) Negative Neg mg/dL [facility] Protein.monoclonal (U) [Mass/Vol] trace Neg mg/dL [facility] URINE OB DIP B/Oon 2 Glucose Ql (U) Negative Neg mg/dL [facility] Protein.monoclonal (U) [Mass/Vol] Negative Neg mg/dL [facility] URINE OB DIP B/Oon 2 Glucose Ql (U) Negative Neg mg/dL [facility] Protein.monoclonal (U) [Mass/Vol] Negative Neg mg/dL [facility] URINE OB DIP B/Oon 2 Glucose Ql (U) Negative Neg mg/dL [facility] Protein.monoclonal (U) [Mass/Vol] Negative Neg mg/dL [facility] OBSTETRIC ULTRASOUND WHIon 1 12-03-2021 [facility] URINE OB DIP B/Oon 2 Glucose Ql (U) Negative Neg mg/dL [facility] Protein.monoclonal (U) [Mass/Vol] Negative Neg mg/dL [facility] OBSTETRIC ULTRASOUND WHIon 1 [facility] Vital Signs Date Time Vital Sign Value Performing Clinician Martin osorio 05-04-2025 14:19-0400 Body mass index (BMI) [Ratio] 26.86 kg/m2 Palmer Hubbard MD Work Phone: [facility] 05-04-2025 14:19-0400 Body weight 73.21 kg Palmer Hubbard MD Work Phone: [facility] 05-04-2025 14:19-0400 Diastolic blood pressure 62 mm[Hg] Palmer Hubbard MD Work Phone: [facility] 05-04-2025 14:19-0400 Systolic blood pressure 100 mm[Hg] Palmer Hubbard MD Work Phone: [facility] 04-27-2025 08:39-0400 Body mass index (BMI) [Ratio] 26.96 kg/m2 Cinthya Griffin MD Work Phone: [facility] 04-27-2025 08:39-0400 Body weight 73.48 kg Cinthya Griffin MD Work Phone: [facility] 04-27-2025 08:39-0400 Diastolic blood pressure 70 mm[Hg] Cinthya Griffin MD Work Phone: [facility] 04-27-2025 08:39-0400 Systolic blood pressure 118 mm[Hg] Cinthya Griffin MD Work Phone: [facility] 04-23-2025 15:24-0400 Diastolic blood pressure 78 mm[Hg] No Primary Care Physician [facility] 04-23-2025 15:24-0400 Heart rate 93 /min No Primary Care Physician [facility] 04-23-2025 15:24-0400 Systolic blood pressure 127 mm[Hg] No Primary Care Physician [facility] 04-23-2025 15:16-0400 Body height 165.1 cm No Primary Care Physician [facility] 04-23-2025 15:16-0400 Body mass index (BMI) [Ratio] 26.6 kg/m2 No Primary Care Physician [facility] 04-23-2025 15:16-0400 Body weight 72.7 kg No Primary Care Physician [facility] 04-23-2025 14:30-0400 Respiratory rate 16 /min No Primary Care Physician [facility] 04-23-2025 14:30-0400 SaO2% (BldA) [Mass fraction] 98 % No Primary Care Physician [facility] 04-23-2025 14:29-0400 Body temperature 99 [degF] No Primary Care Physician [facility] 04-22-2025 10:56-0400 Body mass index (BMI) [Ratio] 26.29 kg/m2 Palmer Hubbard MD Work Phone: [facility] 04-22-2025 10:56-0400 Body weight 71.67 kg Palmer Hubbard MD Work Phone: [facility] 04-22-2025 10:56-0400 Diastolic blood pressure 64 mm[Hg] Palmer Hubbard MD Work Phone: [facility] 04-22-2025 10:56-0400 Systolic blood pressure 116 mm[Hg] Palmer Hubbard MD Work Phone: [facility] 04-02-2025 10:09-0400 Body mass index (BMI) [Ratio] 25.96 kg/m2 Onur Garcia [employer] AND RAIL OPERATOR.[employer]HER [employer]TER Work Phone: [facility] 04-02-2025 10:09-0400 Body weight 70.76 kg Onurcheco Garcia [employer] AND RAIL OPERATOR.[employer]USHER [employer]TER Work Phone: [facility] 04-02-2025 10:09-0400 Diastolic blood pressure 66 mm[Hg] Onur Haury [employer] AND RAIL OPERATOR.CRUSHER [employer]TER Work Phone: [facility] 04-02-2025 10:09-0400 Systolic blood pressure 110 mm[Hg] Onur Jose [employer] AND RAIL OPERATOR.CRUSHER [employer]TER Work Phone: [facility] 03-05-2025 10:18-0400 Body mass index (BMI) [Ratio] 25.53 kg/m2 Kin Walker MD Work Phone: [facility] 03-05-2025 10:18-0400 Body weight 69.58 kg Kin Walker MD Work Phone: [facility] 03-05-2025 10:18-0400 Diastolic blood pressure 72 mm[Hg] Kin Walker MD Work Phone: [facility] 03-05-2025 10:18-0400 Systolic blood pressure 120 mm[Hg] Kin Walker MD Work Phone: [facility] 02-19-2025 10:11-0400 Body mass index (BMI) [Ratio] 25.29 kg/m2 Neda Ibarra APRN.CNM Work Phone: [facility] 02-19-2025 10:11-0400 Body weight 68.95 kg Neda Ibarra APRN.CNM Work Phone: [facility] 02-19-2025 10:11-0400 Diastolic blood pressure 68 mm[Hg] Neda Ibarra APRN.CNM Work Phone: [facility] 02-19-2025 10:11-0400 Systolic blood pressure 110 mm[Hg] Neda Ibarra [employer] AND RAIL OPERATOR.CNM Work Phone: [facility] 01-22-2025 08:37-0500 Body mass index (BMI) [Ratio] 24.79 kg/m2 Onur Haury [employer] AND RAIL OPERATOR.CRUSHER [employer]TER Work Phone: [facility] 01-22-2025 08:37-0500 Body weight 67.59 kg Onur Haury [employer] AND RAIL OPERATOR.CRUSHER [employer]TER Work Phone: [facility] 01-22-2025 08:37-0500 Diastolic blood pressure 74 mm[Hg] Onur Haury [employer] AND RAIL OPERATOR.CRUSHER [employer]TER Work Phone: [facility] 01-22-2025 08:37-0500 Systolic blood pressure 116 mm[Hg] Onur Haury [employer] AND RAIL OPERATOR.CRUSHER SETTER Work Phone: [facility] 12-25-2024 08:57-0500 Body mass index (BMI) [Ratio] 23.63 kg/m2 Onur Haury [employer] AND RAIL OPERATOR.CRUSHER SETTER Work Phone: [facility] 12-25-2024 08:57-0500 Body weight 64.41 kg Onur Haury [employer] AND RAIL OPERATOR.CRUSHER SETTER Work Phone: [facility] 12-25-2024 08:57-0500 Diastolic blood pressure 60 mm[Hg] Onur Haury [employer] AND RAIL OPERATOR.CRUSHER [employer]TER Work Phone: [facility] 12-25-2024 08:57-0500 Systolic blood pressure 114 mm[Hg] Onur Haury [employer] AND RAIL OPERATOR.CRUSHER [employer]TER Work Phone: [facility] 11-27-2024 10:46-0500 Body mass index (BMI) [Ratio] 22.8 kg/m2 Efra Roy MD Work Phone: [facility] 11-27-2024 10:46-0500 Body weight 62.14 kg Efra Roy MD Work Phone: [facility] 11-27-2024 10:46-0500 Diastolic blood pressure 68 mm[Hg] Efra Roy MD Work Phone: [facility] 11-27-2024 10:46-0500 Systolic blood pressure 112 mm[Hg] Efra Roy MD Work Phone: [facility] 10-30-2024 09:56-0500 Body mass index (BMI) [Ratio] 22.13 kg/m2 Neda Ibarra BUS AND RAIL OPERATOR.CNM Work Phone: [facility] 10-30-2024 09:56-0500 Body weight 60.33 kg Neda Ibarra [employer] AND RAIL OPERATOR.CNM Work Phone: [facility] 10-30-2024 09:56-0500 Diastolic blood pressure 72 mm[Hg] Neda Ibarra [employer] AND RAIL OPERATOR.CNM Work Phone: [facility] 10-30-2024 09:56-0500 Systolic blood pressure 110 mm[Hg] Neda Ibarra APRN.CNM Work Phone: [facility] 09-18-2024 09:45-0400 Body mass index (BMI) [Ratio] 21.77 kg/m2 Palmer Hubbard MD Work Phone: [facility] 09-18-2024 09:45-0400 Body weight 59.33 kg Palmer Hubbard MD Work Phone: [facility] 09-18-2024 09:45-0400 Diastolic blood pressure 70 mm[Hg] Palmer Hubbard MD Work Phone: [facility] 09-18-2024 09:45-0400 Systolic blood pressure 110 mm[Hg] Palmer Hubbard MD Work Phone: [facility] 09-09-2024 09:39-0400 Body height 165.1 cm Onur Garcia APRN.CRUSHER SETTER Work Phone: [facility] 09-09-2024 09:39-0400 Body mass index (BMI) [Ratio] 21.47 kg/m2 Onur Garcia APRN.CRUSHER SETTER Work Phone: [facility] 09-09-2024 09:39-0400 Body weight 58.51 kg Onur Gonavdeep [employer] AND RAIL OPERATOR.CRUSHER [employer]TER Work Phone: [facility] 09-09-2024 09:39-0400 Diastolic blood pressure 62 mm[Hg] Onur Gonavdeep [employer] AND RAIL OPERATOR.CRUSHER SETTER Work Phone: [facility] 09-09-2024 09:39-0400 Systolic blood pressure 120 mm[Hg] Onur Gonavdeep [employer] AND RAIL OPERATOR.CRUSHER SETTER Work Phone: [facility] 01-04-2023 12:54-0500 Body weight 74.57 kg Nedaarias Ibarra [employer] AND RAIL OPERATOR.CNM Work Phone: [facility] 01-04-2023 12:54-0500 Diastolic blood pressure 74 mm[Hg] Neda Ibarra [employer] AND RAIL OPERATOR.CNM Work Phone: [facility] 01-04-2023 12:54-0500 Systolic blood pressure 130 mm[Hg] Neda Ibarra [employer] AND RAIL OPERATOR.CNM Work Phone: [facility] 01-02-2023 13:45-0500 Body temperature 97.2 [degF] [facility] 01-02-2023 13:45-0500 Diastolic blood pressure 78 mm[Hg] [facility] 01-02-2023 13:45-0500 Heart rate 73 /min [facility] 01-02-2023 13:45-0500 Respiratory rate 14 /min [facility] 01-02-2023 13:45-0500 SaO2% (BldA) [Mass fraction] 97 % [facility] 01-02-2023 13:45-0500 Systolic blood pressure 123 mm[Hg] [facility] 12-30-2022 19:18-0500 Body height 165.1 cm [facility] 12-30-2022 19:18-0500 Body mass index (BMI) [Ratio] 29.4 kg/m2 [facility] 12-30-2022 19:18-0500 Body weight 80.28 kg [facility] 12-30-2022 06:58-0500 Diastolic blood pressure 85 mm[Hg] [facility] 12-30-2022 06:58-0500 Heart rate 84 /min [facility] 12-30-2022 06:58-0500 Systolic blood pressure 139 mm[Hg] [facility] 12-30-2022 06:56-0500 SaO2% (BldA) [Mass fraction] 98 % [facility] 12-29-2022 23:06-0500 SaO2% (BldA) [Mass fraction] 100 % [facility] 12-29-2022 23:04-0500 Diastolic blood pressure 73 mm[Hg] [facility] 12-29-2022 23:04-0500 Heart rate 85 /min [facility] 12-29-2022 23:04-0500 Systolic blood pressure 124 mm[Hg] [facility] 12-29-2022 22:08-0500 Body temperature 99.3 [degF] [facility] 12-29-2022 21:33-0500 Body height 165.1 cm [facility] 12-29-2022 21:33-0500 Body mass index (BMI) [Ratio] 29.5 kg/m2 [facility] 12-29-2022 21:33-0500 Body weight 80.6 kg [facility] 12-28-2022 19:52-0500 Body temperature 99.3 [degF] [facility] 12-28-2022 19:52-0500 Diastolic blood pressure 68 mm[Hg] [facility] 12-28-2022 19:52-0500 Heart rate 96 /min [facility] 12-28-2022 19:52-0500 Systolic blood pressure 125 mm[Hg] [facility] 12-28-2022 17:41-0500 SaO2% (BldA) [Mass fraction] 98 % [facility] 12-28-2022 15:40-0500 Body height 165.1 cm [facility] 12-28-2022 15:40-0500 Body mass index (BMI) [Ratio] 29.3 kg/m2 [facility] 12-28-2022 15:40-0500 Body weight 80 kg [facility] 12-28-2022 14:36-0500 Body weight 79.65 kg Carola Plotts [employer] AND RAIL OPERATOR.CNM Work Phone: [facility] 12-28-2022 14:36-0500 Diastolic blood pressure 82 mm[Hg] Carola Plotts BUS AND RAIL OPERATOR.CNM Work Phone: [facility] 12-28-2022 14:36-0500 Systolic blood pressure 138 mm[Hg] Carola Plotts BUS AND RAIL OPERATOR.CNM Work Phone: [facility] 12-21-2022 13:24-0500 Body weight 77.93 kg Carola Plotts [employer] AND RAIL OPERATOR.CNM Work Phone: [facility] 12-21-2022 13:24-0500 Diastolic blood pressure 70 mm[Hg] Carola Plotts BUS AND RAIL OPERATOR.CNM Work Phone: [facility] 12-21-2022 13:24-0500 Systolic blood pressure 120 mm[Hg] Carola Plotts BUS AND RAIL OPERATOR.CNM Work Phone: [facility] 11-23-2022 14:34-0500 Body weight 74.84 kg Efra Roy MD Work Phone: [facility] 11-23-2022 14:34-0500 Diastolic blood pressure 76 mm[Hg] Efra Roy MD Work Phone: [facility] 11-23-2022 14:34-0500 Systolic blood pressure 104 mm[Hg] Efra Roy MD Work Phone: [facility] 11-09-2022 14:27-0500 Body weight 73.48 kg Neda Ibarra BUS AND RAIL OPERATOR.CNM Work Phone: [facility] 11-09-2022 14:27-0500 Diastolic blood pressure 68 mm[Hg] Neda Ibarra BUS AND RAIL OPERATOR.CNM Work Phone: [facility] 11-09-2022 14:27-0500 Systolic blood pressure 104 mm[Hg] Neda Ibarra [employer] AND RAIL OPERATOR.CNM Work Phone: [facility] 10-26-2022 13:27-0500 Body weight 72.67 kg Kin Walker MD Work Phone: [facility] 10-26-2022 13:27-0500 Diastolic blood pressure 70 mm[Hg] Kin Walker MD Work Phone: [facility] 10-26-2022 13:27-0500 Systolic blood pressure 110 mm[Hg] Kin Walker MD Work Phone: [facility] 09-28-2022 10:19-0400 Body weight 68.22 kg Neda Ibarra [employer] AND RAIL OPERATOR.CNM Work Phone: [facility] 09-28-2022 10:19-0400 Diastolic blood pressure 60 mm[Hg] Neda Ibarra BUS AND RAIL OPERATOR.CNM Work Phone: [facility] 09-28-2022 10:19-0400 Systolic blood pressure 104 mm[Hg] Neda Ibarra BUS AND RAIL OPERATOR.CNM Work Phone: [facility] 08-31-2022 13:31-0400 Body weight 64.86 kg Neda Ibarra BUS AND RAIL OPERATOR.CNM Work Phone: [facility] 08-31-2022 13:31-0400 Diastolic blood pressure 66 mm[Hg] Neda Ibarra BUS AND RAIL OPERATOR.CNM Work Phone: [facility] 08-31-2022 13:31-0400 Systolic blood pressure 108 mm[Hg] Neda Ibarra BUS AND RAIL OPERATOR.CNM Work Phone: [facility] 08-10-2022 13:19-0400 Body height 162.6 cm Carola Plotts BUS AND RAIL OPERATOR.CNM Work Phone: [facility] 08-10-2022 13:19-0400 Body weight 62.14 kg Carola Plotts BUS AND RAIL OPERATOR.CNM Work Phone: [facility] 08-10-2022 13:19-0400 Diastolic blood pressure 60 mm[Hg] Carola Plotts BUS AND RAIL OPERATOR.CNM Work Phone: [facility] 08-10-2022 13:19-0400 Systolic blood pressure 102 mm[Hg] Carola Plotts BUS AND RAIL OPERATOR.CNM Work Phone: [facility] Encounters Encounter Date Encounter Type Care Provider Facility Start: 05-04-2025 End: 05-04-2025 Patient encounter procedure Palmer Hubbard MD Work Phone: OB/Gynecology Comment on above: 38 weeks gestation o f (HCC) (Primary Dx); Supervision of high risk in third trimester (HCC) Start: 05-04-2025 End: 05-04-2025 ambulatory PALMER HUBBARD Facility:[facility] Start: 04-28-2025 End: 04-28-2025 ambulatory Camila Brotracy GELLER [facility] Start: 04-28-2025 End: 04-28-2025 Patient encounter procedure Camila Kunz MA [facility] Comment on above: Population Health Na vigation Outreach (Ob/peds) Start: 04-27-2025 End: 04-27-2025 Patient encounter procedure Cinthya Griffin MD Work Phone: OB/Gynecology Comment on above: Supervision of high risk in third trimester (HCC) (Primary Dx); History of pre-eclampsia; Depression affecting in third trimester, antepartum (HCC); 37 weeks gestation of (HCC) Start: 04-27-2025 End: 04-27-2025 ambulatory CINTHYA GRIFFIN Facility:[facility] Start: 04-23-2025 End: 04-23-[address] Cinthya White MD [facility] Work Phone: Start: 04-23-2025 End: 04-23-2025 ambulatory No Primary Care Physician [facility] Work Phone: Start: 04-23-2025 End: 04-23-2025 Telephone encounter Cinthya Griffin MD Work Phone: OB/Gynecology Comment on above: leaking fluid Start: 04-22-2025 End: 04-22-2025 ambulatory PALMER HUBBARD Facility:[facility] Start: 04-22-2025 End: 04-22-2025 Patient encounter procedure Palmer Hubbard MD Work Phone: OB/Gynecology Comment on above: Supervision of high risk in third trimester (HCC) (Primary Dx); History of pre-eclampsia; 37 weeks gestation of (HCC) Start: 04-16-2025 End: 04-16-2025 ambulatory EFRA ROY Facility:[facility] Start: 04-02-2025 End: 04-02-2025 Patient encounter procedure Onur Garcia APRN.CRUSHER SETTER Work Phone: OB/Gynecology Comment on above: Supervision of high risk in third trimester (HCC) (Primary Dx); 34 weeks gestation of (HCC); History of pre-eclampsia; Depression affecting in third trimester, antepartum (HCC) Start: 04-02-2025 End: 04-02-2025 ambulatory ONUR GARCIA Facility:[facility] Start: 03-19-2025 End: 03-19-2025 ambulatory CINTHYA GRIFFIN Facility:[facility] Start: 03-05-2025 End: 03-05-2025 ambulatory KIN WALKER Facility:[facility] Start: 03-05-2025 End: 03-05-2025 Patient encounter procedure Kin Walker MD Work Phone: OB/Gynecology Comment on above: Supervision of high risk in third trimester (HCC) (Primary Dx); 30 weeks gestation of (HCC) Start: 02-22-2025 End: 04-24-2025 Follow-up encounter Margy Castro APRN.CRUSHER SETTER Work Phone: OB/Gynecology Start: 02-19-2025 End: 02-19-2025 Patient encounter procedure Neda Ibarra APRN.CNM Work Phone: OB/Gynecology Comment on above: Supervision of high risk in third trimester (Primary Dx); 28 weeks gestation of ; History of pre-eclampsia; Rh negative state in antepartum period; Depression affecting in third trimester, antepartum Start: 02-19-2025 End: 02-19-2025 ambulatory ONUR GARCIA Facility:[facility] Start: 01-22-2025 End: 01-22-2025 ambulatory ONUR GARCIA Facility:[facility] Start: 01-22-2025 End: 01-22-2025 Patient encounter procedure Onur Garcia APRN.CNP Work Phone: OB/Gynecology Comment on above: Supervision of high risk in second trimester (Primary Dx); 24 weeks gestation of ; Rh negative state in antepartum period; History of pre-eclampsia; Screening for diabetes mellitus Start: 12-25-2024 End: 12-25-2024 ambulatory NEDA IBARRA Facility:[facility] Start: 12-25-2024 End: 12-25-2024 Patient encounter procedure Onur Gonavdeep CAMPOSCRUSHER SETTER Work Phone: OB/Gynecology Comment on above: Supervision of high risk in second trimester (Primary Dx); 20 weeks gestation of ; History of pre-eclampsia; Rh negative state in antepartum period Encounter for anatomic survey (Primary Dx); 20 weeks gestation of Start: 11-27-2024 End: 11-27-2024 ambulatory EFRA ROY Facility:[facility] Start: 11-27-2024 End: 11-27-2024 Patient encounter procedure [...] Start: 10-30-2024 End: 10-30-2024 ambulatory PALMER HUBBARD Facility:[facility] Start: 10-30-2024 End: 10-30-2024 Patient encounter procedure Whi Tech 1 Optician Apprentice Dispensing [facility] Maternal Medicine Comment on above: Encounter for antena connie screening for malformation using ultrasound (Primary Dx); 12 weeks gestation of Supervision of high risk in second trimester (Primary Dx); 12 weeks gestation of ; History of pre-eclampsia Start: 09-18-2024 End: 09-18-2024 ambulatory ONUR GARCIA Facility:[facility] Start: 09-18-2024 End: 09-18-2024 Patient encounter procedure Palmer Hubbard MD Work Phone: OB/Gynecology Comment on above: Supervision of high risk in first trimester (Primary Dx) Less than 8 weeks ge station of ; with uncertain dates in first trimester; Supervision of high risk in first trimester Start: 09-09-2024 End: 09-09-2024 ambulatory ONUR GARCIA Facility:[facility] Start: 09-09-2024 End: 09-09-2024 Patient encounter procedure Onur Garcia PAUL.CRUSHER SETTER Work Phone: OB/Gynecology Comment on above: Supervision [...] End: 01-02-2023 [facility] Start: 12-30-2022 Telephone encounter Kin pelletier MD Work Phone: OB/Gynecology Comment on above: Appointment Start: 12-29-2022 End: 12-29-2022 ambulatory [facility] Work Phone: Start: 12-29-2022 End: 12-29-2022 Patient encounter procedure [facility] Start: 12-28-2022 End: 12-28-2022 ambulatory [facility] Work Phone: Start: 12-28-2022 End: 12-28-2022 Patient encounter procedure [facility] Comment on above: 37 weeks gestation [...] Dx) Start: 09-03-2022 Telephone encounter Carola collazo BUS AND RAIL OPERATOR.CNM Work Phone: OB/Gynecology Comment on above: Results Start: 08-31-2022 End: 08-31-2022 Patient encounter procedure Sera Meier MD Work Phone: Maternal Medicine Comment on above: Encounter for anatomic survey (Primary Dx); 20 weeks gestation of 20 weeks gestation o f (Primary Dx) Start: 08-21-2022 Telephone encounter Neda guillen BUS AND RAIL OPERATOR.CNM Work Phone: OB/Gynecology Comment on above: Received Outside Med [facility] Start: 08-10-2022 End: 08-10-2022 Patient encounter procedure Carola Flores BUS AND RAIL OPERATOR.CNM Work Phone: OB/Gynecology Comment on above: 17 [...] Speci men Type: BLOOD SPECIMEN Ordering Facility: [facility] Address: [address] [place] [address] Performed By: #### T SPN #### [facility] CLIA [id number] [address] [place] [address] [place] [address] [place] Start: 12-25-2024 Us preg uterus after 1st trimest 11/25 gestation Neda Ibarra APRN.CNM Work Phone: Start: 10-30-2024 Us nuchal translucency 1st gestation Palmer Hubbard MD Work Phone: Start: 09-18-2024 Us preg uterus after 1st trimest / gestation Onur Jose MILLER.CRUSHER SETTER Work Phone: Start: 09-09-2024 Antibody screen PALMER HUBBARD Comment on above: Order Comment: Speci men Type: BLOOD SPECIMEN Ordering Facility: [facility] Address: [address] [place] [address] Performed By: #### T SPN #### [facility] CLIA [id number] [address] [place] [address] [place] Start: 09-09-2024 Us uterus l imited fetuses Onur Jose MILLER.CRUSHER SETTER Work Phone: Start: 09-09-2024 Adult depression scr eening assessment [facility] Start: 12-28-2022 URINE OB DIP B/O García Flores BUS AND RAIL OPERATOR.CNM Work Phone: Start: 12-21-2022 URINE OB DIP [...] after 1st trimest 11/25 gestation Carola Flores BUS AND RAIL OPERATOR.CNM Work Phone: Plan of Treatment Date Care Activity Detail Author Start: 10-26-2032 Urine microalbumin profile [facility] Start: 09-09-2027 Screening for malign ant neoplasm of cervix Cervical Cancer Screening [facility] Start: 09-09-2025 Anxiety Screening Anxiety Screening [facility] Start: 09-09-2025 Depression Screening Depression Scre ening [facility] Start: 09-09-2025 GC (Gonorrhea) Scree roberta () GC (Gonorrhea) Screening () [facility] Start: 09-09-2025 Screening for Chlamy kole trachomatis Chlamydia Screening () [facility] Start: 07-26-2025 Influenza vaccination Influenz a Vaccine (Season Ended) [facility] Start: 07-13-2025 PAP TESTING PAP TESTING [facility] Start: 07-13-2025 Screening for malign ant neoplasm of cervix Cervical Cancer Screening [facility] Start: 05-12-2025 End: 05-12-2025 Patient encounter procedure 05/12/2025 10:50 AM EDT Routine Office Visit OB/Gynecology [address] [place] [address] Efra Roy MD [address] [place], [place] [id number] OB OB/Gynecology Comment on above: OB Start: 05-04-2025 End: 05-04-2025 Patient encounter procedure 05/04/2025 3:10 PM EDT Routine Office Visit OB/Gynecology [address] [place] [address] Palmer Hubbard MD [address] [place] [address] Ob OB/Gynecology Comment on above: Ob Start: 04-27-2025 End: 04-27-2025 Patient encounter procedure 04/27/2025 8:40 AM EDT Routine Office Visit OB/Gynecology [address] [place] [id number] NeCinthya Degroot MD [address] [place] [address] Ob OB/Gynecology Comment on above: Ob Start: 04-23-2025 Nonstress test [facility] Start: 04-23-2025 Obstetric monitoring [facility] Start: 04-23-2025 Vital signs measurements [facility] Start: 04-23-2025 [facility] Start: 04-16-2025 End: 04-16-2025 Patient encounter procedure 04/16/2025 10:10 AM EDT Routine Office Visit OB/Gynecology [address] [place] [address] Efra Roy MD [address] [place] [address] OB Routine OB/Gynecology Comment on above: OB Routine Start: 04-02-2025 End: 04-02-2025 Patient encounter procedure 04/02/2025 10:00 AM EDT Routine Office Visit OB/Gynecology [address] [place] [address] Neda Ibarra APRN.CN [address] [place] [address] OB OB/Gynecology Comment on above: OB Start: 03-19-2025 End: 03-19-2025 Patient encounter procedure 03/19/2025 8:40 AM EDT Routine Office Visit OB/Gynecology [address] [place] [address] Cinthya Morton MD [address] [place] [address] OB OB/Gynecology Comment on above: OB Start: 03-05-2025 End: 03-05-2025 Patient encounter procedure 03/05/2025 10:20 AM EDT Routine Office Visit OB/Gynecology [address] [place] [address] Kin Walker MD [address] [address] OB OB/Gynecology Comment on above: OB Start: 02-19-2025 End: 02-19-2025 Patient encounter procedure 02/19/2025 10:00 AM EDT Routine Office Visit OB/Gynecology [address] [place] [address] Neda Ibarra APRN.CNM [address] [place] [address] OB OB/Gynecology Comment on above: OB Start: 02-19-2025 End: 02-19-2025 ambulatory 02/19/2025 9:45 AM EDT Results Only Aysha Shawwn [facility] [address] [place] [address] Supervision of high risk in second trimester [O09.92]; 24 weeks gestation of [Z3A.24]; Rh negative state in antepartum period [O26.899, Z67.91]; History of pre-eclampsia [Z87.59]; Screening for diabetes mellitus [Z13.1] [facility] Comment on above: Supervision of high [...] History of pre-eclampsia Expected: 01/22/2025, Expires: 04/23/2025 [facility] Comment on above: Expected: 01/22/2025 , Expires: 04/23/2025 Start: 01-22-2025 End: 01-22-2026 GESTATIONAL GLUCOSE SCREEN, 1-HOUR, 50 GRAM, NON-FASTING GESTATIONAL GLUCOSE SCREEN, 1-HOUR, 50 GRAM, NON-FASTING Lab Routine Supervision of high risk in second trimester 24 weeks gestation of Rh negative state in antepartum period History of pre-eclampsia Screening for diabetes mellitus Expected: 01/22/2025, Expires: 01/22/[address] [facility] Work Phone: Comment on above: Expected: 01/22/2025 , Expires: 01/22/2026 Start: 01-22-2025 End: 01-22-2026 SYPHILIS TREPONEMAL W/REFLEX SYPHILIS TREPONEMAL W/REFLEX Lab Routine Supervision of high risk in second trimester 24 weeks gestation of Rh negative state in antepartum period History of pre-eclampsia Expected: 01/22/2025, Expires: 01/22/2026 [facility] Comment on above: Expected: 01/22/2025 , Expires: 01/22/2026 Start: 01-22-2025 End: 04-23-2025 TYPE + SCREEN TYPE + SCREEN Blood Bank Routine Supervision of high risk in second trimester 24 weeks gestation of Rh negative state in antepartum period History of pre-eclampsia Expected: 01/22/2025, Expires: 04/23/2025 [facility] Comment on above: Expected: 01/22/2025 , Expires: 04/23/2025 Start: 01-22-2025 End: 01-22-2025 Patient encounter procedure 01/22/2025 8:45 AM EST Routine Office Visit OB/Gynecology [address] [place] [address] Onur Garcia, BUS AND RAIL OPERATOR.CRUSHER SETTER [address] [place] [address] OB Routine OB/Gynecology Comment on above: OB Routine Start: 12-25-2024 End: 12-25-2024 Patient encounter procedure Maternal Medicine Comment on above: Anatomy Anatomy/OB Start: 11-27-2024 End: 11-27-2024 Patient encounter procedure 11/27/2024 10:30 AM EST Routine Office Visit OB/Gynecology [address] [place] [address] Efra Roy MD [address] [place] [address] OB OB/Gynecology Comment on above: OB Start: 10-30-2024 End: 10-30-2025 OBSTETRIC ULTRASOUND WHI OBSTETRIC ULTRASOUND [facility]I Anc Imaging Routine Supervision of high risk in second trimester 12 weeks gestation of Expected: 10/30/2024, Expires: 10/30/[address] [facility] Work Phone: Comment on above: Expected: 10/30/2024 , Expires: 10/30/2025 Start: 10-30-2024 End: 10-30-2024 Patient encounter procedure Maternal Medicine Comment on above: Nuchal Nuchal/ OB Start: 10-07-2024 End: 10-07-2024 Patient encounter procedure 10/07/2024 10:20 AM EST Routine Office Visit OB/Gynecology [address] [address] Efra Roy MD [address] [place] [address] OB, LMP 06/30/24 OB/Gynecology Comment on above: OB, LMP 06/30/24 Start: 09-18-2024 End: 09-18-2025 NUCHAL TRANSLUCENCY WHI NUCHAL TRANSLUCENCY WHI Anc Imaging Routine Supervision of high risk in first trimester Expected: 09/18/2024, Expires: 09/18/[address] [facility] Work Phone: Comment on above: Expected: 09/18/2024 , Expires: 09/18/2025 Start: 09-18-2024 End: 09-18-2024 Patient encounter procedure Maternal Medicine Comment on above: Dating US Dating US/ OB Start: 09-09-2024 End: 12-09-2024 Hemoglobin A1c in Blood [facility] Comment on above: Expected: 09/09/2024 , Expires: 12/09/2024 Start: 09-09-2024 End: 12-09-2024 Hepatitis B virus surface Ag [Presence] in Serum [facility] Comment on above: Expected: 09/09/2024 , Expires: 12/09/2024 Start: 09-09-2024 End: 12-09-2024 Hepatitis C virus Ab [Presence] in Serum [facility] Comment on above: Expected: 09/09/2024 , Expires: 12/09/2024 Start: 09-09-2024 End: 12-09-2024 HIV 1+2 Ab [Presence] in Serum or Plasma by Immunoassay [facility] Comment on above: Expected: 09/09/2024 , Expires: 12/09/2024 Start: 09-09-2024 End: 09-09-2025 OBSTETRIC ULTRASOUND WHI OBSTETRIC ULTRASOUND [facility]I Anc Imaging Routine Less than 8 weeks gestation of with uncertain dates in first trimester Supervision of high risk in first trimester Expected: 09/09/2024, Expires: 09/09/2025 [facility] Comment on above: Expected: 09/09/2024 , Expires: 09/09/2025 Start: 09-09-2024 End: 12-09-2024 Protein/Creatinine [Mass Ratio] in Urine [facility] Comment on above: Expected: 09/09/2024 , Expires: 12/09/2024 Start: 09-09-2024 End: 12-09-2024 RUBELLA IGG ANTIBODY [facility] Comment on above: Expected: 09/09/2024 , Expires: 12/09/2024 Start: 09-09-2024 End: 12-09-2024 SYPHILIS TREPONEMAL W/REFLEX [facility] Work Phone: Comment on above: Expected: 09/09/2024 , Expires: 12/09/2024 Start: 09-09-2024 End: 12-09-2024 Thyrotropin [Units/volume] in Serum or Plasma [facility] Comment on above: Expected: 09/09/2024 , Expires: 12/09/2024 Start: 09-09-2024 End: 12-09-2024 TYPE + SCREEN [facility] Comment on above: Expected: 09/09/2024 , Expires: 12/09/2024 Start: 07-26-2024 Covid-19 Vaccine ( season) Covid-19 Vaccine () [facility] Start: 07-26-2024 Influenza vaccination Influenza Vacc ine (#1) [facility] Start: 07-13-2023 CHLAMYDIA SCREENING () CHLAMYDIA SCREENING () [facility] Start: 07-13-2023 GC (GONORRHEA) SCREE ROBERTA () GC (GONORRHEA) SCREENING () [facility] Start: 07-13-2023 Screening for Chlamy kole trachomatis Chlamydia Screening () [facility] Start: 01-02-2023 Patient discharge [facility] Start: 01-01-2023 Administration of bl ood product [facility] Start: 01-01-2023 Administration of medication [facility] Start: 01-01-2023 Application of ice collar, cap or bag [facility] Start: 01-01-2023 Catheterization of vein [facility] Start: 01-01-2023 Introduction of urin jack catheter [facility] Start: 01-01-2023 Measuring intake and output [facility] Start: 01-01-2023 Notification of physician [facility] Start: 01-01-2023 Procedure discontinued [facility] Start: 01-01-2023 Provision of activit y privileges [facility] Start: 01-01-2023 Vital signs measurements [facility] Start: 01-01-2023 [facility] Start: 01-01-2023 [facility] Start: 12-30-2022 Admission procedure [facility] Start: 12-30-2022 End: 12-30-2023 OBSTETRIC ULTRASOUND WHI OBSTETRIC ULTRASOUND [facility]I Anc Imaging Routine 37 weeks gestation of Elevated blood pressure reading without diagnosis of hypertension Expected: 12/30/2022, Expires: 12/30/[address] [facility] Work Phone: Comment on above: Expected: 12/30/2022 , Expires: 12/30/2023 Start: 12-29-2022 Obstetric monitoring [facility] Start: 12-29-2022 Vital signs measurements [facility] Start: 12-29-2022 [facility] Start: 12-29-2022 End: 12-29-2022 Nonstress test [facility] Start: 12-29-2022 Obstetric monitoring [facility] Start: 12-29-2022 Vital signs measurements [facility] Start: 12-29-2022 [facility] Start: 12-29-2022 Patient discharge [facility] Start: 12-28-2022 End: 12-28-2022 [facility] Start: 12-28-2022 Nonstress test [facility] Start: 12-28-2022 Obstetric monitoring [facility] Start: 12-28-2022 Vital signs measurements [facility] Start: 12-28-2022 Patient discharge [facility] Start: 11-25-2022 [facility] Start: 10-28-2022 End: 12-28-2022 CBC W Auto Differential panel - Blood CBC + DIFF Lab Routine 24 weeks gestation of Expected: 10/28/2022 (Approximate), Expires: 12/28/[address] [facility] Work Phone: Comment on above: Expected: 10/28/2022 (Approximate), Expires: 12/28/2022 Start: 10-28-2022 End: 12-28-2022 GEST GLUC SCREEN, 1-HR, 50 GM, NON-FASTING GEST GLUC SCREEN, 1-HR, 50 GM, NON-FASTING Lab Routine 24 weeks gestation of Expected: 10/28/2022 (Approximate), Expires: 12/28/[address] [facility] Work Phone: Comment on above: Expected: 10/28/2022 (Approximate), Expires: 12/28/2022 Start: 10-28-2022 End: 12-28-2022 SYPHILIS TOTAL W/REFLEX SYPHILIS TOTAL W/REFLEX Lab Routine 24 weeks gestation of Expected: 10/28/2022 (Approximate), Expires: 12/28/[address] [facility] Work Phone: Comment on above: Expected: 10/28/2022 (Approximate), Expires: 12/28/2022 Start: 09-28-2022 End: 11-28-2022 TYPE + SCREEN TYPE + SCREEN Blood Bank Routine 24 weeks gestation of Expected: 09/28/2022, Expires: 11/28/[address] [facility] Work Phone: Comment on above: Expected: 09/28/2022 , Expires: 11/28/2022 Start: 08-10-2022 End: 10-10-2022 ALPHA FETOPRO MATERNAL ALPHA FETOPRO MATERNAL Lab Routine 17 weeks gestation of Expected: 08/10/2022, Expires: 10/10/[address] [facility] Work Phone: Comment on above: Expected: 08/10/2022 , Expires: 10/10/2022 Start: 07-26-2022 Influenza vaccination INFLUENZA (#1) [facility] Start: 11-25-2021 DEPRESSION ASSESSMENT DEPRESSION ASS ESSMENT [facility] Start: 2021 PAP TESTING PAP TESTING [facility] Start: 2019 Hepatitis B Vaccine (1 of 3 - 19+ 3-dose series) Hepatitis B Vaccine (1 of 3 - 19+ 3-dose series) [facility] Start: 2019 Urine microalbumin profile DTAP,TDAP,TD (1 - Tdap) [facility] Start: 2018 Anxiety Screening Anxiety Screening [facility] Start: 2018 CHLAMYDIA SCREENING (18-24) CHLAMYDIA SCREENING (18-24) [facility] Start: 2018 Depression Screening Depression Scre ening [facility] Start: 2018 GC (GONORRHEA) SCREE ROBERTA (18-24) GC (GONORRHEA) SCREENING (18-24) [facility] Start: 2018 HEPATITIS C SCREENING HEPATITIS C SC REENING [facility] Start: 2018 HIV SCREENING HIV SCREENING [facility] Start: 2016 Meningococcal B Vacc ine: Consider Based On Risk (1 of 2 - Patient Seeks Protection) Meningococcal B Vaccine: Consider Based On Risk (1 of 2 - Patient Seeks Protection) [facility] Start: 2015 HPV Vaccine (1 - 3-d ose series) HPV Vaccine (1 - 3-dose series) [facility] Start: 2014 PEDS TO ADULT TRANSI TION ANNUAL ASSESSMENT PEDS TO ADULT TRANSITION ANNUAL ASSESSMENT [facility] Start: 2012 Adult depression screening assessment DEPRESSION SCREENING [facility] Start: 2012 PEDS TO ADULT TRANSI TION INITIAL DISCUSSION PEDS TO ADULT TRANSITION INITIAL DISCUSSION [facility] Start: 2011 HPV VACCINE (1 - 2-d ose series) HPV VACCINE (1 - 2-dose series) [facility] Start: 04-16-2001 COVID-19 VACCINE (#1) COVID-19 VACCI NE (#1) [facility] Start: 2000 HEPATITIS B (1 of 3 - 3-dose series) HEPATITIS B (1 of 3 - 3-dose series) [facility] Bacteria identified in Urine by Culture URINE CULTURE Microbiology Routine Less than 8 weeks gestation of with uncertain dates in first trimester Supervision of high risk in first trimester 09/09/2024 10:14 AM T [facility] Chlamydia trachomatis+Neisseria gonorrhoeae DNA [Presence] in Unspecified specimen by DEBORAH with probe detection GONORRHEA/CHLAMYDIA NAAT Lab Routine Less than 8 weeks gestation of with uncertain dates in first trimester Supervision of high risk in first trimester Screen for STD (sexually transmitted disease) 09/09/2024 10:14 AM T [facility] End: 09-09-2025 Choriogonadotropin.beta subunit [Units/volume] in Serum or Plasma HCG QUANTITATIVE Lab Routine Less than 8 weeks gestation of with uncertain dates in first trimester 2x per week for 6 Occurrences starting 09/09/2024 until 09/09/2025 [facility] Comment on above: 2x per week for 6 Oc currences starting 09/09/2024 until 09/09/2025 Choriogonadotropin.b eta subunit [Units/volume] in Serum or Plasma HCG QUANTITATIVE Lab Routine Less than 8 weeks gestation of with uncertain dates in first trimester 09/09/2024 10:24 AM [facility] Collect duration Time Ur [facility] Creatinine [Mass/liv e] in 24 hour Urine [facility] Creatinine [Mass/vol ume] in Urine [facility] OBSTETRIC ULTRASOUND WHI OBSTETR IC ULTRASOUND WHI Anc Imaging Routine 17 weeks gestation of Ordered: 08/10/[address] [facility] Work Phone: Comment on above: Ordered: 08/10/2022 PAP TEST PAP TEST Lab Rou patricia Less than 8 weeks gestation of with uncertain dates in first trimester Supervision of high risk in first trimester Screening for cervical cancer 09/09/2024 10:14 AM EDT [facility] Patient Education Kick Counts ED False Labor OB Triage: Return to Hospital or Notify Physician if you Experience: [facility] Work Phone: Patient referral [facility] Work Phone: Protein [Mass/time] in 24 hour Urine [facility] Protein [Mass/volume ] in 24 hour Urine [facility] Protein measurement, urine, quantitative 24 hour [facility] ROUTINE, GR OUP B STREP PCR ROUTINE, GROUP B STREP PCR Microbiology Routine 36 weeks gestation of 12/21/2022 1:55 PM EST [facility] Work Phone: URINE OB DIP B/O URINE OB DIP B/ O Lab Routine 17 weeks gestation of Ordered: 08/10/[address] [facility] Work Phone: Comment on above: Ordered: 08/10/2022 URINE OB DIP B/O URINE OB DIP B/ O Lab Routine 20 weeks gestation of Ordered: 08/31/[address] [facility] Work Phone: Comment on above: Ordered: 08/31/2022 URINE OB DIP B/O URINE OB DIP B/ O Lab Routine Supervision of high risk in third trimester (HCC) History of pre-eclampsia 34 weeks gestation of (HCC) Depression affecting in third trimester, antepartum (HCC) Ordered: 04/02/[address] [facility] Work Phone: Comment on above: Ordered: 04/02/2025 URINE OB DIP B/O URINE OB DIP B/ O Lab Routine Supervision of high risk in third trimester (HCC) History of pre-eclampsia Depression affecting in third trimester, antepartum (HCC) 37 weeks gestation of (HCC) Ordered: 04/27/[address] [facility] Work Phone: Comment on above: Ordered: 04/27/2025 Urine sample volume measurement [facility] Immunizations Immunization Date Immunization Notes Care Provider Fa cility 02-19-2025 RHO(D) immune globul in- IV or IM Neda Ibarra APRN.CNM Work Phone: [facility] 10-26-2022 RHO(D) immune globul in- IV or IM Kin Walker MD Work Phone: [facility] Work Phone: 10-26-2022 tetanus toxoid, redu alan diphtheria toxoid, and acellular pertussis vaccine, adsorbed Kin Walker MD Work Phone: [facility] Payers Date Payer Category Payer Self-pay 2023 Private Health Insurance [id number] 2023 Private Health Insurance [id number] 2022 Unknown [id number] Unknown [facility] [id number] Unknown [id number] Social History Date Type Detail Facility Start: 08-08-2022 End: 12-30-2022 Tobacco smoking status NHIS Never smoked tobacco [facility] Work Phone: Start: 08-08-2022 Tobacco use and exposure Smokeless tobacco non-user [facility] Work Phone: Start: 08-10-2022 End: 04-22-2025 Alcohol intake Ex-drinker (finding) [facility] Start: 08-10-2022 End: 09-09-2024 Alcohol intake [facility] Start: 08-08-2022 Education 16 [facility] Start: 04-27-2022 [facility] Start: 2000 Sex Assigned At Not on file [facility] Start: 07-31-2022 End: 10-26-2022 Exposure to SARS-CoV-2 (event) Not sure [facility] Start: 2000 Sex Assigned At Female W [facility] Start: 12-30-2022 Tobacco smoking stat us NHIS Unknown if ever smoked [facility] Start: 09-09-2024 End: 02-19-2025 Tobacco use panel [facility] National Score (1-10 0), lower number is lower risk 87 [facility] Start: 09-02-2024 Gender identity Identifies as female gender (finding) [facility] Start: 09-02-2024 Sexual orientation Heterosexual (fin chris) [facility] The thought of natividad polk myself has occurred to me Never [facility] Goals Date Patient Goal Desired Activity [...] discussed with the Patient or Patient's Authorized Lunchroom Mother. As applicable, any other physician, advance practice provider, medical student, or other health professional student that will be observing or involved in the sensitive examination for educational or training purposes was discussed with the Patient or Authorized Lunchroom Mother. The Patient or Authorized Lunchroom Mother has agreed to proceed with the sensitive examination. (Sensitive examination includes inspection and/or palpation of the breasts, pelvis, prostate and anorectal regions). A/P: Assessment & Plan 38 weeks gestation of (HCC) Orders: URINE OB DIP B/O Supervision of high risk in third trimester (HCC) Orders: URINE OB DIP B/O Reviewed labor & FM precautions Palmer Hubbard MD [facility] 05-04-2025 Miscellaneous Notes KJ - S: Kin denies LOF, contractions or vaginal bleeding. Patient reports some cramps. O: 38w6d, see flow sheet SENSITIVE EXAM: The sensitive examination was discussed with the Patient or Patient's Authorized Lunchroom Mother. As applicable, any other physician, advance practice provider, medical student, or other health professional student that will be observing or involved in the sensitive examination for educational or training purposes was discussed with the Patient or Authorized Lunchroom Mother. The Patient or Authorized Lunchroom Mother has agreed to proceed with the sensitive examination. (Sensitive examination includes inspection and/or palpation of the breasts, pelvis, prostate and anorectal regions). A/P: Assessment & Plan 38 weeks gestation of (HCC) Orders: URINE OB DIP B/O Supervision of high risk in third trimester (HCC) Orders: URINE OB DIP B/O Reviewed labor & FM precautions Palmer Hubbard MD documented in this encounter [facility] 05-04-2025 Instructions Camila Arcos MA - 05/04/2025 2:16 PM EDT SEQUENTIAL SCREENINGS The [facility] offers sequential screenings for women who [...] It will require an appointment with our door technician. This is not an ultrasound performed [...] the above symptoms, contact our office at [phone] and ask to speak with a nurse. After hours, you can call doctors registry at [phone] OR call [facility] at [phone] and ask to have the doctor supplier relationship director paged. If you consider this an emergency, dial 9-1-5 or go to your nearest emergency department. NEED HELP? Are you dealing with a violent or abusive relationship? Are you a victim of rape or sexual assult? Call [facility] ([place]) 24 hour Crisis Hotline: 384.490.2592 or 995-718-6285. MANUAL Your Guide to a Healthy manual is now on-line. Visit [facility]org/HealthyPreg Jesús to download your free copy documented in this encounter [facility] 04-28-2025 Note HNO ID: [id number] Author: CAMILA KUNZ MA Service: ? Author Type: Meter Calibrator Type: Progress Notes Filed: 04/28/2025 13:32 Note Text: POPULATION HEALTH NAVIGATION OUTREACH Action/FYI Media Technician updated per documentation. Reason for Outreach Medicaid OB/Peds Care Gaps due: N/A Patient Contacted: Unable or unnecessary to reach patient: clinical services specialist added Navigation Signature: Camila Munoz MA April 28, 2025 12:[address] [facility] 04-28-2025 History of Presen t illness Narrative POPULATION HEALTH NAVIGATION OUTREACH Action/FYI Media Technician updated per documentation. Reason for Outreach Medicaid OB/Peds Care Gaps due: N/A Patient Contacted: Unable or unnecessary to reach patient: [place] clinical services specialist added Navigation Signature: Camila Munoz MA April 28, 2025 12:19 PM documented in this encounter [facility] 04-28-2025 Note Patient Outreach (NE TNAV) KIN ALEJO ([id number]) 1 F Date Time Provider Department 04/28/25 CAMILA KUNZ During your visit today, we recorded the following information about you: Camila Kunz MA 04/28/2025 1:32 PM Signed POPULATION HEALTH NAVIGATION OUTREACH Action/FYI Media Technician updated per documentation. Reason for Outreach Medicaid OB/Peds Care Gaps due: N/A Patient Contacted: Unable or unnecessary to reach patient: [place] clinical services specialist added Navigation Signature: Camila Munoz MA April [...] Encounter Status:Closed by CAMILA KUNZ on 04/28/25 [facility] 04-27-2025 Progress note Formatting of t [...] was discussed with the patient or authorized access service representative. The patient or authorized access service representative has agreed to proceed with the sensitive examination. @ 37.6 weeks Assessment & Plan Supervision of high risk in third trimester ([facility]) - Reviewed GARETH, labor/bleeding precautions - Gbs negative - Would be interested in induction after 40 weeks - Increased contraction pain - Undecided for PPBC - SVE 1.5//-3 Orders: URINE OB DIP B/O History of pre-eclampsia Orders: URINE OB DIP B/O Depression affecting in third trimester, antepartum ([facility]) Orders: URINE OB DIP B/O 37 weeks gestation of ([facility]) Orders: URINE OB DIP B/O Onur Keller MD Attending Note I evaluated the patient and personally participated in the quan components. I agree with the resident's findings and plan as documented and have discussed the case and management of the patient's care with the resident. Signature: Cinthya White MD Date: April 27, 2025 Time: 1:49 PM Cinthya White MD T [facility] 04-27-2025 Miscellaneous Notes DM-Pt doing well. [...] was discussed with the patient or authorized access service representative. The patient or authorized access service representative has agreed to proceed with the sensitive examination. @ 37.6 weeks Assessment & Plan Supervision of high risk in third trimester ([facility]) - Reviewed GARETH, labor/bleeding precautions - [...] Cinthya White MD documented in this encounter [facility] 04-27-2025 Instructions Sanaz Mesa MA - 04/27/2025 8:32 AM EDT SEQUENTIAL SCREENINGS The [facility] offers sequential screenings for women who [...] It will require an appointment with our door technician. This is not an ultrasound performed [...] the above symptoms, contact our office at [phone] and ask to speak with a nurse. After hours, you can call [facility] at [phone] OR call [facility] at [phone] and ask to have the doctor supplier relationship director paged. If you consider this an emergency, dial 9-1-1 or go to your nearest emergency department. NEED HELP? Are you dealing with a violent or abusive relationship? Are you a victim of rape or sexual assult? Call [facility] ([place]) 24 hour Crisis Hotline: 493.810.8257 or 110-689-2075. MANUAL Your Guide to a Healthy manual is now on-line. Visit [facility]org/HealthyPreg Jesús to download your free copy documented in this encounter [facility] 04-23-2025 Telephone encounter Note Patient 37w2d [...] patient baby is active. Discussed with provider supplier relationship director and she would like her to go to L&D possible ROM. Patient verbalizes understanding. L&D called and notified. Brittany Crawley RN [facility] 04-23-2025 Miscellaneous Notes Patient 37w2d calling [...] patient baby is active. Discussed with provider supplier relationship director and she would like her to go to L&D possible ROM. Patient verbalizes understanding. L&D called and notified. Brittany Crawley RN documented in this encounter [facility] 04-22-2025 Progress note Formatting of t [...] labor & FM precautions Palmer Hubbard MD [facility] 04-22-2025 Miscellaneous Notes KJ - S: [...] Palmer Hubbard MD documented in this encounter [facility] 04-22-2025 Sanaz Morrow MA - 04/22/2025 10:54 AM EDT SEQUENTIAL SCREENINGS The [facility] offers sequential screenings for women who [...] It will require an appointment with our door technician. This is not an ultrasound performed [...] the above symptoms, contact our office at [phone] and ask to speak with a nurse. After hours, you can call doctors registry at [phone] OR call [facility] at [phone] and ask to have the doctor supplier relationship director paged. If you consider this an emergency, dial 9-6 or go to your nearest emergency department. NEED HELP? Are you dealing with a violent or abusive relationship? Are you a victim of rape or sexual assult? Call [facility] ([place]) 24 hour Crisis Hotline: 920.372.9673 or 816-994-6670. MANUAL Your Guide to a Healthy manual is now on-line. Visit [facility]org/HealthyPreg Jesús to download your free copy documented in this encounter [facility] 04-02-2025 Note HNO ID: [id number] Author: ONUR GARCIA APRN.CRUSHER SETTER Service: ? Author Type: Nurse Practitioner Type: [...] 4. Depression affecting in third trimester, antepartum ([facility]) - ICD9: 648.43, 311, ICD10: O99.343, F32.A - Has not started Zoloft - Reports mood has improved PTL precautions and kick counts reviewed. RTO in 2 weeks or sooner as needed. Onur Garcia APRN.CNP [facility] 04-02-2025 History of Presen t illness [...] Supervision of high risk in third trimester ([facility]) - ICD9: V23.9, ICD10: O09.93 (primary diagnosis) - Continue PNV 2. 34 weeks gestation of ([facility]) - ICD9: V22.2, ICD10: Z3A.34 - GBS next visit 3. History of pre-eclampsia - ICD9: V13.29, ICD10: Z87.59 - Continue LDA 4. Depression affecting in third trimester, antepartum ([facility]) - ICD9: 648.43, 311, ICD10: O99.343, F32.A - Has not started Zoloft - Reports mood has improved PTL precautions and kick counts reviewed. RTO in 2 weeks or sooner as needed. Onur Garcia APRN.CRUSHER SETTER documented in this encounter [facility] 04-02-2025 Skyler Irene MA - 04/02/2025 10:00 AM EDT SEQUENTIAL SCREENINGS The [facility] offers sequential screenings for women who [...] It will require an appointment with our door technician. This is not an ultrasound performed [...] the above symptoms, contact our office at [phone] and ask to speak with a nurse. After hours, you can call doctors registry at [phone] OR call [facility] at [phone] and ask to have the doctor supplier relationship director paged. If you consider this an emergency, dial 9-1-8 or go to your nearest emergency department. NEED HELP? Are you dealing with a violent or abusive relationship? Are you a victim of rape or sexual assult? Call [facility] ([place]) 24 hour Crisis Hotline: 694.376.3090 or 726-868-6547. MANUAL Your Guide to a Healthy manual is now on-line. Visit [facility]org/HealthyPreg nancyGuide to download your free copy documented in this encounter [facility] 03-05-2025 Progress note Formatting of t [...] - RTO 2 wks Kin Walker DO [facility] 03-05-2025 Miscellaneous Notes SW- Some ctx's [...] Kin Walker DO documented in this encounter [facility] 03-05-2025 Instructions Camila Arcos MA - 03/05/2025 10:16 AM EDT SEQUENTIAL SCREENINGS The [facility] offers sequential screenings for women who [...] It will require an appointment with our door technician. This is not an ultrasound performed [...] the above symptoms, contact our office at [phone] and ask to speak with a nurse. After hours, you can call doctors registry at [phone] OR call [facility] at [phone] and ask to have the doctor supplier relationship director paged. If you consider this an emergency, dial or go to your nearest emergency department. NEED HELP? Are you dealing with a violent or abusive relationship? Are you a victim of rape or sexual assult? Call [facility] ([place]) 24 hour Crisis Hotline: 132.173.7680 or 845-179-5085. MANUAL Your Guide to a Healthy manual is now on-line. Visit [facility]org/HealthyPreg Jesús to download your free copy documented in this encounter [facility] 02-19-2025 Progress note Formatting of t [...] Abd: Gravid, nontender Depression: High Risk (02/19/2025) [place] Depression Scale Last EPDS Total Score: 18 [...] or sooner if needed Neda Ibarra APRN.CNM [facility] 02-19-2025 Miscellaneous Notes FADUMO-S: Kin Alejo [...] Abd: Gravid, nontender Depression: High Risk (02/19/2025) [place] Depression Scale Last EPDS Total Score: 18 [...] Neda Ibarra APRN.CNM documented in this encounter [facility] 02-19-2025 Note HNO ID: [id number] Author: NEDA IBARRA APRN.CNM Service: ? Author Type: Mediation Commissioner Type: Progress Notes Filed: 02/19/2025 19:21 Note Text: EPDS=[address] [facility] 02-19-2025 History of Presen t illness Narrative EPDS=18 zoloft documented in this encounter [facility] 02-19-2025 Instructions Neda Ibarra APRN.CNM - 02/19/2025 9:55 AM EDT Here are some links for wonderful Providers here in the community and surrounding areas. Do not hesitate to contact their offices, many are offering virtual visits during this time. 7-725-1-MPVC9TZYX - [place] Maternal Mental Health Hotline If you are in suicidal crisis, please call or text 7-307-606-TALK ( ) or visit the National Suicide Prevention Lifeline website. mchb.[facility].gov [facility] Behavioral Health Psychology, Psychiatry, Counseling Connect with therapist/ can do virtual visits [phone] Referral to the [facility] To schedule an appointment, please call the [place] [facility] Appointment Line: [phone] option 1 [facility] [place], [place] [address] [facility] [address] [facility] [address] [place] [address] [facility] [address] [place] [address] [facility] [address] [place] [address] Anabel Ling MD [address] [place] [address] [facility] [address] [facility], [address] [place] [address] [facility] [address] [place] [address] [facility] [place] / [place] [phone]/ [phone] T[facility] [address] [facility] [phone] A[facility] of Counseling and Mediation [place] / [place]elsy [phone] Behavioral health services of [facility] [address] [place] [address]/ [place] [phone] PRIMO Urias, CLC [facility] Workshops, telehealth and at home visits. [phone] Humanistic counseling center [address] [facility], [place], [place], [place], [place], [place], [place], [place], [place], [place], [place], [place], [facility], [place], [place] ,[facility], [place], [place], [place], [place], [facility] [place], [place], [place] www.MANGO BCN [phone] Psychotherapy resources outside of [facility] are listed below [facility] PABLITO Klein, SENIOR ASSISTANT MANAGER-S [phone] Revival.clientsecure.id [address] [place] [address] *Trauma therapy, EMDR, in person or virtual visit. Accepts some insurances. [employer] [phone] [facility] Healthonomy [place] [address] [employer] Psychotherapy Web: https://www.KIS Group / Support International Online Provider Directory https://WeLink/ [facility] https://XMarket / DITTO.com for Behavioral Health and Wellness Web: https://iCentera/ Center for Effective Living Web: https://SenSage.effectiveFrontline GmbHliving.RuffWire / LifeStance Web: https://Data Virtuality.Patient Home Monitoring/location /community health/[place]/ [facility] Health Web: https://www.[facility]. org/ [facility] Web: https://Vidyard.org/ Recovery Resources Mental health and substance abuse help Web: https://www.recresKeepsafeorg [facility] [address] [place] [address] [facility] [address] www.Blue Egg & RESOURCES Support International Direct peer support and connection to professional resources Non-Emergency Helpline Phone: / Text: [phone] Web: https://www..net/ Online Provider Directory: https://WeLink/ Online Support Meetings: https://www..net/get- help/pfz-xemtqf-pvgleel-meeting s/ BARBARA Baby and Engineering Operator Services Web: https://wwwzoomsquare/ wikifolio Expert information on medication use during and Text: [phone] Web: https://Mobissimo/ NATIONAL REGISTRY FOR PSYCHIATRIC MEDICATIONS Currently studying the safety of antidepressants, ADHD medications and atypical antipsychotics taken during TO PARTICIPATE CALL TOLL-FREE: Web: https://womensmentalhealth.org/ research/pregnancyregistry/ Support Groups: [facility]- Follow on facebook Baby Bistro support group led by [facility] department [facility] - Support Group [facility].org The POEM support group [phone] Www.poemonline.org Follow on facebook - [facility]ch chapter Online support meetings PSI https://www..net/get- help/awi-vpuxns-yfgstnm-meeting s/ [facility] mommy and me virtual support group 11:30-1pm Support for mothers and new babies and toddlers [place] childbirth education: Childbirth @[facility].org or call [phone] Support groups Online support meetings PSI https://www..net/get- help/ufh-tumrcs-yamyvds-meeting s/ Here are the support groups they [...] the and Saturday of each month Location: [facility] [address] [place] [address] Room 122 (library room) 7-8:00 p.m. When you enter the judaism parking lot off of [address] the entrance door closest to our meeting room is on the front of the building toward the right. For those who are more comfortable with a virtual platform, DDN offers online support group options several days of the week. To register for an online group or to find out more about [facility], website at: https://MyVRaoTraceLinko.org/get-help/me peoipn-qkdxwa-kgsbti/elliottsridhar-londoni toya/ offer a confidential helpline: private Facebook group is called VIVIAN Smith Here are the groups they offer: Traumatic childbirth resources: Http://pattch.org/ https://www.Naow/ CRISIS: CRISIS HOTLINE [phone], 911 or go to the nearest ER. [facility] [phone] / [facility] [phone] https://www.[facility].org Crisis text line text the word HOME to 234648 Sertraline (Zoloft ) October 26, 2019 This [...] to be small. You should inform your warp tying machine knotter and your baby s clinical services specialist that you are taking sertraline so that [...] . For more information, please see the MotherOrbis BiosciencesBaQ.ME fact sheet Paternal Exposures at https://mothertobaby.org/fact-s heets/kwytwvmx-equhrzhba-wjgwwn ncy/pdf/. Please click here to view references [...] the above symptoms, contact our office at [phone] and ask to speak with a nurse. After hours, you can call doctors registry at [phone] OR call [facility] at [phone] and ask to have the doctor supplier relationship director paged. If you consider this an emergency, dial 1-5-4 or go to your nearest emergency department. NEED HELP? Are you dealing with a violent or abusive relationship? Are you a victim of rape or sexual assult? Call [facility] ([place]) 24 hour Crisis Hotline: 828.727.5026 or 210-264-8173. MANUAL Your Guide to a Healthy manual is now on-line. Visit [facility]org/HealthyPreg Jesús to download your free copy documented in this encounter [facility] 01-22-2025 Miscellaneous Notes EH - S: [...] weeks or sooner as needed. Onur Garcia APRN.CRUSHER SETTER documented in this encounter [facility] 01-22-2025 Progress note Formatting of t [...] weeks or sooner as needed. Onur Garcia APRN.CRUSHER SETTER [facility] 01-22-2025 Instructions Skyler Jenkins MA - 01/22/2025 8:35 AM EST SEQUENTIAL SCREENINGS The [facility] offers sequential screenings for women who [...] It will require an appointment with our door technician. This is not an ultrasound performed [...] the above symptoms, contact our office at [phone] and ask to speak with a nurse. After hours, you can call doctors registry at [phone] OR call [facility] at [phone] and ask to have the doctor supplier relationship director paged. If you consider this an emergency, dial 0-9-5 or go to your nearest emergency department. NEED HELP? Are you dealing with a violent or abusive relationship? Are you a victim of rape or sexual assult? Call [facility] ([place]) 24 hour Crisis Hotline: 583.447.7485 or 370-520-8583. MANUAL Your Guide to a Healthy manual is now on-line. Visit [facility].org/HealthyPreg adamcyGuque to download your free copy documented in this encounter [facility] 12-25-2024 Miscellaneous Notes EH - S: [...] weeks or sooner as needed. Onur Garcia APRN.CRUSHER SETTER documented in this encounter [facility] 12-25-2024 Progress note Formatting of t [...] weeks or sooner as needed. Onur Garcia APRN.CRUSHER SETTER [facility] 12-25-2024 Instructions Clarisse Barber MA - 12/25/2024 8:28 AM EST SEQUENTIAL SCREENINGS The [facility] offers sequential screenings for women who [...] It will require an appointment with our door technician. This is not an ultrasound performed [...] the above symptoms, contact our office at [phone] and ask to speak with a nurse. After hours, you can call doctors registry at [phone] OR call [facility] at [phone] and ask to have the doctor supplier relationship director paged. If you consider this an emergency, dial 9-1-8 or go to your nearest emergency department. NEED HELP? Are you dealing with a violent or abusive relationship? Are you a victim of rape or sexual assult? Call [facility] [place] ([facility] 24 hour Crisis Hotline: 344.801.7601 or 277-610-1313. MANUAL Your Guide to a Healthy manual is now on-line. Visit [facility].org/HealthyPreg Jesús to download your free copy documented in this encounter [facility] 11-27-2024 Progress note Formatting of t [...] weeks for anatomy US. Efra Roy M.D. [facility] 11-27-2024 Miscellaneous Notes RR- VB No. LOF No. CTXS No. Movement: absent. Other c/o: occas .nUAW Medication list reviewed. Physical Exam See Flow Sheet Gen: no accute distress, well appearing A/P 16w2d Estimated Date of Delivery: 05/12/25 declines aneuploidy screening on ASA prophylaxis f/u in 4 weeks for anatomy US. Efra Roy M.D. documented in this encounter [facility] 11-27-2024 Instructions Jozef Adams MA - 11/27/2024 10:37 AM EST SEQUENTIAL SCREENINGS The [facility] offers sequential screenings for women who [...] It will require an appointment with our door technician. This is not an ultrasound performed [...] the above symptoms, contact our office at [phone] and ask to speak with a nurse. After hours, you can call doctors registry at [phone] OR call [facility] at [phone] and ask to have the doctor supplier relationship director paged. If you consider this an emergency, dial 91-2 or go to your nearest emergency department. NEED HELP? Are you dealing with a violent or abusive relationship? Are you a victim of rape or sexual assult? Call [facility] ([place]) 24 hour Crisis Hotline: 472.234.3056 or 324-017-4409. MANUAL Your Guide to a Healthy manual is now on-line. Visit [facility].org/HealthyPreg Jesús to download your free copy documented in this encounter [facility] 11-02-2024 Progress note Formatting of t [...] when to call RTO in 4 weeks eNda Ibarra APRN.CNM [facility] 11-02-2024 Miscellaneous Notes FADUMO-S: Kin Alejo [...] Neda Ibarra APRN.CNM documented in this encounter [facility] 10-30-2024 Instructions Skyler Jenkins MA - 10/30/2024 9:55 AM EST SEQUENTIAL SCREENINGS The [facility] offers sequential screenings for women who [...] It will require an appointment with our door technician. This is not an ultrasound performed [...] the above symptoms, contact our office at [phone] and ask to speak with a nurse. After hours, you can call doctors registry at [phone] OR call [facility] at [phone] and ask to have the doctor supplier relationship director paged. If you consider this an emergency, dial 9 or go to your nearest emergency department. NEED HELP? Are you dealing with a violent or abusive relationship? Are you a victim of rape or sexual assult? Call [facility] ([place]) 24 hour Crisis Hotline: 186.327.2311 or 608-459-0813. MANUAL Your Guide to a Healthy manual is now on-line. Visit [facility]/HealthyPreg Jesús to download your free copy documented in this encounter [facility] 09-18-2024 Progress note Formatting of t [...] aspirin at 12 weeks. Palmer Hubbard MD [facility] 09-18-2024 Miscellaneous Notes KJ - VB [...] Palmer Hubbard MD documented in this encounter [facility] 09-18-2024 Instructions Camila Arcos MA - 09/18/2024 9:42 AM EDT SEQUENTIAL SCREENINGS The [facility] offers sequential screenings for women who [...] It will require an appointment with our door technician. This is not an ultrasound performed [...] the above symptoms, contact our office at [phone] and ask to speak with a nurse. After hours, you can call doctors registry at [phone] OR call [facility] at [phone] and ask to have the doctor supplier relationship director paged. If you consider this an emergency, dial 9-1- or go to your nearest emergency department. NEED HELP? Are you dealing with a violent or abusive relationship? Are you a victim of rape or sexual assult? Call [facility] ([place]) 24 hour Crisis Hotline: 797.886.2689 or 950-785-1387. MANUAL Your Guide to a Healthy manual is now on-line. Visit [email or web address].org/HealthyPreg Jesús to download your free copy documented in this encounter [facility] 09-02-2024 Note HNO ID: [id number] Author: ONUR GARCIA APRN.LILI Service: ? Author Type: Nurse Practitioner Type: Progress Notes Filed: 09/09/2024 11:44 Note Text: Sample Processor offered: Patient declines. INITIAL OB ASSESSMENT HPI: [...] Status: Partner: Name: Jason Age: 24 Occupation: pool player Gender: Male PAST MEDICAL HISTORY Diagnosis Date [...] discussed with the Patient or Patient's Authorized Lunchroom Mother. As applicable, (more content not included)... [facility] 09-02-2024 History of Presen t illness Narrative Sample Processor offered: Patient declines. INITIAL OB ASSESSMENT HPI: [...] Status: Partner: Name: Jason Age: 24 Occupation: pool player Gender: Male PAST MEDICAL HISTORY Diagnosis Date [...] discussed with the Patient or Patient's Authorized Lunchroom Mother. As applicable, any other physician, advance practice provider, medical student, or other health professional student that will be observing or involved in the sensitive examination for educational or training purposes was discussed with the Patient or Authorized Lunchroom Mother. The Patient or Authorized Lunchroom Mother has agreed to proceed with the sensitive [...] Your guide to a health and the Railroad Maintenance Clerk. Discussed hemoglobin electrophoresis. Patient: Declines Reviewed midwifery and check examiner services that are available. 2) Screening: Hemoglobin [...] weeks): [] Consent [] Contraception - [] Media Technician Third trimester (36-40 weeks): [] GBS [] [...] Onur Garcia APRN.LILI documented in this encounter [facility] 09-02-2024 Instructions Clarisse Barber MA - 09/02/2024 2:21 PM EDT Please select the following link to access the [facility] Your Guide to a Healthy . [email or web address] de Please select the following link to access the [facility] Your Guide to a Healthy . [email or web address] de documented in this encounter [facility] 01-04-2023 History of Presen t illness [...] in bowel habits Abdomen: N/A Bleeding: Getting television engineer, no clots Bottom and Perineum: Sore Sleep: no sleep concerns, feels rested [employer] since delivery: Not resumed Emotional support: Yes [...] Neda Ibarra APRN.CNM documented in this encounter [facility] 01-03-2023 Miscellaneous Notes Keep appointment for [...] check. Please advise. documented in this encounter [facility] 01-02-2023 Discharge summary Note Date/Time January 02, 2023 8:56am [facility] Medical Records Department [address] [place] [address] Discharge Summary 01/02/23 0854 MR#: [id number] Acct: [id number] Name: KIN ALEJO Rep #:[id number] : 2000 22 From: Efra Roy MD PCP: Care Physician,No Primary Status :ADM IN Location: KF694-1 Providers Date of Admission: 12/30/22 Primary Care [...] Provider: Kin Walker Primary Care Provider: Te Mojica,Tracy Primary Instructions Additional Instructions / Restrictions: Follow-up [...] Roy MD; No Primary Care Physician~ Signed [facility] Work Phone: 1(766) 610-301902-08-[address] Roy [facility] January 02, 2023 8:54am Note Date/Time January 02, 2023 8 :54am [facility] Medical Records Department [address] [place] [address] Progress Note - OBGYN 01/02/2353 MR#: [id number] Acct: [id number] Name: KIN ALEJO Rep #:[id number] : 2000 22 From: Efra Roy MD PCP: Care Physician,No Primary Status :ADM IN Location: [place] [address] Subjective Subjective Minimal pain, average lochia. Tolerating [...] Cosigner Signature (if applicable): CC: ~ Signed [facility] Work Phone: 1(244) 211-826002-07-2023 History of Present illness Narrative* Patricia Ball RN - 01/01/2023 8:10 AM EST Patient delivered via by Avelino on 01/01/23 at [facility]. See OB history. Patricia Ball RN [facility]23 Procedure [facility]02-06-2023 Progress note Author Neda Ibarra [facility] December 31, 2022 5:53pm Note Date/Time December 31, 2022 5 :53pm [facility] Medical Records Department [address] [place] [address] Progress Note - OBGYN 12/31/22 175 MR#: [id number] Acct: [id number] Name: KIN ALEJO Rep #:[id number] : 2000 22 From: Neda PRESTON PCP: Care Physician,No Primary Status :ADM IN [facility] Subjective Subjective Resting in bed. Out of [...] % (Auto) 65.8, Lymph % (Auto) 24.9, Hyde % (Auto) 8.2, Eos % (Auto) 0.4, [...] Cosigner Signature (if applicable): CC: ~ Signed [facility] Work Phone: 1(499) 239-809802-06-2023 Progress note Author Neda Ibarra [facility] December 31, 2022 5:50pm Note Date/Time December 31, 2022 8 :17am [facility] Medical Records Department [address] [place] [address] Progress Note - OBGYN 12/31/22816 MR#: [id number] Acct: [id number] Name: KIN ALEJO Rep #:[id number] : 2000 22 From: Neda PRESTON PCP: Care Physician,No Primary Status :ADM IN Location: [place] [address] Subjective Subjective Resting with epidural and comfortable [...] % (Auto) 65.8, Lymph % (Auto) 24.9, Hyde % (Auto) 8.2, Eos % (Auto) 0.4, [...] Cosigner Signature (if applicable): CC: ~ Signed [facility] Work Phone: 1(866) 830-676802-05-2023 History and physical note Author Dr. Walker [facility] December 30, 2022 8:56pm Note Date/Time December 30, 2022 8 :56pm [facility] Medical Records Department [address] [place] [address] H&P Exam - SEAT SCOOPER MACHINE 12/30/222049 MR#: [id number] Acct: [id number] Name: KIN ALEJO Rep #:[id number] : 2000 22 From: Kin Walker DO PCP: Care Physician,No Primary Status :ADM IN Location: GX730-2 HPI - General General Date of Admission: [...] fashion and filled with 40 cc saline. [place] with ctx's q 1 min so no Cytotec given at this time. Once hernandes is out, will start Pitocin per protocol. EFW expected to be < 4500 g and pelvis adequate. Anticipate vaginal delivery. (2) Pre-eclampsia: (3) Primiparous: 12/30/222055 <Electronically signed by Kin Walker DO> Cosigner Signature (if applicable): CC: Dr. Kin Walker DO; No Primary Care Physician~ Signed [facility] Work Phone: 1(992) 342-751702-05-2023 Miscellaneous Notes* Telephone Encounter - Kin Walker [...] check Saturday as well. documented in [facility]2023 History and physical note Author Dr. Walker [facility] December 30, 2022 1:22am Note Date/Time December 30, 2022 1 :22am [facility] Medical Records Department [address] [place] [address] OB Triage Physician Note 12/30/22 0119 MR#: [id number] Acct: [id number] Name: KIN ALEJO Rep #:[id number] : 2000 22 From: Kin Walker DO PCP: Care Physician,No Primary Status :REG CLI Y Location: [place] [address] HPI - General General Date of Admission: [...] DO; No Primary Care Physician ~ Signed [facility] Work Phone: 1(421) 841-186402-03-2023 Miscellaneous Notes* Quick Notes - Carola Flores [...] notified Carola Flores APRN.CNM documented in this encounterGen[facility] Hospital02-03-2023 Instructions* Patient Instructions* Skyler Jenkins [facility] - 12/28/2022 2:36 PM EST SEQUENTIAL SCREENINGS [facility] offers sequential screenings for women who [...] testing. It will require an appointment withour door technician. This is not an ultrasound performed [...] the above symptoms, contact our office at [phone] and ask to speak with anurse. After hours, you can call doctors registry at [phone] OR call [facility] at [phone] ask to have the doctor supplier relationship director paged. If you consider this an emergency, dial 9-- or go to your nearest emergency department. NEED HELP? Are you dealing with a violent or abusive relationship? Are you a victim of rape or sexual assult? Call [facility] ([place]) 24 hour Crisis Hotline: 293.627.1504 or 820-986-8315. MANUAL Your Guide to a Healthy manual is now on-line. Visit [facility].org/HealthyPregnancyGuide to download your free copy documented in this encounterGenesis Hospital01-27-2023 Miscellaneous Notes* Quick Notes - Carola [...] needed. Carola Flores APRN.CNM documented in this encounterGenesis Hospital01-27-2023 Instructions* Patient Instructions* Skyler Jenkins Cma - 12/21/2022 1:16 PM EST SEQUENTIAL SCREENINGS [facility] offers sequential screenings for women who [...] testing. It will require an appointment withour door technician. This is not an ultrasound performed [...] the above symptoms, contact our office at [phone] and ask to speak with anurse. After hours, you can call doctors registry at [phone] OR call [facility] at [phone] ask to have the doctor supplier relationship director paged. If you consider this an emergency, dial 9-1-6 or go to your nearest emergency department. NEED HELP? Are you dealing with a violent or abusive relationship? Are you a victim of rape or sexual assult? Call [facility] ([place]) 24 hour Crisis Hotline: 978.940.4258 or 917-464-9517. MANUAL Your Guide to a Healthy manual is now on-line. Visit [facility].org/HealthyPregnancyGuide to download your free copy documented in this encounterGenesis Hospital12-30-2022 Miscellaneous Notes* Quick Notes - Efra Roy MD - 11/23/2022 3:00 PM EST RR- VB No. LOF No. CTXS No. Movement: present. Other c/o: No. Medication list reviewed. Physical Exam See Flow Sheet Abd: soft, nontender Ext: edema: Trace A/P 32w0d Estimated Date of Delivery: 01/18/23 f/u in 2 weeks or prn routine care Efra Roy M.D. documented in this encounterGenesis Hospital12-30-2022 Instructions* Patient Instructions* Karla Cervantes Ma - 11/23/2022 2:33 PM EST SEQUENTIAL SCREENINGS [facility] offers sequential screenings for women who [...] testing. It will require an appointment withour door technician. This is not an ultrasound performed [...] the above symptoms, contact our office at [phone] and ask to speak with anurse. After hours, you can call doctors registry at [phone] OR call [facility] at [phone] ask to have the doctor supplier relationship director paged. If you consider this an emergency, dial 9-9-4 or go to your nearest emergency department. NEED HELP? Are you dealing with a violent or abusive relationship? Are you a victim of rape or sexual assult? Call [facility] ([place]) 24 hour Crisis Hotline: 629.921.8420 or 268-688-4475. MANUAL Your Guide to a Healthy manual is now on-line. Visit [facility].org/HealthyPregnancyGuide to download your free copy documented in this encounterGenesis Hospital12-16-2022 Miscellaneous Notes* Quick Notes - Neda [...] vaccine. Neda Ibarra APRN.CNM documented in this encounterGenesis Hospital12-16-2022 Instructions* Patient Instructions* Skyler Jenkins [facility] - 11/09/2022 2:20 PM EST SEQUENTIAL SCREENINGS [facility] offers sequential screenings for women who [...] testing. It will require an appointment withour door technician. This is not an ultrasound performed [...] the above symptoms, contact our office at [phone] and ask to speak with anurse. After hours, you can call doctors registry at [phone] OR call [facility] at [phone] ask to have the doctor supplier relationship director paged. If you consider this an emergency, dial 9-2 or go to your nearest emergency department. NEED HELP? Are you dealing with a violent or abusive relationship? Are you a victim of rape or sexual assult? Call [facility] ([place]) 24 hour Crisis Hotline: 721.106.5211 or 923-334-9584. MANUAL Your Guide to a Healthy manual is now on-line. Visit [facility].org/HealthyPregnancyGuide to download your free copy documented in this encounterGenesis Hospital12-02-2022 Miscellaneous Notes* Quick Notes - Kin [...] wks Kin Walker DO documented in this encounterGenesis Hospital12-02-2022 History of Present illness Narrative* Camila [...] severely ill: Yes Patient denies history of Guillain-Tatum Syndrome (a severe paralytic illness): Yes Tdap Adacel injection was given without incident. See immunizations for details of immunizations administered today. VIS sheet provided: Yes Provider Kin Walker DO was present in office at time of injection. Camila Arcos MA documented in this encounterGenesis Hospital12-02-2022 Instructions* Patient Instructions* Camila Arcos MA - 10/26/2022 1:21 PM EST SEQUENTIAL SCREENINGS [facility] offers sequential screenings for women who [...] testing. It will require an appointment withour door technician. This is not an ultrasound performed [...] the above symptoms, contact our office at [phone] and ask to speak with anurse. After hours, you can call doctors registry at [phone] OR call [facility] at [phone] ask to have the doctor supplier relationship director paged. If you consider this an emergency, dial 9-5-8 or go to your nearest emergency department. NEED HELP? Are you dealing with a violent or abusive relationship? Are you a victim of rape or sexual assult? Call [facility] ([place]) 24 hour Crisis Hotline: 520.526.1178 or 862-461-3641. MANUAL Your Guide to a Healthy manual is now on-line. Visit [facility]/HealthyPregnancyGuide to download your free copy documented in this encounterGenesis Hospital11-23-2022 Miscellaneous Notes* Telephone Encounter - Patricia Ball RN - 2022 11:39 AM EST labs received. Placed in results console. Copy to L&D and sent to scanning. Patricia Ball RN * Telephone Encounter - Patricia Ball RN - 2022 11:12 AM EST Left message at [facility] clinical voicemail regarding labs. Patricia Ball [...] call tomorrow because they are closed now. [facility]: [facility] [place] * Telephone Encounter - Patricia Ball RN - 10/16/2022 3:35 PM EST 26w4d Left message for patient to call office. Received records from [facility] [place] again. Only labs received still are DjypcdxX90 and pap smear. Did she have routine labs done elsewhere? Records that we do have copy to L&D and sent to medical records to scan in. Patricia Ball RN documented in this encounterGenesis Hospital11-04-2022 Instructions* Patient Instructions* Neda Ibarra APRN.SCOUT [...] as: Any vaginal bleeding during Miscarriage or 5749-4580/09/$36.00 doi:10.1111/jmwh.09142 c 2013 by the [place] [employer] 725 [place] [employer] www.sharewithwomen.org Chorionic villi sampling [...] RhoGAM shot. Also, if you have any latter day or cultural concerns about taking a blood product, you should talk to your health care provider or design leader about the risks and benefits. What [...] March ofDimes: Rh Disease http://www.januaryofdimes.com/baby/rh-disease.aspx How RhoGAMWorks http://www.Doctor on Demandam.com/images/content/Kyjujaus-Zdavg-Womwe.jpg [place]: Blood Types http://www.redcrossblood.org/gwqlc-pwtmc-mnfyl/blood-types This page may be reproduced for noncommercial use by health vehicle care specialist to share with clients.Any other reproduction is [...] diagnosed. HOW TO TAKE THIS TEST At [facility], the procedure is as follows: come [...] THE COMPUTER--go to a house phone, call [phone] or [phone] and ask the nurse to put the order in. After drinking the glucola, come to your regular appointment, making sure you return to the lab at the right time. You may call our office for the results the next day, if you are interested: [phone]. We will call you if further testing [...] the above symptoms, contact our office at [phone] and ask to speak with anurse. After hours, you can call doctors registry at [phone] OR call [facility] at [phone] ask to have the doctor supplier relationship director paged. If you consider this an emergency, dial 9-3-8 or go to your nearest emergency department. NEED HELP? Are you dealing with a violent or abusive relationship? Are you a victim of rape or sexual assult? Call [facility] ([place]) 24 hour Crisis Hotline: 543.692.4466 or 550-421-2968. MANUAL Your Guide to a Healthy manual is now on-line. Visit [facility]/HealthyPregnancyGuide to download your free copy documented in this encounterGenesis Hospital11-04-2022 Miscellaneous Notes* Quick Notes - Neda [...] reschedule. Neda Ibarra APRN.CNM documented in this encounterGenesis Hospital10-10-2022 Miscellaneous Notes* Telephone Encounter - Gisselle [...] placed. Carola Flores APRN.CNM documented in this encounterGenesis Hospital10-07-2022 Miscellaneous Notes* Quick Notes - Neda [...] results Neda Ibarra APRN.CNM documented in this encounterGenesis Hospital10-07-2022 Instructions* Patient Instructions* Neda Ibarra APRN.CNM - 08/31/2022 1:30 PM EDT Childbirth Classes 1) [facility] Online Virtual Childbirth and Class. -Please call to register and for more information: [phone] and register 2) [facility] Online Childbirth Education, , and classes: https://events.[facility].org 3) Here is a list of online childbirth education and resources. https://VeriFone.Patient Home Monitoring/zvizjo-mlxcvbgkbh-qobcv-bjhmu40-goqbsqvxzih/ https://evidencebasedbirth.com/childbirth-class/ https://blissful-.Anavex.com/p/empoweredmamasguide SIGNS AND SYMPTOMS OF LABOR 1. Contractions every 10 minutes or more often 2. Clear, pink, or brownish fluid (water) leaking from vagina 3. Feeling that baby is pushing down, pressure 4. Low, dull backache 5. Cramps that feel like a period 6. Cramps with or without diarrhea If you notice any of the above symptoms, contact our office at [phone] and ask to speak with anurse. After hours, you can call doctors registry at [phone] OR call [facility] at [phone] ask to have the doctor supplier relationship director paged. If you consider this an emergency, dial 9-1-1 or go to your nearest emergency department. NEED HELP? Are you dealing with a violent or abusive relationship? Are you a victim of rape or sexual assult? Call [facility] ([place]) 24 hour Crisis Hotline: 126.509.6243 or 831-496-3635. MANUAL Your Guide to a Healthy manual is now on-line. Visit [facility]/HealthyPregnancyGuide to download your free copy documented in this encounterGenesis Hospital09-27-2022 Miscellaneous Notes* Telephone Encounter - Brittany Crawley RN - 08/21/2022 1:35 PM EDT Outside medical records received from [facility] [place]. Records to provider to review. Next OB appointment on 08/31/22. .me documented in this encounterGenesis Hospital09-16-2022 Miscellaneous Notes* Quick Notes - Carola Flores APRN.CNM - 08/10/2022 2:01 PM EDT Patient at 17.0 weeks gestation as a transfer of care from [place]. has been uneventful. NOB completed today. Awaiting records from previous practice. Carola Flores APRN.CNM documented in this encounterGenesis Hospital09-16-2022 Instructions* Patient Instructions* Carola Flores APRN.CNM - 08/10/2022 1:32 PM EDT SEQUENTIAL SCREENINGS [facility] offers sequential screenings for women who [...] testing. It will require an appointment withour door technician. This is not an ultrasound performed [...] the above symptoms, contact our office at [phone] and ask to speak with anurse. After hours, you can call doctors registry at [phone] OR call [facility] at [phone] ask to have the doctor supplier relationship director paged. If you consider this an emergency, dial 7-6-2 or go to your nearest emergency department. NEED HELP? Are you dealing with a violent or abusive relationship? Are you a victim of rape or sexual assult? Call [facility] ([place]) 24 hour Crisis Hotline: 667.604.4362 or 586-653-5680. MANUAL Your Guide to a Healthy manual is now on-line. Visit [facility]/HealthyPregnancyGuide to download your free copy Please select the following link to access the [facility] Your Guide to a Healthy . [email or web address] documented in this encounterGenesis Hospital09-16-2022 History of Present illness Narrative* Carola [...] with Folic acid: Yes Occupation: not working Mu-Ism or heritage: No Would refuse blood transfusion [...] prn. Carola Flores APRN.CNM [facility]* Diagnosis 17 weeks gestation of - Primary state, incidental with care elsewhere in second trimester [facility]* Diagnosis Encounter for anatomic survey- Primary 20 weeks gestation of state, incidental [facility]* Diagnosis 20 weeks gestation of - Primary state, incidental [facility]* Diagnosis 24 weeks gestation of - Primary state, incidental [facility]* Diagnosis Encounter for follow-up ultrasound of anatomy- Primary 24 weeks gestation of state, incidental [facility]* Diagnosis 28 weeks gestation of - Primary state, incidental Need for vaccination Need for prophylactic vaccination and inoculation against unspecified single disease Supervision of other normal , antepartum [facility]* Diagnosis 30 weeks gestation of - Primary state, incidental Encounter for supervision of normal first in second trimester Supervision of normal first [facility] Diagnosis 32 weeks gestation of - Primary state, incidental Encounter for supervision of normal first in third trimester Supervision of normal first [facility] Diagnosis 36 weeks gestation of - Primary state, incidental [facility] noteNo assessment information available[facility] Work Phone: evaluation note* Diagnosis 37 weeks gestation of - Primary state, incidental Elevated blood pressure reading without diagnosis of hypertension Gestational proteinuria in third trimester Unspecified antepartum renal disease documented in this encounter [facility] note* Diagnosis Onset Date Resolution Status 37 weeks gestation of acute Elevated blood pressure reading acute Proteinuria affecting acute 37 weeks gestation of acute Elevated blood pressure reading acute Proteinuria affecting acute [facility] Work Phone: [employer] note* Diagnosis 37 weeks gestation of - Primary state, incidental Elevated blood pressure reading without diagnosis of hypertension documented in this encounter [facility] note* Diagnosis Onset Date Resolution Status 37 weeks gestation of acute Elevated blood pressure reading acute Proteinuria affecting acute 37 weeks gestation of acute Elevated blood pressure reading acute Proteinuria affecting acute 37 weeks gestation of acute Elevated blood pressure reading acute First degree perineal laceration acute Lactating mother acute Pre-eclampsia acute Primiparous acute Proteinuria affecting acute Vaginal delivery acute [facility] Work Phone: [employer] note* Diagnosis Encounter for screening for maternal depression- Primary History of pre-eclampsia Personal history of other genital system and obstetric disorders care and examination Routine follow-up documented in this encounter [facility] note* Diagnosis Supervision of high risk in [...] episode of care documented in this encounter [facility] note* Diagnosis Supervision of high risk in first trimester- Primary Unspecified high-risk documented in this encounter [facility] note* Diagnosis Less than 8 weeks gestation of state, incidental with uncertain dates in first trimester Supervision of high risk in first trimester Unspecified high-risk [facility] Diagnosis Encounter for screening for malformation using ultrasound- Primary 12 weeks gestation of state, incidental [facility]* Diagnosis Supervision of high risk in second trimester- Primary Unspecified high-risk 12 weeks gestation of state, incidental History of pre-eclampsia Personal history of other genital system and obstetric disorders [facility] Diagnosis Supervision of high risk in second trimester- Primary Unspecified high-risk 16 weeks gestation of state, incidental History of pre-eclampsia Personal history of other genital system and obstetric disorders [facility]* Diagnosis Supervision of high risk in second trimester- Primary Unspecified high-risk 20 weeks gestation of state, incidental History of pre-eclampsia Personal history of other genital system and obstetric disorders Rh negative state in antepartum period Rhesus isoimmunization affecting management of mother, antepartum condition [facility] Diagnosis Encounter for anatomic survey- Primary 20 weeks gestation of state, incidental [facility]* Diagnosis Supervision of high risk in second trimester- Primary Unspecified high-risk 24 weeks gestation of state, incidental Rh negative state in antepartum period Rhesus isoimmunization affecting management of mother, antepartum condition History of pre-eclampsia Personal history of other genital system and obstetric disorders Screening for diabetes mellitus [facility]* Diagnosis Supervision of high risk in third trimester (HCC)- Primary Unspecified high-risk 28 weeks gestation of (HCC) state, incidental History of pre-eclampsia Personal history of other genital system and obstetric disorders Rh negative state in antepartum period (HCC) Rhesus isoimmunization affecting management of mother, antepartum condition Depression affecting in third trimester, antepartum (HCC) [facility]* Diagnosis Supervision of high risk in third trimester (HCC)- Primary Unspecified high-risk 30 weeks gestation of (HCC) state, incidental [facility]* Diagnosis Supervision of high risk in third trimester (HCC)- Primary Unspecified high-risk History of pre-eclampsia Personal history of other genital system and obstetric disorders 32 weeks gestation of (HCC) state, incidental Supervision of high risk in third trimester (HCC)- Primary Unspecified high-risk 34 weeks gestation of ([facility]) state, incidental History of pre-eclampsia Personal history of other genital system and obstetric disorders Depression affecting in third trimester, antepartum ([facility]) documented in this encounter [facility] note* Diagnosis Supervision of high risk in third trimester (HCC)- Primary Unspecified high-risk History of pre-eclampsia Personal history of other genital system and obstetric disorders 32 weeks gestation of ([facility]) state, incidental Supervision of high risk in third trimester (HCC)- Primary Unspecified high-risk History of pre-eclampsia Personal history of other genital system and obstetric disorders 36 weeks gestation of ([facility]) state, incidental Supervision of high risk in third trimester ([facility])- Primary Unspecified high-risk History of pre-eclampsia Personal history of other genital system and obstetric disorders 37 weeks gestation of ([facility]) state, incidental * Assessment & Plan Note - Palmer Hubbard MD - 04/22/2025 11:10 AM EDTAssociated Problem(s): Supervision of high risk in third trimester ([facility]) Orders: URINE OB DIP B/O * Assessment & Plan Note - Palmer Hubbard MD - 04/22/2025 11:10 AM EDTAssociated Problem(s): History of pre-eclampsia Orders: URINE OB DIP B/O documented in this encounter [facility] note* Diagnosis Supervision of high risk in third trimester (HCC)- Primary Unspecified high-risk History of pre-eclampsia Personal history of other genital system and obstetric disorders 32 weeks gestation of ([facility]) state, incidental Supervision of high risk in third trimester (HCC)- Primary Unspecified high-risk History of pre-eclampsia Personal history of other genital system and obstetric disorders 36 weeks gestation of ([facility]) state, incidental Supervision of high risk [...] OB DIP B/O documented in this encounter [facility] note* Diagnosis Supervision of high risk in third trimester (HCC)- Primary Unspecified high-risk History of pre-eclampsia Personal history of other genital system and obstetric disorders 32 weeks gestation of (HCC) state, incidental Supervision of high risk in third trimester (HCC)- Primary Unspecified high-risk History of pre-eclampsia Personal history of other genital system and obstetric disorders 36 weeks gestation of ([facility]) state, incidental Supervision of high risk in third trimester (HCC)- Primary Unspecified high-risk History of pre-eclampsia Personal history of other genital system and obstetric disorders 37 weeks gestation of ([facility]) state, incidental Supervision of high risk in third trimester (HCC)- Primary Unspecified high-risk History of pre-eclampsia Personal history of other genital system and obstetric disorders Depression affecting in third trimester, antepartum (HCC) 37 weeks gestation of ([facility]) state, incidental * Assessment & Plan Note - Cinthya Morton MD - 04/27/2025 9:50 AM EDT Associated Problem(s): Supervision of high risk in third trimester ([facility]) - Reviewed GARETH, labor/bleeding precautions - [...] OB DIP B/O [facility] Additional Instructions contact office on Saturday for further instructionsWCleveland Clinic [facility] Work Phone: Hospital Discharge instructions Additional Instructions Follow-up in our office on 01/04/2023 for blood pressure check.[facility] Work Phone: Reason for referral (narrative)* Diagnostic Procedure Only (Routine) - Authorized Specialty Diagnoses / Procedures Referred By Contac t Referred To Contact [facility] Diagnoses 17 weeks gestation of Procedures OBSTETRIC ULTRASOUND WHI US PREG UTERUS AFTER 1ST TRIMEST GESTATION Carola Flores APRN.CNM [address] [place] [address] [address] [address] [place] [address] Referral ID Status Reason Start Date Expiration Date Visits Requested Visits Authorized [id number] Authorized Auto-Generat ed Referral 08/10/2022 08/10/2023 1 1 [facility] for referral (narrative)* Diagnostic Procedure Only (Routine) - Pending Review Specialty Diagnoses / Procedures Referred By Contac t Referred To Contact [facility] Diagnoses 37 weeks gestation of Elevated blood pressure reading without diagnosis of hypertension Procedures OBSTETRIC ULTRASOUND WHI US PREG UTERUS AFTER 1ST TRIMEST GESTATION Kin Walker MD [address] [place] [address] [address] [address] [place] [address] Referral ID Status Reason Start Date Expiration Date Visits Requested Visits Authorized [id number] Pending Review Auto-Generat ed Referral 12/30/2022 12/30/2023 1 1 [facility] for referral (narrative)* Diagnostic Procedure Only (Routine) - Authorized Specialty Diagnoses / Procedures Referred By Contac t Referred To Contact [facility] Diagnoses Less than 8 weeks gestation of with uncertain dates in first trimester Encounter for supervision of normal in multigravida Procedures OBSTETRIC ULTRASOUND WHI US PREG UTERUS AFTER 1ST TRIMEST GESTATION Onur Garcia APRN.CRUSHER SETTER [address] [place] [address] [facility] [place] [address] [place] [address] Referral ID Status Reason Start Date Expiration Date Visits Requested Visits Authorized [id number] Authorized Auto-Generat ed Referral 09/09/2025 1 1 [facility] for referral (narrative)* Diagnostic Procedure Only (Routine) - Authorized Specialty Diagnoses / Procedures Referred By Contac t Referred To Contact [facility] Diagnoses Supervision of high risk in first trimester Procedures NUCHAL TRANSLUCENCY WHI US NUCHAL TRANSLUCENCY 1ST GESTATION Palmer Hubbard MD [address] [place] [address] [facility] [place] [address] [place] [address] Referral ID Status Reason Start Date Expiration Date Visits Requested Visits Authorized [id number] Authorized Auto-Generat ed Referral 09/18/2025 1 1 [facility] for referral (narrative)* Diagnostic Procedure Only (Routine) - Authorized Specialty Diagnoses / Procedures Referred By Contac t Referred To Contact [facility] Diagnoses Supervision of high risk in second trimester 12 weeks gestation of Procedures OBSTETRIC ULTRASOUND WHI US PREG UTERUS AFTER 1ST TRIMEST GESTATION Neda Ibarra APRN.CNM [address] [place] [place] [address] [facility] [place] [address] [place] [address] Referral ID Status Reason Start Date Expiration Date Visits Requested Visits Authorized [id number] Authorized Auto-Generat ed Referral 10/30/2024 10/30/2025 1 1 [facility] for referral (narrative)No reason for referral information availableWCleveland Clinic [facility] Work Phone: Health Concerns Problem Noted Date [...] Will No December 30 7:27pm Power of Travel Agent No December 30, 2022 7:27pm Summary Purpose [...] or prosecute any alcohol or drug abuse patient.[facility] the event this information is protected by the Federal Confidentiality of Alcohol and Drug Abuse Patient Records regulations: The Federal rules restrict any use of the information to criminally investigate or prosecute any alcohol or drug abuse patient.[facility] HospitalIn the event this information is protected by the Federal Confidentiality of Alcohol and Drug Abuse Patient Records regulations: The Federal rules restrict any use of the information to criminally investigate or prosecute any alcohol or drug abuse patient.[facility] HospitalIn the event this information is protected by the Federal Confidentiality of Alcohol and Drug Abuse Patient Records regulations: The Federal rules restrict any use of the information to criminally investigate or prosecute any alcohol or drug abuse patient.[facility] HospitalIn the event this information is protected by the Federal Confidentiality of Alcohol and Drug Abuse Patient Records regulations: The Federal rules restrict any use of the information to criminally investigate or prosecute any alcohol or drug abuse patient.[facility] HospitalIn the event this information is protected by the Federal Confidentiality of Alcohol and Drug Abuse Patient Records regulations: The Federal rules restrict any use of the information to criminally investigate or prosecute any alcohol or drug abuse patient.[facility] HospitalIn the event this information is protected by the Federal Confidentiality of Alcohol and Drug Abuse Patient Records regulations: The Federal rules restrict any use of the information to criminally investigate or prosecute any alcohol or drug abuse patient.[facility] HospitalIn the event this information is protected by the Federal Confidentiality of Alcohol and Drug Abuse Patient Records regulations: The Federal rules restrict any use of the information to criminally investigate or prosecute any alcohol or drug abuse patient.[facility] HospitalIn the event this information is protected by the Federal Confidentiality of Alcohol and Drug Abuse Patient Records regulations: The Federal rules restrict any use of the information to criminally investigate or prosecute any alcohol or drug abuse patient.[facility] HospitalIn the event this information is protected by the Federal Confidentiality of Alcohol and Drug Abuse Patient Records regulations: The Federal rules restrict any use of the information to criminally investigate or prosecute any alcohol or drug abuse patient.[facility] HospitalIn the event this information is protected by the Federal Confidentiality of Alcohol and Drug Abuse Patient Records regulations: The Federal rules restrict any use of the information to criminally investigate or prosecute any alcohol or drug abuse patient.[facility] HospitalIn the event this information is protected by the Federal Confidentiality of Alcohol and Drug Abuse Patient Records regulations: The Federal rules restrict any use of the information to criminally investigate or prosecute any alcohol or drug abuse patient.[facility] HospitalIn the event this information is protected by the Federal Confidentiality of Alcohol and Drug Abuse Patient Records regulations: The Federal rules restrict any use of the information to criminally investigate or prosecute any alcohol or drug abuse patient.[facility] HospitalIn the event this information is protected by the Federal Confidentiality of Alcohol and Drug Abuse Patient Records regulations: The Federal rules restrict any use of the information to criminally investigate or prosecute any alcohol or drug abuse patient.[facility] HospitalIn the event this information is protected by the Federal Confidentiality of Alcohol and Drug Abuse Patient Records regulations: The Federal rules restrict any use of the information to criminally investigate or prosecute any alcohol or drug abuse patient.[facility] HospitalIn the event this information is protected by the Federal Confidentiality of Alcohol and Drug Abuse Patient Records regulations: The Federal rules restrict any use of the information to criminally investigate or prosecute any alcohol or drug abuse patient.[facility] HospitalIn the event this information is protected by the Federal Confidentiality of Alcohol and Drug Abuse Patient Records regulations: The Federal rules restrict any use of the information to criminally investigate or prosecute any alcohol or drug abuse patient.[facility] HospitalIn the event this information is protected by the Federal Confidentiality of Alcohol and Drug Abuse Patient Records regulations: The Federal rules restrict any use of the information to criminally investigate or prosecute any alcohol or drug abuse patient.[facility] HospitalIn the event this information is protected by the Federal Confidentiality of Alcohol and Drug Abuse Patient Records regulations: The Federal rules restrict any use of the information to criminally investigate or prosecute any alcohol or drug abuse patient.[facility] HospitalIn the event this information is protected by the Federal Confidentiality of Alcohol and Drug Abuse Patient Records regulations: The Federal rules restrict any use of the information to criminally investigate or prosecute any alcohol or drug abuse patient.[facility] HospitalIn the event this information is protected by the Federal Confidentiality of Alcohol and Drug Abuse Patient Records regulations: The Federal rules restrict any use of the information to criminally investigate or prosecute any alcohol or drug abuse patient.[facility] HospitalIn the event this information is protected by the Federal Confidentiality of Alcohol and Drug Abuse Patient Records regulations: The Federal rules restrict any use of the information to criminally investigate or prosecute any alcohol or drug abuse patient.[facility] HospitalIn the event this information is protected by the Federal Confidentiality of Alcohol and Drug Abuse Patient Records regulations: The Federal rules restrict any use of the information to criminally investigate or prosecute any alcohol or drug abuse patient.[facility] HospitalIn the event this information is protected by the Federal Confidentiality of Alcohol and Drug Abuse Patient Records regulations: The Federal rules restrict any use of the information to criminally investigate or prosecute any alcohol or drug abuse patient.[facility] HospitalIn the event this information is protected by the Federal Confidentiality of Alcohol and Drug Abuse Patient Records regulations: The Federal rules restrict any use of the information to criminally investigate or prosecute any alcohol or drug abuse patient.[facility] HospitalIn the event this information is protected by the Federal Confidentiality of Alcohol and Drug Abuse Patient Records regulations: The Federal rules restrict any use of the information to criminally investigate or prosecute any alcohol or drug abuse patient.[facility] HospitalIn the event this information is protected by the Federal Confidentiality of Alcohol and Drug Abuse Patient Records regulations: The Federal rules restrict any use of the information to criminally investigate or prosecute any alcohol or drug abuse patient.[facility] HospitalIn the event this information is protected by the Federal Confidentiality of Alcohol and Drug Abuse Patient Records regulations: The Federal rules restrict any use of the information to criminally investigate or prosecute any alcohol or drug abuse patient.[facility] HospitalIn the event this information is protected by the Federal Confidentiality of Alcohol and Drug Abuse Patient Records regulations: The Federal rules restrict any use of the information to criminally investigate or prosecute any alcohol or drug abuse patient.[facility] HospitalIn the event this information is protected by the Federal Confidentiality of Alcohol and Drug Abuse Patient Records regulations: The Federal rules restrict any use of the information to criminally investigate or prosecute any alcohol or drug abuse patient.[facility] HospitalIn the event this information is protected by the Federal Confidentiality of Alcohol and Drug Abuse Patient Records regulations: The Federal rules restrict any use of the information to criminally investigate or prosecute any alcohol or drug abuse patient.[facility] HospitalIn the event this information is protected by the Federal Confidentiality of Alcohol and Drug Abuse Patient Records regulations: The Federal rules restrict any use of the information to criminally investigate or prosecute any alcohol or drug abuse patient.[facility] HospitalIn the event this information is protected by the Federal Confidentiality of Alcohol and Drug Abuse Patient Records regulations: The Federal rules restrict any use of the information to criminally investigate or prosecute any alcohol or drug abuse patient.[facility] HospitalIn the event this information is protected by the Federal Confidentiality of Alcohol and Drug Abuse Patient Records regulations: The Federal rules restrict any use of the information to criminally investigate or prosecute any alcohol or drug abuse patient.[facility] HospitalIn the event this information is protected by the Federal Confidentiality of Alcohol and Drug Abuse Patient Records regulations: The Federal rules restrict any use of the information to criminally investigate or prosecute any alcohol or drug abuse patient.[facility] HospitalIn the event this information is protected by the Federal Confidentiality of Alcohol and Drug Abuse Patient Records regulations: The Federal rules restrict any use of the information to criminally investigate or prosecute any alcohol or drug abuse patient.[facility] Reason for Visit (unrecogniz ed section and content) Reason Comments US Specialty Diagnoses / Procedures Referred By Kathryn t Referred To Contact [facility] Diagnoses Supervision of high risk in first trimester Procedures NUCHAL TRANSLUCENCY WHI US NUCHAL TRANSLUCENCY 1ST GESTATION Palmer Hubbard MD [address] [place] [address] [facility] [place] [address] [place] [address] Referral ID Status Reason Start Date Expiration Date V isits Requested Visits Authorized [id number] Closed Auto-Generate d Referral 09/18/2024 09/18/2025 1 1 Reason Onset Date Comments Care 11/09/2022 Specialty Diagnoses / Procedures Referred By Contac t Referred To Contact [facility] Diagnoses 17 weeks gestation of Procedures OBSTETRIC ULTRASOUND WHI US PREG UTERUS AFTER 1ST TRIMEST GESTATION Carola Flores, BUS AND RAIL OPERATOR.CNM [address] [place] [address] [facility] [place] [address] [place] [address] Referral ID Status Reason Start Date Expiration Date Visits Requested Visits Authorized [id number] Authorized Auto-Generate d Referral Patient Cleared - [...] Onset Date Comments Care 09/18/2024 Reason Comments JAIL OFFICER Ultrasound Specialty Diagnoses / Procedures Referred By Contac t Referred To Contact [facility] Diagnoses Less than 8 weeks gestation of with uncertain dates in first trimester Encounter for supervision of normal in multigravida Procedures OBSTETRIC ULTRASOUND WHI US PREG UTERUS AFTER 1ST TRIMEST GESTATION Onur Garcia, BUS AND RAIL OPERATOR.CRUSHER SETTER [address] [place] [address] [facility] [place] [address] [place] [address] Referral ID Status Reason Start Date Expiration Date V isits Requested Visits Authorized [id number] Closed Auto-Generate d Referral 09/09/2024 09/09/2025 1 1 Reason Onset Date Comments Care 10/30/2024 Reason Onset Date Comments Care 11/27/2024 Reason Onset Date Comments Care 12/25/2024 Specialty Diagnoses / Procedures Referred By Contac t Referred To Contact [facility] Diagnoses Supervision of high risk in second trimester 12 weeks gestation of Procedures OBSTETRIC ULTRASOUND WHI US PREG UTERUS AFTER 1ST TRIMEST GESTATION Neda Ibarra APRN.CNVesna [address] [place] [address] [facility] [place] [address] [place] [address] Referral ID Status Reason Start Date Expiration Date V isits Requested Visits Authorized [id number] Closed Auto-Generate d Referral 10/30/2024 10/30/2025 1 [...] section and content) DATE CREATED AUTHOR 05/01/2025 [facility] DATE CREATED AUTHOR AUTHOR'S SLIME ATVIMAL 05/06/2025 [facility] FOR RECORDS PERTAINING TO PATIENTS WHO [...] BE BASED ON THE PRIMARY CLINICAL RECORDS. [employer] provides no warranty or guarantee of the accuracy or completeness of information in this document.
[2025-05-11] MEDS: Lactated Ringers 1,000 ML 999 ML IV (03:50)
[2025-05-11 04:04] LABS: Absolute Lymphocyte Count 1.99 X10^3/uL (0.83-4.51); Absolute Neutrophil Count 7.3 X10^3/uL (2.0-7.7); Basophil# 0.02 X10^3/uL; Basophil% 0.2 % (0-1); Eosinophil# 0.07 X10^3/uL; Eosinophils% 0.7 % (0-5); Hematocrit 36.9 % (37-47); Hemoglobin 12.9 g/dL (12.0-15.0); Lymphocyte # 1.99 X10^3/ul (0.83-4.51); Lymphocyte % 19.7 % (19-41); Mean Corpuscular Hgb 29.3 pg (27.0-32.0); Mean Corpuscular Volume 83.7 fL (81-99); Mean Platelet Vol. 11.6 fl (6.2-12.0); Monocyte# 0.66 X10^3/uL; Monocyte% 6.5 % (0-10); NRBC Flagged by Analyzer 0 % (0-5); Neutrophil % 72.5 % (47-70); Platelet Count 204 K/mm3 (150-450); RBC Distribution Width CV 12.3 % (11.6-14.6); RBC Distribution Width SD 37.2 fl (35.1-43.9); Red Blood Count 4.41 M/mm3 (4.2-5.4); White Blood Count 10.1 K/mm3 (4.4-11.0)
[2025-05-11 04:28] LABS: Syphilis Antibodies Nonreactive (Nonreactive)
[2025-05-11] MEDS: Lactated Ringers 1,000 ML 200 ML IV (04:55)
--- NOTE | 2025-05-11 04:59 | PCM.HP.OB ---
HPI - General General Date of Admission: 05/11/25 Date of Service: 05/11/25 Chief Complaint: contractions HPI Narrative KIN ALEJO, is a 24 F who presents with contractions at 6 cm dilated. [facility] Medical History (Updated 05/11/25 @ 05:[address] Kin Walker, DO) First degree perineal laceration Vaginal delivery Pre-eclampsia Pre-eclampsia Home Medications ?Medication ?Instructions ?Recorded ?Last Taken ?Type cetirizine 5 mg tablet 5 mg PO DAILY PRN 12/28/22 12/29/22 11:30 History aspirin 81 mg tablet 81 mg PO DAILY 05/11/25 05/09/25 History Allergy/AdvReac Type Severity Reaction Status Date / Time No Known Allergies Allergy Verified 05/11/25 04:01 Social History Smoking Status: Never smoker History Elective abortions Hx Para 1 Spontaneous abortions Hx # Term Pregnancies Ectopic pregnancies Hx # Pregnancies Multiple births # of living children NST FHR Rate Baby A FHR Category:: Category I Vital Signs Vital Signs Vital Signs: 05/11/25 03:22 05/11/25 03:22 05/11/25 03:22 Temperature 98.6 F Temperature Source Temporal Pulse Rate Respiratory Rate 16 Blood Pressure BP Systolic BP Diastolic Pulse Ox 05/11/25 03:23 05/11/25 03:23 05/11/25 03:23 Temperature Temperature Source Pulse Rate 113 H Respiratory Rate Blood Pressure 121/80 H BP Systolic 121 BP Diastolic 80 Pulse Ox 98 Weight Weight: 165 lb 8 oz Body Mass Index (BMI) 28.4 Labs Labs Labs: Blood Type A NEGATIVE Antibody Screen POSITIVE H Hct 36.9 % (37-47) L Hgb 12.9 g/dL (12.0-15.0) Syphilis Total Ab Nonreactive (Nonreactive) GBS negative Assessment & Plan (1) 39 weeks gestation of : (2) Active labor at term: PLAN: Patient presents with ctx's at 6 cm dilated per nursing staff. Admit for routine intrapartum care. GBS negative. Patient plans epidural prior to AROM. Pelvis adequate and expected EFW < 4500 grams. Anticipate vaginal delivery. Anesthesia to room for epidural. (3) History of pre-eclampsia: (4) Depression affecting :
[2025-05-11] MEDS: fentaNYL-bupivacaine (epidural) 100 ML BAG EPIDURAL (05:10)
[2025-05-11] MEDS: Oxytocin 15 Units/NS 250ml 15 UNITS/250 ML IV.SOLN 334 UNITS IV (06:00)
--- NOTE | 2025-05-11 06:07 | EX.PCM.OBVAG ---
Assessment & Plan (1) Depression affecting : (2) History of pre-eclampsia: (3) Active labor at term: (4) 39 weeks gestation of : (5) Vaginal delivery: Vaginal Delivery Maternal Presentation Maternal Presentation: Active Labor Vaginal Delivery Information Procedure Performed: Spontaneous Vaginal Delivery Surgeon/Practitioner: Rosalina Walker Date of Procedure: 05/11/25 Pre-Procedure Diagnosis: 39 week gestation, active labor at term Post-Procedure Diagnosis: As above Type of anesthesia: Epidural Special Medications: None Estimated Blood Loss: 100 mL Findings Description of procedure: The patient was complete and pushing. Head of delivered in left occiput anterior position. The anterior shoulder was delivered with gentle downward traction, followed by the posterior shoulder and body without any excessive traction, force, or delay. A vigorous viable female was placed on the maternal abdomen. The cord was clamped and cut after a 60 second delay. Cord blood was obtained and sent. The placenta delivered with fundal massage and was noted to be normal-appearing and intact with a three-vessel cord. Fundus firm and bleeding scant. Upon inspection no lacerations were noted. A vaginal sweep was performed. Sponge count was correct. Procedure findings: Vigorous VFI. 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
[2025-05-11] MEDS: Oxytocin 15 Units/NS 250ml 15 UNITS/250 ML IV.SOLN 83 UNITS IV (06:57)
[2025-05-11] MEDS: Ibuprofen 600 MG Tablet PO (09:20)
[2025-05-12 00:08] VITALS: BP 134/64; BP 134/84; PULSE 73; PULSE 82; RESP 16; TEMP 36.3; O2SAT 99
[2025-05-12 03:55] VITALS: BP 110/53; PULSE 82; RESP 15; TEMP 36.3; O2SAT 97
[2025-05-12 03:56] VITALS: BP 110/53; PULSE 75
[2025-05-12 07:25] VITALS: BP 125/84; PULSE 106
[2025-05-12 07:34] VITALS: BP 125/84; PULSE 106; RESP 16; TEMP 36.6
--- NOTE | 2025-05-12 08:45 | PCM.DC.SUM ---
Providers Date of Admission: 05/11/25 Primary Care Physician: Tracy Primary Care Phys Reason For Visit: R/O LABOR Diagnosis Discharge Diagnosis (1) Depression affecting : Status: Acute Code(s): O99.340 - Other mental disorders complicating , unspecified trimester; F32.A - Depression, unspecified (2) History of pre-eclampsia: Status: Acute Code(s): Z87.59 - Personal history of other complications of , childbirth and the puerperium (3) Active labor at term: Status: Acute (4) 39 weeks gestation of : Status: Acute Code(s): Z3A.39 - 39 weeks gestation of (5) Vaginal delivery: Status: Acute Code(s): O80 - Encounter for full-term uncomplicated delivery Medications at Discharge Home Medications acetaminophen 500 mg tablet 1,000 mg (2 x 500 mg) PO Q6H PRN PRN Pain 1-10 Or Fever #0 tabs 05/12/25 ibuprofen 600 mg tablet 600 mg PO Q6H PRN PRN Pain Score 1-10 #0 tabs 05/12/25 Weight / BMI Weight Weight: 165 lb 8 oz Body Mass Index (BMI) 28.4 ABG / Lab / Microbiology Data 05/11/25 03:50 D/C Instructions Discharge Diet: No restrictions Discharge Activity: Return to Normal Activity, May Drive, May Shower and May Take a Tub Bath May resume sexual activity in: 6 weeks Weight Bearing Status: Full weight bearing Call your doctor if you observe: Fever of 101 or Higher, Inability to urinate, Using more than 1 pad per hour, Shortness of breath, Chest pain, Increased palpitations (irregular heartbeat), Calf discomfort and Uncontrolled pain DC O2, CPAP, BIPAP Needs Home O2 Discharge instructions: No Please Follow Up With: Neda Ibarra CNM When: 2 week virtual visit and 6 week visit Meaningful Use Info Meaningful Use Meaningful Use Diagnoses (Choose all that apply): None applicable Ischemic Stroke Statin Dosing Therapy Reference: STATIN DOSE THERAPY REFERENCE: * Patients > 75 years receive moderate or high dose statin therapy. * Patients 75 years or YOUNGER should receive HIGH intensity statin dose unless contraindicated. You will be required to document reason for non-treatment if statin daily dose does not meet guidelines. HIGH DOSE STATIN THERAPY DAILY Atorvastatin > than or = to 40 mg Rosuvastatin > than or = to 20 mg Amlodipine + Atorvastatin > than or = to 2.5/40 mg Ezetimibe + Simvastatin 10/80 mg Simvastatin 80mg Discharge Plan Admission Admit Date/Time: 05/11/25 03:32 Primary Reason for Your Visit: Vaginal Delivery Attending Provider: Rosalina Walker Primary Care Provider: Care Physician,No Primary Discharge Orders/Prescriptions Prescriptions: New acetaminophen 500 mg Tablet 1,000 mg PO Q6H PRN PRN (Reason: Pain 1-10 Or Fever) Qty: 0 0RF ibuprofen 600 mg Tablet 600 mg PO Q6H PRN PRN (Reason: Pain Score 1-10) Qty: 0 0RF Discontinued cetirizine 5 mg Tablet 5 mg PO DAILY PRN (Reason: ) aspirin 81 mg tablet 81 mg PO DAILY Referrals / Follow Up: Care Physician,No Primary [Primary Care Provider] - Disposition Disposition (needs filled in before D/C Order can be placed): Home, Self Care
--- NOTE | 2025-05-12 08:47 | PCM.PN.OB ---
Subjective Subjective Doing well per patient and nursing staff. Ambulating and taking PO without difficulty. Voiding and passing flatus. Pain controlled. , services for assistance. Denies headache, visual changes, chest pain, shortness of breath, leg pain or increased bleeding. Lochia normal. Objective Data Objective Data Vital Signs: Vital Signs Temp Pulse Resp BP Pulse Ox O2 Del Method 97.8 F 106 H 16 125/84 H 97 Room Air 05/12/25 07:34 05/12/25 07:34 05/12/25 07:34 05/12/25 07:34 05/12/25 03:55 05/12/25 03:55 Oxygen Delivery Method Room Air Weight: 165 lb 8 oz Body Mass Index (BMI) 28.4 Intake & Output: Intake and Output for Last 24 Hours 05/10/25 05/11/25 05/12/25 23:59 23:59 23:59 Intake Total 1716.67 / 1716.67 Output Total 100 / 100 Balance 1616.67 / 1616.67 Lab / Micro Data 05/11/25 03:50 ROS Constitutional Constitutional: Reports systems reviewed and no addt'l complaints, except as documented; Denies headache(s) Eyes Eyes: Denies acute decrease in peripheral vision, blurry vision or change in vision ENT HEENT: Reports systems reviewed and no addt'l complaints, except as documented Cardiovascular Cardiovascular: Denies chest pain or dizziness Respiratory/Chest Respiratory/Chest: Denies cough, dyspnea, dyspnea on exertion, shortness of breath at rest or shortness of breath with exertion Gastrointestinal Gastrointestinal: Denies abdominal pain, diarrhea, nausea or vomiting Genitourinary Genitourinary: Denies abdominal discomfort Musculoskeletal Musculoskeletal: Denies limited range of motion Integumentary Integumentary: Reports systems reviewed and no addt'l complaints, except as documented Neurologic Neurologic: Reports systems reviewed and no addt'l complaints, except as documented Psychiatric Psychiatric: Reports systems reviewed and no addt'l complaints, except as documented Endocrine Endocrinology: Reports systems reviewed and no addt'l complaints, except as documented Hematologic/Lymphatic Hematologic/Lymphatic: Reports systems reviewed and no addt'l complaints, except as documented Allergic/Immunologic Allergic/Immunologic: Reports systems reviewed and no addt'l complaints, except as documented Physical Exam Const alert and oriented x3 General Appearance: cooperative Orientation / Consciousness: awake, oriented to person, oriented to place and oriented to time Exam Limitations: no limitations HEENT normocephalic Head and Scalp: normal to inspection, normocephalic and atraumatic Face and Sinus: normal facial exam Eyes General Eye: normal appearance of both eyes Neck full ROM Chest Chest: symmetrical chest wall rise Resp normal respiratory effort and normal air movement Auscultation: clear to auscultation bilaterally Cardio regular rate, regular rhythm, S1 normal heart sound, S2 normal heart sound, no murmurs, no rub, no gallops and no clicks GI normal to inspection, nondistended, normoactive bowel sounds and non-tender GI Narrative: Fundus firm 2 below U appearance of the vagina normal Narrative: Normal lochia rubra Bladder / Kidney Exam: no CVA tenderness Back/Spine normal ROM Extremity normal to inspection and full ROM Skin no rashes or lesions noted Neuro oriented x3, CN's II-XII intact bilaterally and moves all extremities Sensorium / Orientation: awake, alert and oriented to person Motor Exam: clonus absent Deep Tendon Reflexes: Rt Patellar (L4): 2+ and Lt Patellar (L4): 2+ Assessment & Plan (1) Vaginal delivery: PLAN: Plan 1) Routine care, PPD #1 2) Vitals signs stable 3) Pain controlled 4) , services PRN 5) D/C home 6) Follow up in 2 weeks and 6 weeks
== END 2025-05-12 10:05 | disposition home or self-care (01) | DRG 807 ==
LOC: WPOUT 03:43 → WP 03:43
PROVIDERS: Admitting Provider Obstetrics & Gynecology; Visit Provider Obstetrics & Gynecology
DX: O99.344 Other mental disorders complicating childbirth (principal); Z37.0 Single live birth; F32.A Depression, unspecified; Z3A.39 39 weeks gestation of pregnancy; Z87.59 Personal history of other complications of pregnancy, childbirth and the puerperium
CPT/HCPCS: 59025; 59050; 85025; 86780; 86850; 86900; 86901; 99221; G0378